=== PATIENT | female | born 1980 | race Caucasian/White ===

== ENCOUNTER 2016-12-18 10:23 | Emergency (ER) | payer OTHER ==
[2016-12-18 10:42] VITALS: BMI 28.3
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
[2016-12-18 11:06] LABS: MCH 31.6 pg (25.7-33.7); MCHC 33.1 g/dl (32.0-36.0); MEAN CELL VOLUME 95.3 fl (80-96); MEAN PLT VOLUME 8.8 fl (7.5-11.1); PLATELET COUNT 236 K/MM3 (134-434); WHITE BLOOD COUNT 5.6 K/mm3 (4.0-10.0)
[2016-12-18 11:23] LABS: ALBUMIN 3.7 g/dl (3.4-5.0); ALK PHOS 68 U/L (45-117); ANION GAP 7 (8-16); BILIRUBIN,TOTAL 0.8 mg/dL (0.2-1.0); CALCIUM 9.7 mg/dL (8.5-10.1); CO2 25 mmol/L (21-32); CREATININE 0.7 mg/dL (0.55-1.02); GLUCOSE,RANDOM 94 mg/dL (74-106); SGOT/AST 55 U/L (15-37); SGPT/ALT 50 U/L (12-78); TOT PROT 7.3 g/dl (6.4-8.2)
[2016-12-18 12:19] LABS: HIV 1 & 2 AB NEGATIVE; HIV 1 AGp24 NEGATIVE
[2016-12-18 12:25] LABS: PLATELET ESTIMATE ADEQUATE (NORMAL); REACTIVE LYMPHOCYTES 1 % (0-80); TOTAL CELLS COUNTED 100
--- NOTE | 2016-12-18 12:50 | PDOC ---
Attending Attestation - Resident Resident Name: Brigette Torres - ED Attending Attestation I have performed the following: I have examined & evaluated the patient, The case was reviewed & discussed with the resident, I agree w/resident's findings & plan, Exceptions are as noted - HPI HPI: 12/18/16 12:42 36yo F hx untreated HCV, HTN, PSA (cocaine, marijuana) p/w chronic back pain for which she sees Dr. Garvey and also requesting detox. Last heroine + cocaine use 2 days ago. Has been buying percocet from the street. Reports nausea and 1 episode NBNB emesis and chills. Pt feels like she is withdrawing. On review of I -stop, pt also has filled prescriptions for xanax. Denies fevers, headache, abd pain, SOB, CP, LE edema, dysuria, rashes. Does not believe she is . - Physicial Exam PE: 12/18/16 12:50 GENERAL: Awake, alert, and fully oriented, in no acute distress HEAD: No signs of trauma EYES: PERRLA, EOMI, sclera anicteric, conjunctiva clear ENT: Auricles normal inspection, hearing grossly normal, nares patent, oropharynx clear without exudates. Moist mucosa NECK: Normal ROM, supple, no lymphadenopathy, JVD, or masses LUNGS: Breath sounds equal, clear to auscultation bilaterally. No wheezes, and no crackles HEART: Regular rate and rhythm, normal S1 and S2, no murmurs, rubs or gallops ABDOMEN: mild diffuse discomfort to deep palpation, when distracted, no ttp. On serial exam 10 mins later, soft, non distended, no ttp, no rebound or guarding. EXTREMITIES: Normal range of motion, no edema. No clubbing or cyanosis. No cords, erythema, or tenderness NEUROLOGICAL: Normal speech, cranial nerves intact, negative pronator drift, 5/ 5 strength in all 4 extremities, normal sensation to light touch in all 4 extremities, normal cerebellar exam, normal gait, normal reflexes and tone SKIN: Warm, Dry, normal turgor, no rashes or lesions noted. - Medical Decision Making 12/18/16 12:52 36-year-old female with a history of polysubstance abuse and chronic back pain presents requesting detox. [facility] has been called and has accepted patient. Pt currently with some sxs of withdrawal but no other acute medical issues to address. Exam unremarkable. Vitals wnl. -basic labs -Utox -UPT -transfer to [facility]
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
[2016-12-18 13:22] LABS: URINE MARIJUANA THC POSITIVE ng/ml (CUTOFF=50)
[2016-12-18 14:03] VITALS: BP 120/77; PULSE 88; TEMP 98.6
== END 2016-12-18 14:00 | disposition home or self-care (01) ==
LOC: JER 10:23
DX: F11.20 Opioid dependence, uncomplicated (principal); F41.0 Panic disorder [episodic paroxysmal anxiety]; F12.10 Cannabis abuse, uncomplicated; B18.2 Chronic viral hepatitis C; I10 Essential (primary) hypertension; J45.909 Unspecified asthma, uncomplicated; F17.210 Nicotine dependence, cigarettes, uncomplicated
CPT/HCPCS: 36415; 80053; 80307; 84703; 85025; 87389; 99284-25

== ENCOUNTER 2017-01-13 15:25 | Inpatient (IN) | payer OTHER ==
[2017-01-13 19:00] VITALS: BMI 28.3
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
[2017-01-13] MEDS ORDERED: ACETAMINOPHEN 325 MG TABLET (FP) PO PRN (20:47)
[2017-01-13] MEDS ORDERED: NICOTINE POLACRILEX 2 MG GUM BC PRN (20:47)
[2017-01-13] MEDS ORDERED: MAG HYDROX/AL HYDROX/SIMETH 30 ML UNIT-DOSE CUP PO PRN (20:47)
[2017-01-13] MEDS ORDERED: MAGNESIUM HYDROX 2400MG/30ML ORAL SUSPENSION 30 ML CUP PO PRN (20:47)
[2017-01-13] MEDS ORDERED: MAGNESIUM CITRATE 300 ML BOTTLE PO PRN (20:47)
[2017-01-13] MEDS ORDERED: LOPERAMIDE HCL 2 MG CAPSULE PO PRN (20:47)
[2017-01-13] MEDS ORDERED: METHADONE HCL 10 MG TABLET (FOR DETOX USE ONLY) PO ONE ×3 (20:47→23:45)
[2017-01-13] MEDS ORDERED: guaiFENesin/D-METHORPHAN HB 10 ML UNIT-DOSE CUPS PO PRN (20:47)
[2017-01-13] MEDS ORDERED: hydrOXYzine PAMOATE 50 MG CAPSULE (FP) PO PRN (20:47)
[2017-01-13] MEDS ORDERED: MENTHOL/PHENOL 1 EACH UD MM PRN (20:47)
[2017-01-13] MEDS ORDERED: P-EPHED 60MG/TRIPROLIDI 2.5MG TABLET PO PRN (20:47)
[2017-01-13] MEDS ORDERED: IBUPROFEN 400 MG TABLET (FP) PO PRN (20:47)
[2017-01-13] MEDS ORDERED: ALBUTEROL SO4 18 GM HFA INHALER IH PRN (20:50)
[2017-01-13] MEDS ORDERED: cloNIDine HCL 0.1 MG TABLET PO ONE ×2 (21:03→23:45)
[2017-01-13 23:06] LABS: URINE APPEARANCE CLOUDY; URINE BLOOD NEGATIVE (NEGATIVE); URINE COLOR AMBER; URINE GLUCOSE (UA) NEGATIVE (NEGATIVE); URINE KETONE TRACE (NEGATIVE); URINE NITRITE NEGATIVE (NEGATIVE)
[2017-01-13 23:09] LABS: URINE PROTEIN 1+ (NEGATIVE)
[2017-01-13 23:11] LABS: URINE HYALINE CAST 2 /lpf; URINE MUCUS MANY; URINE RBC 1 /hpf (0-3); URINE WBC 8 /hpf (3-5)
[2017-01-13] MEDS: THIAMINE HCL 100 MG TABLET (FP) PO SCH (23:52)
[2017-01-13] MEDS: diazePAM 5 MG TABLET PO PRN (23:54)
[2017-01-14 09:26] LABS: URINE LEUK ESTERASE Negative (NEGATIVE)
[2017-01-14] MEDS ORDERED: METHADONE HCL 10 MG TABLET (FOR DETOX USE ONLY) PO ONE ×2 (10:00→11:15)
[2017-01-14] MEDS ORDERED: DOXYCYCLINE HYCLATE 100 MG CAPSULE PO SCH (10:00)
[2017-01-14 10:17] LABS: MCH 31.4 pg (25.7-33.7); MCHC 32.8 g/dl (32.0-36.0); MEAN CELL VOLUME 95.7 fl (80-96); MEAN PLT VOLUME 9.6 fl (7.5-11.1); PLATELET COUNT 184 K/MM3 (134-434); RDW 12.9 % (11.6-15.6); WHITE BLOOD COUNT 7.8 K/mm3 (4.0-10.0)
[2017-01-14 10:28] LABS: ANION GAP 6 (8-16); CO2 29 mmol/L (21-32); GLUCOSE,RANDOM 90 mg/dL (74-106)
[2017-01-14 10:33] LABS: ALK PHOS 72 U/L (45-117); BILIRUBIN,TOTAL 0.3 mg/dL (0.2-1.0); CREATININE 0.6 mg/dL (0.55-1.02); SGOT/AST 201 U/L (15-37); SGPT/ALT 190 U/L (12-78); TOT PROT 6.1 g/dl (6.4-8.2)
[2017-01-14] MEDS: PRENATAL VITAMINS W/ FOLIC ACID TABLET (FP) PO SCH (10:44)
[2017-01-14] MEDS: NICOTINE 14 MG/24 HOURS TOPICAL PATCH TD SCH (10:45)
[2017-01-14] MEDS: SERTRALINE HCL 50 MG TABLET (FP) PO SCH (10:46)
--- NOTE | 2017-01-14 10:53 | CONSULT ---
[facility] Psychiatric Consult - Data Date of interview: 01/14/17 Admission source: [facility] Identifying data: This is 36 years old female with history of PTSD, anxiety and depression, withy no history of psychiatric hospita;izations, intoxicatewd with Heroin, Cocaine Nicotine, history of Alcohol abuse as well Substance Abuse History: - Smoking Cessation. Smoking history: Current every day smoker. Have you smoked in the past 12 months: Yes. Aproximately how many cigarettes per day: 10. Cigars Per Day: 0. Hx Chewing Tobacco Use: No. Initiated information on smoking cessation: Yes. 'Breaking Loose' booklet given : 01/13/17. - Substance & Tx. History. Hx Alcohol Use: No. Hx Substance Use: Yes. Substance Use Type: Cocaine, Heroin. Hx Substance Use Treatment: Yes ( DETOX: 2014; REHAB: 2015). - Substances Abused. Heroin. Route: Injection. Frequency: Daily. Amount used: 4-5 BAGS. Age of first use: 34. Date of Last Use: 01/13/17. Cocaine. Route: Injection. Frequency: Daily. Amount used: $20-40. Age of first use: 17. Date of Last Use: 01/13/17 Medical History: Ceelulitis history, HepC+, Seizure history Psychiatric History: P[atient reports history of PTSD, Anxiety and Depression. Patient reports taking prior to admission: Zoloft 100mg poqd Physical/Sexual Abuse/Trauma History: Denies, unclear Additional Comment: Zoloft 100mg poqd Mental Status Exam - Mental Status Exam Alert and Oriented to: Person Cognitive Function: Fair Patient Appearance: Unkempt Mood: Sad Affect: Flat Patient Behavior: Cooperative Speech Pattern: Delayed Voice Loudness: Normal Thought Process: Goal Oriented Thought Disorder: Being Controlled Hallucinations: Denies Suicidal Ideation: Denies Homicidal Ideation: Denies Insight/Judgement: Fair Sleep: Difficulty falling asleep Appetite: Weight loss Muscle strength/Tone: Mild Hypertonicity Gait/Station: Shuffling Additional Comments: Zoloft 100mg poqd Psychiatric Findings - Problem List ([place] 1, 2,3) (1) Cellulitis of antecubital fossa Current Visit: Yes Status: Acute (2) Nicotine dependence Current Visit: Yes Status: Chronic Qualifiers: Nicotine product type: cigarettes Substance use status: uncomplicated Qualified Code(s): F17.210 - Nicotine dependence, cigarettes, uncomplicated; F17.210 - Nicotine dependence, cigarettes, uncomplicated (3) Opioid dependence with withdrawal Current Visit: Yes Status: Chronic (4) Elevated liver enzymes Current Visit: No Status: Acute (5) Methadone dependence Current Visit: No Status: Acute (6) Alcohol dependence Current Visit: No Status: Chronic Qualifiers: Substance use status: uncomplicated Qualified Code(s): F10.20 - Alcohol dependence, uncomplicated; F10.20 - Alcohol dependence, uncomplicated; F10.20 - Alcohol dependence, uncomplicated (7) Anxiety and depression Current Visit: No Status: Chronic (8) PTSD (post-traumatic stress disorder) Current Visit: No Status: Chronic (9) Drug-induced mood disorder Current Visit: Yes Status: Acute - Initial Treatment Plan Initial Treatment Plan: Zoloft 100mg poqd
--- NOTE | 2017-01-14 10:57 | PN ---
BHS COWS - Scale Resting Pulse: 0= [place] 80 or Below Sweatin= Chills/Flushing Restless Observation: 3= Extraneous Movement Pupil Size: 1= Pupils >than Normal Bone or Joint Aches: 2= Severe Diffuse Aches Runny Nose/ Eye Tearin= Runny Nose/Eyes GI Upset > 30mins: 3= Vomiting/Diarrhea Tremor Observation of Outstretched Hands: 2= Slight Tremor Visible Yawning Observation: 1= 1-2x During Session Anxiety or Irritability: 2=Irritable/Anxious Goose Flesh Skin: 0=Smooth Skin COWS Score: 17 BHS Progress Note (SOAP) Subjective: alert,irritable,anxious,interrupted sleep,pain in the body and back Objective: 01/14/17 11:00 Vital Signs Temperature 98.1 F 01/14/17 06:23 Pulse Rate 62 01/14/17 06:23 Respiratory Rate 18 01/14/17 06:23 Blood Pressure 94/50 01/14/17 06:23 O2 Sat by Pulse Oximetry (%) ekg nsr,normal ecg Laboratory Last Values WBC 7.8 K/mm3 (4.0-10.0) D 01/14/17 07:00 RBC 3.70 M/mm3 (3.60-5.2) 01/14/17 07:00 Hgb 11.6 GM/dL (10.7-15.3) 01/14/17 07:00 Hct 35.4 % (32.4-45.2) 01/14/17 07:00 MCV 95.7 fl (80-96) 01/14/17 07:00 MCH 31.4 pg (25.7-33.7) 01/14/17 07:00 MCHC 32.8 g/dl (32.0-36.0) 01/14/17 07:00 RDW 12.9 % (11.6-15.6) 01/14/17 07:00 Plt Count 184 K/MM3 (134-434) D 01/14/17 07:00 MPV 9.6 fl (7.5-11.1) 01/14/17 07:00 Urine Color Yesenia 01/13/17 22:00 Urine Appearance Cloudy 01/13/17 22:00 Urine pH 5.0 (5.0-8.0) 01/13/17 22:00 Ur Specific [place] >= 1.030 (1.005-1.025) H 01/13/17 22:00 Urine Protein 1+ (NEGATIVE) H 01/13/17 22:00 Urine Glucose (UA) Negative (NEGATIVE) 01/13/17 22:00 Urine Ketones Trace (NEGATIVE) H 01/13/17 22:00 Urine Blood Negative (NEGATIVE) 01/13/17 22:00 Urine Nitrite Negative (NEGATIVE) 01/13/17 22:00 Urine Bilirubin 2.0 (NEGATIVE) 01/13/17 22:00 Urine Urobilinogen 2.0 mg/dL (0.2-1.0) H 01/13/17 22:00 Ur Leukocyte Esterase Negative (NEGATIVE) 01/13/17 22:00 Urine RBC 1 /hpf (0-3) 01/13/17 22:00 Urine WBC 8 /hpf (3-5) 01/13/17 22:00 Ur Epithelial Cells Moderate /hpf (FEW) 01/13/17 22:00 Hyaline Casts 2 /lpf 01/13/17 22:00 Urine Mucus Many 01/13/17 22:00 RPR Titer Nonreactive (NONREACTIVE) 01/14/17 07:00 01/14/17 11:01 labs pending Assessment: 01/14/17 11:01 withdrawal symptom Plan: continue detox
--- NOTE | 2017-01-14 11:58 | EKG ---
Test Reason : Blood Pressure : / mmHG Vent. Rate : 070 BPM Atrial Rate : 070 BPM P-R Int : 160 ms QRS Dur : 096 ms QT Int : 392 ms P-R-T Axes : 065 081 069 degrees QTc Int : 423 ms NORMAL SINUS RHYTHM NORMAL ECG WHEN COMPARED WITH ECG OF 14-APR-2010 01:14, NONSPECIFIC T WAVE ABNORMALITY NO LONGER EVIDENT IN INFERIOR LEADS NONSPECIFIC T WAVE ABNORMALITY NO LONGER EVIDENT IN LATERAL LEADS Confirmed by MIHIR LAZO, BINDU ([id number]) on 01/14/2017 11:57:49 AM Referred By: Confirmed By:BINDU ASH MD
[2017-01-14] MEDS: DOXYCYCLINE HYCLATE 100 MG TABLET PO SCH (17:21)
[2017-01-14] MEDS: diazePAM 5 MG TABLET PO PRN (22:11)
[2017-01-14] MEDS: THIAMINE HCL 100 MG TABLET (FP) PO SCH (22:12)
--- NOTE | 2017-01-15 09:36 | PN ---
BHS COWS - Scale Resting Pulse: 0= [place] 80 or Below Sweatin= Chills/Flushing Restless Observation: 3= Extraneous Movement Pupil Size: 1= Pupils >than Normal Bone or Joint Aches: 2= Severe Diffuse Aches Runny Nose/ Eye Tearin= Nasal Congestion GI Upset > 30mins: 2= Nausea/Diarrhea Tremor Observation of Outstretched Hands: 2= Slight Tremor Visible Yawning Observation: 1= 1-2x During Session Anxiety or Irritability: 2=Irritable/Anxious Goose Flesh Skin: 0=Smooth Skin COWS Score: 15 BHS Progress Note (SOAP) Subjective: alert,irritable,anxious,interrupted sleep,pain in the body and back Objective: 01/15/17 09:33 Vital Signs Temperature 98.4 F 01/15/17 06:28 Pulse Rate 52 L 01/15/17 06:28 Respiratory Rate 16 01/15/17 06:28 Blood Pressure 115/69 01/15/17 06:28 O2 Sat by Pulse Oximetry (%) Laboratory Last Values WBC 7.8 K/mm3 (4.0-10.0) D 01/14/17 07:00 RBC 3.70 M/mm3 (3.60-5.2) 01/14/17 07:00 Hgb 11.6 GM/dL (10.7-15.3) 01/14/17 07:00 Hct 35.4 % (32.4-45.2) 01/14/17 07:00 MCV 95.7 fl (80-96) 01/14/17 07:00 MCH 31.4 pg (25.7-33.7) 01/14/17 07:00 MCHC 32.8 g/dl (32.0-36.0) 01/14/17 07:00 RDW 12.9 % (11.6-15.6) 01/14/17 07:00 Plt Count 184 K/MM3 (134-434) D 01/14/17 07:00 MPV 9.6 fl (7.5-11.1) 01/14/17 07:00 Sodium 140 mmol/L (136-145) 01/14/17 07:00 Potassium 3.3 mmol/L (3.5-5.1) L 01/14/17 07:00 Chloride 105 mmol/L (98-107) 01/14/17 07:00 Carbon Dioxide 29 mmol/L (21-32) 01/14/17 07:00 Anion Gap 6 (8-16) L 01/14/17 07:00 BUN 7 mg/dL (7-18) 01/14/17 07:00 Creatinine 0.6 mg/dL (0.55-1.02) 01/14/17 07:00 Creat Clearance w eGFR > 60 (>60) 01/14/17 07:00 Random Glucose 90 mg/dL (74-106) 01/14/17 07:00 Calcium 8.0 mg/dL (8.5-10.1) L 01/14/17 07:00 Total Bilirubin 0.3 mg/dL (0.2-1.0) D 01/14/17 07:00 AST 201 U/L (15-37) H D 01/14/17 07:00 ALT 190 U/L (12-78) H D 01/14/17 07:00 Alkaline Phosphatase 72 U/L (45-117) 01/14/17 07:00 Total Protein 6.1 g/dl (6.4-8.2) L 01/14/17 07:00 Albumin 3.0 g/dl (3.4-5.0) L 01/14/17 07:00 Urine Color [place]enia 01/13/17 22:00 Urine Appearance Cloudy 01/13/17 22:00 Urine pH 5.0 (5.0-8.0) 01/13/17 22:00 Ur Specific [place] >= 1.030 (1.005-1.025) H 01/13/17 22:00 Urine Protein 1+ (NEGATIVE) H 01/13/17 22:00 Urine Glucose (UA) Negative (NEGATIVE) 01/13/17 22:00 Urine Ketones Trace (NEGATIVE) H 01/13/17 22:00 Urine Blood Negative (NEGATIVE) 01/13/17 22:00 Urine Nitrite Negative (NEGATIVE) 01/13/17 22:00 Urine Bilirubin 2.0 (NEGATIVE) 01/13/17 22:00 Urine Urobilinogen 2.0 mg/dL (0.2-1.0) H 01/13/17 22:00 Ur Leukocyte Esterase Negative (NEGATIVE) 01/13/17 22:00 Urine RBC 1 /hpf (0-3) 01/13/17 22:00 Urine WBC 8 /hpf (3-5) 01/13/17 22:00 Ur Epithelial Cells Moderate /hpf (FEW) 01/13/17 22:00 Hyaline Casts 2 /lpf 01/13/17 22:00 Urine Mucus Many 01/13/17 22:00 RPR Titer Nonreactive (NONREACTIVE) 01/14/17 07:00 Assessment: 01/15/17 09:34 withdrawal symptom Plan: continue detox,d/c tylenol due to alt,ast elevation,repeat alt,ast,inr in am
[2017-01-15] MEDS ORDERED: METHADONE HCL 5 MG TABLET (FOR DETOX USE ONLY) PO ONE (10:00)
--- NOTE | 2017-01-15 10:03 | PN ---
BHS Progress Note Note: is 3.3 ,hypo\kalemia,k dur 20 meq po daily,repeat k in am
[2017-01-15] MEDS: SERTRALINE HCL 50 MG TABLET (FP) PO SCH (10:26)
[2017-01-15] MEDS: DOXYCYCLINE HYCLATE 100 MG TABLET PO SCH ×2 (10:26→17:30)
[2017-01-15] MEDS: PRENATAL VITAMINS W/ FOLIC ACID TABLET (FP) PO SCH (10:27)
[2017-01-15] MEDS: NICOTINE 14 MG/24 HOURS TOPICAL PATCH TD SCH (10:27)
[2017-01-15] MEDS: POTASSIUM CHLORIDE TABS 20 MEQ TABLET.ER (FP) PO SCH (10:29)
[2017-01-15] MEDS: diazePAM 5 MG TABLET PO PRN (22:06)
[2017-01-15] MEDS: THIAMINE HCL 100 MG TABLET (FP) PO SCH (22:06)
--- NOTE | 2017-01-16 09:26 | PN ---
BHS COWS - Scale Resting Pulse: 0= [place] 80 or Below Sweatin= Chills/Flushing Restless Observation: 3= Extraneous Movement Pupil Size: 1= Pupils >than Normal Bone or Joint Aches: 2= Severe Diffuse Aches Runny Nose/ Eye Tearin= Runny Nose/Eyes GI Upset > 30mins: 2= Nausea/Diarrhea Tremor Observation of Outstretched Hands: 2= Slight Tremor Visible Yawning Observation: 1= 1-2x During Session Anxiety or Irritability: 2=Irritable/Anxious Goose Flesh Skin: 0=Smooth Skin COWS Score: 16 BHS Progress Note (SOAP) Subjective: alert,irritable,anxious,interrupted sleep,tremor,pain in the body and back Objective: 01/16/17 09:25 Vital Signs Temperature 97.1 F L 01/16/17 06:28 Pulse Rate 55 L 01/16/17 06:28 Respiratory Rate 16 01/16/17 06:28 Blood Pressure 124/78 01/16/17 06:28 O2 Sat by Pulse Oximetry (%) repeat ast,alt,inr pending Assessment: 01/16/17 09:25 withdrawal symptom Plan: continue detox
[2017-01-16] MEDS ORDERED: METHADONE HCL 5 MG TABLET (FOR DETOX USE ONLY) PO ONE (10:00)
[2017-01-16] MEDS: DOXYCYCLINE HYCLATE 100 MG TABLET PO SCH ×2 (10:19→17:14)
[2017-01-16] MEDS: SERTRALINE HCL 50 MG TABLET (FP) PO SCH (10:19)
[2017-01-16] MEDS: POTASSIUM CHLORIDE TABS 20 MEQ TABLET.ER (FP) PO SCH (10:19)
[2017-01-16] MEDS: PRENATAL VITAMINS W/ FOLIC ACID TABLET (FP) PO SCH (10:19)
[2017-01-16] MEDS: NICOTINE 14 MG/24 HOURS TOPICAL PATCH TD SCH (10:20)
[2017-01-16 10:24] LABS: INR 1.02 (0.82-1.09); PROTHROMBIN TIME (PATIENT) 11.5 SEC (9.98-11.88)
[2017-01-16] MEDS: THIAMINE HCL 100 MG TABLET (FP) PO SCH (22:18)
[2017-01-16] MEDS: diphenhydrAMINE HCL 50 MG CAPSULE PO PRN (22:18)
[2017-01-17] MEDS ORDERED: METHADONE HCL 10 MG TABLET (FOR DETOX USE ONLY) PO ONE (10:00)
[2017-01-17] MEDS: DOXYCYCLINE HYCLATE 100 MG TABLET PO SCH ×2 (10:40→17:21)
[2017-01-17] MEDS: SERTRALINE HCL 50 MG TABLET (FP) PO SCH (10:40)
[2017-01-17] MEDS: POTASSIUM CHLORIDE TABS 20 MEQ TABLET.ER (FP) PO SCH (10:40)
[2017-01-17] MEDS: PRENATAL VITAMINS W/ FOLIC ACID TABLET (FP) PO SCH (10:42)
[2017-01-17] MEDS: NICOTINE 14 MG/24 HOURS TOPICAL PATCH TD SCH (10:42)
--- NOTE | 2017-01-17 11:38 | PN ---
BHS Progress Note (SOAP) Subjective: poor sleep, anxious, shaky Objective: 01/17/17 11:37 Laboratory Tests 01/13/17 01/14/17 01/14/17 22:00 07:00 07:00 WBC 7.8 D RBC 3.70 Hgb 11.6 Hct 35.4 MCV 95.7 MCH 31.4 MCHC 32.8 RDW 12.9 Plt Count 184 D MPV 9.6 PT with INR INR Sodium 140 Potassium 3.3 L Chloride 105 Carbon Dioxide 29 Anion Gap 6 L BUN 7 Creatinine 0.6 Creat Clearance w eGFR > 60 Random Glucose 90 Calcium 8.0 L Total Bilirubin 0.3 D AST 201 H D ALT 190 H D Alkaline Phosphatase 72 Total Protein 6.1 L Albumin 3.0 L Urine Color Yesenia Urine Appearance Cloudy Urine pH 5.0 Ur Specific [place] >= 1.030 H Urine Protein 1+ H Urine Glucose (UA) Negative Urine Ketones Trace H Urine Blood Negative Urine Nitrite Negative Urine Bilirubin 2.0 Urine Urobilinogen 2.0 H Ur Leukocyte Esterase Negative Urine RBC 1 Urine WBC 8 Ur Epithelial Cells Moderate Hyaline Casts 2 Urine Mucus Many RPR Titer 01/14/17 01/16/17 01/16/17 07:00 07:00 07:00 WBC RBC Hgb Hct MCV MCH MCHC RDW Plt Count MPV PT with INR 11.50 INR 1.02 Sodium Potassium 4.6 D Chloride Carbon Dioxide Anion Gap BUN Creatinine Creat Clearance w eGFR Random Glucose Calcium Total Bilirubin AST 223 H ALT 225 H Alkaline Phosphatase Total Protein Albumin Urine Color Urine Appearance Urine pH Ur Specific [place] Urine Protein Urine Glucose (UA) Urine Ketones Urine Blood Urine Nitrite Urine Bilirubin Urine Urobilinogen Ur Leukocyte Esterase Urine RBC Urine WBC Ur Epithelial Cells Hyaline Casts Urine Mucus RPR Titer Nonreactive Vital Signs - 24 hr 01/16/17 01/16/17 01/16/17 14:05 18:05 23:46 Temperature 98.1 F 98.1 F 98.2 F Pulse Rate 52 L 52 L 55 L Respiratory 18 18 18 Rate Blood Pressure 118/68 106/65 120/64 01/17/17 01/17/17 01/17/17 00:30 03:30 06:30 Temperature 97.3 F L Pulse Rate 50 L Respiratory 18 17 16 Rate Blood Pressure 119/69 01/17/17 11:05 Temperature 97.5 F L Pulse Rate 54 L Respiratory 18 Rate Blood Pressure 107/89 Assessment: 01/17/17 11:37 opiate dep transaminitis Plan: cont protocol discussed need for fu due to increased lft's with known hcv
[2017-01-17] MEDS: THIAMINE HCL 100 MG TABLET (FP) PO SCH (22:22)
[2017-01-17] MEDS: diphenhydrAMINE HCL 50 MG CAPSULE PO PRN (22:22)
[2017-01-18] MEDS ORDERED: METHADONE HCL 5 MG TABLET (FOR DETOX USE ONLY) PO ONE (06:00)
[2017-01-18 06:47] VITALS: TEMP 98.2
[2017-01-18 07:25] VITALS: BP 80/60; PULSE 53
--- NOTE | 2017-01-18 09:13 | DS ---
[facility] Detox Discharge Summary Admission Date: 01/13/17 Discharge Date: 01/18/17 - History Present History: Opioid Dependence Pertinent Past History: Asthma Hep C - Physical Exam Results Vital Signs: Vital Signs Temperature 98.2 F 01/18/17 06:00 Pulse Rate 53 L 01/18/17 07:23 Respiratory Rate 16 01/18/17 07:23 Blood Pressure 80/60 01/18/17 07:23 O2 Sat by Pulse Oximetry (%) Pertinent Admission Physical Exam Findings: Withdrawal sx Laboratory Tests 01/13/17 01/14/17 01/14/17 22:00 07:00 07:00 WBC 7.8 D RBC 3.70 Hgb 11.6 Hct 35.4 MCV 95.7 MCH 31.4 MCHC 32.8 RDW 12.9 Plt Count 184 D MPV 9.6 PT with INR INR Sodium 140 Potassium 3.3 L Chloride 105 Carbon Dioxide 29 Anion Gap 6 L BUN 7 Creatinine 0.6 Creat Clearance w eGFR > 60 Random Glucose 90 Calcium 8.0 L Total Bilirubin 0.3 D AST 201 H D ALT 190 H D Alkaline Phosphatase 72 Total Protein 6.1 L Albumin 3.0 L Urine Color [place] Urine Appearance Cloudy Urine pH 5.0 Ur Specific [place] >= 1.030 H Urine Protein 1+ H Urine Glucose (UA) Negative Urine Ketones Trace H Urine Blood Negative Urine Nitrite Negative Urine Bilirubin 2.0 Urine Urobilinogen 2.0 H Ur Leukocyte Esterase Negative Urine RBC 1 Urine WBC 8 Ur Epithelial Cells Moderate Hyaline Casts 2 Urine Mucus Many RPR Titer 01/14/17 01/16/17 01/16/17 07:00 07:00 07:00 WBC RBC Hgb Hct MCV MCH MCHC RDW Plt Count MPV PT with INR 11.50 INR 1.02 Sodium Potassium 4.6 D Chloride Carbon Dioxide Anion Gap BUN Creatinine Creat Clearance w eGFR Random Glucose Calcium Total Bilirubin AST 223 H ALT 225 H Alkaline Phosphatase Total Protein Albumin Urine Color Urine Appearance Urine pH Ur Specific [place] Urine Protein Urine Glucose (UA) Urine Ketones Urine Blood Urine Nitrite Urine Bilirubin Urine Urobilinogen Ur Leukocyte Esterase Urine RBC Urine WBC Ur Epithelial Cells Hyaline Casts Urine Mucus RPR Titer Nonreactive labs noted - Treatment Hospital Course: Detox Protocol Followed, Detoxed Safely, Responded well, Discharged Condition Good, Rehab Referral Accepted Patient has Accepted a Rehab Referral to: IOP - Medication Discharge Medications: Ambulatory Orders Oxycodone HCl/Acetaminophen [Percocet 10-325 mg Tablet] 1 each PO Q6H 12/18/16 Sertraline HCl [Zoloft -] 100 mg PO DAILY #30 tablet 01/14/17 - Diagnosis (1) Asthma Current Visit: Yes Status: Chronic Qualifiers: Asthma severity: mild intermittent Asthma complication type: with status asthmaticus Qualified Code(s): J45.22 - Mild intermittent asthma with status asthmaticus; J45.22 - Mild intermittent asthma with status asthmaticus; J45.22 - Mild intermittent asthma with status asthmaticus (2) Hepatitis C Current Visit: Yes Status: Chronic Qualifiers: Viral hepatitis chronicity: carrier (3) Nicotine dependence Current Visit: Yes Status: Chronic Qualifiers: Nicotine product type: cigarettes Substance use status: uncomplicated Qualified Code(s): F17.210 - Nicotine dependence, cigarettes, uncomplicated; F17.210 - Nicotine dependence, cigarettes, uncomplicated (4) Opioid dependence with withdrawal Current Visit: Yes Status: Chronic (5) PTSD (post-traumatic stress disorder) Current Visit: Yes Status: Chronic (6) Cellulitis of antecubital fossa Current Visit: Yes Status: Acute (7) Drug-induced mood disorder Current Visit: Yes Status: Acute - AMA Did Patient Leave Against Medical Advice: No
== END 2017-01-18 09:25 | disposition home or self-care (01) | DRG 773 ==
LOC: YASAS 15:25 → Y6N 21:13
PROVIDERS: ADMIT Internal Medicine; ATTEND Internal Medicine
PROC: HZ2ZZZZ Detoxification Services for Substance Abuse Treatment (ICD-10-PCS; principal; 2017-01-13)
DX: F11.23 Opioid dependence with withdrawal (principal); F14.20 Cocaine dependence, uncomplicated; F17.210 Nicotine dependence, cigarettes, uncomplicated; F19.24 Other psychoactive substance dependence with psychoactive substance-induced mood disorder; F43.10 Post-traumatic stress disorder, unspecified; F41.8 Other specified anxiety disorders; J45.22 Mild intermittent asthma with status asthmaticus; E87.6 Hypokalemia; B18.2 Chronic viral hepatitis C; L03.119 Cellulitis of unspecified part of limb; R74.0 Nonspecific elevation of levels of transaminase and lactic acid dehydrogenase [LDH]; R74.8 Abnormal levels of other serum enzymes; G40.909 Epilepsy, unspecified, not intractable, without status epilepticus; Z88.2 Allergy status to sulfonamides
CPT/HCPCS: 36415; 80053; 81003; 81015; 84132; 84450; 84460; 85027; 85610; 86593; 93005; 93010

== ENCOUNTER 2017-01-22 11:51 | Emergency (ER) | payer OTHER ==
[2017-01-22 12:03] VITALS: BP 126/80; PULSE 72; TEMP 98.2; BMI 28.3
== END 2017-01-22 13:29 | disposition left against medical advice (07) ==
LOC: JERFT 11:51
DX: Z53.21 Procedure and treatment not carried out due to patient leaving prior to being seen by health care provider (principal)
CPT/HCPCS: 99281-25

== ENCOUNTER 2017-07-10 09:49 | Inpatient (IN) | payer OTHER ==
[2017-07-10 15:52] VITALS: BMI 26.4
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
[2017-07-10] MEDS ORDERED: ACETAMINOPHEN 325 MG TABLET (FP) PO PRN (16:48)
[2017-07-10] MEDS ORDERED: MENTHOL/PHENOL 1 EACH UD MM PRN (16:48)
[2017-07-10] MEDS ORDERED: NICOTINE POLACRILEX 2 MG GUM BC PRN (16:48)
[2017-07-10] MEDS ORDERED: IBUPROFEN 400 MG TABLET (FP) PO PRN (16:48)
[2017-07-10] MEDS ORDERED: P-EPHED 60MG/TRIPROLIDI 2.5MG TABLET PO PRN (16:48)
[2017-07-10] MEDS ORDERED: MAGNESIUM CITRATE 300 ML BOTTLE PO PRN (16:48)
[2017-07-10] MEDS ORDERED: MAG HYDROX/AL HYDROX/SIMETH 30 ML UNIT-DOSE CUP PO PRN (16:48)
[2017-07-10] MEDS ORDERED: hydrOXYzine PAMOATE 50 MG CAPSULE (FP) PO PRN (16:48)
[2017-07-10] MEDS ORDERED: LOPERAMIDE HCL 2 MG CAPSULE PO PRN (16:48)
[2017-07-10] MEDS ORDERED: guaiFENesin/D-METHORPHAN HB 10 ML UNIT-DOSE CUPS PO PRN (16:48)
[2017-07-10] MEDS ORDERED: MAGNESIUM HYDROX 2400MG/30ML ORAL SUSPENSION 30 ML CUP PO PRN (16:48)
[2017-07-10] MEDS ORDERED: ALBUTEROL SO4 18 GM HFA INHALER IH PRN (17:18)
[2017-07-10] MEDS ORDERED: CEPHALEXIN MONOHYDRATE 500 MG CAPSULE (UD) PO SCH (18:00)
[2017-07-10] MEDS ORDERED: METHADONE HCL 10 MG TABLET (FOR DETOX USE ONLY) PO ONE ×2 (18:00→23:00)
[2017-07-10] MEDS: diazePAM 5 MG TABLET PO PRN (20:01)
[2017-07-10 21:06] LABS: URINE APPEARANCE SL CLOUDY; URINE COLOR AMBER
[2017-07-10 21:07] LABS: URINE BILIRUBIN NEGATIVE (<2.0 mg/dL); URINE GLUCOSE (UA) NEGATIVE (NEGATIVE); URINE KETONE TRACE (NEGATIVE)
[2017-07-10 21:08] LABS: URINE BLOOD NEGATIVE (NEGATIVE); URINE LEUK ESTERASE TRACE (NEGATIVE); URINE NITRITE NEGATIVE (NEGATIVE); URINE PROTEIN 2+ (NEGATIVE)
[2017-07-10 21:09] LABS: EPI CELLS RARE /HPF (FEW); URINE MUCUS MANY
[2017-07-10 21:10] LABS: CALCIUM OXALATE CRYSTALS RARE /hpf (NONE SEEN)
[2017-07-10] MEDS ORDERED: MELATONIN 5 MG TABLETS PO PRN (22:00)
[2017-07-10] MEDS: THIAMINE HCL 100 MG TABLET (FP) PO SCH (22:34)
[2017-07-10] MEDS: CEPHALEXIN MONOHYDRATE 250 MG CAPSULE (FP) PO SCH (23:05)
[2017-07-11] MEDS: CEPHALEXIN MONOHYDRATE 250 MG CAPSULE (FP) PO SCH ×3 (06:33→18:05)
[2017-07-11] MEDS ORDERED: METHADONE HCL 10 MG TABLET (FOR DETOX USE ONLY) PO ONE (10:00)
[2017-07-11] MEDS: NICOTINE 14 MG/24 HOURS TOPICAL PATCH TD SCH (10:10)
[2017-07-11] MEDS: PRENATAL VITAMINS W/ FOLIC ACID TABLET (FP) PO SCH (10:10)
[2017-07-11] MEDS: diazePAM 5 MG TABLET PO PRN ×3 (10:12→22:23)
[2017-07-11 10:41] LABS: CALCIUM 8.9 mg/dL (8.5-10.1); CHLORIDE 104 mmol/L (98-107); POTASSIUM 4.2 mmol/L (3.5-5.1); SODIUM 139 mmol/L (136-145)
[2017-07-11 10:44] LABS: HEMATOCRIT 38.6 % (32.4-45.2); MCH 31.9 pg (25.7-33.7); MCHC 33.8 g/dl (32.0-36.0); MEAN CELL VOLUME 94.5 fl (80-96); MEAN PLT VOLUME 8.8 fl (7.5-11.1); PLATELET COUNT 215 K/MM3 (134-434); RBC 4.09 M/mm3 (3.60-5.2); RDW 13.5 % (11.6-15.6); WHITE BLOOD COUNT 8.5 K/mm3 (4.0-10.0)
[2017-07-11 10:47] LABS: ALBUMIN 3.3 g/dl (3.4-5.0); ALK PHOS 64 U/L (45-117); ANION GAP 5 (8-16); BILIRUBIN,TOTAL 0.5 mg/dL (0.2-1.0); BLOOD UREA NITROGEN 8 mg/dL (7-18); CO2 30 mmol/L (21-32); CREATININE 0.8 mg/dL (0.55-1.02); GLUCOSE,RANDOM 84 mg/dL (74-106); SGOT/AST 31 U/L (15-37); SGPT/ALT 36 U/L (12-78); TOT PROT 6.9 g/dl (6.4-8.2)
--- NOTE | 2017-07-11 12:41 | CONSULT ---
[facility] Psychiatric Consult - Data Date of interview: 07/11/17 Admission source: [facility] Identifying data: Pt. is a 37 year old single female, mother of four, unemployed, and currently living with partner. This is one of multiple admissions. Pt. admitted to detox for cocaine, cannabis, and opiate dependence. Substance Abuse History: Following information confirmed with Ms. Johnson: Smoking Cessation. Smoking history: Current every day smoker. Have you smoked in the past 12 months: Yes. Aproximately how many cigarettes per day: 3. Cigars Per Day: 0. Hx Chewing Tobacco Use: No. Initiated information on smoking cessation: Yes. 'Breaking Loose' booklet given: 07/10/17. - Substance & Tx. History. Hx Alcohol Use: No. Hx Substance Use: Yes. - Substances Abused. Marijuana/Hashish. Route: Smoking. Frequency: 1-3 times last 30 days. Cocaine. Route: Smoking. Frequency: 1-2 times per week. Date of Last Use: 07/08/17. Heroin. Route: Injection. Frequency: Daily. Date of Last Use: 07/10/17. PCP. Route: Smoking. Frequency: 1-3 times last 30 days. Date of Last Use: 07/07/17 Medical History: Anemia, Asthma, seizures (TBI in 2015), Hep C Psychiatric History: Pt. reports one psychiatric hospitalizations at [facility] seven years ago. Outpatient care is provided at the [facility]. Pt reports a diagnosis of depression and Bipolar disorder. Pt. is prescribed Zoloft 150mg + Xanax 1mg TID. Pt. denies h/o suicide attempt. Pt. currently denies suicidal and homicidal ideation. Physical/Sexual Abuse/Trauma History: Denies. Mental Status Exam - Mental Status Exam Alert and Oriented to: Time, Place, Person Cognitive Function: Good Patient Appearance: Well Groomed Mood: Hopeful Affect: Appropriate, Mood Congruent Patient Behavior: Appropriate, Cooperative Speech Pattern: Clear, Appropriate Voice Loudness: Normal Thought Process: Goal Oriented Thought Disorder: Not Present Hallucinations: Denies Suicidal Ideation: Denies Homicidal Ideation: Denies Insight/Judgement: Poor Sleep: Poorly Appetite: Fair Muscle strength/Tone: Normal Gait/Station: Normal Psychiatric Findings - Problem List ([place] 1, 2,3) (1) Insomnia Current Visit: Yes Status: Acute (2) Opioid dependence with withdrawal Current Visit: Yes Status: Acute (3) MDD (major depressive disorder) Current Visit: Yes Status: Chronic Comment: Self reports. Accepting Zoloft medication. (4) Drug-induced mood disorder Current Visit: Yes Status: Suspected - Initial Treatment Plan Initial Treatment Plan: Psychoeducation provided. Detoxification provided. Zoloft 100mg PO daily + Ambien 10mg qhs ordered. Benefits and side effects discussed. Pt made aware of the risk of parasomnia. Verbal consent given. Will continue to monitor.
--- NOTE | 2017-07-11 16:02 | PN ---
BHS COWS - Scale Resting Pulse: 1= [place] 81-100 Sweatin= Chills/Flushing Restless Observation: 3= Extraneous Movement Pupil Size: 1= Pupils >than Normal Bone or Joint Aches: 2= Severe Diffuse Aches Runny Nose/ Eye Tearin= Runny Nose/Eyes GI Upset > 30mins: 3= Vomiting/Diarrhea Tremor Observation of Outstretched Hands: 2= Slight Tremor Visible Yawning Observation: 1= 1-2x During Session Anxiety or Irritability: 2=Irritable/Anxious Goose Flesh Skin: 0=Smooth Skin COWS Score: 18 BHS Progress Note (SOAP) Subjective: ALERT,IRRITABLE,ANXIOUS,,INTERRUPTED SLEEP,TREMOR,[place] IN THE BODY AND BACK Objective: 07/11/17 16:00 Vital Signs Temperature 100.2 F H 07/11/17 11:36 Pulse Rate 88 07/11/17 11:36 Respiratory Rate 18 07/11/17 11:36 Blood Pressure 117/81 07/11/17 11:36 O2 Sat by Pulse Oximetry (%) EKG NSR NORMAL ECG Laboratory Last Values WBC 8.5 K/mm3 (4.0-10.0) 07/11/17 07:50 RBC 4.09 M/mm3 (3.60-5.2) 07/11/17 07:50 Hgb 13.0 GM/dL (10.7-15.3) D 07/11/17 07:50 Hct 38.6 % (32.4-45.2) 07/11/17 07:50 MCV 94.5 fl (80-96) 07/11/17 07:50 MCH 31.9 pg (25.7-33.7) 07/11/17 07:50 MCHC 33.8 g/dl (32.0-36.0) 07/11/17 07:50 RDW 13.5 % (11.6-15.6) 07/11/17 07:50 Plt Count 215 K/MM3 (134-434) 07/11/17 07:50 MPV 8.8 fl (7.5-11.1) 07/11/17 07:50 Sodium 139 mmol/L (136-145) 07/11/17 07:50 Potassium 4.2 mmol/L (3.5-5.1) 07/11/17 07:50 Chloride 104 mmol/L (98-107) 07/11/17 07:50 Carbon Dioxide 30 mmol/L (21-32) 07/11/17 07:50 Anion Gap 5 (8-16) L 07/11/17 07:50 BUN 8 mg/dL (7-18) 07/11/17 07:50 Creatinine 0.8 mg/dL (0.55-1.02) 07/11/17 07:50 Creat Clearance w eGFR > 60 (>60) 07/11/17 07:50 Random Glucose 84 mg/dL (74-106) 07/11/17 07:50 Calcium 8.9 mg/dL (8.5-10.1) 07/11/17 07:50 Total Bilirubin 0.5 mg/dL (0.2-1.0) D 07/11/17 07:50 AST 31 U/L (15-37) 07/11/17 07:50 ALT 36 U/L (12-78) 07/11/17 07:50 Alkaline Phosphatase 64 U/L (45-117) 07/11/17 07:50 Total Protein 6.9 g/dl (6.4-8.2) 07/11/17 07:50 Albumin 3.3 g/dl (3.4-5.0) L 07/11/17 07:50 Urine Color [place] 07/10/17 18:40 Urine Appearance Sl cloudy 07/10/17 18:40 Urine pH 5.0 (5.0-8.0) 07/10/17 18:40 Ur Specific [place] 1.031 (1.001-1.035) 07/10/17 18:40 Urine Protein 2+ (NEGATIVE) H 07/10/17 18:40 Urine Glucose (UA) Negative (NEGATIVE) 07/10/17 18:40 Urine Ketones Trace (NEGATIVE) H 07/10/17 18:40 Urine Blood Negative (NEGATIVE) 07/10/17 18:40 Urine Nitrite Negative (NEGATIVE) 07/10/17 18:40 Urine Bilirubin Negative (<2.0 mg/dL) 07/10/17 18:40 Urine Urobilinogen 2.0 mg/dL (0.2-1.0) H 07/10/17 18:40 Ur Leukocyte Esterase Trace (NEGATIVE) 07/10/17 18:40 Urine WBC (Auto) 11 /hpf (3-5) 07/10/17 18:40 Urine RBC (Auto) 1 /hpf (0-3) 07/10/17 18:40 Ur Epithelial Cells Rare /HPF (FEW) 07/10/17 18:40 Calcium Oxalate Crystal Rare /hpf (NONE SEEN) 07/10/17 18:40 Urine Mucus Many 07/10/17 18:40 RPR Titer Nonreactive (NONREACTIVE) 07/11/17 07:50 Assessment: 07/11/17 16:02 WITHDRAWAL SYMPTOM Plan: CONTINUE DETOX
[2017-07-11] MEDS: ZOLPIDEM TARTRATE 10 MG TABLET (PARK CARE ONLY) PO PRN (22:23)
[2017-07-11] MEDS: THIAMINE HCL 100 MG TABLET (FP) PO SCH (22:23)
[2017-07-12] MEDS: CEPHALEXIN MONOHYDRATE 250 MG CAPSULE (FP) PO SCH ×4 (06:58→18:01)
[2017-07-12] MEDS ORDERED: METHADONE HCL 5 MG TABLET (FOR DETOX USE ONLY) PO ONE (10:00)
[2017-07-12] MEDS: diazePAM 5 MG TABLET PO PRN ×3 (10:06→19:52)
[2017-07-12] MEDS: PRENATAL VITAMINS W/ FOLIC ACID TABLET (FP) PO SCH (10:06)
[2017-07-12] MEDS: SERTRALINE HCL 50 MG TABLET (FP) PO SCH (10:06)
[2017-07-12] MEDS: NICOTINE 14 MG/24 HOURS TOPICAL PATCH TD SCH (10:09)
--- NOTE | 2017-07-12 13:00 | PN ---
[facility] COWS - Scale Resting Pulse: 0= [place] 80 or Below Sweatin= Chills/Flushing Restless Observation: 1= Difficult to Sit Still Pupil Size: 2= Moderately Dilated Bone or Joint Aches: 2= Severe Diffuse Aches Runny Nose/ Eye Tearin= Runny Nose/Eyes GI Upset > 30mins: 2= Nausea/Diarrhea Tremor Observation of Outstretched Hands: 2= Slight Tremor Visible Yawning Observation: 2= >3x During Session Anxiety or Irritability: 2=Irritable/Anxious Goose Flesh Skin: 0=Smooth Skin COWS Score: 16 BHS Progress Note (SOAP) Subjective: joint ache muscle pain sweat tremor restlessness irritable trouble sleep at night Objective: 07/12/17 13:01 Vital Signs Temperature 97.9 F 07/12/17 12:14 Pulse Rate 62 07/12/17 12:14 Respiratory Rate 20 07/12/17 12:14 Blood Pressure 122/78 07/12/17 12:14 O2 Sat by Pulse Oximetry (%) Laboratory Last Values WBC 8.5 K/mm3 (4.0-10.0) 07/11/17 07:50 RBC 4.09 M/mm3 (3.60-5.2) 07/11/17 07:50 Hgb 13.0 GM/dL (10.7-15.3) D 07/11/17 07:50 Hct 38.6 % (32.4-45.2) 07/11/17 07:50 MCV 94.5 fl (80-96) 07/11/17 07:50 MCH 31.9 pg (25.7-33.7) 07/11/17 07:50 MCHC 33.8 g/dl (32.0-36.0) 07/11/17 07:50 RDW 13.5 % (11.6-15.6) 07/11/17 07:50 Plt Count 215 K/MM3 (134-434) 07/11/17 07:50 MPV 8.8 fl (7.5-11.1) 07/11/17 07:50 Sodium 139 mmol/L (136-145) 07/11/17 07:50 Potassium 4.2 mmol/L (3.5-5.1) 07/11/17 07:50 Chloride 104 mmol/L (98-107) 07/11/17 07:50 Carbon Dioxide 30 mmol/L (21-32) 07/11/17 07:50 Anion Gap 5 (8-16) L 07/11/17 07:50 BUN 8 mg/dL (7-18) 07/11/17 07:50 Creatinine 0.8 mg/dL (0.55-1.02) 07/11/17 07:50 Creat Clearance w eGFR > 60 (>60) 07/11/17 07:50 Random Glucose 84 mg/dL (74-106) 07/11/17 07:50 Calcium 8.9 mg/dL (8.5-10.1) 07/11/17 07:50 Total Bilirubin 0.5 mg/dL (0.2-1.0) D 07/11/17 07:50 AST 31 U/L (15-37) 07/11/17 07:50 ALT 36 U/L (12-78) 07/11/17 07:50 Alkaline Phosphatase 64 U/L (45-117) 07/11/17 07:50 Total Protein 6.9 g/dl (6.4-8.2) 07/11/17 07:50 Albumin 3.3 g/dl (3.4-5.0) L 07/11/17 07:50 Urine Color Yesenia 07/10/17 18:40 Urine Appearance Sl cloudy 07/10/17 18:40 Urine pH 5.0 (5.0-8.0) 07/10/17 18:40 Ur Specific [place] 1.031 (1.001-1.035) 07/10/17 18:40 Urine Protein 2+ (NEGATIVE) H 07/10/17 18:40 Urine Glucose (UA) Negative (NEGATIVE) 07/10/17 18:40 Urine Ketones Trace (NEGATIVE) H 07/10/17 18:40 Urine Blood Negative (NEGATIVE) 07/10/17 18:40 Urine Nitrite Negative (NEGATIVE) 07/10/17 18:40 Urine Bilirubin Negative (<2.0 mg/dL) 07/10/17 18:40 Urine Urobilinogen 2.0 mg/dL (0.2-1.0) H 07/10/17 18:40 Ur Leukocyte Esterase Trace (NEGATIVE) 07/10/17 18:40 Urine WBC (Auto) 11 /hpf (3-5) 07/10/17 18:40 Urine RBC (Auto) 1 /hpf (0-3) 07/10/17 18:40 Ur Epithelial Cells Rare /HPF (FEW) 07/10/17 18:40 Calcium Oxalate Crystal Rare /hpf (NONE SEEN) 07/10/17 18:40 Urine Mucus Many 07/10/17 18:40 RPR Titer Nonreactive (NONREACTIVE) 07/11/17 07:50 labnoted 07/12/17 13:02 increase oral fluid Assessment: 07/12/17 13:02 withdrawal sx Plan: continue detox
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
[2017-07-12] MEDS: THIAMINE HCL 100 MG TABLET (FP) PO SCH (22:29)
[2017-07-12] MEDS: ZOLPIDEM TARTRATE 10 MG TABLET (PARK CARE ONLY) PO PRN (22:29)
[2017-07-13] MEDS: CEPHALEXIN MONOHYDRATE 250 MG CAPSULE (FP) PO SCH ×3 (00:28→12:49)
[2017-07-13] MEDS: diazePAM 5 MG TABLET PO PRN ×2 (05:30→10:30)
[2017-07-13] MEDS ORDERED: METHADONE HCL 5 MG TABLET (FOR DETOX USE ONLY) PO ONE (10:00)
[2017-07-13 10:22] VITALS: TEMP 97.9
[2017-07-13] MEDS: PRENATAL VITAMINS W/ FOLIC ACID TABLET (FP) PO SCH (10:29)
[2017-07-13] MEDS: SERTRALINE HCL 50 MG TABLET (FP) PO SCH (10:29)
[2017-07-13] MEDS: NICOTINE 14 MG/24 HOURS TOPICAL PATCH TD SCH (10:30)
--- NOTE | 2017-07-13 12:43 | EKG ---
Test Reason : Blood Pressure : / mmHG Vent. Rate : 062 BPM Atrial Rate : 062 BPM P-R Int : 156 ms QRS Dur : 096 ms QT Int : 422 ms P-R-T Axes : 056 078 065 degrees QTc Int : 428 ms NORMAL SINUS RHYTHM NORMAL ECG WHEN COMPARED WITH ECG OF 13-JAN-2017 22:46, NO SIGNIFICANT CHANGE WAS FOUND Confirmed by KWESI SIMPSON MD ([id number]) on 07/13/2017 12:42:58 PM Referred By: Confirmed By:KWESI SIMPSON MD
--- NOTE | 2017-07-13 13:07 | PN ---
BHS Progress Note (SOAP) Subjective: diarrhea sweats shakes Objective: 07/13/17 A & O x 3 Vital Signs Temperature 97.9 F 07/13/17 10:21 Pulse Rate 65 07/13/17 10:21 Respiratory Rate 16 07/13/17 10:21 Blood Pressure 98/60 07/13/17 10:21 O2 Sat by Pulse Oximetry (%) Assessment: 07/13/17 13:05 withdrawal sx Plan: continue detox
[2017-07-13 14:32] VITALS: BP 109/63; PULSE 61
--- NOTE | 2017-07-13 15:55 | DS ---
[facility] Detox Discharge Summary Admission Date: 07/10/17 Discharge Date: 07/13/17 - History Additional Comments: Pt insisted on leaving because her was leaving from from another floor. Pt was insisted and did not want for provider evaluation. Per Nursing staff, pt was "jumping through the door" and would not stay, unable to evaluate pt prior to leaving. Pt was A & O x 3 earlier, was in no distress. Prescription keflex sent to pt's pharmacy for pt's completion, spoke with Pharmacist Juan C at the [facility] pharmacy who verbalized receipt of prescription. Pertinent Past History: Hep C Cellulitis of R arm Seizure - Physical Exam Results Vital Signs: Vital Signs Temperature 97.9 F 07/13/17 14:31 Pulse Rate 61 07/13/17 14:31 Respiratory Rate 16 07/13/17 14:31 Blood Pressure 109/63 07/13/17 14:31 O2 Sat by Pulse Oximetry (%) - Medication Discharge Medications: Ambulatory Orders Sertraline HCl [Zoloft -] 100 mg PO DAILY #30 tablet 01/14/17 Cephalexin Monohydrate [Keflex -] 250 mg PO Q6HPO 7 Days #30 capsule 07/13/17 - Diagnosis (1) Opioid dependence with withdrawal Current Visit: Yes Status: Acute (2) Cellulitis of arm, right Current Visit: Yes Status: Acute (3) Insomnia Current Visit: Yes Status: Acute (4) Anxiety and depression Current Visit: Yes Status: Chronic (5) Hepatitis C Current Visit: Yes Status: Chronic Qualifiers: Viral hepatitis chronicity: unspecified (6) MDD (major depressive disorder) Current Visit: Yes Status: Chronic (7) Nicotine dependence Current Visit: Yes Status: Chronic Qualifiers: Nicotine product type: cigarettes Substance use status: unspecified nicotine-induced disorder Qualified Code(s): F17.219 - Nicotine dependence, cigarettes, with unspecified nicotine-induced disorders (8) Seizure Current Visit: Yes Status: Chronic (9) Drug-induced mood disorder Current Visit: Yes Status: Suspected - AMA Did Patient Leave Against Medical Advice: Yes
[2017-07-14] MEDS ORDERED: METHADONE HCL 10 MG TABLET (FOR DETOX USE ONLY) PO ONE (10:00)
[2017-07-15] MEDS ORDERED: METHADONE HCL 5 MG TABLET (FOR DETOX USE ONLY) PO ONE (06:00)
== END 2017-07-13 15:24 | disposition left against medical advice (07) | DRG 770 ==
LOC: YASAS 09:49 → Y6N 17:28
PROVIDERS: ADMIT Internal Medicine; ATTEND Internal Medicine
PROC: HZ2ZZZZ Detoxification Services for Substance Abuse Treatment (ICD-10-PCS; principal; 2017-07-10)
DX: F11.23 Opioid dependence with withdrawal (principal); F17.210 Nicotine dependence, cigarettes, uncomplicated; F33.9 Major depressive disorder, recurrent, unspecified; F41.8 Other specified anxiety disorders; F19.24 Other psychoactive substance dependence with psychoactive substance-induced mood disorder; G47.00 Insomnia, unspecified; B18.2 Chronic viral hepatitis C; L03.113 Cellulitis of right upper limb; J45.909 Unspecified asthma, uncomplicated; G40.909 Epilepsy, unspecified, not intractable, without status epilepticus; Z87.820 Personal history of traumatic brain injury
CPT/HCPCS: 36415; 80053; 81003; 81015; 85027; 86593; 93005; 93010

== ENCOUNTER 2018-03-13 12:23 | Inpatient (IN) | payer OTHER ==
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
--- NOTE | 2018-03-13 13:09 | PDOC ---
Attending Attestation - HPI HPI: 03/13/18 14:18 The patient is a 20 weeks 37 year old female , with a significant PMH of polysubstance abuse (cocaine and marijuana), hepatitis C, hypertension, bipolar disorder, who presents to the emergency department with several days of withdrawal symptom. The patient states secondary to electing to keep her she decided to discontinue her medications including Xanax, Seroquel and Oxycodone. The patient endorses difficulty sleeping, anxiety and nausea without vomiting since stopping her medications. The patient denies chest pain, shortness of breath, headache and dizziness. Denies fever, chills, vomit, diarrhea and constipation. Denies dysuria, frequency, urgency and hematuria. Allergies: sulfa (sulfonamide antibiotics) Documentation prepared by Lewis Haque, acting as medical affairs manager for Nuris Stark MD. <Lewis Haque - Last Filed: 03/13/18 14:18> - Resident Resident Name: Tomas Hankins - ED Attending Attestation I have performed the following: I have examined & evaluated the patient, The case was reviewed & discussed with the resident, I agree w/resident's findings & plan, Exceptions are as noted - Physicial Exam PE: GENERAL: Awake, alert, and fully oriented, in no acute distress HEAD: No signs of trauma EYES: PERRLA, EOMI, sclera anicteric, conjunctiva clear ENT: Auricles normal inspection, hearing grossly normal, nares patent, oropharynx clear without exudates. Moist mucosa NECK: Normal ROM, supple, no lymphadenopathy, JVD, or masses LUNGS: Breath sounds equal, clear to auscultation bilaterally. No wheezes, and no crackles HEART: Tachycardic, normal S1 and S2, no murmurs, rubs or gallops ABDOMEN: Soft, nontender, normoactive bowel sounds. No guarding, no rebound. No masses EXTREMITIES: Normal range of motion, no edema. No clubbing or cyanosis. No cords, erythema, or tenderness NEUROLOGICAL: Cranial nerves II through XII grossly intact. Normal speech, normal gait SKIN: Warm, Dry, normal turgor, no rashes or lesions noted. - Medical Decision Making Pt with withdrawal symptoms since stopping her xanax. She states she had a witnessed seizure at home a few days ago. She is currently about 20 weeks and states she has just decided to keep the . D/w psychiatry and worksite wellness practitioner, will admit to medicine to taper her to avoid any further risk to herself and the fetus. <Nuris Stark - Last Filed: 03/13/18 16:27>
[2018-03-13] MEDS ORDERED: ONDANSETRON 4 MG/2 ML VIAL IVPUSH ONE (13:11)
[2018-03-13] MEDS ORDERED: SODIUM CHLORIDE 1,000 ML IV STA (13:12)
[2018-03-13] MEDS ORDERED: ONDANSETRON 4 MG/2 ML VIAL ONE (13:14)
[2018-03-13] MEDS ORDERED: LORazepam 2 MG/ML SDV VIAL ONE (13:53)
[2018-03-13 14:16] LABS: BASO % 0.3 % (0-2.0); EOS % 0.2 % (0-4.5); HEMATOCRIT 32.5 % (32.4-45.2); HEMOGLOBIN 10.6 GM/dL (10.7-15.3); LYMPH % 26.9 % (8-40); MCH 30.6 pg (25.7-33.7); MCHC 32.4 g/dl (32.0-36.0); MEAN CELL VOLUME 94.4 fl (80-96); MEAN PLT VOLUME 8.3 fl (7.5-11.1); MONO % 3.4 % (3.8-10.2); NEUT % 69.2 % (42.8-82.8); PLATELET COUNT 204 K/MM3 (134-434); RBC 3.45 M/mm3 (3.60-5.2); RDW 13.4 % (11.6-15.6); WHITE BLOOD COUNT 7.9 K/mm3 (4.0-10.0)
[2018-03-13 14:40] LABS: ALBUMIN 2.6 g/dl (3.4-5.0); ALK PHOS 61 U/L (45-117); ANION GAP 8 MMOL/L (8-16); BILIRUBIN,TOTAL 0.3 mg/dL (0.2-1); BLOOD UREA NITROGEN 5 mg/dL (7-18); CALCIUM 8.1 mg/dL (8.5-10.1); CHLORIDE 108 mmol/L (98-107); CO2 22 mmol/L (21-32); CREATININE 0.4 mg/dL (0.55-1.3); GLUCOSE,RANDOM 79 mg/dL (74-106); POTASSIUM 3.7 mmol/L (3.5-5.1); SGOT/AST 20 U/L (15-37); SGPT/ALT 24 U/L (13-61); SODIUM 139 mmol/L (136-145); TOT PROT 6.1 g/dl (6.4-8.2)
[2018-03-13] MEDS: DEXTROSE 5%-NORMAL SALINE 1,000 ML IV SCH (14:41)
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
[2018-03-13] MEDS ORDERED: ACETAMINOPHEN 1000 MG/100 ML VIAL (NON FORMULARY) IVPB ONE (17:29)
[2018-03-13] MEDS: QUEtiapine FUMARATE 25 MG TABLET (FP) PO SCH ×2 (20:39→23:20)
[2018-03-13 21:01] VITALS: BMI 31.6
[2018-03-14] MEDS ORDERED: QUEtiapine FUMARATE 25 MG TABLET (FP) PO ONE (00:42)
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
[2018-03-14] MEDS ORDERED: ONDANSETRON 4 MG/2 ML VIAL IVPB PRN (09:56)
[2018-03-14 10:00] LABS: BASO % 0.2 % (0-2.0); EOS % 0.6 % (0-4.5); HEMATOCRIT 31.3 % (32.4-45.2); HEMOGLOBIN 10.9 GM/dL (10.7-15.3); LYMPH % 33.9 % (8-40); MCH 32.8 pg (25.7-33.7); MCHC 34.7 g/dl (32.0-36.0); MEAN CELL VOLUME 94.5 fl (80-96); MONO % 3.4 % (3.8-10.2); NEUT % 61.9 % (42.8-82.8); PLATELET COUNT 200 K/MM3 (134-434); RBC 3.32 M/mm3 (3.60-5.2); RDW 13.8 % (11.6-15.6); WHITE BLOOD COUNT 6.3 K/mm3 (4.0-10.0)
[2018-03-14] MEDS ORDERED: QUEtiapine FUMARATE 25 MG TABLET (FP) PO SCH (10:00)
[2018-03-14] MEDS: ACETAMINOPHEN 325 MG TABLET (FP) PO PRN ×2 (10:12→16:51)
[2018-03-14] MEDS: QUEtiapine FUMARATE 25 MG TABLET (FP) PO SCH (10:14)
[2018-03-14 11:18] LABS: ALBUMIN 2.6 g/dl (3.4-5.0); ALK PHOS 59 U/L (45-117); ANION GAP 9 MMOL/L (8-16); BILIRUBIN,TOTAL 0.4 mg/dL (0.2-1); BLOOD UREA NITROGEN 3 mg/dL (7-18); CALCIUM 7.7 mg/dL (8.5-10.1); CHLORIDE 110 mmol/L (98-107); CO2 21 mmol/L (21-32); CREATININE 0.5 mg/dL (0.55-1.3); GLUCOSE,RANDOM 120 mg/dL (74-106); SGOT/AST 22 U/L (15-37); SGPT/ALT 20 U/L (13-61); SODIUM 140 mmol/L (136-145)
--- NOTE | 2018-03-14 12:14 | EKG ---
Test Reason : Blood Pressure : / mmHG Vent. Rate : 059 BPM Atrial Rate : 059 BPM P-R Int : 156 ms QRS Dur : 084 ms QT Int : 430 ms P-R-T Axes : 032 066 057 degrees QTc Int : 425 ms SINUS BRADYCARDIA OTHERWISE NORMAL ECG WHEN COMPARED WITH ECG OF 10-JUL-2017 20:10, NO SIGNIFICANT CHANGE WAS FOUND Confirmed by KWESI SIMPSON MD ([id number]) on 03/14/2018 12:14:10 PM Referred By: Confirmed By:KWESI SIMPSON MD
[2018-03-14] MEDS: PRENATAL VITAMINS W/ FOLIC ACID TABLET (FP) PO SCH (12:25)
[2018-03-14] MEDS ORDERED: oxyCODONE HCL 5 MG TABLET PO ONE (14:09)
[2018-03-14] MEDS: METOCLOPRAMIDE HCL INJECTION 10 MG/2 ML VIAL IVPUSH PRN (14:21)
[2018-03-14] MEDS: DEXTROSE 5%-NORMAL SALINE 1,000 ML IV SCH (15:14)
[2018-03-14 16:02] LABS: METHADONE, UR NEGATIVE ng/ml (CUTOFF=300); OPIATES, URI NEGATIVE ng/ml (CUTOFF=300); PHENCYCLIDINE,URINE NEGATIVE ng/ml (CUTOFF=25); URINE AMPHETAMINES NEGATIVE ng/ml (CUTOFF=500); URINE BARBITURATES NEGATIVE ng/ml (CUTOFF=200); URINE BENZODIAZEPINES NEGATIVE ng/ml (CUTOFF=200)
[2018-03-14 16:18] LABS: COCAINE, UR POSITIVE ng/ml (CUTOFF=300)
--- NOTE | 2018-03-14 21:15 | PN ---
Mental Health Exam - Mental Status Exam Alert and Oriented to: Time, Place, Person Cognitive Function: Grossly Intact Patient Appearance: Well Groomed Mood: Apprehensive Affect: Mood Congruent Patient Behavior: Restless, Talkative, Cooperative Speech Pattern: Clear Voice Loudness: Normal Thought Process: Intact Thought Disorder: Not Present Hallucinations: None Suicidal Ideation: None, Denies Homicidal Ideation: None, Denies Insight/Judgement: Fair Sleep: Poorly, Difficulty falling asleep (STATED SHE SLEPT FROM 3 AM LAST NIGHT. ) Appetite: Poor (NO APPETITE. ) Muscle strength/Tone: Normal Gait/Station: Deferred
[2018-03-14] MEDS: QUEtiapine FUMARATE 50 MG TABLET PO SCH (21:24)
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
[2018-03-15] MEDS: QUEtiapine FUMARATE 25 MG TABLET (FP) PO SCH (06:19)
--- NOTE | 2018-03-15 09:04 | PN ---
Progress Note, Physician - Current Medication List Current Medications: Active Medications Acetaminophen (Tylenol -) 650 mg PO Q6H PRN PRN Reason: PAIN OR FEVER Last Admin: 03/14/18 16:51 Dose: 650 mg Dextrose/Sodium Chloride (D5-Ns -) 1,000 mls @ 75 mls/hr IV ASDIR JOSE ENRIQUE Last Admin: 03/14/18 15:14 Dose: 75 mls/hr Metoclopramide HCl (Reglan Injection -) 10 mg IVPUSH Q6H PRN PRN Reason: NAUSEA AND/OR VOMITING Last Admin: 03/14/18 14:21 Dose: 10 mg Multivit/Folic Acid/Iron ( Vitamins (Sjr) -) 1 tab PO DAILY REPLACED BY [facility] Last Admin: 03/14/18 12:25 Dose: 1 tab Quetiapine Fumarate (Seroquel -) 50 mg PO HS REPLACED BY [facility] Last Admin: 03/14/18 21:24 Dose: 50 mg Quetiapine Fumarate (Seroquel -) 25 mg PO AM REPLACED BY [facility] Last Admin: 03/15/18 06:19 Dose: 25 mg - Objective Vital Signs: Vital Signs Temperature 98.3 F 03/15/18 02:00 Pulse Rate 58 L 03/15/18 02:00 Respiratory Rate 20 03/15/18 02:00 Blood Pressure 110/58 L 03/15/18 02:00 O2 Sat by Pulse Oximetry (%) 98 03/14/18 21:00 Cardiovascular: Yes: Regular Rate and Rhythm Respiratory: Yes: Regular, CTA Bilaterally Gastrointestinal: Yes: Normal Bowel Sounds, Soft Labs: CBC, BMP 03/14/18 09:40 03/14/18 09:40 Assessment/Plan (1) Withdrawal symptoms, drug or narcotic Assessment/Plan: -At home, pt is on Quetiapine 50 mg TID+ oxycodone/acetaminophen 5/325mg po q4h prn+ Alprazolam 2 MG BID: Patient Name: Gamal Johnson Date: 1980 Address: [address] [place] [address] Sex: Female Rx Written Rx Dispensed Drug Quantity Days Supply Prescriber Name 03/01/2018 03/08/2018 oxycodone-acetaminophen 5-325 mg tablet 21 7 Justyn Diez M 03/02/2018 03/02/2018 alprazolam 2 mg tablet 60 30 Richie Aly MD 02/03/2018 02/04/2018 oxycodone-acetaminophen 5-325 mg tablet 90 30 Justyn Diez M 02/02/2018 02/02/2018 alprazolam 2 mg tablet 30 15 Richie Aly MD 01/19/2018 01/19/2018 alprazolam 2 mg tablet 30 15 Richie Aly MD 01/06/2018 01/06/2018 oxycodone-acetaminophen 5-325 mg tablet 90 30 Justyn Diez M 12/22/2017 12/22/2017 alprazolam 2 mg tablet 60 30 Richie Aly MD 12/09/2017 12/09/2017 oxycodone-acetaminophen 5-325 mg tablet 90 [address] Stroe, Angela (Detox)- pt to be tapered off quetiapine slowly. She will evaluate the patient and see if patient is a candidate for methadone. Avoid benzodiazepines Code(s): F19.939 - OTHER PSYCHOACTIVE SUBSTANCE USE, UNSP WITH WITHDRAWAL, UNSP Qualifiers: Substance type: sedative, hypnotic or anxiolytic Qualified Code(s): F13.239 - Sedative, hypnotic or anxiolytic dependence with withdrawal, unspecified (2) Assessment/Plan: -OB consult -Seen by Dr Osorio -Transvaginal U/S confirms 21 weeks and 2 days with FHR of 148 -baseline labs reviewed -Continue care as recommended by BAND SAWYER Code(s): Z34.90 - ENCNTR FOR SUPRVSN OF NORMAL , UNSP, UNSP TRIMESTER Qualifiers: Weeks of gestation: 21 weeks Qualified Code(s): Z3A.21 - 21 weeks gestation of (3) Anxiety disorder Assessment/Plan: -taper Seroquel 25 mg po AM and 50 mg po HS -Psych consult Code(s): F41.9 - ANXIETY DISORDER, UNSPECIFIED (4) Anemia Assessment/Plan: -check iron, B12 and thyroid levels -Last TSH showed mild hyperthyroid state, would repeat -monitor trend -no over bleeding Code(s): D64.9 - ANEMIA, UNSPECIFIED Qualifiers: Anemia type: iron deficiency Iron deficiency anemia type: other iron deficiency Qualified Code(s): D50.8 - Other iron deficiency anemias
[2018-03-15] MEDS: METOCLOPRAMIDE HCL INJECTION 10 MG/2 ML VIAL IVPUSH PRN (10:03)
[2018-03-15] MEDS ORDERED: PT OWN MED DRAWER 7, Y5N ONE ×2 (11:17→16:05)
[2018-03-15] MEDS: ACETAMINOPHEN 325 MG TABLET (FP) PO PRN ×2 (11:18→20:41)
[2018-03-15] MEDS: DEXTROSE 5%-NORMAL SALINE 1,000 ML IV SCH (13:17)
[2018-03-15] MEDS: PRENATAL VITAMINS W/ FOLIC ACID TABLET (FP) PO SCH (16:37)
[2018-03-15] MEDS: QUEtiapine FUMARATE 50 MG TABLET PO SCH (22:02)
[2018-03-16] MEDS ORDERED: MELATONIN 5 MG TABLETS PO ONE (01:33)
[2018-03-16] MEDS: DEXTROSE 5%-NORMAL SALINE 1,000 ML IV SCH ×3 (01:37→16:20)
[2018-03-16 04:15] LABS: SERUM IRON SATURATION 34 % (15-55); TOTAL IRON BINDING CAPACITY 283 ug/dL (250-450); UIBC 186 ug/dL (131-425)
[2018-03-16] MEDS: QUEtiapine FUMARATE 25 MG TABLET (FP) PO SCH (06:15)
[2018-03-16] MEDS ORDERED: PT OWN MED DRAWER 7, Y5N ONE (09:44)
[2018-03-16] MEDS: ACETAMINOPHEN 325 MG TABLET (FP) PO PRN ×2 (10:23→15:48)
[2018-03-16] MEDS: PRENATAL VITAMINS W/ FOLIC ACID TABLET (FP) PO SCH (10:25)
[2018-03-16] MEDS: METOCLOPRAMIDE HCL INJECTION 10 MG/2 ML VIAL IVPUSH PRN (10:50)
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
[2018-03-16] MEDS ORDERED: QUEtiapine FUMARATE 25 MG TABLET (FP) PO ONE (16:15)
[2018-03-16] MEDS ORDERED: METHADONE HCL 10 MG TABLET PO ONE (20:10)
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
[2018-03-16] MEDS: QUEtiapine FUMARATE 50 MG TABLET PO SCH (22:15)
[2018-03-17] MEDS: METOCLOPRAMIDE HCL INJECTION 10 MG/2 ML VIAL IVPUSH PRN ×3 (02:56→16:48)
[2018-03-17] MEDS: ACETAMINOPHEN 325 MG TABLET (FP) PO PRN (02:56)
[2018-03-17] MEDS ORDERED: METHADONE HCL 10 MG TABLET PO ONE (06:00)
[2018-03-17] MEDS: QUEtiapine FUMARATE 25 MG TABLET (FP) PO SCH ×2 (07:22→15:00)
[2018-03-17] MEDS: PRENATAL VITAMINS W/ FOLIC ACID TABLET (FP) PO SCH (10:50)
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
[2018-03-17] MEDS: DEXTROSE 5%-NORMAL SALINE 1,000 ML IV SCH (15:06)
[2018-03-17 20:14] VITALS: BP 123/62; PULSE 56; TEMP 98.2
[2018-03-18] MEDS ORDERED: METHADONE HCL 10 MG TABLET PO SCH (06:00)
== END 2018-03-17 21:07 | disposition home or self-care (01) | DRG 566 ==
LOC: JER 12:23 → JERBED 14:16 → OBSVTOIN 14:16 → J5S 17:09
PROVIDERS: ADMIT Family Medicine; ATTEND Family Medicine
DX: O99.322 Drug use complicating pregnancy, second trimester (principal); F31.9 Bipolar disorder, unspecified; Z86.19 Personal history of other infectious and parasitic diseases; F11.23 Opioid dependence with withdrawal; F14.20 Cocaine dependence, uncomplicated; F12.20 Cannabis dependence, uncomplicated; F17.210 Nicotine dependence, cigarettes, uncomplicated; I10 Essential (primary) hypertension; F19.939 Other psychoactive substance use, unspecified with withdrawal, unspecified; O99.012 Anemia complicating pregnancy, second trimester; Z3A.21 21 weeks gestation of pregnancy; D50.9 Iron deficiency anemia, unspecified; F41.9 Anxiety disorder, unspecified
CPT/HCPCS: 36415; 80053; 80307; 82607; 82728; 83540; 83550; 84439; 84443; 85025; 93005; 93010; 99284-25; J0131; J7030

== ENCOUNTER → 2018-11-26 | Outpatient (CLI) | payer OTHER | LOC: YHH 15:25 ==

== ENCOUNTER 2018-11-30 10:22 | Inpatient (IN) | payer OTHER ==
[2018-11-30 14:35] VITALS: BMI 30.9
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
[2018-11-30] MEDS ORDERED: P-EPHED 60MG/TRIPROLIDI 2.5MG TABLET PO PRN (16:33)
[2018-11-30] MEDS ORDERED: MENTHOL/PHENOL 1 EACH UD MM PRN (16:33)
[2018-11-30] MEDS ORDERED: MAG HYDROX/AL HYDROX/SIMETH 30 ML UNIT-DOSE CUP PO PRN (16:33)
[2018-11-30] MEDS ORDERED: MAGNESIUM CITRATE 300 ML BOTTLE PO PRN (16:33)
[2018-11-30] MEDS ORDERED: guaiFENesin 200 MG/10 ML 10 ML UNIT-DOSE CUPS PO PRN (16:33)
[2018-11-30] MEDS ORDERED: ALBUTEROL SO4 0.083% IH SOL 2.5 MG/3 ML VIAL.NEB. NEB PRN (16:33)
[2018-11-30] MEDS: THIAMINE HCL 100 MG TABLET (FP) PO SCH (21:39)
[2018-12-01] MEDS ORDERED: METHADONE HCL 10 MG TABLET PO SCH (07:15)
[2018-12-01] MEDS ORDERED: METHADONE HCL 5 MG TABLET ONE (08:23)
[2018-12-01] MEDS ORDERED: METHADONE HCL 10 MG TABLET ONE (08:23)
[2018-12-01] MEDS ORDERED: METHADONE HCL 40 MG DISPERSABLE TABLET ONE (08:24)
[2018-12-01] MEDS: METHADONE 40 MG, METHADONE 30 MG, METHADONE 5 MG PO SCH (08:32)
[2018-12-01] MEDS: PRENATAL VITAMINS W/ FOLIC ACID TABLET (FP) PO SCH (10:09)
[2018-12-01 14:58] LABS: HEMATOCRIT 33.4 % (32.4-45.2); HEMOGLOBIN 11.1 GM/dL (10.7-15.3); MCH 34.8 pg (25.7-33.7); MCHC 33.3 g/dl (32.0-36.0); MEAN CELL VOLUME 104.4 fl (80-96); MEAN PLT VOLUME 8.8 fl (7.5-11.1); PLATELET COUNT 244 K/MM3 (134-434); RDW 13.2 % (11.6-15.6); WHITE BLOOD COUNT 6.5 K/mm3 (4.0-10.0)
[2018-12-01 15:20] LABS: ALBUMIN 3.3 g/dl (3.4-5.0); BILIRUBIN,TOTAL 0.4 mg/dL (0.2-1); BLOOD UREA NITROGEN 8.9 mg/dL (7-18); CREATININE 0.7 mg/dL (0.55-1.3); POTASSIUM 3.6 mmol/L (3.5-5.1); TOT PROT 6.3 g/dl (6.4-8.2)
[2018-12-01] MEDS: MELATONIN 5 MG TABLETS PO PRN (21:35)
[2018-12-01] MEDS: THIAMINE HCL 100 MG TABLET (FP) PO SCH (21:35)
[2018-12-01] MEDS ORDERED: QUEtiapine FUMARATE 50 MG TABLET PO ONE (21:57)
[2018-12-02] MEDS ORDERED: METHADONE HCL 5 MG TABLET ONE (05:34)
[2018-12-02] MEDS ORDERED: METHADONE HCL 40 MG DISPERSABLE TABLET ONE (05:35)
[2018-12-02] MEDS ORDERED: METHADONE HCL 10 MG TABLET ONE (05:35)
[2018-12-02] MEDS: METHADONE 40 MG, METHADONE 30 MG, METHADONE 5 MG PO SCH (06:28)
[2018-12-02] MEDS: NICOTINE POLACRILEX 2 MG GUM BC PRN (07:10)
[2018-12-02] MEDS: MAGNESIUM HYDROX 2400MG/30ML ORAL SUSPENSION 30 ML CUP PO PRN (08:23)
[2018-12-02] MEDS: PRENATAL VITAMINS W/ FOLIC ACID TABLET (FP) PO SCH (09:40)
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
[2018-12-02] MEDS: hydrOXYzine PAMOATE 50 MG CAPSULE (FP) PO PRN (21:23)
[2018-12-02] MEDS: THIAMINE HCL 100 MG TABLET (FP) PO SCH (21:23)
[2018-12-02] MEDS: QUEtiapine FUMARATE 100 MG TABLET (FP) PO SCH (21:24)
[2018-12-03] MEDS ORDERED: METHADONE HCL 10 MG TABLET ONE (06:37)
[2018-12-03] MEDS ORDERED: METHADONE HCL 40 MG DISPERSABLE TABLET ONE (06:37)
[2018-12-03] MEDS ORDERED: METHADONE HCL 5 MG TABLET ONE (06:37)
[2018-12-03] MEDS: METHADONE 40 MG, METHADONE 30 MG, METHADONE 5 MG PO SCH (06:38)
[2018-12-03] MEDS: hydrOXYzine PAMOATE 50 MG CAPSULE (FP) PO PRN ×2 (08:01→19:39)
[2018-12-03] MEDS: PRENATAL VITAMINS W/ FOLIC ACID TABLET (FP) PO SCH (10:13)
[2018-12-03] MEDS: MAGNESIUM HYDROX 2400MG/30ML ORAL SUSPENSION 30 ML CUP PO PRN (10:14)
[2018-12-03] MEDS: NICOTINE POLACRILEX 2 MG GUM BC PRN (12:58)
[2018-12-03] MEDS: QUEtiapine FUMARATE 100 MG TABLET (FP) PO SCH (21:38)
[2018-12-03] MEDS: THIAMINE HCL 100 MG TABLET (FP) PO SCH (21:38)
[2018-12-03] MEDS: MELATONIN 5 MG TABLETS PO PRN (21:39)
[2018-12-04] MEDS ORDERED: METHADONE HCL 5 MG TABLET ONE (06:05)
[2018-12-04] MEDS ORDERED: METHADONE HCL 10 MG TABLET ONE (06:05)
[2018-12-04] MEDS ORDERED: METHADONE HCL 40 MG DISPERSABLE TABLET ONE (06:06)
[2018-12-04] MEDS: METHADONE 40 MG, METHADONE 30 MG, METHADONE 5 MG PO SCH (06:32)
[2018-12-04] MEDS: NICOTINE POLACRILEX 2 MG GUM BC PRN ×2 (06:33→11:10)
[2018-12-04] MEDS: PRENATAL VITAMINS W/ FOLIC ACID TABLET (FP) PO SCH (10:55)
[2018-12-04] MEDS: IBUPROFEN 400 MG TABLET (FP) PO PRN (13:10)
[2018-12-04] MEDS: MAGNESIUM HYDROX 2400MG/30ML ORAL SUSPENSION 30 ML CUP PO PRN (21:23)
[2018-12-04] MEDS: MELATONIN 5 MG TABLETS PO PRN (21:23)
[2018-12-04] MEDS: THIAMINE HCL 100 MG TABLET (FP) PO SCH (21:23)
[2018-12-04] MEDS: QUEtiapine FUMARATE 100 MG TABLET (FP) PO SCH (21:23)
[2018-12-04] MEDS: hydrOXYzine PAMOATE 50 MG CAPSULE (FP) PO PRN (21:24)
[2018-12-05] MEDS ORDERED: METHADONE HCL 5 MG TABLET ONE (05:51)
[2018-12-05] MEDS ORDERED: METHADONE HCL 10 MG TABLET ONE (05:51)
[2018-12-05] MEDS ORDERED: METHADONE HCL 40 MG DISPERSABLE TABLET ONE (05:52)
[2018-12-05] MEDS: METHADONE 40 MG, METHADONE 30 MG, METHADONE 5 MG PO SCH (06:20)
[2018-12-05] MEDS: PRENATAL VITAMINS W/ FOLIC ACID TABLET (FP) PO SCH (10:19)
[2018-12-05] MEDS: hydrOXYzine PAMOATE 50 MG CAPSULE (FP) PO PRN ×2 (10:19→21:13)
[2018-12-05] MEDS: THIAMINE HCL 100 MG TABLET (FP) PO SCH (21:13)
[2018-12-05] MEDS: MELATONIN 5 MG TABLETS PO PRN (21:13)
[2018-12-05] MEDS: QUEtiapine FUMARATE 100 MG TABLET (FP) PO SCH (21:13)
[2018-12-05] MEDS: IBUPROFEN 400 MG TABLET (FP) PO PRN (22:24)
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
--- NOTE | 2018-12-06 01:13 | PN ---
[facility] Progress Note Note: States fell in shower yesterday(12/04). States pain has been increasing. LBP sharp "10. FROM. No lesions, erythema (L) elbow sharp/throbbing "10" From Increased erythema, swelling Punched wall on 12/03 and now c/o (R) hand swelling - from fingers. Abler to make a fist. Vital Signs - 24 hr 12/05/18 12/05/18 12/05/18 03:30 07:11 23:41 Temperature 97.6 F 97.6 F Pulse Rate 58 L 73 Respiratory 18 18 18 Rate Blood Pressure 136/81 106/71 Fall Protocol # 1 Patient to ED via ambulance. Report to Dr. Bassett @ [facility].
[2018-12-06 01:49] LABS: PH,URINE 7.5 (5.0-8.0); URINE APPEARANCE CLEAR; URINE BILIRUBIN NEGATIVE (NEGATIVE); URINE COLOR YELLOW; URINE GLUCOSE (UA) NEGATIVE (NEGATIVE); URINE KETONE NEGATIVE (NEGATIVE); URINE LEUK ESTERASE NEGATIVE (NEGATIVE); URINE NITRITE NEGATIVE (NEGATIVE); URINE PROTEIN NEGATIVE (NEGATIVE); URINE UROBILINOGEN 0.2 mg/dL (0.2-1.0)
[2018-12-06] MEDS ORDERED: METHADONE HCL 10 MG TABLET ONE (08:44)
[2018-12-06] MEDS ORDERED: METHADONE HCL 5 MG TABLET ONE (08:44)
[2018-12-06] MEDS ORDERED: METHADONE HCL 40 MG DISPERSABLE TABLET ONE (08:45)
[2018-12-06] MEDS: METHADONE 40 MG, METHADONE 30 MG, METHADONE 5 MG PO SCH (08:49)
[2018-12-06] MEDS: PRENATAL VITAMINS W/ FOLIC ACID TABLET (FP) PO SCH (10:05)
[2018-12-06] MEDS: hydrOXYzine PAMOATE 50 MG CAPSULE (FP) PO PRN ×2 (10:06→21:29)
--- NOTE | 2018-12-06 11:45 | PN ---
[facility] Progress Note Note: Patient s/p fall while in bathroom. Patient sent to [facility] ER and had CT of head and left shoulder completed. Patient d/c back to [facility] this morning and now c/o right hand pain with swelling. Vital Signs Temperature 97.7 F 12/06/18 09:00 Pulse Rate 80 12/06/18 09:00 Respiratory Rate 18 12/06/18 09:00 Blood Pressure 123/74 12/06/18 09:00 O2 Sat by Pulse Oximetry (%) Laboratory Tests 12/01/18 12/01/18 12/01/18 09:30 09:30 09:30 WBC 6.5 RBC 3.20 L Hgb 11.1 Hct 33.4 MCV 104.4 H MCH 34.8 H MCHC 33.3 RDW 13.2 Plt Count 244 D MPV 8.8 Sodium 143 Potassium 3.6 Chloride 109 H Carbon Dioxide 28 Anion Gap 6 L BUN 8.9 Creatinine 0.7 Est GFR (CKD-EPI)AfAm 127.39 Est GFR (CKD-EPI)NonAf 109.91 Random Glucose 116 H Calcium 9.0 Total Bilirubin 0.4 AST 27 ALT 31 Alkaline Phosphatase 65 Total Protein 6.3 L Albumin 3.3 L Urine Color Urine Appearance Urine pH Ur Specific [place] Urine Protein Urine Glucose (UA) Urine Ketones Urine Blood Urine Nitrite Urine Bilirubin Urine Urobilinogen Ur Leukocyte Esterase RPR Titer Nonreactive TB (QFT) Incubation TB Test (QFT) Nil TB Test (QFT) Mitogen TB Test (QFT) Antigen TB Test (QFT) TB Positive Criteria 12/01/18 12/06/18 09:30 00:05 WBC RBC Hgb Hct MCV MCH MCHC RDW Plt Count MPV Sodium Potassium Chloride Carbon Dioxide Anion Gap BUN Creatinine Est GFR (CKD-EPI)AfAm Est GFR (CKD-EPI)NonAf Random Glucose Calcium Total Bilirubin AST ALT Alkaline Phosphatase Total Protein Albumin Urine Color Yellow Urine Appearance Clear Urine pH 7.5 Ur Specific [place] 1.022 Urine Protein Negative Urine Glucose (UA) Negative Urine Ketones Negative Urine Blood Negative Urine Nitrite Negative Urine Bilirubin Negative Urine Urobilinogen 0.2 Ur Leukocyte Esterase Negative RPR Titer TB (QFT) Incubation TB Test (QFT) Nil 0.05 TB Test (QFT) Mitogen >10.00 TB Test (QFT) Antigen 0.04 TB Test (QFT) Negative TB Positive Criteria PE: alert and oriented x 3 skin warm and dry +perrla, eoms intact bl neck supple, no jvd ext right hand and wrist with mild redness and +1 swelling +radial pulse, fingers mobile, + tender to touch A/P: right hand/wrist pain will order XRAY of right hand/wrist continue APAP/IBU prn monitor clinically
[2018-12-06] MEDS: METHOCARBAMOL 500 MG TABLET PO SCH ×2 (17:56→21:29)
[2018-12-06] MEDS: THIAMINE HCL 100 MG TABLET (FP) PO SCH (21:28)
[2018-12-06] MEDS: QUEtiapine FUMARATE 100 MG TABLET (FP) PO SCH (21:29)
[2018-12-06] MEDS: MELATONIN 5 MG TABLETS PO PRN (21:29)
[2018-12-07] MEDS ORDERED: METHADONE HCL 5 MG TABLET ONE (06:38)
[2018-12-07] MEDS ORDERED: METHADONE HCL 40 MG DISPERSABLE TABLET ONE (06:39)
[2018-12-07] MEDS ORDERED: METHADONE HCL 10 MG TABLET ONE (06:39)
[2018-12-07] MEDS: METHADONE 40 MG, METHADONE 30 MG, METHADONE 5 MG PO SCH (06:40)
[2018-12-07] MEDS: METHOCARBAMOL 500 MG TABLET PO SCH ×4 (09:39→21:16)
[2018-12-07] MEDS: PRENATAL VITAMINS W/ FOLIC ACID TABLET (FP) PO SCH (09:39)
--- NOTE | 2018-12-07 10:53 | PN ---
S Progress Note (SOAP) Subjective: Patient had a fall on 12/04; reported fall on 12/06 and c/o increasing pain in right hand. Patient was sent to the ER for x-rays. Assessment: Fall 12/07/18 10:54 Plan: X-ray of right hand and wrist indicates no injury, fracture, subluxation, or swellling.
[2018-12-07] MEDS ORDERED: GABAPENTIN 300 MG CAPSULE (FP) PO PRN (12:08)
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
[2018-12-07] MEDS: GABAPENTIN 300 MG CAPSULE (FP) PO PRN (14:30)
[2018-12-07] MEDS: hydrOXYzine PAMOATE 50 MG CAPSULE (FP) PO PRN (17:10)
[2018-12-07] MEDS: QUEtiapine FUMARATE 100 MG TABLET (FP) PO SCH (21:16)
[2018-12-07] MEDS: THIAMINE HCL 100 MG TABLET (FP) PO SCH (21:17)
[2018-12-07] MEDS: MELATONIN 5 MG TABLETS PO PRN (21:17)
[2018-12-07] MEDS: ACETAMINOPHEN 325 MG TABLET (FP) PO PRN (22:19)
[2018-12-08] MEDS: MAGNESIUM HYDROX 2400MG/30ML ORAL SUSPENSION 30 ML CUP PO PRN (02:10)
[2018-12-08] MEDS: hydrOXYzine PAMOATE 50 MG CAPSULE (FP) PO PRN ×3 (02:12→21:16)
[2018-12-08] MEDS ORDERED: METHADONE HCL 5 MG TABLET ONE (03:17)
[2018-12-08] MEDS ORDERED: METHADONE HCL 10 MG TABLET ONE (03:17)
[2018-12-08] MEDS ORDERED: METHADONE HCL 40 MG DISPERSABLE TABLET ONE (03:17)
[2018-12-08] MEDS: METHADONE 40 MG, METHADONE 30 MG, METHADONE 5 MG PO SCH (06:30)
[2018-12-08] MEDS: GABAPENTIN 300 MG CAPSULE (FP) PO PRN (06:31)
[2018-12-08] MEDS: METHOCARBAMOL 500 MG TABLET PO SCH ×4 (10:08→21:16)
[2018-12-08] MEDS: PRENATAL VITAMINS W/ FOLIC ACID TABLET (FP) PO SCH (10:08)
--- NOTE | 2018-12-08 10:38 | DS ---
[facility] Rehab Discharge Summary - [facility] Rehab Discharge Summary Admission Date: 11/30/18 Discharge Date: 12/09/18 - History Present History: Cocaine dependence Pertinent Past History: Rehab for cocaine use , reports 4 bags x 2 x/week , in [facility] since Mar 2018 , current daily dose 80 mg tobacco : 1 ppd heroin : IVDU " wherever I can , whenever I get it " , denies sharing needles , + abscess in the past , latest heroin use unable to determine due to pt intoxication / drowsiness , reports " I used some Klonopin and baby powder J & J " . LMP " yesterday , maybe " upt neg . PMHX : denies , per MR : " asthma, Hep C, Seizure disorder , Anxiety/ Depression" - Discharge Physical Exam Vital Signs: Vital Signs Temperature 97.9 F 12/08/18 07:12 Pulse Rate 77 12/08/18 07:12 Respiratory Rate 18 12/08/18 07:12 Blood Pressure 131/84 12/08/18 07:12 O2 Sat by Pulse Oximetry (%) Patient had a temperature of 102 last night. At that time, she refused tylenol or fluids. a urine culture was ordered by the covering medical provider during the night. This AM her temperature was 98.7. This provider spoke to her about staying for 24 hours to be monitored. The patient refused. Consequences of leaving without adequate monitoring were explained. Patient understood, but said she felt better and was leaving. The counselor also spoke to the patient about staying to be monitored and she refused. It should be noted that her temperature this AM was 98.7 and she was asymptomatic without any other complaints. Pertinent Admission Physical Exam Findings: - Physical General Appearance: No apparent distress HEENTM: Normocephalic, PERRLA Respiratory: ungs Clear, Normal Breath Sounds, No Accessory Muscle Use Neck: Supple Cardiology: S1, S2 Abdominal: +BS, Non Tender, Soft Musculoskeletal: Gait Steady, Full, Range of Motion, full weight bearing Neurological: Motor Strength 5/5, CN 2-12 intact Integumentary: Color consistent throughout trunk and extremities, Track Valera - Treatment Discharge Condition: Outpatient referral accepted (Patient will go to [facility] at the [facility] in [place], [place]) Hospital Course: patient was adherent to treatment plan and medication regimen; she met with the psychiatric provider. Patient had one fall during her stay here and had CT scan of the head and back, and x-ray of the hand, all negative for sequelae. She is medically stable for discharge. - Medication Discharge Medications: Ambulatory Orders Quetiapine Fumarate [Seroquel -] 25 mg PO 0600,1400 #60 tablet 03/17/18 Methocarbamol [Robaxin -] 500 mg PO TID 7 Days #21 tablet 12/06/18 Acetaminophen [Tylenol .Regular Strength -] 650 mg PO Q6H PRN #240 tablet Albuterol Sulfate Inhaler - [Ventolin HFA Inhaler -] 2 inh PO Q6H #1 inh Ferrous Sulfate [Feosol] 325 mg PO DAILY #30 tablet 12/08/18 Gabapentin [Neurontin -] 300 mg PO Q8H PRN #90 capsule 12/08/18 Metoclopramide HCl [Reglan -] 10 mg PO BID PRN #60 tablet 12/08/18 Quetiapine Fumarate [Seroquel] 100 mg PO HS #30 tablet 12/08/18 - Discharge Instructions Diet, activity, other medical instructions: Diet: as tolerated Activity: as tolerated Other medical instructions: Please follow up with aftercare referral and make an appointment with PCP within 2 weeks of discharge. - Diagnosis (1) Cocaine use disorder Current Visit: Yes Status: Chronic (2) Alcohol dependence Current Visit: No Status: Chronic Qualifiers: Substance use status: uncomplicated Qualified Code(s): F10.20 - Alcohol dependence, uncomplicated - Follow-up Referral Minutes to complete discharge: 20 - AMA Did Patient Leave Against Medical Advice: No
[2018-12-08] MEDS: METHYL SALICYLATE/MENTHOL OINT 30 GM TUBE TP SCH ×2 (11:23→21:17)
--- NOTE | 2018-12-08 12:13 | PN ---
[facility] Progress Note Note: Patient is scheduled for discharge tomorrow. Scripts for 30 days supply of medications(Gabapentin 300 mg/q8hr, Seroquel 100 mg/hs) will be electronically transmitted to [facility] Pharm[facility] at [address] [place] [address]
[2018-12-08] MEDS ORDERED: PT OWN MED DRAWER 7, Y5N ONE (15:14)
[2018-12-08] MEDS: THIAMINE HCL 100 MG TABLET (FP) PO SCH (21:15)
[2018-12-08] MEDS: QUEtiapine FUMARATE 100 MG TABLET (FP) PO SCH (21:16)
[2018-12-08] MEDS: ACETAMINOPHEN 325 MG TABLET (FP) PO PRN (22:15)
--- NOTE | 2018-12-08 23:00 | PN ---
S Progress Note Note: eliezel co mild dysuria, fever and generaloized aches Vital Signs - 24 hr 12/08/18 12/08/18 12/08/18 00:30 02:07 03:30 Temperature 98.2 F Pulse Rate Respiratory 16 16 Rate Blood Pressure 12/08/18 07:12 Temperature 97.9 F Pulse Rate 77 Respiratory 18 Rate Blood Pressure 131/84 note t 101.8 p110 bp 118/74 lungs clear no cva tenderness conversational and non toxic ap febrile illness non focal exam encouraged hydration tylenol ucx collected anticipated dc in am
[2018-12-09] MEDS ORDERED: METHADONE HCL 5 MG TABLET ONE (03:08)
[2018-12-09] MEDS ORDERED: METHADONE HCL 40 MG DISPERSABLE TABLET ONE (03:08)
[2018-12-09] MEDS ORDERED: METHADONE HCL 10 MG TABLET ONE (03:08)
[2018-12-09] MEDS: METHADONE 40 MG, METHADONE 30 MG, METHADONE 5 MG PO SCH (06:25)
[2018-12-09 07:00] VITALS: BP 133/92; PULSE 72
[2018-12-09 08:57] VITALS: TEMP 98.5
[2018-12-09] MEDS ORDERED: PT OWN MED DRAWER 7, Y5N ONE (09:17)
[2018-12-09] MEDS: METHOCARBAMOL 500 MG TABLET PO SCH (09:41)
[2018-12-09] MEDS: PRENATAL VITAMINS W/ FOLIC ACID TABLET (FP) PO SCH (09:41)
[2018-12-09] MEDS: METHYL SALICYLATE/MENTHOL OINT 30 GM TUBE TP SCH (09:41)
[2018-12-09] MEDS: hydrOXYzine PAMOATE 50 MG CAPSULE (FP) PO PRN (09:42)
[2018-12-09] MEDS: GABAPENTIN 300 MG CAPSULE (FP) PO PRN (09:43)
[2018-12-09 15:42] LABS: EPI CELLS 5.2 /HPF (0-5/HPF); HYALINE CASTS 1 /lpf (0-8); PH,URINE 5.5 (5.0-8.0); URINE APPEARANCE CLOUDY; URINE BACTERIA 20.1 /hpf (NEGATIVE); URINE BILIRUBIN 1+ (NEGATIVE); URINE COLOR DK YELLOW; URINE GLUCOSE (UA) NEGATIVE (NEGATIVE); URINE KETONE TRACE (NEGATIVE); URINE LEUK ESTERASE 1+ (NEGATIVE); URINE NITRITE NEGATIVE (NEGATIVE); URINE PROTEIN 1+ (NEGATIVE); URINE RBC 827 /hpf (0-4); URINE WBC 6 /hpf (0-5)
== END 2018-12-09 09:48 | disposition home or self-care (01) | DRG 772 ==
LOC: YASAS 10:22 → Y3W 17:43 → Y3E 17:49
PROVIDERS: ADMIT Neuromusculoskeletal Medicine & OMM; ATTEND Neuromusculoskeletal Medicine & OMM
PROC: HZ42ZZZ Group Counseling for Substance Abuse Treatment, Cognitive-Behavioral (ICD-10-PCS; principal; 2018-11-30)
DX: F10.20 Alcohol dependence, uncomplicated (principal); F11.20 Opioid dependence, uncomplicated; F14.20 Cocaine dependence, uncomplicated; F17.210 Nicotine dependence, cigarettes, uncomplicated; F19.24 Other psychoactive substance dependence with psychoactive substance-induced mood disorder; F19.282 Other psychoactive substance dependence with psychoactive substance-induced sleep disorder; F19.280 Other psychoactive substance dependence with psychoactive substance-induced anxiety disorder; F43.10 Post-traumatic stress disorder, unspecified; G40.909 Epilepsy, unspecified, not intractable, without status epilepticus; M79.641 Pain in right hand; J45.909 Unspecified asthma, uncomplicated; Z88.2 Allergy status to sulfonamides; W18.30XA Fall on same level, unspecified, initial encounter; Y93.9 Activity, unspecified; Y92.239 Unspecified place in hospital as the place of occurrence of the external cause
CPT/HCPCS: 36415; 73110-TC-RT-FY; 73130-TC-RT-FY; 80053; 81003; 85027; 86480; 86593

== ENCOUNTER 2018-12-06 00:40 | Emergency (ER) | payer OTHER ==
[2018-12-06 00:47] VITALS: TEMP 98; BMI 24.5
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
[2018-12-06] MEDS ORDERED: KETOROLAC TROMETHAMINE 15 MG/ML VIAL IM ONE (02:13)
[2018-12-06] MEDS ORDERED: KETOROLAC TROMETHAMINE 30 MG/1 ML VIAL ONE (02:39)
--- NOTE | 2018-12-06 04:47 | PDOC ---
Attending Attestation - Resident Resident Name: Bakari Blanchard - ED Attending Attestation I have performed the following: I have examined & evaluated the patient, The case was reviewed & discussed with the resident, I agree w/resident's findings & plan - HPI HPI: 12/06/18 04:44 Pt comes after fall at [facility] bathroom. She has head injury and shoulder/ arm injury. She is getting treatment at [facility], and she denies substance abuse. No other complaints. 12/06/18 04:58 [facility] at [facility] accepts patient back - Physicial Exam PE: 12/06/18 04:46 Agree with resident exam - Medical Decision Making 12/06/18 04:44 Patient Name: SHELLIE MARIN THIS IS A PRELIMINARY REPORT FROM [facility] DATE OF SERVICE: 2018-12-06 03:50:46 IMAGES: 69 EXAM: CT HEAD WITHOUT CONTRAST No acute brain parenchymal abnormality. No hemorrhage, mass or acute territorial infarct. No skull fracture. Clear visualized paranasal sinuses. Visualized mastoid air cells clear. One or more of the following dose reduction techniques were used: autom 12/06/18 04:46 shoulder XR normal; CT head normal. Pt will go with closed head trauma precautions. Robaxin to go home with . OTC analgesics as needed. 12/06/18 05:46 Pt awaiting transport to go back to [facility].
[2018-12-06 04:51] VITALS: BP 99/46; PULSE 63
== END 2018-12-06 07:58 | disposition home or self-care (01) ==
LOC: JER 00:40
PROC: 3E0233Z Introduction of Anti-inflammatory into Muscle, Percutaneous Approach (ICD-10-PCS; principal; 2018-12-06)
DX: S09.8XXA Other specified injuries of head, initial encounter (principal); M25.512 Pain in left shoulder; M54.9 Dorsalgia, unspecified; W18.2XXA Fall in (into) shower or empty bathtub, initial encounter; Y93.E1 Activity, personal bathing and showering; Y92.231 Patient bathroom in hospital as the place of occurrence of the external cause; Y99.8 Other external cause status; I10 Essential (primary) hypertension; D64.9 Anemia, unspecified; J45.909 Unspecified asthma, uncomplicated; F31.9 Bipolar disorder, unspecified; R56.1 Post traumatic seizures; Z87.820 Personal history of traumatic brain injury; F11.10 Opioid abuse, uncomplicated
CPT/HCPCS: 70450-TC; 73030-TC-LT-FY; 84703; 96372; 99282-25

== ENCOUNTER 2019-04-24 10:16 | Inpatient (IN) | payer OTHER ==
[2019-04-24 10:55] VITALS: BMI 28.3
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
[2019-04-24] MEDS ORDERED: hydrOXYzine PAMOATE 25 MG CAPSULE (FP) PO PRN (12:30)
[2019-04-24] MEDS ORDERED: MAGNESIUM CITRATE 300 ML BOTTLE PO PRN (12:30)
[2019-04-24] MEDS ORDERED: MAG HYDROX/AL HYDROX/SIMETH 30 ML UNIT-DOSE CUP PO PRN (12:30)
[2019-04-24] MEDS ORDERED: MENTHOL/PHENOL 1 EACH UD MM PRN (12:30)
[2019-04-24] MEDS ORDERED: BISMUTH SUBSALICYLATE 524 MG/30 ML UD PO PRN (12:30)
[2019-04-24] MEDS ORDERED: ACETAMINOPHEN 325 MG TABLET (FP) PO PRN ×2 (12:30)
[2019-04-24] MEDS ORDERED: MELATONIN 5 MG TABLETS PO PRN (12:30)
[2019-04-24] MEDS ORDERED: IBUPROFEN 400 MG TABLET (FP) PO PRN (12:30)
[2019-04-24] MEDS ORDERED: GABAPENTIN 300 MG CAPSULE PO PRN (12:36)
[2019-04-24] MEDS: chlordiazePOXIDE HCL 25 MG CAPSULE PO SCH ×2 (13:30→22:15)
[2019-04-24] MEDS: ALBUTEROL SO4 HFA INHALER IH SCH ×2 (13:35→20:30)
[2019-04-24] MEDS: METHOCARBAMOL 500 MG TABLET PO PRN (22:15)
[2019-04-24] MEDS: THIAMINE HCL 100 MG TABLET (FP) PO SCH (22:15)
[2019-04-25] MEDS: chlordiazePOXIDE HCL 25 MG CAPSULE PO SCH ×3 (05:36→22:12)
[2019-04-25] MEDS: ALBUTEROL SO4 HFA INHALER IH SCH ×4 (05:37→18:01)
[2019-04-25] MEDS: NICOTINE POLACRILEX 2 MG GUM BUC PRN ×2 (05:39→17:44)
[2019-04-25] MEDS ORDERED: METHADONE HCL 10 MG TABLET PO ONE (09:27)
[2019-04-25 09:39] LABS: HEMATOCRIT 35.8 % (32.4-45.2); MCH 32.7 pg (25.7-33.7); MCHC 33.6 g/dl (32.0-36.0); MEAN CELL VOLUME 97.1 fl (80-96); MEAN PLT VOLUME 10.2 fl (7.5-11.1); PLATELET COUNT 206 K/MM3 (134-434); RBC 3.69 M/mm3 (3.60-5.2); RDW 12.8 % (11.6-15.6)
[2019-04-25] MEDS ORDERED: METHADONE 40 MG, METHADONE 20 MG, METHADONE 5 MG PO ONE (09:45)
[2019-04-25 10:02] LABS: ALBUMIN 3.3 g/dl (3.4-5.0); BILIRUBIN,TOTAL 0.2 mg/dL (0.2-1); BLOOD UREA NITROGEN 8.3 mg/dL (7-18); CALCIUM 9.1 mg/dL (8.5-10.1); CREATININE 0.8 mg/dL (0.55-1.3); POTASSIUM 3.9 mmol/L (3.5-5.1); TOT PROT 6.4 g/dl (6.4-8.2)
[2019-04-25] MEDS ORDERED: METHADONE HCL 10 MG TABLET ONE (10:07)
[2019-04-25] MEDS ORDERED: METHADONE HCL 5 MG TABLET ONE (10:08)
[2019-04-25] MEDS ORDERED: METHADONE HCL 40 MG DISPERSABLE TABLET ONE (10:08)
[2019-04-25] MEDS: PRENATAL VITAMINS W/ FOLIC ACID TABLET (FP) PO SCH (10:11)
[2019-04-25] MEDS ORDERED: PNEUMOC 13-VAL CONJ-DIP CRM/PF 0.5 ML DISP.SYRIN IM ONE (12:00)
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
[2019-04-25] MEDS ORDERED: FLU VACCINE QUAD 60 MCG/0.5 ML (MDV 19-20) IM ONE (13:30)
[2019-04-25] MEDS: METHOCARBAMOL 500 MG TABLET PO PRN ×2 (13:54→22:13)
--- NOTE | 2019-04-25 14:01 | PN ---
S CIWA - CIWA Score Nausea/Vomitin-No Nausea/No Vomiting Muscle Tremors: 4-Moderate,w/Arms Extend Anxiety: 2 Agitation: 2 Paroxysmal Sweats: 2 Orientation: 0-Oriented Tacttile Disturbances: 0-None Auditory Disturbances: 0-None Visual Disturbances: 0-None Headache: 0-None Present CIWA-Ar Total Score: 10 B[facility] Progress Note (SOAP) Subjective: sweats shakes body aches interrupted sleep Objective: 04/25/19 14:01 Vital Signs Temperature 98.2 F 04/25/19 13:16 Pulse Rate 60 04/25/19 13:16 Respiratory Rate 04/25/19 13:16 Blood Pressure 128/72 04/25/19 13:16 O2 Sat by Pulse Oximetry (%) Laboratory Tests 04/25/19 04/25/19 04/25/19 08:00 08:00 08:00 WBC 6.0 RBC 3.69 Hgb 12.0 Hct 35.8 MCV 97.1 H MCH 32.7 MCHC 33.6 RDW 12.8 Plt Count 206 MPV 10.2 D Sodium 142 Potassium 3.9 Chloride 106 Carbon Dioxide 32 Anion Gap 4 L BUN 8.3 Creatinine 0.8 Est GFR (CKD-EPI)AfAm 108.39 Est GFR (CKD-EPI)NonAf 93.52 Random Glucose 82 Calcium 9.1 Total Bilirubin 0.2 AST 29 ALT 35 Alkaline Phosphatase 65 Total Protein 6.4 Albumin 3.3 L RPR Titer Nonreactive aaox3 ambulating no acute distress Assessment: 04/25/19 14:01 withdrawals Plan: continue detox increase fluids
[2019-04-25] MEDS: hydrOXYzine PAMOATE 50 MG CAPSULE (FP) PO PRN (15:53)
[2019-04-25] MEDS: chlordiazePOXIDE HCL 10 MG CAPSULE PO PRN (17:44)
[2019-04-25] MEDS: MAGNESIUM HYDROX 2400MG/30ML ORAL SUSPENSION 30 ML CUP PO PRN (18:50)
--- NOTE | 2019-04-25 20:19 | PN ---
[facility] Progress Note Note: Called patients' pharmacy ([facility]) for medication reconciliation. Pharmacy states last meds were picked up in December 2018. Gabapentin was 300 mg PO TID and Seroquel 100 mg qhs.
[2019-04-25] MEDS: THIAMINE HCL 100 MG TABLET (FP) PO SCH (22:12)
[2019-04-25] MEDS: SUVOREXANT 10 MG TABLET PO PRN (22:14)
[2019-04-26] MEDS ORDERED: METHADONE HCL 10 MG TABLET ONE ×2 (04:05→05:35)
[2019-04-26] MEDS ORDERED: METHADONE HCL 40 MG DISPERSABLE TABLET ONE ×2 (04:05→05:36)
[2019-04-26] MEDS ORDERED: METHADONE HCL 5 MG TABLET ONE (05:35)
[2019-04-26] MEDS ORDERED: METHADONE 40 MG, METHADONE 20 MG, METHADONE 5 MG PO SCH (06:00)
[2019-04-26] MEDS ORDERED: METHADONE HCL 40 MG DISPERSABLE TABLET PO SCH ×2 (06:00)
[2019-04-26] MEDS: METHADONE 40 MG, METHADONE 30 MG, METHADONE 5 MG PO SCH (06:01)
[2019-04-26] MEDS: chlordiazePOXIDE 5 MG CAPSULE PO SCH ×3 (06:01→22:07)
[2019-04-26] MEDS: ALBUTEROL SO4 HFA INHALER IH SCH ×4 (06:04→18:00)
[2019-04-26] MEDS: METHOCARBAMOL 500 MG TABLET PO PRN ×3 (10:33→22:07)
[2019-04-26] MEDS: PRENATAL VITAMINS W/ FOLIC ACID TABLET (FP) PO SCH (10:33)
[2019-04-26] MEDS: hydrOXYzine PAMOATE 50 MG CAPSULE (FP) PO PRN ×2 (10:35→16:55)
--- NOTE | 2019-04-26 12:24 | PN ---
S CIWA - CIWA Score Nausea/Vomitin-No Nausea/No Vomiting Muscle Tremors: 3 Anxiety: 2 Agitation: 2 Paroxysmal Sweats: 2 Orientation: 0-Oriented Tacttile Disturbances: 0-None Auditory Disturbances: 0-None Visual Disturbances: 0-None Headache: 0-None Present CIWA-Ar Total Score: 9 BHS Progress Note (SOAP) Subjective: agitation sweats restless eczema/psoriasis on my leg i need psych for sleeping aide Objective: 04/26/19 12:23 Vital Signs Temperature 98.4 F 04/26/19 09:25 Pulse Rate 54 L 04/26/19 09:25 Respiratory Rate 19 04/26/19 09:25 Blood Pressure 134/75 04/26/19 09:25 O2 Sat by Pulse Oximetry (%) Laboratory Tests 04/25/19 04/25/19 04/25/19 08:00 08:00 08:00 WBC 6.0 RBC 3.69 Hgb 12.0 Hct 35.8 MCV 97.1 H MCH 32.7 MCHC 33.6 RDW 12.8 Plt Count 206 MPV 10.2 D Sodium 142 Potassium 3.9 Chloride 106 Carbon Dioxide 32 Anion Gap 4 L BUN 8.3 Creatinine 0.8 Est GFR (CKD-EPI)AfAm 108.39 Est GFR (CKD-EPI)NonAf 93.52 Random Glucose 82 Calcium 9.1 Total Bilirubin 0.2 AST 29 ALT 35 Alkaline Phosphatase 65 Total Protein 6.4 Albumin 3.3 L RPR Titer Nonreactive aaox3 ambulating no acute distress Assessment: 04/26/19 12:24 withdrawals plaque psoriasis noted on lower leg Plan: continue detox increase fluids psych ordered for consultation lidex ordered
[2019-04-26] MEDS: FLUOCINONIDE 0.05% CREAM (15 GM TUBE) TP SCH ×3 (15:18→22:10)
[2019-04-26] MEDS: chlordiazePOXIDE HCL 10 MG CAPSULE PO PRN (18:56)
[2019-04-26] MEDS: THIAMINE HCL 100 MG TABLET (FP) PO SCH (22:07)
[2019-04-26] MEDS: SUVOREXANT 10 MG TABLET PO PRN (22:07)
[2019-04-27] MEDS ORDERED: chlordiazePOXIDE HCL 10 MG CAPSULE PO PRN
[2019-04-27] MEDS: ALBUTEROL SO4 HFA INHALER IH SCH ×4 (00:17→18:33)
[2019-04-27] MEDS ORDERED: METHADONE HCL 10 MG TABLET ONE (05:14)
[2019-04-27] MEDS ORDERED: METHADONE HCL 40 MG DISPERSABLE TABLET ONE (05:15)
[2019-04-27] MEDS ORDERED: METHADONE HCL 5 MG TABLET ONE (05:15)
[2019-04-27] MEDS: METHADONE 40 MG, METHADONE 30 MG, METHADONE 5 MG PO SCH (06:00)
[2019-04-27] MEDS: chlordiazePOXIDE HCL 10 MG CAPSULE PO SCH ×3 (06:01→20:36)
[2019-04-27] MEDS: MAGNESIUM HYDROX 2400MG/30ML ORAL SUSPENSION 30 ML CUP PO PRN (06:19)
[2019-04-27] MEDS: METHOCARBAMOL 500 MG TABLET PO PRN ×2 (06:19→17:08)
[2019-04-27] MEDS ORDERED: IBUPROFEN 600 MG TABLET (FP) PO PRN (09:48)
[2019-04-27] MEDS: FLUOCINONIDE 0.05% CREAM (15 GM TUBE) TP SCH ×4 (10:02→21:12)
[2019-04-27] MEDS: LIDOCAINE 5% TOPICAL PATCH TP SCH (10:02)
[2019-04-27] MEDS: PRENATAL VITAMINS W/ FOLIC ACID TABLET (FP) PO SCH (10:03)
[2019-04-27] MEDS: hydrOXYzine PAMOATE 50 MG CAPSULE (FP) PO PRN ×2 (11:26→19:36)
--- NOTE | 2019-04-27 12:23 | PN ---
S CIWA - CIWA Score Nausea/Vomitin-No Nausea/No Vomiting Muscle Tremors: 2 Anxiety: 1-Mildly Anxious Agitation: 1-Slight > Activity Paroxysmal Sweats: No Perspiration Orientation: 0-Oriented Tacttile Disturbances: 0-None Auditory Disturbances: 0-None Visual Disturbances: 0-None Headache: 0-None Present CIWA-Ar Total Score: 4 BHS Progress Note (SOAP) Subjective: low back pain left elbow pain (old injury) Objective: 04/27/19 12:26 Vital Signs Temperature 97.1 F L 04/27/19 09:29 Pulse Rate 61 04/27/19 09:29 Respiratory Rate 18 04/27/19 09:29 Blood Pressure 135/77 04/27/19 09:29 O2 Sat by Pulse Oximetry (%) aaox3 ambulating no acute distress Assessment: 04/27/19 12:26 mild withdrawals Plan: lidocaine patch motrin 600mg prn ava bandage for elbow prn
[2019-04-27] MEDS: SUVOREXANT 10 MG TABLET PO PRN (20:36)
[2019-04-27] MEDS: THIAMINE HCL 100 MG TABLET (FP) PO SCH (21:12)
[2019-04-27] MEDS ORDERED: LIDOCAINE PATCH REMOVAL MC SCH (22:00)
[2019-04-28] MEDS: METHOCARBAMOL 500 MG TABLET PO PRN ×2 (03:21→09:29)
[2019-04-28] MEDS: ALBUTEROL SO4 HFA INHALER IH SCH ×2 (04:11→06:32)
[2019-04-28] MEDS ORDERED: METHADONE HCL 10 MG TABLET ONE (04:59)
[2019-04-28] MEDS ORDERED: METHADONE HCL 5 MG TABLET ONE (04:59)
[2019-04-28] MEDS ORDERED: METHADONE HCL 40 MG DISPERSABLE TABLET ONE (04:59)
[2019-04-28] MEDS ORDERED: chlordiazePOXIDE HCL 10 MG CAPSULE PO ONE (05:00)
[2019-04-28] MEDS: METHADONE 40 MG, METHADONE 30 MG, METHADONE 5 MG PO SCH (05:29)
[2019-04-28] MEDS: FLUOCINONIDE 0.05% CREAM (15 GM TUBE) TP SCH (09:28)
[2019-04-28] MEDS: PRENATAL VITAMINS W/ FOLIC ACID TABLET (FP) PO SCH (09:28)
[2019-04-28] MEDS: LIDOCAINE 5% TOPICAL PATCH TP SCH (09:28)
--- NOTE | 2019-04-28 09:30 | DS ---
[facility] Detox Discharge Summary Admission Date: 04/24/19 Discharge Date: 04/28/19 - History Present History: Alcohol Dependence, Cocaine Dependence, MMTP - Physical Exam Results Vital Signs: Vital Signs Temperature 98.2 F 04/28/19 08:48 Pulse Rate 86 04/28/19 08:48 Respiratory Rate 18 04/28/19 08:48 Blood Pressure 149/79 04/28/19 08:48 O2 Sat by Pulse Oximetry (%) Pertinent Admission Physical Exam Findings: Vital Signs Temperature 98.2 F 04/28/19 08:48 Pulse Rate 86 04/28/19 08:48 Respiratory Rate 18 04/28/19 08:48 Blood Pressure 149/79 04/28/19 08:48 O2 Sat by Pulse Oximetry (%) Laboratory Tests 04/25/19 04/25/19 04/25/19 08:00 08:00 08:00 WBC 6.0 RBC 3.69 Hgb 12.0 Hct 35.8 MCV 97.1 H MCH 32.7 MCHC 33.6 RDW 12.8 Plt Count 206 MPV 10.2 D Sodium 142 Potassium 3.9 Chloride 106 Carbon Dioxide 32 Anion Gap 4 L BUN 8.3 Creatinine 0.8 Est GFR (CKD-EPI)AfAm 108.39 Est GFR (CKD-EPI)NonAf 93.52 Random Glucose 82 Calcium 9.1 Total Bilirubin 0.2 AST 29 ALT 35 Alkaline Phosphatase 65 Total Protein 6.4 Albumin 3.3 L RPR Titer Nonreactive aaox3 ambulating no acute distress - Treatment Hospital Course: Detox Protocol Followed, Detoxed Safely, Responded well, Discharged Condition Good, Rehab Referral Accepted - Medication Discharge Medications: Ambulatory Orders Quetiapine Fumarate [Seroquel -] 25 mg PO 0600,1400 #60 tablet 03/17/18 Methocarbamol [Robaxin -] 500 mg PO TID 7 Days #21 tablet 12/06/18 Albuterol Sulfate Inhaler - [Ventolin HFA Inhaler -] 2 inh PO Q6H #1 inh Gabapentin [Neurontin -] 300 mg PO Q8H PRN #90 capsule 12/08/18 Quetiapine Fumarate [Seroquel] 100 mg PO HS #30 tablet 12/08/18 - Diagnosis (1) Cocaine dependence Current Visit: Yes Status: Chronic Qualifiers: Substance use status: uncomplicated Qualified Code(s): F14.20 - Cocaine dependence, uncomplicated (2) Sedative, hypnotic or anxiolytic dependence with withdrawal, uncomplicated Current Visit: Yes Status: Chronic (3) Seizure disorder Current Visit: Yes Status: Suspected (4) Uncomplicated alcohol dependence Current Visit: Yes Status: Chronic (5) ADHD (attention deficit hyperactivity disorder) Current Visit: Yes Status: Chronic (6) Drug-induced mood disorder Current Visit: Yes Status: Chronic (7) Methadone maintenance therapy patient Current Visit: Yes Status: Chronic (8) Mood disorder Current Visit: Yes Status: Chronic (9) PTSD (post-traumatic stress disorder) Current Visit: Yes Status: Chronic (10) Closed TBI (traumatic brain injury) Current Visit: Yes Status: Resolved Qualifiers: Encounter type: sequela Loss of consciousness presence/duration: without LOC Qualified Code(s): S06.9X0S - Unspecified intracranial injury without loss of consciousness, sequela (11) Bipolar disorder Current Visit: Yes Status: Ruled-out (12) Anxiety disorder Current Visit: No Status: Acute (13) Cellulitis of arm, right Current Visit: No Status: Acute (14) Opioid dependence with withdrawal Current Visit: Yes Status: Chronic (15) PTSD (post-traumatic stress disorder) Current Visit: No Status: Acute (16) Substance induced mood disorder Current Visit: No Status: Acute (17) Substance-induced anxiety disorder Current Visit: No Status: Acute (18) Substance-induced sleep disorder Current Visit: No Status: Acute (19) Alcohol dependence Current Visit: Yes Status: Chronic Qualifiers: Substance use status: uncomplicated Qualified Code(s): F10.20 - Alcohol dependence, uncomplicated (20) Anxiety and depression Current Visit: No Status: Chronic (21) Anxiety and depression Current Visit: No Status: Chronic (22) Asthma Current Visit: No Status: Chronic Qualifiers: Asthma severity: unspecified severity Asthma complication type: unspecified (23) Cocaine use disorder Current Visit: No Status: Chronic (24) Hepatitis C Current Visit: Yes Status: Chronic Qualifiers: Viral hepatitis chronicity: chronic Hepatic coma status: without hepatic coma Qualified Code(s): B18.2 - Chronic viral hepatitis C (25) MDD (major depressive disorder) Current Visit: No Status: Chronic (26) Nicotine dependence Current Visit: No Status: Chronic Qualifiers: Nicotine product type: cigarettes Substance use status: uncomplicated Qualified Code(s): F17.210 - Nicotine dependence, cigarettes, uncomplicated (27) Opioid dependence on agonist therapy Current Visit: No Status: Chronic (28) PTSD (post-traumatic stress disorder) Current Visit: No Status: Chronic (29) Seizure Current Visit: No Status: Chronic (30) Anemia Current Visit: No Status: Resolved Qualifiers: Anemia type: iron deficiency Iron deficiency anemia type: other iron deficiency Qualified Code(s): D50.8 - Other iron deficiency anemias - AMA Did Patient Leave Against Medical Advice: No
[2019-04-28 09:41] VITALS: BP 135/78; PULSE 61; TEMP 98.5
== END 2019-04-28 10:15 | disposition home or self-care (01) | DRG 773 ==
LOC: YASAS 10:16 → Y6N 12:49
PROVIDERS: ADMIT Allergy & Immunology; ATTEND Allergy & Immunology
PROC: HZ2ZZZZ Detoxification Services for Substance Abuse Treatment (ICD-10-PCS; principal; 2019-04-24)
DX: F10.230 Alcohol dependence with withdrawal, uncomplicated (principal); F11.20 Opioid dependence, uncomplicated; F13.230 Sedative, hypnotic or anxiolytic dependence with withdrawal, uncomplicated; F14.20 Cocaine dependence, uncomplicated; F17.210 Nicotine dependence, cigarettes, uncomplicated; F90.9 Attention-deficit hyperactivity disorder, unspecified type; F19.24 Other psychoactive substance dependence with psychoactive substance-induced mood disorder; F19.280 Other psychoactive substance dependence with psychoactive substance-induced anxiety disorder; F19.282 Other psychoactive substance dependence with psychoactive substance-induced sleep disorder; F39 Unspecified mood [affective] disorder; F43.10 Post-traumatic stress disorder, unspecified; F31.9 Bipolar disorder, unspecified; F41.9 Anxiety disorder, unspecified; I10 Essential (primary) hypertension; G40.89 Other seizures; L03.113 Cellulitis of right upper limb; J45.909 Unspecified asthma, uncomplicated; L40.0 Psoriasis vulgaris; R52 Pain, unspecified; Z87.820 Personal history of traumatic brain injury; Z88.2 Allergy status to sulfonamides
CPT/HCPCS: 36415; 80053; 81025; 85027; 86593; G0008; Q2036

== ENCOUNTER 2019-12-04 13:41 | Inpatient (IN) | payer OTHER ==
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
[2019-12-04] MEDS ORDERED: MAGNESIUM CITRATE 300 ML BOTTLE PO PRN (16:22)
[2019-12-04] MEDS ORDERED: BISMUTH SUBSALICYLATE 524 MG/30 ML UD PO PRN (16:22)
[2019-12-04] MEDS ORDERED: ONDANSETRON *ODT* 4 MG TABLET SL ONE (16:22)
[2019-12-04] MEDS ORDERED: METHOCARBAMOL 500 MG TABLET PO PRN (16:22)
[2019-12-04] MEDS ORDERED: diazePAM 5 MG TABLET PO ONE (16:22)
[2019-12-04] MEDS ORDERED: MAGNESIUM HYDROX 2400MG/30ML ORAL SUSPENSION 30 ML CUP PO PRN (16:22)
[2019-12-04] MEDS ORDERED: ACETAMINOPHEN 325 MG TABLET (FP) PO PRN ×2 (16:22)
[2019-12-04] MEDS ORDERED: hydrOXYzine PAMOATE 25 MG CAPSULE (FP) PO PRN (16:22)
[2019-12-04] MEDS ORDERED: IBUPROFEN 400 MG TABLET (FP) PO PRN (16:22)
[2019-12-04] MEDS ORDERED: MAG HYDROX/AL HYDROX/SIMETH 30 ML UNIT-DOSE CUP PO PRN (16:22)
[2019-12-04] MEDS ORDERED: MENTHOL/PHENOL 1 EACH UD MM PRN (16:22)
[2019-12-04] MEDS ORDERED: NICOTINE POLACRILEX 2 MG GUM BUC PRN (16:22)
[2019-12-04] MEDS ORDERED: ALBUTEROL SO4 HFA INHALER IH PRN (16:27)
[2019-12-04 16:51] VITALS: BMI 25.7
[2019-12-04] MEDS ORDERED: traZODone HCL 100 MG TABLET (FP) PO ONE (22:00)
[2019-12-04] MEDS: THIAMINE HCL 100 MG TABLET (FP) PO SCH (22:25)
[2019-12-04] MEDS: DIVALPROEX SODIUM 250 MG TABLET E.C. PO SCH (22:25)
[2019-12-04] MEDS: GABAPENTIN 300 MG CAPSULE PO SCH (22:25)
[2019-12-04] MEDS: MELATONIN 5 MG TABLETS PO SCH (22:25)
[2019-12-04] MEDS: diazePAM 5 MG TABLET PO SCH (22:25)
[2019-12-05] MEDS: diazePAM 5 MG TABLET PO SCH ×3 (06:12→22:33)
[2019-12-05] MEDS: GABAPENTIN 300 MG CAPSULE PO SCH ×3 (06:13→22:33)
[2019-12-05] MEDS ORDERED: METHADONE HCL 40 MG DISPERSABLE TABLET PO ONE (10:00)
[2019-12-05 10:03] LABS: HEMATOCRIT 34.9 % (32.4-45.2); HEMOGLOBIN 11.2 GM/dL (10.7-15.3); MCH 31.2 pg (25.7-33.7); MEAN CELL VOLUME 97.5 fl (80-96); MEAN PLT VOLUME 9.3 fl (7.5-11.1); PLATELET COUNT 233 K/MM3 (134-434); RBC 3.58 M/mm3 (3.60-5.2); RDW 14.5 % (11.6-15.6)
--- NOTE | 2019-12-05 10:13 | PN ---
S CIWA - CIWA Score Nausea/Vomitin-No Nausea/No Vomiting Muscle Tremors: 3 Anxiety: 3 Agitation: 1-Slight > Activity Paroxysmal Sweats: 1-Minimal Palms Moist Orientation: 0-Oriented Tacttile Disturbances: 0-None Auditory Disturbances: 0-None Visual Disturbances: 2-Mild Sensitivity Headache: 3-Moderate CIWA-Ar Total Score: 13 S Progress Note (SOAP) Subjective: 39 years old female was admitted in 12/04/19 for alcohol and benzo withdrawal sx management treating with valium detox regiment received methadone 80mg today sitting on the bed eating breakfast no trouble chewing no trouble swallowing tolerated food well Objective: 12/05/19 10:17 Vital Signs - 24 hr 12/04/19 12/04/19 12/04/19 16:55 17:36 20:45 Temperature 97.4 F L 97.3 F L 97.1 F L Pulse Rate 55 L 52 L 53 L Respiratory 18 18 18 Rate Blood Pressure 104/64 116/70 95/59 L O2 Sat by Pulse 100 98 Oximetry (%) 12/05/19 12/05/19 06:58 08:59 Temperature 97.2 F L 98.6 F Pulse Rate 51 L 61 Respiratory 18 16 Rate Blood Pressure 110/67 100/62 O2 Sat by Pulse 97 Oximetry (%) Laboratory Tests 12/05/19 07:40 WBC 7.0 RBC 3.58 L Hgb 11.2 Hct 34.9 MCV 97.5 H MCH 31.2 MCHC 32.0 RDW 14.5 D Plt Count 233 MPV 9.3 12/05/19 10:17 lab noted Assessment: 12/05/19 10:17 alcohol and benzo withdrawal Plan: valium regiment
[2019-12-05 10:20] LABS: BILIRUBIN,TOTAL 0.6 mg/dL (0.2-1); BLOOD UREA NITROGEN 9.2 mg/dL (7-18); CALCIUM 8.3 mg/dL (8.5-10.1); CREATININE 0.9 mg/dL (0.55-1.3); POTASSIUM 3.4 mmol/L (3.5-5.1)
[2019-12-05] MEDS: DIVALPROEX SODIUM 250 MG TABLET E.C. PO SCH ×2 (10:21→22:33)
[2019-12-05] MEDS: PRENATAL VITAMINS W/ FOLIC ACID TABLET (FP) PO SCH (10:21)
[2019-12-05] MEDS: NICOTINE 7 MG/24 HOURS TOPICAL PATCH TD SCH (10:22)
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
[2019-12-05] MEDS: diazePAM 5 MG TABLET PO PRN (17:33)
[2019-12-05 21:07] LABS: EPI CELLS 25 /uL (0-25.1); HYALINE CASTS 3 /uL (0-3.1); PH,URINE 6.5 (5.0-8.0); URINE APPEARANCE CLOUDY; URINE BACTERIA 171 /uL (0-1359); URINE BILIRUBIN NEGATIVE (NEGATIVE); URINE COLOR YELLOW; URINE GLUCOSE (UA) NEGATIVE (NEGATIVE); URINE KETONE NEGATIVE (NEGATIVE); URINE LEUK ESTERASE 3+ (NEGATIVE); URINE NITRITE NEGATIVE (NEGATIVE); URINE PROTEIN NEGATIVE (NEGATIVE); URINE RBC 5 /uL (0-23.9); URINE UROBILINOGEN 0.2 mg/dL (0.2-1.0); URINE WBC 288 /uL (0-25.8)
[2019-12-05] MEDS: THIAMINE HCL 100 MG TABLET (FP) PO SCH (22:33)
[2019-12-05] MEDS: traZODone HCL 50 MG TABLET (FP) PO SCH (22:33)
[2019-12-05] MEDS: MELATONIN 5 MG TABLETS PO SCH (22:33)
[2019-12-06] MEDS: GABAPENTIN 300 MG CAPSULE PO SCH ×3 (05:53→22:21)
[2019-12-06] MEDS: diazePAM 5 MG TABLET PO SCH ×2 (05:53→17:31)
[2019-12-06] MEDS: METHADONE HCL 40 MG DISPERSABLE TABLET PO SCH (05:53)
--- NOTE | 2019-12-06 10:14 | PN ---
[facility] CIWA - CIWA Score Nausea/Vomitin-Mild Nausea/No Vomiting Muscle Tremors: 1-None Visible, but [place] Anxiety: 2 Agitation: 0-Normal Activity Paroxysmal Sweats: 1-Minimal Palms Moist Orientation: 0-Oriented Tacttile Disturbances: 1-Very Mild Itch/Numbness Auditory Disturbances: 0-None Visual Disturbances: 1-Very Mild Sensitivity Headache: 1-Very Mild CIWA-Ar Total Score: 8 S Progress Note (SOAP) Subjective: 39 years old female was admitted on 12/04/19 for alcohol and benzo withdrawal sx management treating with valium detox regiment reports vaginal discharge white thick clumpy discharge noted with odor clotrimazole vg hs x 7 days Objective: 12/06/19 10:19 Vital Signs - 24 hr 12/05/19 12/05/19 12/05/19 12:56 16:38 21:06 Temperature 97.1 F L 97.3 F L 97.3 F L Pulse Rate 55 L 52 L 74 Respiratory 16 16 16 Rate Blood Pressure 118/64 98/53 L 110/74 O2 Sat by Pulse 100 95 Oximetry (%) 12/06/19 12/06/19 05:49 08:54 Temperature 97.3 F L 97.3 F L Pulse Rate 56 L 65 Respiratory 16 16 Rate Blood Pressure 105/58 L 102/66 O2 Sat by Pulse 96 Oximetry (%) Laboratory Tests 12/05/19 12/05/19 12/05/19 07:40 07:40 07:40 WBC 7.0 RBC 3.58 L Hgb 11.2 Hct 34.9 MCV 97.5 H MCH 31.2 MCHC 32.0 RDW 14.5 D Plt Count 233 MPV 9.3 Sodium 140 Potassium 3.4 L Chloride 105 Carbon Dioxide 27 Anion Gap 8 BUN 9.2 Creatinine 0.9 Est GFR (CKD-EPI)AfAm 93.35 Est GFR (CKD-EPI)NonAf 80.54 Random Glucose 115 H Calcium 8.3 L Total Bilirubin 0.6 AST 20 ALT 25 Alkaline Phosphatase 56 Total Protein 6.0 L Albumin 3.0 L Urine Color Urine Appearance Urine pH Ur Specific [place] Urine Protein Urine Glucose (UA) Urine Ketones Urine Blood Urine Nitrite Urine Bilirubin Urine Urobilinogen Ur Leukocyte Esterase Urine WBC (Auto) Urine RBC (Auto) Urine Casts (Auto) U Epithel Cells (Auto) Urine Bacteria (Auto) Syphilis Serology Non-reactive 12/05/19 18:04 WBC RBC Hgb Hct MCV MCH MCHC RDW Plt Count MPV Sodium Potassium Chloride Carbon Dioxide Anion Gap BUN Creatinine Est GFR (CKD-EPI)AfAm Est GFR (CKD-EPI)NonAf Random Glucose Calcium Total Bilirubin AST ALT Alkaline Phosphatase Total Protein Albumin Urine Color Yellow Urine Appearance Cloudy Urine pH 6.5 Ur Specific [place] 1.015 Urine Protein Negative Urine Glucose (UA) Negative Urine Ketones Negative Urine Blood Negative Urine Nitrite Negative Urine Bilirubin Negative Urine Urobilinogen 0.2 Ur Leukocyte Esterase 3+ H Urine WBC (Auto) 288 Urine RBC (Auto) 5 Urine Casts (Auto) 3 U Epithel Cells (Auto) 25 Urine Bacteria (Auto) 171 Syphilis Serology uti nitrofurantoin 50mg po q6h x 7 days Assessment: 12/06/19 10:21 alcohol and benzo withdrawal 12/06/19 10:22 vaginal candidate 12/06/19 10:22 uti uncomplicated Plan: valium regiment clotrimazole vg cream nitrofuratoin 100mg po bid
[2019-12-06] MEDS: FLUoxetine HCL 20 MG CAPSULE PO SCH (10:30)
[2019-12-06] MEDS: DIVALPROEX SODIUM 250 MG TABLET E.C. PO SCH ×2 (10:30→22:21)
[2019-12-06] MEDS: PRENATAL VITAMINS W/ FOLIC ACID TABLET (FP) PO SCH (10:30)
[2019-12-06] MEDS: NICOTINE 7 MG/24 HOURS TOPICAL PATCH TD SCH (10:30)
[2019-12-06] MEDS: diazePAM 5 MG TABLET PO PRN ×2 (10:34→22:20)
[2019-12-06] MEDS: ARIPiprazole 10 MG TABLET PO SCH (11:52)
[2019-12-06] MEDS: NITROFURANTOIN MACROCRYSTAL 50 MG CAPSULE (FP) PO SCH ×3 (13:05→23:11)
[2019-12-06] MEDS: THIAMINE HCL 100 MG TABLET (FP) PO SCH (22:21)
[2019-12-06] MEDS: traZODone HCL 50 MG TABLET (FP) PO SCH (22:21)
[2019-12-06] MEDS: MELATONIN 5 MG TABLETS PO SCH (22:21)
[2019-12-06] MEDS: CLOTRIMAZOLE 1% VAGINAL CREAM WITH APPLICATOR 45 GM TUBE VG SCH (23:07)
[2019-12-07] MEDS: METHADONE HCL 40 MG DISPERSABLE TABLET PO SCH (05:49)
[2019-12-07] MEDS: NITROFURANTOIN MACROCRYSTAL 50 MG CAPSULE (FP) PO SCH ×4 (05:50→23:08)
[2019-12-07] MEDS: GABAPENTIN 300 MG CAPSULE PO SCH ×3 (05:50→22:16)
[2019-12-07] MEDS ORDERED: diazePAM 5 MG TABLET PO ONE (06:00)
[2019-12-07] MEDS: DIVALPROEX SODIUM 250 MG TABLET E.C. PO SCH ×2 (09:25→22:16)
[2019-12-07] MEDS: PRENATAL VITAMINS W/ FOLIC ACID TABLET (FP) PO SCH (09:25)
[2019-12-07] MEDS: ARIPiprazole 10 MG TABLET PO SCH (09:25)
[2019-12-07] MEDS: NICOTINE 7 MG/24 HOURS TOPICAL PATCH TD SCH (09:26)
[2019-12-07] MEDS: FLUoxetine HCL 20 MG CAPSULE PO SCH (09:26)
[2019-12-07] MEDS ORDERED: LOPERAMIDE HCL 2 MG CAPSULE PO ONE (10:00)
--- NOTE | 2019-12-07 10:10 | PN ---
S CIWA - CIWA Score Nausea/Vomitin-Mild Nausea/No Vomiting Muscle Tremors: 2 Anxiety: 3 Agitation: 0-Normal Activity Paroxysmal Sweats: 1-Minimal Palms Moist Orientation: 0-Oriented Tacttile Disturbances: 0-None Auditory Disturbances: 0-None Visual Disturbances: 0-None Headache: 0-None Present CIWA-Ar Total Score: 7 S Progress Note (SOAP) Subjective: 39 years old female was admitted on 12/04/19 for alcohol and benzo withdrawal sx management treating with valium detox regiment diarrhea x 2 after breakfast Vital Signs - 24 hr 12/06/19 12/06/19 12/06/19 12:46 16:43 20:49 Temperature 97.3 F L 98.1 F 98.2 F Pulse Rate 54 L 65 62 Respiratory 16 17 18 Rate Blood Pressure 111/68 96/56 L 124/76 O2 Sat by Pulse 99 98 Oximetry (%) 12/07/19 12/07/19 06:37 08:51 Temperature 97.7 F 97.3 F L Pulse Rate 76 60 Respiratory 18 18 Rate Blood Pressure 99/67 96/61 O2 Sat by Pulse 97 Oximetry (%) low bp low pulse lomotil x 1 po encourage oral fluid Objective: 12/07/19 10:09 Vital Signs - 24 hr 12/06/19 12/06/19 12/06/19 12:46 16:43 20:49 Temperature 97.3 F L 98.1 F 98.2 F Pulse Rate 54 L 65 62 Respiratory 16 17 18 Rate Blood Pressure 111/68 96/56 L 124/76 O2 Sat by Pulse 99 98 Oximetry (%) 12/07/19 12/07/19 06:37 08:51 Temperature 97.7 F 97.3 F L Pulse Rate 76 60 Respiratory 18 18 Rate Blood Pressure 99/67 96/61 O2 Sat by Pulse 97 Oximetry (%) Laboratory Tests 12/04/19 12/05/19 12/05/19 17:31 07:40 07:40 WBC 7.0 RBC 3.58 L Hgb 11.2 Hct 34.9 MCV 97.5 H MCH 31.2 MCHC 32.0 RDW 14.5 D Plt Count 233 MPV 9.3 Sodium Potassium Chloride Carbon Dioxide Anion Gap BUN Creatinine Est GFR (CKD-EPI)AfAm Est GFR (CKD-EPI)NonAf Random Glucose Calcium Total Bilirubin AST ALT Alkaline Phosphatase Total Protein Albumin Urine Color Urine Appearance Urine pH Ur Specific [place] Urine Protein Urine Glucose (UA) Urine Ketones Urine Blood Urine Nitrite Urine Bilirubin Urine Urobilinogen Ur Leukocyte Esterase Urine WBC (Auto) Urine RBC (Auto) Urine Casts (Auto) U Epithel Cells (Auto) Urine Bacteria (Auto) Syphilis Serology Non-reactive COVID-19 ([facility]) Not detected HIV Ag/Ab Combo Qual 12/05/19 12/05/19 12/06/19 07:40 18:04 07:45 WBC RBC Hgb Hct MCV MCH MCHC RDW Plt Count MPV Sodium 140 Potassium 3.4 L Chloride 105 Carbon Dioxide 27 Anion Gap 8 BUN 9.2 Creatinine 0.9 Est GFR (CKD-EPI)AfAm 93.35 Est GFR (CKD-EPI)NonAf 80.54 Random Glucose 115 H Calcium 8.3 L Total Bilirubin 0.6 AST 20 ALT 25 Alkaline Phosphatase 56 Total Protein 6.0 L Albumin 3.0 L Urine Color Yellow Urine Appearance Cloudy Urine pH 6.5 Ur Specific [place] 1.015 Urine Protein Negative Urine Glucose (UA) Negative Urine Ketones Negative Urine Blood Negative Urine Nitrite Negative Urine Bilirubin Negative Urine Urobilinogen 0.2 Ur Leukocyte Esterase 3+ H Urine WBC (Auto) 288 Urine RBC (Auto) 5 Urine Casts (Auto) 3 U Epithel Cells (Auto) 25 Urine Bacteria (Auto) 171 Syphilis Serology COVID-19 ([facility]) HIV Ag/Ab Combo Qual Negative 12/07/19 10:18 low K+ K+ supplement 20 meq po x 3 glucose elevation uti continue nitrofurantoin 12/07/19 10:19 Assessment: 12/07/19 10:19 alcohol and benzo withdrawal Plan: valium regiment one additional dose of valium for tomorrow
[2019-12-07] MEDS ORDERED: POTASSIUM CHLORIDE ORAL LIQUID 20 MEQ/15 ML PO SCH (10:15)
[2019-12-07] MEDS ORDERED: DIPHENOXYLATE 2.5/ATROPINE.025 1 COMBO TABLET PO ONE (10:30)
[2019-12-07] MEDS: POTASSIUM CHLORIDE ORAL LIQUID 20 MEQ/15 ML PO SCH ×2 (11:58→14:07)
[2019-12-07] MEDS: CLOTRIMAZOLE 1% VAGINAL CREAM WITH APPLICATOR 45 GM TUBE VG SCH (22:15)
[2019-12-07] MEDS: MELATONIN 5 MG TABLETS PO SCH (22:16)
[2019-12-07] MEDS: THIAMINE HCL 100 MG TABLET (FP) PO SCH (22:16)
[2019-12-07] MEDS: traZODone HCL 50 MG TABLET (FP) PO SCH (22:16)
[2019-12-08] MEDS ORDERED: diazePAM 5 MG TABLET PO ONE (05:00)
[2019-12-08] MEDS: METHADONE HCL 40 MG DISPERSABLE TABLET PO SCH (05:49)
[2019-12-08] MEDS: NITROFURANTOIN MACROCRYSTAL 50 MG CAPSULE (FP) PO SCH (05:50)
[2019-12-08] MEDS: GABAPENTIN 300 MG CAPSULE PO SCH (05:50)
[2019-12-08] MEDS ORDERED: MASKS NR ONE (08:47)
[2019-12-08] MEDS: FLUoxetine HCL 20 MG CAPSULE PO SCH (09:11)
[2019-12-08] MEDS: NICOTINE 7 MG/24 HOURS TOPICAL PATCH TD SCH (09:11)
[2019-12-08] MEDS: ARIPiprazole 10 MG TABLET PO SCH (09:11)
[2019-12-08] MEDS: DIVALPROEX SODIUM 250 MG TABLET E.C. PO SCH (09:11)
[2019-12-08] MEDS: PRENATAL VITAMINS W/ FOLIC ACID TABLET (FP) PO SCH (09:12)
[2019-12-08 09:23] VITALS: BP 101/67; PULSE 67; TEMP 97.1
--- NOTE | 2019-12-08 09:53 | PN ---
[facility] CIWA - CIWA Score Nausea/Vomitin-No Nausea/No Vomiting Muscle Tremors: None Anxiety: 1-Mildly Anxious Agitation: 0-Normal Activity Paroxysmal Sweats: No Perspiration Orientation: 0-Oriented Tacttile Disturbances: 0-None Auditory Disturbances: 0-None Visual Disturbances: 0-None Headache: 0-None Present CIWA-Ar Total Score: 1 S Progress Note (SOAP) Subjective: alert,no complaint Objective: 12/08/19 16:31 Vital Signs Temperature 97.1 F L 12/08/19 08:57 Pulse Rate 67 12/08/19 08:57 Respiratory Rate 16 12/08/19 08:57 Blood Pressure 101/67 12/08/19 08:57 O2 Sat by Pulse Oximetry (%) 97 12/08/19 06:31 Assessment: 12/08/19 16:31 detox completed no withdrawal symptom Plan: stable for discharge today,follow up with after care program as arrangement,declined rehab
--- NOTE | 2019-12-08 09:53 | DS ---
[facility] Detox Discharge Summary Admission Date: 12/04/19 Discharge Date: 12/08/19 - History Present History: Alcohol Dependence, Cannabis Dependence, Sedative Dependence, MMTP Additional Comments: alert,oriented x 3 ambulation on the unit lung clear on auscultation bilaterally abdomen soft,no pain no swelling of the legs detox completed,no withdrawal symptom stable for discharge declined rehab follow up with out patient program methadone clinic left the unit in stable condition total time spending on discharge 35 minutes Pertinent Past History: ivdu traumatic brain injury adhd ptsd - Physical Exam Results Vital Signs: Vital Signs Temperature 97.1 F L 12/08/19 08:57 Pulse Rate 67 12/08/19 08:57 Respiratory Rate 16 12/08/19 08:57 Blood Pressure 101/67 12/08/19 08:57 O2 Sat by Pulse Oximetry (%) 97 12/08/19 06:31 Pertinent Admission Physical Exam Findings: withdrawal signs and symptom Laboratory Last Values WBC 7.0 K/mm3 (4.0-10.0) 12/05/19 07:40 RBC 3.58 M/mm3 (3.60-5.2) L 12/05/19 07:40 Hgb 11.2 GM/dL (10.7-15.3) 12/05/19 07:40 Hct 34.9 % (32.4-45.2) 12/05/19 07:40 MCV 97.5 fl (80-96) H 12/05/19 07:40 MCH 31.2 pg (25.7-33.7) 12/05/19 07:40 MCHC 32.0 g/dl (32.0-36.0) 12/05/19 07:40 RDW 14.5 % (11.6-15.6) D 12/05/19 07:40 Plt Count 233 K/MM3 (134-434) 12/05/19 07:40 MPV 9.3 fl (7.5-11.1) 12/05/19 07:40 Sodium 140 mmol/L (136-145) 12/05/19 07:40 Potassium 3.4 mmol/L (3.5-5.1) L 12/05/19 07:40 Chloride 105 mmol/L (98-107) 12/05/19 07:40 Carbon Dioxide 27 mmol/L (21-32) 12/05/19 07:40 Anion Gap 8 MMOL/L (8-16) 12/05/19 07:40 BUN 9.2 mg/dL (7-18) 12/05/19 07:40 Creatinine 0.9 mg/dL (0.55-1.3) 12/05/19 07:40 Est GFR (CKD-EPI)AfAm 93.35 12/05/19 07:40 Est GFR (CKD-EPI)NonAf 80.54 12/05/19 07:40 Random Glucose 115 mg/dL (74-106) H 12/05/19 07:40 Calcium 8.3 mg/dL (8.5-10.1) L 12/05/19 07:40 Total Bilirubin 0.6 mg/dL (0.2-1) 12/05/19 07:40 AST 20 U/L (15-37) 12/05/19 07:40 ALT 25 U/L (13-61) 12/05/19 07:40 Alkaline Phosphatase 56 U/L (45-117) 12/05/19 07:40 Total Protein 6.0 g/dl (6.4-8.2) L 12/05/19 07:40 Albumin 3.0 g/dl (3.4-5.0) L 12/05/19 07:40 Urine Color Yellow 12/05/19 18:04 Urine Appearance Cloudy 12/05/19 18:04 Urine pH 6.5 (5.0-8.0) 12/05/19 18:04 Ur Specific [place] 1.015 (1.010-1.035) 12/05/19 18:04 Urine Protein Negative (NEGATIVE) 12/05/19 18:04 Urine Glucose (UA) Negative (NEGATIVE) 12/05/19 18:04 Urine Ketones Negative (NEGATIVE) 12/05/19 18:04 Urine Blood Negative (NEGATIVE) 12/05/19 18:04 Urine Nitrite Negative (NEGATIVE) 12/05/19 18:04 Urine Bilirubin Negative (NEGATIVE) 12/05/19 18:04 Urine Urobilinogen 0.2 mg/dL (0.2-1.0) 12/05/19 18:04 Ur Leukocyte Esterase 3+ (NEGATIVE) H 12/05/19 18:04 Urine WBC (Auto) 288 /uL (0-25.8) 12/05/19 18:04 Urine RBC (Auto) 5 /uL (0-23.9) 12/05/19 18:04 Urine Casts (Auto) 3 /uL (0-3.1) 12/05/19 18:04 U Epithel Cells (Auto) 25 /uL (0-25.1) 12/05/19 18:04 Urine Bacteria (Auto) 171 /uL (0-1359) 12/05/19 18:04 Syphilis Serology Non-reactive (NONREACTIVE) 12/05/19 07:40 COVID-19 ([facility]EN[facility]) Not detected (Not Detected) 12/04/19 17:31 HIV Ag/Ab Combo Qual Negative (NEGATIVE) 12/06/19 07:45 Vital Signs Temperature 97.1 F L 12/08/19 08:57 Pulse Rate 67 12/08/19 08:57 Respiratory Rate 16 12/08/19 08:57 Blood Pressure 101/67 12/08/19 08:57 O2 Sat by Pulse Oximetry (%) 97 12/08/19 06:31 - Treatment Hospital Course: Detox Protocol Followed, Detoxed Safely, Responded well, Discharged Condition Good Patient has Accepted a Rehab Referral to: declined - Medication Discharge Medications: Ambulatory Orders Aripiprazole [Abilify] 30 mg PO DAILY 12/04/19 Fluoxetine HCl [Prozac] 50 mg PO DAILY 12/04/19 traZODone HCL [Trazodone HCl] 100 mg PO DAILY 12/04/19 Nitrofurantoin Macrocrystal [Macrodantin -] 50 mg PO Q6HPO 5 Days #20 capsule 12/08/19 - Diagnosis (1) Alcohol dependence with withdrawal, uncomplicated Status: Acute (2) Cannabis abuse Status: Acute (3) Sedative, hypnotic or anxiolytic dependence with withdrawal, uncomplicated Status: Acute (4) ADHD (attention deficit hyperactivity disorder) Status: Chronic (5) Asthma Status: Chronic Qualifiers: Asthma severity: mild Asthma persistence: persistent Asthma complication type: uncomplicated Qualified Code(s): J45.30 - Mild persistent asthma, uncomplicated (6) PTSD (post-traumatic stress disorder) Status: Acute (7) IVDU (intravenous drug user) Status: Acute (8) History of traumatic brain injury Status: Acute (9) Methadone maintenance therapy patient Status: Acute (10) UTI (urinary tract infection) Status: Acute - AMA Did Patient Leave Against Medical Advice: No
== END 2019-12-08 09:46 | disposition home or self-care (01) | DRG 773 ==
LOC: YASAS 13:41 → Y3N 16:45
PROVIDERS: ADMIT Allergy & Immunology; ATTEND Allergy & Immunology
PROC: HZ2ZZZZ Detoxification Services for Substance Abuse Treatment (ICD-10-PCS; principal; 2019-12-04)
DX: F10.230 Alcohol dependence with withdrawal, uncomplicated (principal); F13.230 Sedative, hypnotic or anxiolytic dependence with withdrawal, uncomplicated; F11.20 Opioid dependence, uncomplicated; F14.20 Cocaine dependence, uncomplicated; F12.20 Cannabis dependence, uncomplicated; F17.210 Nicotine dependence, cigarettes, uncomplicated; F31.9 Bipolar disorder, unspecified; F19.24 Other psychoactive substance dependence with psychoactive substance-induced mood disorder; F90.9 Attention-deficit hyperactivity disorder, unspecified type; F43.10 Post-traumatic stress disorder, unspecified; D50.8 Other iron deficiency anemias; N39.0 Urinary tract infection, site not specified; B37.3 Candidiasis of vulva and vagina; R56.1 Post traumatic seizures; B18.2 Chronic viral hepatitis C; Z62.810 Personal history of physical and sexual abuse in childhood; Z91.410 Personal history of adult physical and sexual abuse; Z88.2 Allergy status to sulfonamides
CPT/HCPCS: 36415; 80053; 81003; 85027; 86780; 87389; Q0162; U0003

== ENCOUNTER 2020-02-06 12:18 | Inpatient (IN) | payer OTHER ==
[2020-02-06 13:08] VITALS: BMI 25.3
[2020-02-06] MEDS ORDERED: BISMUTH SUBSALICYLATE 262 MG/15 ML BTL PO PRN (13:39)
[2020-02-06] MEDS ORDERED: ONDANSETRON *ODT* 4 MG TABLET SL PRN (13:39)
[2020-02-06] MEDS ORDERED: MENTHOL/PHENOL 1 EACH UD MM PRN (13:39)
[2020-02-06] MEDS ORDERED: MAGNESIUM HYDROX 2400MG/30ML ORAL SUSPENSION 30 ML CUP PO PRN (13:39)
[2020-02-06] MEDS ORDERED: IBUPROFEN 400 MG TABLET (FP) PO PRN (13:39)
[2020-02-06] MEDS ORDERED: MAG HYDROX/AL HYDROX/SIMETH 30 ML UNIT-DOSE CUP PO PRN (13:39)
[2020-02-06] MEDS ORDERED: ACETAMINOPHEN 325 MG TABLET (FP) PO PRN ×2 (13:39)
[2020-02-06] MEDS ORDERED: MAGNESIUM CITRATE 300 ML BOTTLE PO PRN (13:39)
[2020-02-06] MEDS ORDERED: METHADONE HCL 10 MG TABLET (FOR DETOX USE ONLY) PO ONE (14:08)
[2020-02-06] MEDS ORDERED: METHADONE HCL 10 MG TABLET PO ONE (14:28)
[2020-02-06] MEDS ORDERED: ALBUTEROL SO4 HFA INHALER IH PRN (15:05)
[2020-02-06] MEDS ORDERED: METHADONE 30 MG, METHADONE 5 MG PO ONE (15:15)
[2020-02-06] MEDS ORDERED: METHADONE HCL 10 MG TABLET ONE (15:18)
[2020-02-06] MEDS ORDERED: METHADONE HCL 5 MG TABLET ONE (15:18)
[2020-02-06] MEDS: hydrOXYzine PAMOATE 25 MG CAPSULE (FP) PO SCH ×3 (15:20→22:16)
[2020-02-06] MEDS: diazePAM 5 MG TABLET PO PRN (15:55)
[2020-02-06] MEDS: METHOCARBAMOL 500 MG TABLET PO PRN (15:55)
[2020-02-06 17:27] LABS: POTASSIUM 3.9 mmol/L (3.5-5.1)
[2020-02-06 17:31] LABS: ALBUMIN 3.9 g/dl (3.4-5.0); BLOOD UREA NITROGEN 8.4 mg/dL (7-18); CALCIUM 9.1 mg/dL (8.5-10.1)
[2020-02-06 17:32] LABS: HEMATOCRIT 36.6 % (32.4-45.2); MCHC 32.9 g/dl (32.0-36.0); MEAN CELL VOLUME 97.3 fl (80-96); MEAN PLT VOLUME 8.9 fl (7.5-11.1); PLATELET COUNT 275 K/MM3 (134-434); RBC 3.76 M/mm3 (3.60-5.2); RDW 14.5 % (11.6-15.6); WHITE BLOOD COUNT 5.4 K/mm3 (4.0-10.0)
[2020-02-06 17:35] LABS: CREATININE 0.9 mg/dL (0.55-1.3)
[2020-02-06 17:36] LABS: BILIRUBIN,TOTAL 0.6 mg/dL (0.2-1); TOT PROT 7.6 g/dl (6.4-8.2)
[2020-02-06] MEDS: NITROFURANTOIN MACROCRYSTAL 50 MG CAPSULE (FP) PO SCH ×2 (17:39→23:33)
[2020-02-06] MEDS: diazePAM 5 MG TABLET PO SCH ×2 (17:39→22:16)
[2020-02-06] MEDS ORDERED: NITROFURANTOIN MACROCRYSTAL 50 MG CAPSULE (FP) PO SCH (22:00)
[2020-02-06] MEDS ORDERED: MELATONIN 5 MG TABLETS PO SCH (22:00)
[2020-02-06] MEDS: DIVALPROEX SODIUM 500 MG TABLET E.C. PO SCH (22:16)
[2020-02-06] MEDS: THIAMINE HCL 100 MG TABLET (FP) PO SCH (22:17)
[2020-02-07] MEDS: hydrOXYzine PAMOATE 25 MG CAPSULE (FP) PO SCH ×3 (05:59→14:15)
[2020-02-07] MEDS: diazePAM 5 MG TABLET PO SCH ×4 (05:59→22:28)
[2020-02-07] MEDS: NITROFURANTOIN MACROCRYSTAL 50 MG CAPSULE (FP) PO SCH ×4 (06:01→23:24)
[2020-02-07] MEDS ORDERED: METHADONE 40 MG, METHADONE 5 MG PO ONE (09:57)
[2020-02-07] MEDS ORDERED: METHADONE HCL 10 MG TABLET PO ONE (09:57)
[2020-02-07] MEDS ORDERED: METHADONE HCL 5 MG TABLET ONE (10:28)
[2020-02-07] MEDS ORDERED: METHADONE HCL 40 MG DISPERSABLE TABLET ONE (10:28)
[2020-02-07] MEDS: PRENATAL VITAMINS W/ FOLIC ACID TABLET (FP) PO SCH (10:30)
[2020-02-07] MEDS: DIVALPROEX SODIUM 500 MG TABLET E.C. PO SCH ×2 (10:31→22:28)
[2020-02-07] MEDS: TRIAMCINOLONE ACET 0.1% OINT 15 GM TUBE TP SCH (10:34)
[2020-02-07] MEDS: NICOTINE 14 MG/24 HOURS TOPICAL PATCH TD SCH (10:34)
[2020-02-07 13:30] LABS: HIV INTERPRETATION NEGATIVE (NEGATIVE)
[2020-02-07] MEDS: diazePAM 5 MG TABLET PO PRN ×2 (14:12→18:48)
[2020-02-07] MEDS: METHOCARBAMOL 500 MG TABLET PO PRN (14:12)
[2020-02-07 15:27] LABS: EPI CELLS >36 /uL (0-25.1); HYALINE CASTS 38 /uL (0-3.1); PH,URINE 6.5 (5.0-8.0); URINE APPEARANCE CLOUDY; URINE BILIRUBIN 1+ (NEGATIVE); URINE COLOR DK YELLOW; URINE GLUCOSE (UA) NEGATIVE (NEGATIVE); URINE KETONE TRACE (NEGATIVE); URINE LEUK ESTERASE 2+ (NEGATIVE); URINE NITRITE POSITIVE (NEGATIVE); URINE PROTEIN 1+ (NEGATIVE); URINE WBC 762 /uL (0-25.8)
[2020-02-07 15:46] LABS: URINE BACTERIA 554.4 /uL (0-1359); URINE RBC 18.8 /uL (0-23.9)
[2020-02-07] MEDS: hydrOXYzine PAMOATE 50 MG CAPSULE (FP) PO PRN (17:28)
[2020-02-07] MEDS: SUVOREXANT 10 MG TABLET PO PRN (22:27)
[2020-02-07] MEDS: THIAMINE HCL 100 MG TABLET (FP) PO SCH (22:28)
[2020-02-07] MEDS: traZODone HCL 50 MG TABLET (FP) PO SCH (22:28)
[2020-02-08] MEDS ORDERED: METHADONE HCL 10 MG TABLET ONE (04:50)
[2020-02-08] MEDS ORDERED: METHADONE HCL 5 MG TABLET ONE (04:50)
[2020-02-08] MEDS ORDERED: METHADONE HCL 40 MG DISPERSABLE TABLET ONE (04:50)
[2020-02-08] MEDS ORDERED: METHADONE 40 MG, METHADONE 10 MG, METHADONE 5 MG PO ONE (06:00)
[2020-02-08] MEDS ORDERED: METHADONE HCL 40 MG DISPERSABLE TABLET PO ONE (06:00)
[2020-02-08] MEDS: diazePAM 5 MG TABLET PO SCH ×3 (06:40→22:22)
[2020-02-08] MEDS: NITROFURANTOIN MACROCRYSTAL 50 MG CAPSULE (FP) PO SCH ×2 (06:40→14:39)
[2020-02-08] MEDS: METHOCARBAMOL 500 MG TABLET PO PRN (08:55)
[2020-02-08] MEDS: PRENATAL VITAMINS W/ FOLIC ACID TABLET (FP) PO SCH (10:32)
[2020-02-08] MEDS: ARIPiprazole 10 MG TABLET PO SCH (10:32)
[2020-02-08] MEDS: FLUoxetine HCL 20 MG CAPSULE PO SCH (10:32)
[2020-02-08] MEDS: DIVALPROEX SODIUM 500 MG TABLET E.C. PO SCH ×2 (10:32→22:23)
[2020-02-08] MEDS: TRIAMCINOLONE ACET 0.1% OINT 15 GM TUBE TP SCH (10:33)
[2020-02-08] MEDS: NICOTINE 14 MG/24 HOURS TOPICAL PATCH TD SCH (10:33)
[2020-02-08] MEDS: NICOTINE POLACRILEX 2 MG GUM BUC PRN (10:34)
[2020-02-08] MEDS ORDERED: NITROFURANTOIN MACROCRYSTAL 50 MG CAPSULE (FP) PO SCH (14:30)
[2020-02-08] MEDS: diazePAM 5 MG TABLET PO PRN (18:55)
[2020-02-08 21:09] LABS: EPI CELLS >36 /uL (0-25.1); HYALINE CASTS 27 /uL (0-3.1); URINE APPEARANCE CLEAR; URINE BACTERIA 61 /uL (0-1359); URINE BILIRUBIN 1+ (NEGATIVE); URINE COLOR DK YELLOW; URINE GLUCOSE (UA) NEGATIVE (NEGATIVE); URINE KETONE TRACE (NEGATIVE); URINE LEUK ESTERASE 2+ (NEGATIVE); URINE NITRITE NEGATIVE (NEGATIVE); URINE PROTEIN TRACE (NEGATIVE); URINE RBC 15 /uL (0-23.9); URINE WBC 355 /uL (0-25.8)
[2020-02-08] MEDS: traZODone HCL 50 MG TABLET (FP) PO SCH (22:22)
[2020-02-08] MEDS: SUVOREXANT 10 MG TABLET PO PRN (22:22)
[2020-02-08] MEDS: THIAMINE HCL 100 MG TABLET (FP) PO SCH (22:23)
[2020-02-09 00:19] LABS: URINE CRYSTALS FEW /hpf
[2020-02-09] MEDS ORDERED: METHADONE HCL 5 MG TABLET ONE (04:46)
[2020-02-09] MEDS ORDERED: METHADONE HCL 40 MG DISPERSABLE TABLET ONE (04:46)
[2020-02-09] MEDS ORDERED: METHADONE HCL 10 MG TABLET ONE (04:46)
[2020-02-09] MEDS ORDERED: METHADONE HCL 10 MG TABLET PO ONE (06:00)
[2020-02-09] MEDS ORDERED: METHADONE 40 MG, METHADONE 20 MG, METHADONE 5 MG PO ONE (06:00)
[2020-02-09] MEDS: diazePAM 5 MG TABLET PO SCH ×2 (06:54→17:24)
[2020-02-09] MEDS: FLUoxetine HCL 20 MG CAPSULE PO SCH (10:55)
[2020-02-09] MEDS: DIVALPROEX SODIUM 500 MG TABLET E.C. PO SCH ×2 (10:55→22:29)
[2020-02-09] MEDS: PRENATAL VITAMINS W/ FOLIC ACID TABLET (FP) PO SCH (10:55)
[2020-02-09] MEDS: NICOTINE 14 MG/24 HOURS TOPICAL PATCH TD SCH (10:55)
[2020-02-09] MEDS: ARIPiprazole 10 MG TABLET PO SCH (10:56)
[2020-02-09] MEDS: TRIAMCINOLONE ACET 0.1% OINT 15 GM TUBE TP SCH (10:56)
[2020-02-09] MEDS: diazePAM 5 MG TABLET PO PRN (10:56)
[2020-02-09] MEDS: NICOTINE POLACRILEX 2 MG GUM BUC PRN (10:57)
[2020-02-09] MEDS: THIAMINE HCL 100 MG TABLET (FP) PO SCH (22:29)
[2020-02-09] MEDS: traZODone HCL 50 MG TABLET (FP) PO SCH (22:29)
[2020-02-09] MEDS: SUVOREXANT 10 MG TABLET PO PRN (22:31)
[2020-02-10] MEDS: hydrOXYzine PAMOATE 50 MG CAPSULE (FP) PO PRN (00:54)
[2020-02-10] MEDS ORDERED: METHADONE HCL 10 MG TABLET ONE (04:03)
[2020-02-10] MEDS ORDERED: METHADONE HCL 5 MG TABLET ONE (04:04)
[2020-02-10] MEDS ORDERED: METHADONE HCL 40 MG DISPERSABLE TABLET ONE (04:04)
[2020-02-10] MEDS ORDERED: METHADONE 40 MG, METHADONE 30 MG, METHADONE 5 MG PO ONE (06:00)
[2020-02-10] MEDS ORDERED: diazePAM 5 MG TABLET PO ONE (06:00)
[2020-02-10] MEDS ORDERED: METHADONE HCL 10 MG TABLET PO ONE (06:00)
[2020-02-10 07:39] VITALS: BP 103/65; PULSE 74; TEMP 97.8
[2020-02-11] MEDS ORDERED: METHADONE HCL 10 MG TABLET PO SCH (06:00)
[2020-02-11] MEDS ORDERED: METHADONE 80 MG, METHADONE 5 MG PO SCH (06:00)
== END 2020-02-10 09:24 | disposition home or self-care (01) | DRG 773 ==
LOC: YASAS 12:18 → Y6N 14:02
PROVIDERS: ADMIT Allergy & Immunology; ATTEND Allergy & Immunology
PROC: HZ2ZZZZ Detoxification Services for Substance Abuse Treatment (ICD-10-PCS; principal; 2020-02-06)
DX: F10.230 Alcohol dependence with withdrawal, uncomplicated (principal); F13.230 Sedative, hypnotic or anxiolytic dependence with withdrawal, uncomplicated; F11.20 Opioid dependence, uncomplicated; F14.20 Cocaine dependence, uncomplicated; F12.20 Cannabis dependence, uncomplicated; F17.210 Nicotine dependence, cigarettes, uncomplicated; F19.280 Other psychoactive substance dependence with psychoactive substance-induced anxiety disorder; F19.282 Other psychoactive substance dependence with psychoactive substance-induced sleep disorder; F19.24 Other psychoactive substance dependence with psychoactive substance-induced mood disorder; F39 Unspecified mood [affective] disorder; F90.9 Attention-deficit hyperactivity disorder, unspecified type; F43.10 Post-traumatic stress disorder, unspecified; F41.9 Anxiety disorder, unspecified; F32.9 Major depressive disorder, single episode, unspecified; D50.8 Other iron deficiency anemias; N39.0 Urinary tract infection, site not specified; J45.30 Mild persistent asthma, uncomplicated; L30.9 Dermatitis, unspecified; B18.2 Chronic viral hepatitis C; M54.5 Low back pain; G89.29 Other chronic pain; R56.1 Post traumatic seizures; Z62.810 Personal history of physical and sexual abuse in childhood; Z87.820 Personal history of traumatic brain injury; Z88.2 Allergy status to sulfonamides
CPT/HCPCS: 36415; 80053; 81003; 81025; 85027; 86780; 87086; 87389; 93005; 93010; C9803; U0003

== ENCOUNTER 2020-03-31 15:29 | Inpatient (IN) | payer OTHER ==
[2020-03-31] MEDS ORDERED: NICOTINE POLACRILEX 2 MG GUM BUC PRN (18:23)
[2020-03-31] MEDS ORDERED: METHOCARBAMOL 500 MG TABLET PO PRN (18:23)
[2020-03-31] MEDS ORDERED: MENTHOL/PHENOL 1 EACH UD MM PRN (18:23)
[2020-03-31] MEDS ORDERED: IBUPROFEN 400 MG TABLET (FP) PO PRN (18:23)
[2020-03-31] MEDS ORDERED: ACETAMINOPHEN 325 MG TABLET (FP) PO PRN ×2 (18:23)
[2020-03-31] MEDS ORDERED: MAG HYDROX/AL HYDROX/SIMETH 30 ML UNIT-DOSE CUP PO PRN (18:23)
[2020-03-31] MEDS ORDERED: MAGNESIUM HYDROX 2400MG/30ML ORAL SUSPENSION 30 ML CUP PO PRN (18:23)
[2020-03-31] MEDS ORDERED: ONDANSETRON *ODT* 4 MG TABLET SL PRN (18:23)
[2020-03-31] MEDS ORDERED: chlordiazePOXIDE HCL 25 MG CAPSULE PO PRN (18:23)
[2020-03-31] MEDS ORDERED: MAGNESIUM CITRATE 300 ML BOTTLE PO PRN (18:23)
[2020-03-31] MEDS ORDERED: BISMUTH SUBSALICYLATE 524 MG/30 ML UD PO PRN (18:23)
[2020-03-31] MEDS ORDERED: ALBUTEROL SO4 HFA INHALER IH PRN (18:26)
[2020-03-31 18:49] VITALS: BMI 23.6
[2020-03-31] MEDS: chlordiazePOXIDE HCL 25 MG CAPSULE PO SCH (22:17)
[2020-03-31] MEDS: THIAMINE HCL 100 MG TABLET (FP) PO SCH (22:17)
[2020-03-31] MEDS: MELATONIN 5 MG TABLETS PO SCH (22:17)
[2020-04-01] MEDS: chlordiazePOXIDE HCL 25 MG CAPSULE PO SCH ×4 (05:45→22:06)
[2020-04-01] MEDS ORDERED: METHADONE HCL 10 MG TABLET PO ONE (10:00)
[2020-04-01] MEDS: PRENATAL VITAMINS W/ FOLIC ACID TABLET (FP) PO SCH (10:12)
[2020-04-01] MEDS: NICOTINE 14 MG/24 HOURS TOPICAL PATCH TD SCH (10:12)
[2020-04-01 11:13] LABS: POTASSIUM 4.3 mmol/L (3.5-5.1)
[2020-04-01 11:18] LABS: ALBUMIN 2.9 g/dl (3.4-5.0)
[2020-04-01 11:19] LABS: HEMATOCRIT 33.4 % (32.4-45.2); MCH 31.8 pg (25.7-33.7); MEAN CELL VOLUME 96.4 fl (80-96); MEAN PLT VOLUME 9.9 fl (7.5-11.1); PLATELET COUNT 228 K/MM3 (134-434); RBC 3.47 M/mm3 (3.60-5.2); RDW 14.6 % (11.6-15.6); WHITE BLOOD COUNT 8.9 K/mm3 (4.0-10.0)
[2020-04-01 11:21] LABS: BLOOD UREA NITROGEN 14.3 mg/dL (7-18)
[2020-04-01 11:23] LABS: TOT PROT 6.4 g/dl (6.4-8.2)
[2020-04-01 11:25] LABS: CREATININE 0.7 mg/dL (0.55-1.3)
[2020-04-01 11:29] LABS: BILIRUBIN,TOTAL 0.6 mg/dL (0.2-1)
[2020-04-01] MEDS ORDERED: hydrOXYzine PAMOATE 50 MG CAPSULE (FP) PO PRN (13:00)
[2020-04-01] MEDS: levETIRAcetam 500 MG TABLET (FP) PO SCH ×2 (13:06→22:06)
[2020-04-01] MEDS ORDERED: MASKS NR ONE (17:17)
[2020-04-01] MEDS: THIAMINE HCL 100 MG TABLET (FP) PO SCH (22:06)
[2020-04-01] MEDS: traZODone HCL 50 MG TABLET (FP) PO SCH (22:06)
[2020-04-01] MEDS: MELATONIN 5 MG TABLETS PO SCH (22:07)
[2020-04-02] MEDS: chlordiazePOXIDE HCL 25 MG CAPSULE PO SCH ×4 (05:27→22:21)
[2020-04-02] MEDS: METHADONE HCL 10 MG TABLET PO SCH (05:27)
[2020-04-02] MEDS: levETIRAcetam 500 MG TABLET (FP) PO SCH ×2 (10:37→22:21)
[2020-04-02] MEDS: ARIPiprazole 10 MG TABLET PO SCH (10:37)
[2020-04-02] MEDS: FLUoxetine HCL 20 MG CAPSULE PO SCH (10:37)
[2020-04-02] MEDS: NICOTINE 14 MG/24 HOURS TOPICAL PATCH TD SCH (10:40)
[2020-04-02] MEDS: PRENATAL VITAMINS W/ FOLIC ACID TABLET (FP) PO SCH (10:47)
[2020-04-02] MEDS ORDERED: METHOCARBAMOL 750 MG TAB PO ONE (11:15)
[2020-04-02] MEDS ORDERED: LOPERAMIDE HCL 2 MG CAPSULE PO ONE (11:30)
[2020-04-02] MEDS: MELATONIN 5 MG TABLETS PO SCH (22:21)
[2020-04-02] MEDS: traZODone HCL 50 MG TABLET (FP) PO SCH (22:21)
[2020-04-02] MEDS: THIAMINE HCL 100 MG TABLET (FP) PO SCH (22:21)
[2020-04-03] MEDS ORDERED: chlordiazePOXIDE HCL 10 MG CAPSULE PO PRN
[2020-04-03] MEDS: METHADONE HCL 10 MG TABLET PO SCH (05:45)
[2020-04-03] MEDS: chlordiazePOXIDE HCL 10 MG CAPSULE PO SCH ×4 (05:46→22:04)
[2020-04-03] MEDS: ARIPiprazole 10 MG TABLET PO SCH (10:20)
[2020-04-03] MEDS: PRENATAL VITAMINS W/ FOLIC ACID TABLET (FP) PO SCH (10:20)
[2020-04-03] MEDS: levETIRAcetam 500 MG TABLET (FP) PO SCH ×2 (10:20→22:04)
[2020-04-03] MEDS: NICOTINE 14 MG/24 HOURS TOPICAL PATCH TD SCH (10:20)
[2020-04-03] MEDS: FLUoxetine HCL 20 MG CAPSULE PO SCH (10:20)
[2020-04-03] MEDS ORDERED: LOPERAMIDE HCL 2 MG CAPSULE PO ONE (10:31)
[2020-04-03] MEDS: MELATONIN 5 MG TABLETS PO SCH (22:03)
[2020-04-03] MEDS: traZODone HCL 50 MG TABLET (FP) PO SCH (22:03)
[2020-04-03] MEDS: THIAMINE HCL 100 MG TABLET (FP) PO SCH (22:04)
[2020-04-04] MEDS: chlordiazePOXIDE HCL 10 MG CAPSULE PO SCH ×2 (05:37→17:26)
[2020-04-04] MEDS: METHADONE HCL 10 MG TABLET PO SCH (05:38)
[2020-04-04] MEDS: ARIPiprazole 10 MG TABLET PO SCH (10:04)
[2020-04-04] MEDS: FLUoxetine HCL 20 MG CAPSULE PO SCH (10:04)
[2020-04-04] MEDS: levETIRAcetam 500 MG TABLET (FP) PO SCH ×2 (10:04→21:59)
[2020-04-04] MEDS: NICOTINE 14 MG/24 HOURS TOPICAL PATCH TD SCH (10:04)
[2020-04-04] MEDS: PRENATAL VITAMINS W/ FOLIC ACID TABLET (FP) PO SCH (10:04)
[2020-04-04] MEDS: THIAMINE HCL 100 MG TABLET (FP) PO SCH (21:59)
[2020-04-04] MEDS: MELATONIN 5 MG TABLETS PO SCH (21:59)
[2020-04-04] MEDS: traZODone HCL 50 MG TABLET (FP) PO SCH (21:59)
[2020-04-05] MEDS: METHADONE HCL 10 MG TABLET PO SCH (04:59)
[2020-04-05] MEDS ORDERED: chlordiazePOXIDE HCL 10 MG CAPSULE PO ONE (05:00)
[2020-04-05] MEDS ORDERED: MASKS NR ONE (10:20)
[2020-04-05] MEDS: ARIPiprazole 10 MG TABLET PO SCH (10:21)
[2020-04-05] MEDS: levETIRAcetam 500 MG TABLET (FP) PO SCH (10:21)
[2020-04-05] MEDS: PRENATAL VITAMINS W/ FOLIC ACID TABLET (FP) PO SCH (10:21)
[2020-04-05] MEDS: FLUoxetine HCL 20 MG CAPSULE PO SCH (10:21)
[2020-04-05] MEDS: NICOTINE 14 MG/24 HOURS TOPICAL PATCH TD SCH (10:36)
[2020-04-05 13:09] VITALS: BP 93/48; PULSE 54; TEMP 97.8
== END 2020-04-05 13:57 | disposition other institution (70) | DRG 773 ==
LOC: YASAS 15:29 → Y6N 18:40
PROVIDERS: ADMIT Allergy & Immunology; ATTEND Allergy & Immunology
PROC: HZ2ZZZZ Detoxification Services for Substance Abuse Treatment (ICD-10-PCS; principal; 2020-03-31)
DX: F10.230 Alcohol dependence with withdrawal, uncomplicated (principal); F14.20 Cocaine dependence, uncomplicated; F11.20 Opioid dependence, uncomplicated; F17.213 Nicotine dependence, cigarettes, with withdrawal; F19.24 Other psychoactive substance dependence with psychoactive substance-induced mood disorder; F39 Unspecified mood [affective] disorder; F31.9 Bipolar disorder, unspecified; F41.9 Anxiety disorder, unspecified; F43.10 Post-traumatic stress disorder, unspecified; F90.9 Attention-deficit hyperactivity disorder, unspecified type; R56.1 Post traumatic seizures; D50.9 Iron deficiency anemia, unspecified; J45.20 Mild intermittent asthma, uncomplicated; B18.2 Chronic viral hepatitis C; M54.5 Low back pain; G89.29 Other chronic pain; L30.9 Dermatitis, unspecified; R00.1 Bradycardia, unspecified; R19.5 Other fecal abnormalities; Z62.810 Personal history of physical and sexual abuse in childhood; Z87.820 Personal history of traumatic brain injury; Z91.410 Personal history of adult physical and sexual abuse; Z86.69 Personal history of other diseases of the nervous system and sense organs; Z87.440 Personal history of urinary (tract) infections; Z91.5 Personal history of self-harm; Z88.2 Allergy status to sulfonamides; Z56.0 Unemployment, unspecified; Z59.0 Homelessness
CPT/HCPCS: 36415; 80053; 80177; 81025; 85027; 86780; 93005; 93010; C9803; U0003

== ENCOUNTER 2020-04-05 14:54 | Inpatient (IN) | payer OTHER ==
[2020-04-05] MEDS ORDERED: MAG HYDROX/AL HYDROX/SIMETH 30 ML UNIT-DOSE CUP PO PRN (15:41)
[2020-04-05] MEDS ORDERED: P-EPHED 60MG/TRIPROLIDI 2.5MG TABLET PO PRN (15:41)
[2020-04-05] MEDS ORDERED: LOPERAMIDE HCL 2 MG CAPSULE PO PRN (15:41)
[2020-04-05] MEDS ORDERED: MENTHOL/PHENOL 1 EACH UD MM PRN (15:41)
[2020-04-05] MEDS ORDERED: IBUPROFEN 400 MG TABLET (FP) PO PRN (15:41)
[2020-04-05] MEDS ORDERED: guaiFENesin 200 MG/10 ML 10 ML UNIT-DOSE CUPS PO PRN (15:41)
[2020-04-05] MEDS ORDERED: MAGNESIUM CITRATE 300 ML BOTTLE PO PRN (15:41)
[2020-04-05] MEDS ORDERED: ACETAMINOPHEN 325 MG TABLET (FP) PO PRN (15:41)
[2020-04-05] MEDS ORDERED: ALBUTEROL SO4 HFA INHALER IH PRN (15:45)
[2020-04-05] MEDS ORDERED: MASKS NR ONE (18:35)
[2020-04-05] MEDS: THIAMINE HCL 100 MG TABLET (FP) PO SCH (21:12)
[2020-04-05] MEDS: MELATONIN 5 MG TABLETS PO SCH (21:12)
[2020-04-05] MEDS: traZODone HCL 50 MG TABLET (FP) PO SCH (21:13)
[2020-04-05] MEDS: levETIRAcetam 500 MG TABLET (FP) PO SCH (21:13)
[2020-04-06] MEDS: hydrOXYzine PAMOATE 25 MG CAPSULE (FP) PO PRN ×2 (03:32→10:19)
[2020-04-06] MEDS: METHADONE HCL 10 MG TABLET PO SCH (06:26)
[2020-04-06] MEDS ORDERED: MASKS NR ONE ×2 (09:13→21:25)
[2020-04-06] MEDS: PRENATAL VITAMINS W/ FOLIC ACID TABLET (FP) PO SCH (10:19)
[2020-04-06] MEDS: levETIRAcetam 500 MG TABLET (FP) PO SCH ×2 (10:19→21:24)
[2020-04-06] MEDS: FLUoxetine HCL 20 MG CAPSULE PO SCH (10:19)
[2020-04-06] MEDS: ARIPiprazole 10 MG TABLET PO SCH (10:19)
[2020-04-06] MEDS: NICOTINE 14 MG/24 HOURS TOPICAL PATCH TD SCH (10:20)
[2020-04-06] MEDS: NICOTINE POLACRILEX 2 MG GUM BUC PRN (10:20)
[2020-04-06] MEDS: traZODone HCL 50 MG TABLET (FP) PO SCH (21:24)
[2020-04-06] MEDS: MELATONIN 5 MG TABLETS PO SCH (21:24)
[2020-04-06] MEDS: THIAMINE HCL 100 MG TABLET (FP) PO SCH (21:24)
[2020-04-07] MEDS: METHADONE HCL 10 MG TABLET PO SCH (06:22)
[2020-04-07] MEDS: FLUoxetine HCL 20 MG CAPSULE PO SCH (10:37)
[2020-04-07] MEDS: ARIPiprazole 10 MG TABLET PO SCH (10:37)
[2020-04-07] MEDS: levETIRAcetam 500 MG TABLET (FP) PO SCH ×2 (10:37→21:19)
[2020-04-07] MEDS: NICOTINE 14 MG/24 HOURS TOPICAL PATCH TD SCH (10:38)
[2020-04-07] MEDS: PRENATAL VITAMINS W/ FOLIC ACID TABLET (FP) PO SCH (10:38)
[2020-04-07] MEDS: NICOTINE POLACRILEX 2 MG GUM BUC PRN (10:38)
[2020-04-07 12:29] LABS: HIV INTERPRETATION NEGATIVE (NEGATIVE)
[2020-04-07] MEDS: hydrOXYzine PAMOATE 25 MG CAPSULE (FP) PO PRN (17:18)
[2020-04-07] MEDS: traZODone HCL 50 MG TABLET (FP) PO SCH (21:19)
[2020-04-07] MEDS: MELATONIN 5 MG TABLETS PO SCH (21:19)
[2020-04-07] MEDS: THIAMINE HCL 100 MG TABLET (FP) PO SCH (21:19)
[2020-04-08] MEDS: METHADONE HCL 10 MG TABLET PO SCH (06:40)
[2020-04-08] MEDS: PRENATAL VITAMINS W/ FOLIC ACID TABLET (FP) PO SCH (09:53)
[2020-04-08] MEDS: levETIRAcetam 500 MG TABLET (FP) PO SCH ×2 (09:53→21:20)
[2020-04-08] MEDS: ARIPiprazole 10 MG TABLET PO SCH (09:53)
[2020-04-08] MEDS: hydrOXYzine PAMOATE 25 MG CAPSULE (FP) PO PRN (09:53)
[2020-04-08] MEDS: NICOTINE 14 MG/24 HOURS TOPICAL PATCH TD SCH (09:53)
[2020-04-08] MEDS: FLUoxetine HCL 20 MG CAPSULE PO SCH (09:53)
[2020-04-08] MEDS: traZODone HCL 50 MG TABLET (FP) PO SCH (21:20)
[2020-04-08] MEDS: MELATONIN 5 MG TABLETS PO SCH (21:20)
[2020-04-08] MEDS: THIAMINE HCL 100 MG TABLET (FP) PO SCH (21:20)
[2020-04-09] MEDS: METHADONE HCL 10 MG TABLET PO SCH (07:03)
[2020-04-09] MEDS: PRENATAL VITAMINS W/ FOLIC ACID TABLET (FP) PO SCH (10:20)
[2020-04-09] MEDS: levETIRAcetam 500 MG TABLET (FP) PO SCH ×2 (10:20→21:18)
[2020-04-09] MEDS: FLUoxetine HCL 20 MG CAPSULE PO SCH (10:20)
[2020-04-09] MEDS: ARIPiprazole 10 MG TABLET PO SCH (10:20)
[2020-04-09] MEDS: NICOTINE 14 MG/24 HOURS TOPICAL PATCH TD SCH (10:21)
[2020-04-09] MEDS: NICOTINE POLACRILEX 2 MG GUM BUC PRN ×2 (10:21→21:19)
[2020-04-09] MEDS: hydrOXYzine PAMOATE 50 MG CAPSULE (FP) PO PRN (19:41)
[2020-04-09] MEDS: traZODone HCL 100 MG TABLET (FP) PO SCH (21:19)
[2020-04-09] MEDS: THIAMINE HCL 100 MG TABLET (FP) PO SCH (21:19)
[2020-04-09] MEDS: MELATONIN 5 MG TABLETS PO SCH (21:19)
[2020-04-10] MEDS: METHADONE HCL 10 MG TABLET PO SCH (06:17)
[2020-04-10] MEDS: NICOTINE POLACRILEX 2 MG GUM BUC PRN ×3 (07:07→21:26)
[2020-04-10] MEDS: NICOTINE 14 MG/24 HOURS TOPICAL PATCH TD SCH (10:00)
[2020-04-10] MEDS: levETIRAcetam 500 MG TABLET (FP) PO SCH ×2 (10:00→21:26)
[2020-04-10] MEDS: ARIPiprazole 10 MG TABLET PO SCH (10:00)
[2020-04-10] MEDS: PRENATAL VITAMINS W/ FOLIC ACID TABLET (FP) PO SCH (10:00)
[2020-04-10] MEDS: FLUoxetine HCL 20 MG CAPSULE PO SCH (10:00)
[2020-04-10] MEDS: hydrOXYzine PAMOATE 50 MG CAPSULE (FP) PO PRN (10:00)
[2020-04-10] MEDS: THIAMINE HCL 100 MG TABLET (FP) PO SCH (21:26)
[2020-04-10] MEDS: traZODone HCL 100 MG TABLET (FP) PO SCH (21:26)
[2020-04-10] MEDS: MELATONIN 5 MG TABLETS PO SCH (21:26)
[2020-04-11] MEDS: METHADONE HCL 10 MG TABLET PO SCH (06:11)
[2020-04-11] MEDS: NICOTINE POLACRILEX 2 MG GUM BUC PRN ×2 (06:11→10:02)
[2020-04-11] MEDS: NICOTINE 14 MG/24 HOURS TOPICAL PATCH TD SCH (10:00)
[2020-04-11] MEDS: hydrOXYzine PAMOATE 50 MG CAPSULE (FP) PO PRN ×2 (10:01→19:01)
[2020-04-11] MEDS: FLUoxetine HCL 20 MG CAPSULE PO SCH (10:01)
[2020-04-11] MEDS: PRENATAL VITAMINS W/ FOLIC ACID TABLET (FP) PO SCH (10:01)
[2020-04-11] MEDS: ARIPiprazole 10 MG TABLET PO SCH (10:01)
[2020-04-11] MEDS: levETIRAcetam 500 MG TABLET (FP) PO SCH ×2 (10:01→21:17)
[2020-04-11] MEDS: traZODone HCL 100 MG TABLET (FP) PO SCH (21:17)
[2020-04-11] MEDS: MELATONIN 5 MG TABLETS PO SCH (21:17)
[2020-04-11] MEDS: THIAMINE HCL 100 MG TABLET (FP) PO SCH (21:17)
[2020-04-12] MEDS: METHADONE HCL 10 MG TABLET PO SCH (06:06)
[2020-04-12] MEDS: NICOTINE POLACRILEX 2 MG GUM BUC PRN ×3 (06:12→13:43)
[2020-04-12] MEDS: FLUoxetine HCL 20 MG CAPSULE PO SCH (10:06)
[2020-04-12] MEDS: ARIPiprazole 10 MG TABLET PO SCH (10:06)
[2020-04-12] MEDS: levETIRAcetam 500 MG TABLET (FP) PO SCH ×2 (10:07→21:13)
[2020-04-12] MEDS: NICOTINE 14 MG/24 HOURS TOPICAL PATCH TD SCH (10:07)
[2020-04-12] MEDS: PRENATAL VITAMINS W/ FOLIC ACID TABLET (FP) PO SCH (10:07)
[2020-04-12] MEDS: MAGNESIUM HYDROX 2400MG/30ML ORAL SUSPENSION 30 ML CUP PO PRN (10:08)
[2020-04-12] MEDS: hydrOXYzine PAMOATE 50 MG CAPSULE (FP) PO PRN ×2 (11:54→21:16)
[2020-04-12 17:12] LABS: EPI CELLS 4 /uL (0-25.1); HYALINE CASTS 1 /uL (0-3.1); PH,URINE 7.5 (5.0-8.0); URINE APPEARANCE CLEAR; URINE BACTERIA >9,000 /uL (0-1359); URINE BILIRUBIN NEGATIVE (NEGATIVE); URINE COLOR YELLOW; URINE GLUCOSE (UA) NEGATIVE (NEGATIVE); URINE KETONE NEGATIVE (NEGATIVE); URINE LEUK ESTERASE 2+ (NEGATIVE); URINE NITRITE NEGATIVE (NEGATIVE); URINE PROTEIN NEGATIVE (NEGATIVE); URINE RBC 4 /uL (0-23.9); URINE WBC 165 /uL (0-25.8)
[2020-04-12] MEDS: traZODone HCL 100 MG TABLET (FP) PO SCH (21:13)
[2020-04-12] MEDS: MELATONIN 5 MG TABLETS PO SCH (21:14)
[2020-04-12] MEDS: THIAMINE HCL 100 MG TABLET (FP) PO SCH (21:14)
[2020-04-13] MEDS: METHADONE HCL 10 MG TABLET PO SCH (05:59)
[2020-04-13] MEDS: PRENATAL VITAMINS W/ FOLIC ACID TABLET (FP) PO SCH (10:15)
[2020-04-13] MEDS: hydrOXYzine PAMOATE 50 MG CAPSULE (FP) PO PRN ×2 (10:15→21:27)
[2020-04-13] MEDS: ARIPiprazole 10 MG TABLET PO SCH (10:15)
[2020-04-13] MEDS: FLUoxetine HCL 20 MG CAPSULE PO SCH (10:15)
[2020-04-13] MEDS: levETIRAcetam 500 MG TABLET (FP) PO SCH ×2 (10:15→21:27)
[2020-04-13] MEDS: NICOTINE 14 MG/24 HOURS TOPICAL PATCH TD SCH (10:15)
[2020-04-13] MEDS: NICOTINE POLACRILEX 2 MG GUM BUC PRN (10:15)
[2020-04-13] MEDS: AMOX TR/POT CLAV 500MG/125MG TABLETS (FP) PO SCH (16:49)
[2020-04-13] MEDS: THIAMINE HCL 100 MG TABLET (FP) PO SCH (21:27)
[2020-04-13] MEDS: MELATONIN 5 MG TABLETS PO SCH (21:27)
[2020-04-13] MEDS: traZODone HCL 100 MG TABLET (FP) PO SCH (21:27)
[2020-04-14] MEDS: hydrOXYzine PAMOATE 50 MG CAPSULE (FP) PO PRN ×2 (02:50→21:33)
[2020-04-14] MEDS: METHADONE HCL 10 MG TABLET PO SCH (06:27)
[2020-04-14] MEDS: AMOX TR/POT CLAV 500MG/125MG TABLETS (FP) PO SCH ×2 (07:03→18:13)
[2020-04-14] MEDS: FLUoxetine HCL 20 MG CAPSULE PO SCH (10:55)
[2020-04-14] MEDS: levETIRAcetam 500 MG TABLET (FP) PO SCH ×2 (10:55→21:32)
[2020-04-14] MEDS: ARIPiprazole 10 MG TABLET PO SCH (10:55)
[2020-04-14] MEDS: NICOTINE 14 MG/24 HOURS TOPICAL PATCH TD SCH (10:55)
[2020-04-14] MEDS: PRENATAL VITAMINS W/ FOLIC ACID TABLET (FP) PO SCH (10:56)
[2020-04-14] MEDS: NICOTINE POLACRILEX 2 MG GUM BUC PRN (10:57)
[2020-04-14] MEDS: THIAMINE HCL 100 MG TABLET (FP) PO SCH (21:32)
[2020-04-14] MEDS: traZODone HCL 100 MG TABLET (FP) PO SCH (21:32)
[2020-04-14] MEDS: MELATONIN 5 MG TABLETS PO SCH (21:32)
[2020-04-15] MEDS: METHADONE HCL 10 MG TABLET PO SCH (06:30)
[2020-04-15] MEDS: AMOX TR/POT CLAV 500MG/125MG TABLETS (FP) PO SCH ×2 (07:17→17:07)
[2020-04-15] MEDS: MAGNESIUM HYDROX 2400MG/30ML ORAL SUSPENSION 30 ML CUP PO PRN (08:31)
[2020-04-15] MEDS: FLUoxetine HCL 20 MG CAPSULE PO SCH (09:49)
[2020-04-15] MEDS: ARIPiprazole 10 MG TABLET PO SCH (09:50)
[2020-04-15] MEDS: PRENATAL VITAMINS W/ FOLIC ACID TABLET (FP) PO SCH (09:50)
[2020-04-15] MEDS: levETIRAcetam 500 MG TABLET (FP) PO SCH ×2 (09:50→21:48)
[2020-04-15] MEDS: hydrOXYzine PAMOATE 50 MG CAPSULE (FP) PO PRN ×2 (09:51→16:02)
[2020-04-15] MEDS: NICOTINE POLACRILEX 2 MG GUM BUC PRN ×2 (09:51→21:49)
[2020-04-15] MEDS: NICOTINE 14 MG/24 HOURS TOPICAL PATCH TD SCH (10:44)
[2020-04-15] MEDS: traZODone HCL 100 MG TABLET (FP) PO SCH (21:47)
[2020-04-15] MEDS: MELATONIN 5 MG TABLETS PO SCH (21:48)
[2020-04-15] MEDS: THIAMINE HCL 100 MG TABLET (FP) PO SCH (21:48)
[2020-04-16] MEDS: METHADONE HCL 10 MG TABLET PO SCH (06:09)
[2020-04-16] MEDS: AMOX TR/POT CLAV 500MG/125MG TABLETS (FP) PO SCH ×2 (07:20→16:48)
[2020-04-16] MEDS: PRENATAL VITAMINS W/ FOLIC ACID TABLET (FP) PO SCH (10:01)
[2020-04-16] MEDS: levETIRAcetam 500 MG TABLET (FP) PO SCH ×2 (10:01→21:05)
[2020-04-16] MEDS: NICOTINE 14 MG/24 HOURS TOPICAL PATCH TD SCH (10:01)
[2020-04-16] MEDS: ARIPiprazole 10 MG TABLET PO SCH (10:01)
[2020-04-16] MEDS: hydrOXYzine PAMOATE 50 MG CAPSULE (FP) PO PRN ×3 (10:01→21:06)
[2020-04-16] MEDS: NICOTINE POLACRILEX 2 MG GUM BUC PRN ×2 (10:01→14:30)
[2020-04-16] MEDS: FLUoxetine HCL 20 MG CAPSULE PO SCH (10:01)
[2020-04-16] MEDS: MAGNESIUM HYDROX 2400MG/30ML ORAL SUSPENSION 30 ML CUP PO PRN (10:02)
[2020-04-16] MEDS ORDERED: metroNIDAZOLE 250 MG TABLET PO ONE (14:40)
[2020-04-16] MEDS: traZODone HCL 100 MG TABLET (FP) PO SCH (21:05)
[2020-04-16] MEDS: MELATONIN 5 MG TABLETS PO SCH (21:06)
[2020-04-16] MEDS: THIAMINE HCL 100 MG TABLET (FP) PO SCH (21:06)
[2020-04-17] MEDS: METHADONE HCL 10 MG TABLET PO SCH (06:30)
[2020-04-17 07:10] VITALS: BP 122/65; PULSE 67; TEMP 98.1
[2020-04-17] MEDS: AMOX TR/POT CLAV 500MG/125MG TABLETS (FP) PO SCH (07:11)
[2020-04-17] MEDS: ARIPiprazole 10 MG TABLET PO SCH (09:20)
[2020-04-17] MEDS: levETIRAcetam 500 MG TABLET (FP) PO SCH (09:20)
[2020-04-17] MEDS: PRENATAL VITAMINS W/ FOLIC ACID TABLET (FP) PO SCH (09:21)
[2020-04-17] MEDS: FLUoxetine HCL 20 MG CAPSULE PO SCH (09:21)
[2020-04-17] MEDS: NICOTINE 14 MG/24 HOURS TOPICAL PATCH TD SCH (09:21)
[2020-04-17] MEDS: NICOTINE POLACRILEX 2 MG GUM BUC PRN (09:22)
== END 2020-04-17 09:44 | disposition home or self-care (01) | DRG 772 ==
LOC: YASAS 14:54 → Y3W 14:56
PROVIDERS: ADMIT Allergy & Immunology; ATTEND Allergy & Immunology
PROC: HZ42ZZZ Group Counseling for Substance Abuse Treatment, Cognitive-Behavioral (ICD-10-PCS; principal; 2020-04-05)
DX: F10.20 Alcohol dependence, uncomplicated (principal); F11.20 Opioid dependence, uncomplicated; F14.20 Cocaine dependence, uncomplicated; F17.210 Nicotine dependence, cigarettes, uncomplicated; F39 Unspecified mood [affective] disorder; F41.9 Anxiety disorder, unspecified; F32.9 Major depressive disorder, single episode, unspecified; F43.10 Post-traumatic stress disorder, unspecified; F90.9 Attention-deficit hyperactivity disorder, unspecified type; J45.909 Unspecified asthma, uncomplicated; N39.0 Urinary tract infection, site not specified; B96.29 Other Escherichia coli [E. coli] as the cause of diseases classified elsewhere; A59.01 Trichomonal vulvovaginitis; D50.8 Other iron deficiency anemias; B18.2 Chronic viral hepatitis C; R56.1 Post traumatic seizures; M54.5 Low back pain; G89.29 Other chronic pain; L30.9 Dermatitis, unspecified; Z62.810 Personal history of physical and sexual abuse in childhood; Z87.820 Personal history of traumatic brain injury; Z91.5 Personal history of self-harm; Z91.410 Personal history of adult physical and sexual abuse; Z88.2 Allergy status to sulfonamides; Z56.0 Unemployment, unspecified; Z59.0 Homelessness
CPT/HCPCS: 36415; 81003; 87086; 87186; 87389; 87491; 87591; 87661

== ENCOUNTER 2020-05-27 16:52 | Inpatient (IN) | payer OTHER ==
[2020-05-27 19:03] VITALS: BMI 22.6
[2020-05-27] MEDS ORDERED: MAGNESIUM CITRATE 300 ML BOTTLE PO PRN (19:05)
[2020-05-27] MEDS ORDERED: MENTHOL/PHENOL 1 EACH UD MM PRN (19:05)
[2020-05-27] MEDS ORDERED: chlordiazePOXIDE HCL 25 MG CAPSULE PO PRN (19:05)
[2020-05-27] MEDS ORDERED: MAGNESIUM HYDROX 2400MG/30ML ORAL SUSPENSION 30 ML CUP PO PRN (19:05)
[2020-05-27] MEDS ORDERED: IBUPROFEN 400 MG TABLET (FP) PO PRN (19:05)
[2020-05-27] MEDS ORDERED: BISMUTH SUBSALICYLATE 524 MG/30 ML UD PO PRN (19:05)
[2020-05-27] MEDS ORDERED: ACETAMINOPHEN 325 MG TABLET (FP) PO PRN ×2 (19:05)
[2020-05-27] MEDS ORDERED: MAG HYDROX/AL HYDROX/SIMETH 30 ML UNIT-DOSE CUP PO PRN (19:05)
[2020-05-27] MEDS ORDERED: cloNIDine HCL 0.1 MG TABLET PO PRN (19:05)
[2020-05-27] MEDS ORDERED: NICOTINE POLACRILEX 2 MG GUM BUC PRN (19:05)
[2020-05-27] MEDS ORDERED: ONDANSETRON *ODT* 4 MG TABLET SL PRN (19:05)
[2020-05-27] MEDS ORDERED: chlordiazePOXIDE HCL 25 MG CAPSULE PO ONE (20:00)
[2020-05-27] MEDS ORDERED: METHADONE HCL 10 MG TABLET (FOR DETOX USE ONLY) PO ONE (20:00)
[2020-05-27] MEDS ORDERED: METHADONE HCL 40 MG DISPERSABLE TABLET PO ONE (20:24)
[2020-05-27] MEDS: BACITRACIN 0.9 GM PACKET TP SCH (22:18)
[2020-05-27] MEDS: THIAMINE HCL 100 MG TABLET (FP) PO SCH (22:18)
[2020-05-27] MEDS: chlordiazePOXIDE HCL 25 MG CAPSULE PO SCH (22:19)
[2020-05-27] MEDS: MELATONIN 5 MG TABLETS PO SCH (22:19)
[2020-05-28] MEDS: chlordiazePOXIDE HCL 25 MG CAPSULE PO SCH ×4 (06:38→22:16)
[2020-05-28] MEDS ORDERED: METHADONE HCL 10 MG TABLET PO ONE (08:48)
[2020-05-28] MEDS ORDERED: METHADONE 80 MG, METHADONE 5 MG PO ONE (09:00)
[2020-05-28] MEDS ORDERED: METHADONE HCL 5 MG TABLET ONE (09:02)
[2020-05-28] MEDS ORDERED: METHADONE HCL 40 MG DISPERSABLE TABLET ONE (09:02)
[2020-05-28] MEDS ORDERED: METHADONE (DETOX) 20 MG, METHADONE (DETOX) 5 MG PO ONE (10:00)
[2020-05-28] MEDS: BACITRACIN 0.9 GM PACKET TP SCH ×2 (10:18→22:14)
[2020-05-28] MEDS: PRENATAL VITAMINS W/ FOLIC ACID TABLET (FP) PO SCH (10:18)
[2020-05-28] MEDS: NICOTINE 7 MG/24 HOURS TOPICAL PATCH TD SCH (10:23)
[2020-05-28] MEDS ORDERED: levETIRAcetam 500 MG TABLET (FP) PO ONE (10:30)
[2020-05-28] MEDS ORDERED: ALBUTEROL SO4 HFA INHALER IH PRN (10:41)
[2020-05-28 12:04] LABS: HEMATOCRIT 36.5 % (32.4-45.2); HEMOGLOBIN 12.3 GM/dL (10.7-15.3); MCH 31.8 pg (25.7-33.7); MCHC 33.6 g/dl (32.0-36.0); MEAN CELL VOLUME 94.6 fl (80-96); MEAN PLT VOLUME 8.8 fl (7.5-11.1); PLATELET COUNT 236 K/MM3 (134-434); RBC 3.86 M/mm3 (3.60-5.2); WHITE BLOOD COUNT 6.8 K/mm3 (4.0-10.0)
[2020-05-28 12:14] LABS: POTASSIUM 3.7 mmol/L (3.5-5.1)
[2020-05-28] MEDS: ARIPiprazole 10 MG TABLET PO SCH (12:17)
[2020-05-28] MEDS: FLUoxetine HCL 20 MG CAPSULE PO SCH (12:17)
[2020-05-28 12:29] LABS: ALBUMIN 3.6 g/dl (3.4-5.0); BLOOD UREA NITROGEN 9.5 mg/dL (7-18); CALCIUM 9.4 mg/dL (8.5-10.1)
[2020-05-28 12:32] LABS: CREATININE 0.7 mg/dL (0.55-1.3)
[2020-05-28 12:33] LABS: BILIRUBIN,TOTAL 0.8 mg/dL (0.2-1); TOT PROT 7.2 g/dl (6.4-8.2)
[2020-05-28] MEDS: THIAMINE HCL 100 MG TABLET (FP) PO SCH (22:15)
[2020-05-28] MEDS: traZODone HCL 100 MG TABLET (FP) PO SCH (22:15)
[2020-05-28] MEDS: MELATONIN 5 MG TABLETS PO SCH (22:15)
[2020-05-28] MEDS: levETIRAcetam 500 MG TABLET (FP) PO SCH (22:15)
[2020-05-29] MEDS ORDERED: METHADONE HCL 5 MG TABLET ONE (04:11)
[2020-05-29] MEDS ORDERED: METHADONE HCL 40 MG DISPERSABLE TABLET ONE (04:11)
[2020-05-29] MEDS ORDERED: METHADONE HCL 40 MG DISPERSABLE TABLET PO SCH (06:00)
[2020-05-29] MEDS: METHADONE 80 MG, METHADONE 5 MG PO SCH (06:10)
[2020-05-29] MEDS: chlordiazePOXIDE HCL 25 MG CAPSULE PO SCH ×4 (06:11→22:22)
[2020-05-29] MEDS ORDERED: METHADONE HCL 10 MG TABLET (FOR DETOX USE ONLY) PO ONE (10:00)
[2020-05-29] MEDS: ARIPiprazole 10 MG TABLET PO SCH (10:27)
[2020-05-29] MEDS: METHOCARBAMOL 500 MG TABLET PO PRN ×2 (10:27→22:22)
[2020-05-29] MEDS: levETIRAcetam 500 MG TABLET (FP) PO SCH ×2 (10:27→22:22)
[2020-05-29] MEDS: FLUoxetine HCL 20 MG CAPSULE PO SCH (10:27)
[2020-05-29] MEDS: PRENATAL VITAMINS W/ FOLIC ACID TABLET (FP) PO SCH (10:28)
[2020-05-29] MEDS: NICOTINE 7 MG/24 HOURS TOPICAL PATCH TD SCH (10:29)
[2020-05-29] MEDS: BACITRACIN 0.9 GM PACKET TP SCH ×2 (10:30→22:20)
[2020-05-29] MEDS: traZODone HCL 100 MG TABLET (FP) PO SCH (22:21)
[2020-05-29] MEDS: MELATONIN 5 MG TABLETS PO SCH (22:23)
[2020-05-29] MEDS: THIAMINE HCL 100 MG TABLET (FP) PO SCH (22:23)
[2020-05-30] MEDS ORDERED: chlordiazePOXIDE HCL 10 MG CAPSULE PO PRN
[2020-05-30] MEDS ORDERED: METHADONE HCL 5 MG TABLET ONE (04:58)
[2020-05-30] MEDS ORDERED: METHADONE HCL 40 MG DISPERSABLE TABLET ONE (04:58)
[2020-05-30] MEDS: METHADONE 80 MG, METHADONE 5 MG PO SCH (06:25)
[2020-05-30] MEDS: chlordiazePOXIDE HCL 10 MG CAPSULE PO SCH ×2 (06:26→10:38)
[2020-05-30 09:07] VITALS: TEMP 98.1
[2020-05-30] MEDS ORDERED: METHADONE (DETOX) 10 MG, METHADONE (DETOX) 5 MG PO ONE (10:00)
[2020-05-30] MEDS: PRENATAL VITAMINS W/ FOLIC ACID TABLET (FP) PO SCH (10:38)
[2020-05-30] MEDS: BACITRACIN 0.9 GM PACKET TP SCH (10:38)
[2020-05-30] MEDS: FLUoxetine HCL 20 MG CAPSULE PO SCH (10:38)
[2020-05-30] MEDS: levETIRAcetam 500 MG TABLET (FP) PO SCH (10:38)
[2020-05-30] MEDS: ARIPiprazole 10 MG TABLET PO SCH (10:38)
[2020-05-30] MEDS: NICOTINE 7 MG/24 HOURS TOPICAL PATCH TD SCH (10:39)
[2020-05-30] MEDS: METHOCARBAMOL 500 MG TABLET PO PRN (10:41)
[2020-05-30 13:32] VITALS: BP 100/60; PULSE 62
[2020-05-31] MEDS ORDERED: chlordiazePOXIDE HCL 10 MG CAPSULE PO SCH (05:00)
[2020-05-31] MEDS ORDERED: METHADONE HCL 10 MG TABLET (FOR DETOX USE ONLY) PO ONE (10:00)
[2020-06-01] MEDS ORDERED: chlordiazePOXIDE HCL 10 MG CAPSULE PO ONE (05:00)
[2020-06-01] MEDS ORDERED: METHADONE HCL 5 MG TABLET (FOR DETOX USE ONLY) PO ONE (06:00)
== END 2020-05-30 03:40 | disposition home or self-care (01) | DRG 773 ==
LOC: YASAS 16:52 → Y3N 19:33
PROVIDERS: ADMIT Allergy & Immunology; ATTEND Allergy & Immunology
PROC: HZ2ZZZZ Detoxification Services for Substance Abuse Treatment (ICD-10-PCS; principal; 2020-05-27)
DX: F10.230 Alcohol dependence with withdrawal, uncomplicated (principal); F11.20 Opioid dependence, uncomplicated; F14.20 Cocaine dependence, uncomplicated; F12.20 Cannabis dependence, uncomplicated; F17.210 Nicotine dependence, cigarettes, uncomplicated; F43.10 Post-traumatic stress disorder, unspecified; F90.9 Attention-deficit hyperactivity disorder, unspecified type; F19.282 Other psychoactive substance dependence with psychoactive substance-induced sleep disorder; F19.280 Other psychoactive substance dependence with psychoactive substance-induced anxiety disorder; F19.24 Other psychoactive substance dependence with psychoactive substance-induced mood disorder; J45.909 Unspecified asthma, uncomplicated; L30.9 Dermatitis, unspecified; M54.5 Low back pain; G89.29 Other chronic pain; Z62.810 Personal history of physical and sexual abuse in childhood; R56.1 Post traumatic seizures; Z87.820 Personal history of traumatic brain injury; Z86.2 Personal history of diseases of the blood and blood-forming organs and certain disorders involving the immune mechanism; Z91.410 Personal history of adult physical and sexual abuse; Z91.5 Personal history of self-harm; Z88.2 Allergy status to sulfonamides; Z56.0 Unemployment, unspecified; Z59.0 Homelessness
CPT/HCPCS: 36415; 80053; 81025; 85027; 86780; C9803; U0003

== ENCOUNTER 2020-07-10 11:31 | Inpatient (IN) | payer OTHER ==
[2020-07-10 12:10] VITALS: BMI 25.1
[2020-07-10] MEDS ORDERED: MAG HYDROX/AL HYDROX/SIMETH 30 ML UNIT-DOSE CUP PO PRN (17:00)
[2020-07-10] MEDS ORDERED: guaiFENesin 200 MG/10 ML 10 ML UNIT-DOSE CUPS PO PRN (17:00)
[2020-07-10] MEDS ORDERED: P-EPHED 60MG/TRIPROLIDI 2.5MG TABLET PO PRN (17:00)
[2020-07-10] MEDS ORDERED: ACETAMINOPHEN 325 MG TABLET (FP) PO PRN (17:00)
[2020-07-10] MEDS ORDERED: IBUPROFEN 400 MG TABLET (FP) PO PRN (17:00)
[2020-07-10] MEDS ORDERED: hydrOXYzine PAMOATE 25 MG CAPSULE (FP) PO PRN (17:00)
[2020-07-10] MEDS ORDERED: LOPERAMIDE HCL 2 MG CAPSULE PO PRN (17:00)
[2020-07-10] MEDS ORDERED: MAGNESIUM CITRATE 300 ML BOTTLE PO PRN (17:00)
[2020-07-10] MEDS ORDERED: ALBUTEROL SO4 HFA INHALER IH PRN (17:03)
[2020-07-10] MEDS: hydrOXYzine PAMOATE 25 MG CAPSULE (FP) PO PRN (19:00)
[2020-07-10] MEDS: levETIRAcetam 500 MG TABLET (FP) PO SCH (21:42)
[2020-07-10] MEDS: THIAMINE HCL 100 MG TABLET (FP) PO SCH (21:42)
[2020-07-10] MEDS ORDERED: MELATONIN 5 MG TABLETS PO SCH (22:00)
[2020-07-11] MEDS ORDERED: METHADONE HCL 10 MG TABLET PO SCH (06:00)
[2020-07-11] MEDS: levETIRAcetam 500 MG TABLET (FP) PO SCH ×2 (09:48→21:05)
[2020-07-11] MEDS: PRENATAL VITAMINS W/ FOLIC ACID TABLET (FP) PO SCH (09:48)
[2020-07-11] MEDS: hydrOXYzine PAMOATE 25 MG CAPSULE (FP) PO PRN ×2 (09:49→17:35)
[2020-07-11] MEDS: ARIPiprazole 10 MG TABLET PO SCH (10:45)
[2020-07-11] MEDS: FLUoxetine HCL 20 MG CAPSULE PO SCH (10:45)
[2020-07-11 11:02] LABS: CALCIUM 8.6 mg/dL (8.5-10.1)
[2020-07-11 11:03] LABS: ALBUMIN 3.6 g/dl (3.4-5.0)
[2020-07-11 11:04] LABS: HEMATOCRIT 34.1 % (32.4-45.2); HEMOGLOBIN 11.4 GM/dL (10.7-15.3); MCHC 33.5 g/dl (32.0-36.0); MEAN CELL VOLUME 95.4 fl (80-96); MEAN PLT VOLUME 8.9 fl (7.5-11.1); PLATELET COUNT 231 K/MM3 (134-434); RBC 3.58 M/mm3 (3.60-5.2); RDW 14.8 % (11.6-15.6); WHITE BLOOD COUNT 6.2 K/mm3 (4.0-10.0)
[2020-07-11 11:06] LABS: CREATININE 0.8 mg/dL (0.55-1.3)
[2020-07-11 11:07] LABS: BILIRUBIN,TOTAL 0.3 mg/dL (0.2-1); TOT PROT 6.6 g/dl (6.4-8.2)
[2020-07-11] MEDS ORDERED: FLU VACCINE (FLULAVAL) PF 60 MCG/0.5 ML SYRINGE 2020-2021 IM ONE (12:00)
[2020-07-11] MEDS ORDERED: PT OWN MED DRAWER 7, Y5N ONE (14:50)
[2020-07-11 19:34] LABS: PH,URINE 7.5 (5.0-8.0); URINE APPEARANCE CLEAR; URINE BILIRUBIN NEGATIVE (NEGATIVE); URINE COLOR YELLOW; URINE GLUCOSE (UA) NEGATIVE (NEGATIVE); URINE KETONE NEGATIVE (NEGATIVE); URINE LEUK ESTERASE NEGATIVE (NEGATIVE); URINE NITRITE NEGATIVE (NEGATIVE); URINE PROTEIN NEGATIVE (NEGATIVE)
[2020-07-11] MEDS: QUEtiapine FUMARATE 100 MG TABLET (FP) PO SCH (21:05)
[2020-07-11] MEDS: THIAMINE HCL 100 MG TABLET (FP) PO SCH (21:05)
[2020-07-12] MEDS ORDERED: METHADONE HCL 40 MG DISPERSABLE TABLET PO ONE (06:00)
[2020-07-12] MEDS: ARIPiprazole 10 MG TABLET PO SCH (09:28)
[2020-07-12] MEDS: levETIRAcetam 500 MG TABLET (FP) PO SCH ×2 (09:29→21:06)
[2020-07-12] MEDS: FLUoxetine HCL 20 MG CAPSULE PO SCH (09:29)
[2020-07-12] MEDS: PRENATAL VITAMINS W/ FOLIC ACID TABLET (FP) PO SCH (09:29)
[2020-07-12] MEDS: hydrOXYzine PAMOATE 25 MG CAPSULE (FP) PO PRN ×2 (17:19→21:06)
[2020-07-12] MEDS: METHOCARBAMOL 500 MG TABLET PO PRN (18:04)
[2020-07-12] MEDS: THIAMINE HCL 100 MG TABLET (FP) PO SCH (21:06)
[2020-07-12] MEDS: MELATONIN 5 MG TABLETS PO PRN (21:06)
[2020-07-12] MEDS: QUEtiapine FUMARATE 100 MG TABLET (FP) PO SCH (21:06)
[2020-07-13] MEDS ORDERED: METHADONE HCL 10 MG TABLET PO ONE (06:00)
[2020-07-13] MEDS ORDERED: METHADONE 40 MG, METHADONE 10 MG PO ONE (06:00)
[2020-07-13] MEDS ORDERED: METHADONE HCL 40 MG DISPERSABLE TABLET ONE (06:10)
[2020-07-13] MEDS ORDERED: METHADONE HCL 10 MG TABLET ONE (06:10)
[2020-07-13] MEDS: hydrOXYzine PAMOATE 25 MG CAPSULE (FP) PO PRN ×2 (06:11→12:26)
[2020-07-13] MEDS: METHOCARBAMOL 500 MG TABLET PO PRN ×2 (06:12→12:26)
[2020-07-13] MEDS: PRENATAL VITAMINS W/ FOLIC ACID TABLET (FP) PO SCH (09:26)
[2020-07-13] MEDS: levETIRAcetam 500 MG TABLET (FP) PO SCH ×2 (09:26→21:36)
[2020-07-13] MEDS: FLUoxetine HCL 20 MG CAPSULE PO SCH (09:26)
[2020-07-13] MEDS: ARIPiprazole 10 MG TABLET PO SCH (09:26)
[2020-07-13] MEDS: GABAPENTIN 100 MG CAPSULE PO PRN (17:57)
[2020-07-13] MEDS: MELATONIN 5 MG TABLETS PO PRN (21:36)
[2020-07-13] MEDS: QUEtiapine FUMARATE 100 MG TABLET (FP) PO SCH (21:36)
[2020-07-13] MEDS: THIAMINE HCL 100 MG TABLET (FP) PO SCH (21:36)
[2020-07-14] MEDS ORDERED: METHADONE HCL 10 MG TABLET ONE (04:02)
[2020-07-14] MEDS ORDERED: METHADONE HCL 40 MG DISPERSABLE TABLET ONE (04:02)
[2020-07-14] MEDS ORDERED: METHADONE 40 MG, METHADONE 20 MG PO ONE (06:00)
[2020-07-14] MEDS ORDERED: METHADONE HCL 10 MG TABLET PO ONE (06:00)
[2020-07-14] MEDS: METHOCARBAMOL 500 MG TABLET PO PRN ×2 (08:57→21:18)
[2020-07-14] MEDS: hydrOXYzine PAMOATE 25 MG CAPSULE (FP) PO PRN ×2 (08:57→17:46)
[2020-07-14] MEDS: ARIPiprazole 10 MG TABLET PO SCH (09:17)
[2020-07-14] MEDS: PRENATAL VITAMINS W/ FOLIC ACID TABLET (FP) PO SCH (09:17)
[2020-07-14] MEDS: levETIRAcetam 500 MG TABLET (FP) PO SCH ×2 (09:17→21:18)
[2020-07-14] MEDS: FLUoxetine HCL 20 MG CAPSULE PO SCH (09:17)
[2020-07-14 14:07] LABS: SARS-CoV-2 NAA Not Detected (Not Detected)
[2020-07-14] MEDS: GABAPENTIN 100 MG CAPSULE PO PRN (15:35)
[2020-07-14] MEDS ORDERED: MASKS NR ONE (17:35)
[2020-07-14] MEDS: THIAMINE HCL 100 MG TABLET (FP) PO SCH (21:18)
[2020-07-14] MEDS: QUEtiapine FUMARATE 100 MG TABLET (FP) PO SCH (21:18)
[2020-07-15] MEDS ORDERED: METHADONE HCL 10 MG TABLET PO ONE (06:00)
[2020-07-15] MEDS ORDERED: METHADONE 40 MG, METHADONE 30 MG PO ONE (06:00)
[2020-07-15] MEDS ORDERED: METHADONE HCL 10 MG TABLET ONE (06:24)
[2020-07-15] MEDS ORDERED: METHADONE HCL 40 MG DISPERSABLE TABLET ONE (06:24)
[2020-07-15] MEDS: GABAPENTIN 100 MG CAPSULE PO PRN ×2 (06:25→14:23)
[2020-07-15] MEDS: ARIPiprazole 10 MG TABLET PO SCH (09:34)
[2020-07-15] MEDS: FLUoxetine HCL 20 MG CAPSULE PO SCH (09:34)
[2020-07-15] MEDS: levETIRAcetam 500 MG TABLET (FP) PO SCH ×2 (09:34→21:05)
[2020-07-15] MEDS: PRENATAL VITAMINS W/ FOLIC ACID TABLET (FP) PO SCH (09:34)
[2020-07-15] MEDS: MAGNESIUM HYDROX 2400MG/30ML ORAL SUSPENSION 30 ML CUP PO PRN (14:37)
[2020-07-15] MEDS: METHOCARBAMOL 500 MG TABLET PO PRN (18:37)
[2020-07-15] MEDS: hydrOXYzine PAMOATE 25 MG CAPSULE (FP) PO PRN (18:38)
[2020-07-15] MEDS: QUEtiapine FUMARATE 100 MG TABLET (FP) PO SCH (21:05)
[2020-07-15] MEDS: THIAMINE HCL 100 MG TABLET (FP) PO SCH (21:06)
[2020-07-15] MEDS: MELATONIN 5 MG TABLETS PO PRN (21:06)
[2020-07-16] MEDS ORDERED: METHADONE HCL 40 MG DISPERSABLE TABLET PO ONE (06:00)
[2020-07-16] MEDS: PRENATAL VITAMINS W/ FOLIC ACID TABLET (FP) PO SCH (09:26)
[2020-07-16] MEDS: levETIRAcetam 500 MG TABLET (FP) PO SCH ×2 (09:27→21:42)
[2020-07-16] MEDS: ARIPiprazole 10 MG TABLET PO SCH (09:27)
[2020-07-16] MEDS: FLUoxetine HCL 20 MG CAPSULE PO SCH (09:27)
[2020-07-16] MEDS: METHOCARBAMOL 500 MG TABLET PO PRN ×2 (09:28→21:42)
[2020-07-16] MEDS: GABAPENTIN 100 MG CAPSULE PO PRN ×2 (12:22→21:42)
[2020-07-16] MEDS: hydrOXYzine PAMOATE 25 MG CAPSULE (FP) PO PRN ×2 (17:03→21:43)
[2020-07-16] MEDS: THIAMINE HCL 100 MG TABLET (FP) PO SCH (21:42)
[2020-07-16] MEDS: QUEtiapine FUMARATE 100 MG TABLET (FP) PO SCH (21:42)
[2020-07-16] MEDS: MELATONIN 5 MG TABLETS PO PRN (21:43)
[2020-07-17] MEDS ORDERED: METHADONE 80 MG, METHADONE 5 MG PO SCH (06:00)
[2020-07-17] MEDS ORDERED: METHADONE HCL 10 MG TABLET PO SCH (06:00)
[2020-07-17] MEDS ORDERED: METHADONE HCL 5 MG TABLET ONE (06:07)
[2020-07-17] MEDS ORDERED: METHADONE HCL 40 MG DISPERSABLE TABLET ONE (06:07)
[2020-07-17] MEDS: METHOCARBAMOL 500 MG TABLET PO PRN ×3 (06:08→17:37)
[2020-07-17] MEDS: FLUoxetine HCL 20 MG CAPSULE PO SCH (09:41)
[2020-07-17] MEDS: levETIRAcetam 500 MG TABLET (FP) PO SCH ×2 (09:41→21:07)
[2020-07-17] MEDS: PRENATAL VITAMINS W/ FOLIC ACID TABLET (FP) PO SCH (09:41)
[2020-07-17] MEDS: GABAPENTIN 100 MG CAPSULE PO PRN (09:41)
[2020-07-17] MEDS: MAGNESIUM HYDROX 2400MG/30ML ORAL SUSPENSION 30 ML CUP PO PRN (09:43)
[2020-07-17] MEDS: NICOTINE POLACRILEX 2 MG GUM BC PRN ×2 (09:44→21:09)
[2020-07-17] MEDS: ARIPiprazole 10 MG TABLET PO SCH (10:15)
[2020-07-17] MEDS ORDERED: PT OWN MED DRAWER 7, Y5N ONE (11:33)
[2020-07-17] MEDS: GABAPENTIN 300 MG CAPSULE PO PRN ×2 (14:01→23:50)
[2020-07-17] MEDS: hydrOXYzine PAMOATE 25 MG CAPSULE (FP) PO PRN (17:37)
[2020-07-17] MEDS ORDERED: MASKS NR ONE (19:50)
[2020-07-17] MEDS: MELATONIN 5 MG TABLETS PO PRN (21:08)
[2020-07-17] MEDS: THIAMINE HCL 100 MG TABLET (FP) PO SCH (21:08)
[2020-07-17] MEDS: QUEtiapine FUMARATE 100 MG TABLET (FP) PO SCH (21:08)
[2020-07-18] MEDS: METHOCARBAMOL 500 MG TABLET PO PRN ×3 (02:43→14:40)
[2020-07-18] MEDS ORDERED: METHADONE HCL 5 MG TABLET ONE (04:14)
[2020-07-18] MEDS ORDERED: METHADONE HCL 40 MG DISPERSABLE TABLET ONE (04:15)
[2020-07-18] MEDS: hydrOXYzine PAMOATE 25 MG CAPSULE (FP) PO PRN ×3 (06:16→19:13)
[2020-07-18] MEDS ORDERED: METHADONE HCL 10 MG TABLET PO ONE (07:37)
[2020-07-18] MEDS ORDERED: METHADONE 80 MG, METHADONE 5 MG PO ONE (08:00)
[2020-07-18] MEDS: ARIPiprazole 10 MG TABLET PO SCH (09:41)
[2020-07-18] MEDS: PRENATAL VITAMINS W/ FOLIC ACID TABLET (FP) PO SCH (09:41)
[2020-07-18] MEDS: levETIRAcetam 500 MG TABLET (FP) PO SCH ×2 (09:42→21:03)
[2020-07-18] MEDS: FLUoxetine HCL 20 MG CAPSULE PO SCH (09:42)
[2020-07-18] MEDS: GABAPENTIN 300 MG CAPSULE PO PRN ×2 (12:40→21:02)
[2020-07-18] MEDS: THIAMINE HCL 100 MG TABLET (FP) PO SCH (21:02)
[2020-07-18] MEDS: MELATONIN 5 MG TABLETS PO PRN (21:03)
[2020-07-18] MEDS: QUEtiapine FUMARATE 100 MG TABLET (FP) PO SCH (21:03)
[2020-07-19] MEDS: hydrOXYzine PAMOATE 25 MG CAPSULE (FP) PO PRN ×3 (04:36→18:40)
[2020-07-19] MEDS: METHOCARBAMOL 500 MG TABLET PO PRN ×3 (04:36→21:13)
[2020-07-19] MEDS ORDERED: METHADONE HCL 5 MG TABLET ONE (04:41)
[2020-07-19] MEDS ORDERED: METHADONE HCL 40 MG DISPERSABLE TABLET ONE (04:42)
[2020-07-19] MEDS ORDERED: METHADONE HCL 40 MG DISPERSABLE TABLET PO SCH (06:00)
[2020-07-19] MEDS ORDERED: METHADONE 80 MG, METHADONE 5 MG PO SCH (06:00)
[2020-07-19] MEDS: PRENATAL VITAMINS W/ FOLIC ACID TABLET (FP) PO SCH (09:50)
[2020-07-19] MEDS: levETIRAcetam 500 MG TABLET (FP) PO SCH ×2 (09:51→21:11)
[2020-07-19] MEDS: FLUoxetine HCL 20 MG CAPSULE PO SCH (09:51)
[2020-07-19] MEDS: ARIPiprazole 10 MG TABLET PO SCH (09:51)
[2020-07-19] MEDS: GABAPENTIN 300 MG CAPSULE PO PRN ×2 (09:52→18:40)
[2020-07-19] MEDS: MAGNESIUM HYDROX 2400MG/30ML ORAL SUSPENSION 30 ML CUP PO PRN (18:40)
[2020-07-19] MEDS: THIAMINE HCL 100 MG TABLET (FP) PO SCH (21:11)
[2020-07-19] MEDS: QUEtiapine FUMARATE 100 MG TABLET (FP) PO SCH (21:11)
[2020-07-19] MEDS: MELATONIN 5 MG TABLETS PO PRN (21:11)
[2020-07-20] MEDS: hydrOXYzine PAMOATE 25 MG CAPSULE (FP) PO PRN ×2 (04:22→21:06)
[2020-07-20] MEDS: METHOCARBAMOL 500 MG TABLET PO PRN ×2 (04:22→17:06)
[2020-07-20] MEDS ORDERED: PT OWN MED DRAWER 7, Y5N ONE ×2 (05:14→10:00)
[2020-07-20] MEDS ORDERED: METHADONE HCL 5 MG TABLET ONE (05:15)
[2020-07-20] MEDS ORDERED: METHADONE HCL 40 MG DISPERSABLE TABLET ONE (05:16)
[2020-07-20] MEDS: METHADONE 80 MG, METHADONE 5 MG PO SCH (06:03)
[2020-07-20] MEDS: PRENATAL VITAMINS W/ FOLIC ACID TABLET (FP) PO SCH (09:35)
[2020-07-20] MEDS: ARIPiprazole 10 MG TABLET PO SCH (09:35)
[2020-07-20] MEDS: GABAPENTIN 300 MG CAPSULE PO PRN ×2 (09:36→21:03)
[2020-07-20] MEDS: FLUoxetine HCL 20 MG CAPSULE PO SCH (09:36)
[2020-07-20] MEDS: levETIRAcetam 500 MG TABLET (FP) PO SCH ×2 (09:36→21:03)
[2020-07-20] MEDS: THIAMINE HCL 100 MG TABLET (FP) PO SCH (21:04)
[2020-07-20] MEDS: MELATONIN 5 MG TABLETS PO PRN (21:04)
[2020-07-20] MEDS: QUEtiapine FUMARATE 100 MG TABLET (FP) PO SCH (21:04)
[2020-07-20] MEDS ORDERED: GABAPENTIN 100 MG CAPSULE PO PRN (23:59)
[2020-07-21] MEDS: METHOCARBAMOL 500 MG TABLET PO PRN ×3 (03:15→21:01)
[2020-07-21] MEDS ORDERED: METHADONE HCL 5 MG TABLET ONE (03:24)
[2020-07-21] MEDS ORDERED: METHADONE HCL 40 MG DISPERSABLE TABLET ONE (03:24)
[2020-07-21] MEDS: GABAPENTIN 100 MG CAPSULE PO PRN ×2 (06:07→21:01)
[2020-07-21] MEDS: METHADONE 80 MG, METHADONE 5 MG PO SCH (06:07)
[2020-07-21] MEDS ORDERED: PT OWN MED DRAWER 7, Y5N ONE (08:29)
[2020-07-21] MEDS: levETIRAcetam 500 MG TABLET (FP) PO SCH ×2 (09:26→21:01)
[2020-07-21] MEDS: FLUoxetine HCL 20 MG CAPSULE PO SCH (09:26)
[2020-07-21] MEDS: PRENATAL VITAMINS W/ FOLIC ACID TABLET (FP) PO SCH (09:26)
[2020-07-21] MEDS: ARIPiprazole 10 MG TABLET PO SCH (09:27)
[2020-07-21] MEDS: hydrOXYzine PAMOATE 25 MG CAPSULE (FP) PO PRN (14:23)
[2020-07-21] MEDS: QUEtiapine FUMARATE 100 MG TABLET (FP) PO SCH (21:01)
[2020-07-21] MEDS: MELATONIN 5 MG TABLETS PO PRN (21:01)
[2020-07-21] MEDS: THIAMINE HCL 100 MG TABLET (FP) PO SCH (21:01)
[2020-07-21] MEDS ORDERED: GABAPENTIN 100 MG CAPSULE PO PRN (23:59)
[2020-07-22] MEDS ORDERED: METHADONE HCL 5 MG TABLET ONE (03:51)
[2020-07-22] MEDS ORDERED: METHADONE HCL 40 MG DISPERSABLE TABLET ONE (03:52)
[2020-07-22] MEDS: METHADONE 80 MG, METHADONE 5 MG PO SCH (06:16)
[2020-07-22] MEDS: GABAPENTIN 100 MG CAPSULE PO PRN (06:16)
[2020-07-22] MEDS: PRENATAL VITAMINS W/ FOLIC ACID TABLET (FP) PO SCH (09:34)
[2020-07-22] MEDS: levETIRAcetam 500 MG TABLET (FP) PO SCH ×2 (09:34→21:03)
[2020-07-22] MEDS: FLUoxetine HCL 20 MG CAPSULE PO SCH (09:34)
[2020-07-22] MEDS: ARIPiprazole 10 MG TABLET PO SCH (09:35)
[2020-07-22] MEDS: MELATONIN 5 MG TABLETS PO PRN (21:03)
[2020-07-22] MEDS: METHOCARBAMOL 500 MG TABLET PO PRN (21:03)
[2020-07-22] MEDS: THIAMINE HCL 100 MG TABLET (FP) PO SCH (21:03)
[2020-07-22] MEDS: QUEtiapine FUMARATE 100 MG TABLET (FP) PO SCH (21:03)
[2020-07-22] MEDS: hydrOXYzine PAMOATE 25 MG CAPSULE (FP) PO PRN (21:04)
[2020-07-23] MEDS ORDERED: GABAPENTIN 100 MG CAPSULE PO PRN (00:01)
[2020-07-23] MEDS: METHOCARBAMOL 500 MG TABLET PO PRN ×2 (03:11→21:04)
[2020-07-23] MEDS: hydrOXYzine PAMOATE 25 MG CAPSULE (FP) PO PRN ×3 (03:24→17:43)
[2020-07-23] MEDS ORDERED: METHADONE HCL 40 MG DISPERSABLE TABLET ONE (05:57)
[2020-07-23] MEDS ORDERED: METHADONE HCL 5 MG TABLET ONE (05:57)
[2020-07-23] MEDS: METHADONE 80 MG, METHADONE 5 MG PO SCH (06:07)
[2020-07-23] MEDS: PRENATAL VITAMINS W/ FOLIC ACID TABLET (FP) PO SCH (09:37)
[2020-07-23] MEDS: FLUoxetine HCL 20 MG CAPSULE PO SCH (09:37)
[2020-07-23] MEDS: levETIRAcetam 500 MG TABLET (FP) PO SCH ×2 (09:38→21:04)
[2020-07-23] MEDS: ARIPiprazole 10 MG TABLET PO SCH (09:38)
[2020-07-23] MEDS: NICOTINE POLACRILEX 2 MG GUM BC PRN (10:21)
[2020-07-23] MEDS: THIAMINE HCL 100 MG TABLET (FP) PO SCH (21:04)
[2020-07-23] MEDS: MELATONIN 5 MG TABLETS PO PRN (21:04)
[2020-07-23] MEDS: QUEtiapine FUMARATE 100 MG TABLET (FP) PO SCH (21:04)
[2020-07-24] MEDS: hydrOXYzine PAMOATE 25 MG CAPSULE (FP) PO PRN (03:05)
[2020-07-24] MEDS: METHOCARBAMOL 500 MG TABLET PO PRN (03:05)
[2020-07-24] MEDS ORDERED: METHADONE HCL 5 MG TABLET ONE (03:31)
[2020-07-24] MEDS ORDERED: METHADONE HCL 40 MG DISPERSABLE TABLET ONE (03:31)
[2020-07-24] MEDS: METHADONE 80 MG, METHADONE 5 MG PO SCH (06:05)
[2020-07-24 06:54] VITALS: BP 126/74; PULSE 63; TEMP 97.8
[2020-07-24] MEDS: PRENATAL VITAMINS W/ FOLIC ACID TABLET (FP) PO SCH (09:01)
[2020-07-24] MEDS: FLUoxetine HCL 20 MG CAPSULE PO SCH (09:01)
[2020-07-24] MEDS: levETIRAcetam 500 MG TABLET (FP) PO SCH (09:01)
[2020-07-24] MEDS: ARIPiprazole 10 MG TABLET PO SCH (09:02)
== END 2020-07-24 09:10 | disposition home or self-care (01) | DRG 772 ==
LOC: YASAS 11:31 → Y5N 17:53 → UNDOADMIN 17:53 → Y5N 18:25
PROVIDERS: ADMIT Allergy & Immunology; ATTEND Allergy & Immunology
PROC: HZ42ZZZ Group Counseling for Substance Abuse Treatment, Cognitive-Behavioral (ICD-10-PCS; principal; 2020-07-10)
DX: F10.20 Alcohol dependence, uncomplicated (principal); F11.20 Opioid dependence, uncomplicated; F14.20 Cocaine dependence, uncomplicated; F13.20 Sedative, hypnotic or anxiolytic dependence, uncomplicated; F12.20 Cannabis dependence, uncomplicated; F17.210 Nicotine dependence, cigarettes, uncomplicated; F19.282 Other psychoactive substance dependence with psychoactive substance-induced sleep disorder; F19.280 Other psychoactive substance dependence with psychoactive substance-induced anxiety disorder; F19.24 Other psychoactive substance dependence with psychoactive substance-induced mood disorder; F31.9 Bipolar disorder, unspecified; F41.9 Anxiety disorder, unspecified; F43.10 Post-traumatic stress disorder, unspecified; F90.9 Attention-deficit hyperactivity disorder, unspecified type; D64.9 Anemia, unspecified; G40.909 Epilepsy, unspecified, not intractable, without status epilepticus; J45.909 Unspecified asthma, uncomplicated; B19.20 Unspecified viral hepatitis C without hepatic coma; M54.5 Low back pain; G89.29 Other chronic pain; Z62.810 Personal history of physical and sexual abuse in childhood; Z91.410 Personal history of adult physical and sexual abuse; Z87.820 Personal history of traumatic brain injury
CPT/HCPCS: 36415; 80053; 81003; 85027; 86780; C9803; U0003; U0005

== ENCOUNTER 2020-10-02 08:39 | Emergency (ER) | payer OTHER ==
[2020-10-02 08:44] VITALS: BP 121/66; PULSE 69; TEMP 98; BMI 24.5
[2020-10-02] MEDS ORDERED: KETOROLAC TROMETHAMINE 30 MG/1 ML VIAL IM ONE (09:26)
[2020-10-02] MEDS ORDERED: RABIES VACCINE (PCEC)/PF 2.5 UNIT/VIAL IM ONE ×2 (09:26→09:52)
[2020-10-02] MEDS ORDERED: DIPHTH,PERTUSS(ACELL),TET 0.5 ML DISP.SYRIN IM ONE ×2 (09:26→09:44)
[2020-10-02] MEDS ORDERED: RABIES IMMUNE GLOBULIN 300 UNITS/1 ML VIAL IM ONE (09:26)
[2020-10-02] MEDS ORDERED: KETOROLAC TROMETHAMINE 30 MG/1 ML VIAL ONE (09:44)
[2020-10-02] MEDS ORDERED: RABIES IMMUNE GLOBULIN 300 UNITS/1 ML VIAL ONE (09:53)
== END 2020-10-02 10:53 | disposition home or self-care (01) ==
LOC: JER 08:39
PROC: 3E0234Z Introduction of Serum, Toxoid and Vaccine into Muscle, Percutaneous Approach (ICD-10-PCS; principal; 2020-10-02)
PROC: 3E023GC Introduction of Other Therapeutic Substance into Muscle, Percutaneous Approach (ICD-10-PCS; principal; 2020-10-02)
DX: S61.451A Open bite of right hand, initial encounter (principal); S61.452A Open bite of left hand, initial encounter; W54.0XXA Bitten by dog, initial encounter
CPT/HCPCS: 90375; 90471; 90675; 90715; 96372; 99284-25

== ENCOUNTER 2020-10-24 11:05 | Inpatient (IN) | payer OTHER ==
[2020-10-24] MEDS ORDERED: MENTHOL/PHENOL 1 EACH UD MM PRN (12:20)
[2020-10-24] MEDS ORDERED: ONDANSETRON *ODT* 4 MG TABLET SL PRN (12:20)
[2020-10-24] MEDS ORDERED: BISMUTH SUBSALICYLATE 524 MG/30 ML PO PRN (12:20)
[2020-10-24] MEDS ORDERED: NICOTINE 10 MG CARTRIDGE (INHALER) IH PRN (12:20)
[2020-10-24] MEDS ORDERED: ACETAMINOPHEN 325 MG TABLET (FP) PO PRN ×2 (12:20)
[2020-10-24] MEDS ORDERED: MAGNESIUM CITRATE 300 ML BOTTLE PO PRN (12:20)
[2020-10-24] MEDS ORDERED: IBUPROFEN 400 MG TABLET (FP) PO PRN (12:20)
[2020-10-24] MEDS ORDERED: NICOTINE POLACRILEX 2 MG GUM BUC PRN (12:20)
[2020-10-24] MEDS ORDERED: MAG HYDROX/AL HYDROX/SIMETH 30 ML UNIT-DOSE CUP PO PRN (12:20)
[2020-10-24] MEDS ORDERED: MAGNESIUM HYDROX 2400MG/30ML ORAL SUSPENSION 30 ML CUP PO PRN (12:20)
[2020-10-24 12:21] VITALS: BMI 22.6
[2020-10-24] MEDS ORDERED: ALBUTEROL SO4 HFA INHALER IH PRN (12:24)
[2020-10-24] MEDS: METHOCARBAMOL 500 MG TABLET PO PRN (14:09)
[2020-10-24] MEDS: hydrOXYzine PAMOATE 25 MG CAPSULE (FP) PO SCH ×3 (14:09→22:19)
[2020-10-24] MEDS: diazePAM 5 MG TABLET PO SCH ×3 (14:10→22:19)
[2020-10-24] MEDS: PRENATAL VITAMINS W/ FOLIC ACID TABLET (FP) PO SCH (14:11)
[2020-10-24 15:46] LABS: HEMATOCRIT 35.3 % (32.4-45.2); HEMOGLOBIN 11.5 GM/dL (10.7-15.3); MCH 31.4 pg (25.7-33.7); MCHC 32.6 g/dl (32.0-36.0); MEAN CELL VOLUME 96.2 fl (80-96); MEAN PLT VOLUME 9.5 fl (7.5-11.1); PLATELET COUNT 235 10^3/uL (134-434); RBC 3.67 M/mm3 (3.60-5.2); RDW 13.9 % (11.6-15.6); WHITE BLOOD COUNT 4.8 K/mm3 (4.0-10.0)
[2020-10-24 15:51] LABS: ALBUMIN 3.8 g/dl (3.4-5.0); CALCIUM 9.1 mg/dL (8.5-10.1)
[2020-10-24 15:55] LABS: CREATININE 0.9 mg/dL (0.55-1.3)
[2020-10-24 15:56] LABS: BILIRUBIN,TOTAL 0.4 mg/dL (0.2-1); TOT PROT 7.5 g/dl (6.4-8.2)
[2020-10-24] MEDS: DIVALPROEX SODIUM 500 MG TABLET E.C. PO SCH (22:19)
[2020-10-24] MEDS: MELATONIN 5 MG TABLETS PO SCH (22:19)
[2020-10-24] MEDS: THIAMINE HCL 100 MG TABLET (FP) PO SCH (22:19)
[2020-10-25] MEDS ORDERED: methaDONE HCL 40 MG DISPERSABLE TABLET ONE (05:05)
[2020-10-25] MEDS: hydrOXYzine PAMOATE 25 MG CAPSULE (FP) PO SCH ×5 (06:16→22:26)
[2020-10-25] MEDS: diazePAM 5 MG TABLET PO SCH ×4 (06:16→22:24)
[2020-10-25] MEDS ORDERED: methaDONE HCL 40 MG DISPERSABLE TABLET PO SCH (10:00)
[2020-10-25] MEDS: PRENATAL VITAMINS W/ FOLIC ACID TABLET (FP) PO SCH (10:19)
[2020-10-25] MEDS: METHOCARBAMOL 500 MG TABLET PO PRN (10:19)
[2020-10-25] MEDS: DIVALPROEX SODIUM 500 MG TABLET E.C. PO SCH ×2 (10:19→22:24)
[2020-10-25] MEDS: ARIPiprazole 10 MG TABLET PO SCH (14:51)
[2020-10-25] MEDS: FLUoxetine HCL 20 MG CAPSULE PO SCH (14:51)
[2020-10-25] MEDS: THIAMINE HCL 100 MG TABLET (FP) PO SCH (22:24)
[2020-10-25] MEDS: QUEtiapine FUMARATE 100 MG TABLET (FP) PO SCH (22:24)
[2020-10-25] MEDS: MELATONIN 5 MG TABLETS PO SCH (22:26)
[2020-10-26] MEDS ORDERED: methaDONE HCL 40 MG DISPERSABLE TABLET ONE (04:17)
[2020-10-26] MEDS: hydrOXYzine PAMOATE 25 MG CAPSULE (FP) PO SCH ×5 (05:59→22:03)
[2020-10-26] MEDS: diazePAM 5 MG TABLET PO SCH ×3 (05:59→22:03)
[2020-10-26] MEDS: FLUoxetine HCL 20 MG CAPSULE PO SCH (10:27)
[2020-10-26] MEDS: DIVALPROEX SODIUM 500 MG TABLET E.C. PO SCH ×2 (10:27→22:02)
[2020-10-26] MEDS: ARIPiprazole 10 MG TABLET PO SCH (10:27)
[2020-10-26] MEDS: PRENATAL VITAMINS W/ FOLIC ACID TABLET (FP) PO SCH (10:27)
[2020-10-26] MEDS: diazePAM 5 MG TABLET PO PRN (10:28)
[2020-10-26] MEDS: THIAMINE HCL 100 MG TABLET (FP) PO SCH (22:02)
[2020-10-26] MEDS: QUEtiapine FUMARATE 100 MG TABLET (FP) PO SCH (22:03)
[2020-10-26] MEDS: MELATONIN 5 MG TABLETS PO SCH (22:03)
[2020-10-27] MEDS: diazePAM 5 MG TABLET PO PRN (02:50)
[2020-10-27] MEDS ORDERED: methaDONE HCL 40 MG DISPERSABLE TABLET ONE (04:20)
[2020-10-27] MEDS: diazePAM 5 MG TABLET PO SCH ×2 (06:23→18:40)
[2020-10-27] MEDS: hydrOXYzine PAMOATE 25 MG CAPSULE (FP) PO SCH ×5 (06:23→22:18)
[2020-10-27] MEDS: DIVALPROEX SODIUM 500 MG TABLET E.C. PO SCH ×2 (10:09→22:18)
[2020-10-27] MEDS: PRENATAL VITAMINS W/ FOLIC ACID TABLET (FP) PO SCH (10:09)
[2020-10-27] MEDS: ARIPiprazole 10 MG TABLET PO SCH (10:09)
[2020-10-27] MEDS: FLUoxetine HCL 20 MG CAPSULE PO SCH (10:09)
[2020-10-27] MEDS ORDERED: MASKS NR ONE (19:21)
[2020-10-27] MEDS: MELATONIN 5 MG TABLETS PO SCH (22:18)
[2020-10-27] MEDS: QUEtiapine FUMARATE 100 MG TABLET (FP) PO SCH (22:18)
[2020-10-27] MEDS: THIAMINE HCL 100 MG TABLET (FP) PO SCH (22:18)
[2020-10-28] MEDS ORDERED: methaDONE HCL 40 MG DISPERSABLE TABLET ONE (04:46)
[2020-10-28] MEDS: hydrOXYzine PAMOATE 25 MG CAPSULE (FP) PO SCH ×3 (05:41→13:13)
[2020-10-28] MEDS ORDERED: diazePAM 5 MG TABLET PO ONE (06:00)
[2020-10-28] MEDS: ARIPiprazole 10 MG TABLET PO SCH (09:29)
[2020-10-28] MEDS: FLUoxetine HCL 20 MG CAPSULE PO SCH (09:29)
[2020-10-28] MEDS: PRENATAL VITAMINS W/ FOLIC ACID TABLET (FP) PO SCH (09:29)
[2020-10-28] MEDS: DIVALPROEX SODIUM 500 MG TABLET E.C. PO SCH (09:29)
[2020-10-28 15:44] VITALS: BP 115/52; PULSE 53; TEMP 97.8
== END 2020-10-28 16:14 | disposition other institution (70) | DRG 773 ==
LOC: YASAS 11:05 → Y6N 12:25
PROVIDERS: ADMIT Allergy & Immunology; ATTEND Allergy & Immunology
PROC: HZ2ZZZZ Detoxification Services for Substance Abuse Treatment (ICD-10-PCS; principal; 2020-10-24)
DX: F10.230 Alcohol dependence with withdrawal, uncomplicated (principal); F11.20 Opioid dependence, uncomplicated; F13.230 Sedative, hypnotic or anxiolytic dependence with withdrawal, uncomplicated; F14.20 Cocaine dependence, uncomplicated; F12.10 Cannabis abuse, uncomplicated; F17.210 Nicotine dependence, cigarettes, uncomplicated; F41.9 Anxiety disorder, unspecified; F25.0 Schizoaffective disorder, bipolar type; F31.9 Bipolar disorder, unspecified; F43.10 Post-traumatic stress disorder, unspecified; F19.24 Other psychoactive substance dependence with psychoactive substance-induced mood disorder; F19.282 Other psychoactive substance dependence with psychoactive substance-induced sleep disorder; F19.280 Other psychoactive substance dependence with psychoactive substance-induced anxiety disorder; J45.20 Mild intermittent asthma, uncomplicated; B19.20 Unspecified viral hepatitis C without hepatic coma; M54.5 Low back pain; G89.29 Other chronic pain; R56.1 Post traumatic seizures; L30.9 Dermatitis, unspecified; G47.00 Insomnia, unspecified; Z86.19 Personal history of other infectious and parasitic diseases; Z88.2 Allergy status to sulfonamides; Z62.810 Personal history of physical and sexual abuse in childhood; Z91.5 Personal history of self-harm; Z56.0 Unemployment, unspecified
CPT/HCPCS: 36415; 80053; 82947; 85027; 86780; C9803; U0003; U0005

== ENCOUNTER 2020-10-28 16:22 | Inpatient (IN) | payer OTHER ==
[~2020-10-28 16:22] MED LIST: ALBUTEROL SO4 HFA INHALER IH PRN; LOPERAMIDE HCL 2 MG CAPSULE PO PRN; MAG HYDROX/AL HYDROX/SIMETH 30 ML UNIT-DOSE CUP PO PRN; MAGNESIUM CITRATE 300 ML BOTTLE PO PRN; P-EPHED 60MG/TRIPROLIDI 2.5MG TABLET PO PRN; guaiFENesin 200 MG/10 ML 10 ML UNIT-DOSE CUPS PO PRN
[2020-10-28] MEDS: hydrOXYzine PAMOATE 25 MG CAPSULE (FP) PO SCH ×2 (18:49→21:47)
[2020-10-28] MEDS: THIAMINE HCL 100 MG TABLET (FP) PO SCH (21:47)
[2020-10-28] MEDS: DIVALPROEX SODIUM 500 MG TABLET E.C. PO SCH (21:47)
[2020-10-28] MEDS: MELATONIN 5 MG TABLETS PO SCH (21:47)
[2020-10-28] MEDS: QUEtiapine FUMARATE 100 MG TABLET (FP) PO SCH (21:47)
[2020-10-29] MEDS ORDERED: methaDONE HCL 40 MG DISPERSABLE TABLET PO SCH (05:00)
[2020-10-29] MEDS: hydrOXYzine PAMOATE 25 MG CAPSULE (FP) PO SCH ×6 (06:32→22:18)
[2020-10-29] MEDS ORDERED: methaDONE HCL 40 MG DISPERSABLE TABLET ONE (07:13)
[2020-10-29] MEDS ORDERED: ARIPiprazole 5 MG TABLET ONE (09:18)
[2020-10-29] MEDS: PRENATAL VITAMINS W/ FOLIC ACID TABLET (FP) PO SCH (10:51)
[2020-10-29] MEDS: DIVALPROEX SODIUM 500 MG TABLET E.C. PO SCH ×2 (10:52→21:26)
[2020-10-29] MEDS: ARIPiprazole 10 MG TABLET PO SCH (10:52)
[2020-10-29] MEDS: FLUoxetine HCL 20 MG CAPSULE PO SCH (10:52)
[2020-10-29] MEDS: ACETAMINOPHEN 325 MG TABLET (FP) PO PRN (10:53)
[2020-10-29] MEDS: NICOTINE POLACRILEX 2 MG GUM BC PRN (10:55)
[2020-10-29] MEDS: LIDOCAINE 5% TOPICAL PATCH TP SCH (11:46)
[2020-10-29 12:04] LABS: HIV INTERPRETATION NEGATIVE (NEGATIVE)
[2020-10-29] MEDS: QUEtiapine FUMARATE 100 MG TABLET (FP) PO SCH (21:24)
[2020-10-29] MEDS: MELATONIN 5 MG TABLETS PO SCH (21:25)
[2020-10-29] MEDS: THIAMINE HCL 100 MG TABLET (FP) PO SCH (21:25)
[2020-10-29] MEDS: LIDOCAINE PATCH REMOVAL MC SCH (21:26)
[2020-10-30] MEDS ORDERED: methaDONE HCL 40 MG DISPERSABLE TABLET ONE (05:09)
[2020-10-30] MEDS: hydrOXYzine PAMOATE 25 MG CAPSULE (FP) PO SCH ×5 (06:18→21:01)
[2020-10-30] MEDS ORDERED: ARIPiprazole 5 MG TABLET ONE (08:24)
[2020-10-30] MEDS: DIVALPROEX SODIUM 500 MG TABLET E.C. PO SCH ×2 (10:13→21:01)
[2020-10-30] MEDS: ARIPiprazole 10 MG TABLET PO SCH (10:13)
[2020-10-30] MEDS: PRENATAL VITAMINS W/ FOLIC ACID TABLET (FP) PO SCH (10:14)
[2020-10-30] MEDS: FLUoxetine HCL 20 MG CAPSULE PO SCH (10:14)
[2020-10-30] MEDS: IBUPROFEN 400 MG TABLET (FP) PO PRN (10:15)
[2020-10-30] MEDS: LIDOCAINE 5% TOPICAL PATCH TP SCH (10:17)
[2020-10-30] MEDS: MAGNESIUM HYDROX 2400MG/30ML ORAL SUSPENSION 30 ML CUP PO PRN (14:31)
[2020-10-30] MEDS: QUEtiapine FUMARATE 100 MG TABLET (FP) PO SCH (21:01)
[2020-10-30] MEDS: MELATONIN 5 MG TABLETS PO SCH (21:01)
[2020-10-30] MEDS: THIAMINE HCL 100 MG TABLET (FP) PO SCH (21:01)
[2020-10-30] MEDS: LIDOCAINE PATCH REMOVAL MC SCH (21:02)
[2020-10-31] MEDS ORDERED: methaDONE HCL 40 MG DISPERSABLE TABLET ONE (03:12)
[2020-10-31] MEDS: hydrOXYzine PAMOATE 25 MG CAPSULE (FP) PO SCH ×5 (06:04→21:09)
[2020-10-31] MEDS ORDERED: ARIPiprazole 5 MG TABLET ONE (09:37)
[2020-10-31] MEDS: LIDOCAINE 5% TOPICAL PATCH TP SCH (10:15)
[2020-10-31] MEDS: FLUoxetine HCL 20 MG CAPSULE PO SCH (10:15)
[2020-10-31] MEDS: ARIPiprazole 10 MG TABLET PO SCH (10:15)
[2020-10-31] MEDS: PRENATAL VITAMINS W/ FOLIC ACID TABLET (FP) PO SCH (10:15)
[2020-10-31] MEDS: DIVALPROEX SODIUM 500 MG TABLET E.C. PO SCH ×2 (10:15→21:09)
[2020-10-31] MEDS: IBUPROFEN 400 MG TABLET (FP) PO PRN (10:16)
[2020-10-31 15:42] LABS: EPI CELLS 34 /uL (0-25.1); HYALINE CASTS 1 /uL (0-3.1); URINE APPEARANCE CLEAR; URINE BACTERIA 839 /uL (0-1359); URINE BILIRUBIN NEGATIVE (NEGATIVE); URINE COLOR YELLOW; URINE GLUCOSE (UA) NEGATIVE (NEGATIVE); URINE KETONE TRACE (NEGATIVE); URINE LEUK ESTERASE 1+ (NEGATIVE); URINE NITRITE NEGATIVE (NEGATIVE); URINE PROTEIN NEGATIVE (NEGATIVE); URINE RBC 5 /uL (0-23.9); URINE WBC 49 /uL (0-25.8)
[2020-10-31] MEDS: THIAMINE HCL 100 MG TABLET (FP) PO SCH (21:09)
[2020-10-31] MEDS: QUEtiapine FUMARATE 100 MG TABLET (FP) PO SCH (21:09)
[2020-10-31] MEDS: MELATONIN 5 MG TABLETS PO SCH (21:09)
[2020-10-31] MEDS: LIDOCAINE PATCH REMOVAL MC SCH (21:11)
[2020-11-01] MEDS ORDERED: hydrOXYzine PAMOATE 25 MG CAPSULE (FP) PO ONE (01:49)
[2020-11-01] MEDS ORDERED: methaDONE HCL 40 MG DISPERSABLE TABLET ONE (02:28)
[2020-11-01] MEDS: hydrOXYzine PAMOATE 25 MG CAPSULE (FP) PO SCH ×5 (06:18→22:00)
[2020-11-01] MEDS ORDERED: ARIPiprazole 5 MG TABLET ONE (09:21)
[2020-11-01] MEDS: LIDOCAINE 5% TOPICAL PATCH TP SCH (10:42)
[2020-11-01] MEDS: DIVALPROEX SODIUM 500 MG TABLET E.C. PO SCH ×2 (10:43→21:59)
[2020-11-01] MEDS: FLUoxetine HCL 20 MG CAPSULE PO SCH (10:43)
[2020-11-01] MEDS: PRENATAL VITAMINS W/ FOLIC ACID TABLET (FP) PO SCH (10:44)
[2020-11-01] MEDS: ARIPiprazole 10 MG TABLET PO SCH (10:44)
[2020-11-01] MEDS: THIAMINE HCL 100 MG TABLET (FP) PO SCH (22:00)
[2020-11-01] MEDS: MELATONIN 5 MG TABLETS PO SCH (22:00)
[2020-11-01] MEDS: QUEtiapine FUMARATE 100 MG TABLET (FP) PO SCH (22:00)
[2020-11-01] MEDS: LIDOCAINE PATCH REMOVAL MC SCH (22:09)
[2020-11-02] MEDS: hydrOXYzine PAMOATE 25 MG CAPSULE (FP) PO SCH ×5 (02:06→21:05)
[2020-11-02] MEDS ORDERED: methaDONE HCL 40 MG DISPERSABLE TABLET ONE (03:48)
[2020-11-02] MEDS ORDERED: ARIPiprazole 5 MG TABLET ONE (09:44)
[2020-11-02] MEDS: ARIPiprazole 10 MG TABLET PO SCH (10:51)
[2020-11-02] MEDS: DIVALPROEX SODIUM 500 MG TABLET E.C. PO SCH ×2 (10:51→21:06)
[2020-11-02] MEDS: FLUoxetine HCL 20 MG CAPSULE PO SCH (10:52)
[2020-11-02] MEDS: PRENATAL VITAMINS W/ FOLIC ACID TABLET (FP) PO SCH (10:52)
[2020-11-02] MEDS: LIDOCAINE 5% TOPICAL PATCH TP SCH (10:52)
[2020-11-02] MEDS: metroNIDAZOLE 250 MG TABLET PO SCH ×2 (16:06→21:05)
[2020-11-02] MEDS: IBUPROFEN 400 MG TABLET (FP) PO PRN (18:03)
[2020-11-02] MEDS: THIAMINE HCL 100 MG TABLET (FP) PO SCH (21:05)
[2020-11-02] MEDS: QUEtiapine FUMARATE 100 MG TABLET (FP) PO SCH (21:05)
[2020-11-02] MEDS: LIDOCAINE PATCH REMOVAL MC SCH (21:06)
[2020-11-02] MEDS: MELATONIN 5 MG TABLETS PO SCH (21:07)
[2020-11-03] MEDS: IBUPROFEN 400 MG TABLET (FP) PO PRN ×2 (00:41→10:42)
[2020-11-03] MEDS ORDERED: methaDONE HCL 40 MG DISPERSABLE TABLET ONE (03:32)
[2020-11-03] MEDS: metroNIDAZOLE 250 MG TABLET PO SCH ×2 (06:14→15:03)
[2020-11-03] MEDS: hydrOXYzine PAMOATE 25 MG CAPSULE (FP) PO SCH ×4 (06:15→17:22)
[2020-11-03] MEDS ORDERED: ARIPiprazole 5 MG TABLET ONE (09:27)
[2020-11-03] MEDS: PRENATAL VITAMINS W/ FOLIC ACID TABLET (FP) PO SCH (10:40)
[2020-11-03] MEDS: ARIPiprazole 10 MG TABLET PO SCH (10:41)
[2020-11-03] MEDS: LIDOCAINE 5% TOPICAL PATCH TP SCH (10:41)
[2020-11-03] MEDS: FLUoxetine HCL 20 MG CAPSULE PO SCH (10:41)
[2020-11-03] MEDS: DIVALPROEX SODIUM 500 MG TABLET E.C. PO SCH (10:41)
[2020-11-03] MEDS: NICOTINE POLACRILEX 2 MG GUM BC PRN (10:44)
[2020-11-03] MEDS: ACETAMINOPHEN 325 MG TABLET (FP) PO PRN (15:04)
[2020-11-04] MEDS: metroNIDAZOLE 250 MG TABLET PO SCH ×4 (00:02→22:13)
[2020-11-04] MEDS: DIVALPROEX SODIUM 500 MG TABLET E.C. PO SCH ×3 (00:02→22:11)
[2020-11-04] MEDS: hydrOXYzine PAMOATE 25 MG CAPSULE (FP) PO SCH (00:03)
[2020-11-04] MEDS: LIDOCAINE PATCH REMOVAL MC SCH ×2 (00:03→22:12)
[2020-11-04] MEDS: MELATONIN 5 MG TABLETS PO SCH ×2 (00:03→22:12)
[2020-11-04] MEDS: QUEtiapine FUMARATE 100 MG TABLET (FP) PO SCH ×2 (00:03→22:12)
[2020-11-04] MEDS: THIAMINE HCL 100 MG TABLET (FP) PO SCH ×2 (00:04→22:13)
[2020-11-04] MEDS ORDERED: QUEtiapine FUMARATE 100 MG TABLET (FP) PO ONE (00:48)
[2020-11-04] MEDS: hydrOXYzine PAMOATE 25 MG CAPSULE (FP) PO PRN ×2 (01:15→19:53)
[2020-11-04] MEDS ORDERED: methaDONE HCL 40 MG DISPERSABLE TABLET ONE (03:25)
[2020-11-04] MEDS ORDERED: PT OWN MED DRAWER 7, Y5N ONE (06:13)
[2020-11-04] MEDS ORDERED: ARIPiprazole 5 MG TABLET ONE (09:18)
[2020-11-04] MEDS: FLUoxetine HCL 20 MG CAPSULE PO SCH (10:20)
[2020-11-04] MEDS: PRENATAL VITAMINS W/ FOLIC ACID TABLET (FP) PO SCH (10:20)
[2020-11-04] MEDS: LIDOCAINE 5% TOPICAL PATCH TP SCH (10:21)
[2020-11-04] MEDS: ARIPiprazole 10 MG TABLET PO SCH (10:21)
[2020-11-04] MEDS: NICOTINE POLACRILEX 2 MG GUM BC PRN (14:07)
[2020-11-05] MEDS ORDERED: methaDONE HCL 40 MG DISPERSABLE TABLET ONE (03:18)
[2020-11-05] MEDS: hydrOXYzine PAMOATE 25 MG CAPSULE (FP) PO PRN ×2 (03:49→17:23)
[2020-11-05] MEDS: metroNIDAZOLE 250 MG TABLET PO SCH ×3 (06:11→22:33)
[2020-11-05] MEDS ORDERED: ARIPiprazole 5 MG TABLET ONE (08:55)
[2020-11-05] MEDS: FLUoxetine HCL 20 MG CAPSULE PO SCH (11:02)
[2020-11-05] MEDS: DIVALPROEX SODIUM 500 MG TABLET E.C. PO SCH ×2 (11:02→22:33)
[2020-11-05] MEDS: ARIPiprazole 10 MG TABLET PO SCH (11:02)
[2020-11-05] MEDS: LIDOCAINE 5% TOPICAL PATCH TP SCH (11:03)
[2020-11-05] MEDS: PRENATAL VITAMINS W/ FOLIC ACID TABLET (FP) PO SCH (11:03)
[2020-11-05] MEDS ORDERED: NICOTINE 10 MG CARTRIDGE (INHALER) IH PRN (11:09)
[2020-11-05] MEDS ORDERED: PT OWN MED DRAWER 7, Y5N ONE ×2 (14:17→21:07)
[2020-11-05] MEDS: THIAMINE HCL 100 MG TABLET (FP) PO SCH (22:33)
[2020-11-05] MEDS: LIDOCAINE PATCH REMOVAL MC SCH (22:33)
[2020-11-05] MEDS: MELATONIN 5 MG TABLETS PO SCH (22:33)
[2020-11-05] MEDS: QUEtiapine FUMARATE 100 MG TABLET (FP) PO SCH (22:33)
[2020-11-05] MEDS: IBUPROFEN 400 MG TABLET (FP) PO PRN (22:34)
[2020-11-06] MEDS ORDERED: methaDONE HCL 40 MG DISPERSABLE TABLET ONE (03:29)
[2020-11-06] MEDS: hydrOXYzine PAMOATE 25 MG CAPSULE (FP) PO PRN ×3 (06:07→17:33)
[2020-11-06] MEDS: metroNIDAZOLE 250 MG TABLET PO SCH ×3 (06:08→21:11)
[2020-11-06] MEDS: IBUPROFEN 400 MG TABLET (FP) PO PRN (06:11)
[2020-11-06] MEDS ORDERED: ARIPiprazole 5 MG TABLET ONE (09:09)
[2020-11-06] MEDS: PRENATAL VITAMINS W/ FOLIC ACID TABLET (FP) PO SCH (10:45)
[2020-11-06] MEDS: DIVALPROEX SODIUM 500 MG TABLET E.C. PO SCH ×2 (10:45→21:12)
[2020-11-06] MEDS: LIDOCAINE 5% TOPICAL PATCH TP SCH (10:45)
[2020-11-06] MEDS: FLUoxetine HCL 20 MG CAPSULE PO SCH (10:45)
[2020-11-06] MEDS: ARIPiprazole 10 MG TABLET PO SCH (10:45)
[2020-11-06] MEDS ORDERED: PT OWN MED DRAWER 7, Y5N ONE ×3 (13:17→21:11)
[2020-11-06] MEDS: MAGNESIUM HYDROX 2400MG/30ML ORAL SUSPENSION 30 ML CUP PO PRN (14:57)
[2020-11-06] MEDS: QUEtiapine FUMARATE 100 MG TABLET (FP) PO SCH (21:12)
[2020-11-06] MEDS: LIDOCAINE PATCH REMOVAL MC SCH (21:12)
[2020-11-06] MEDS: THIAMINE HCL 100 MG TABLET (FP) PO SCH (21:12)
[2020-11-06] MEDS: MELATONIN 5 MG TABLETS PO SCH (21:13)
[2020-11-07] MEDS: hydrOXYzine PAMOATE 25 MG CAPSULE (FP) PO PRN ×3 (01:57→17:47)
[2020-11-07] MEDS ORDERED: methaDONE HCL 40 MG DISPERSABLE TABLET ONE (03:14)
[2020-11-07] MEDS: metroNIDAZOLE 250 MG TABLET PO SCH ×2 (06:15→15:06)
[2020-11-07] MEDS: LIDOCAINE 5% TOPICAL PATCH TP SCH (11:17)
[2020-11-07] MEDS: ARIPiprazole 10 MG TABLET PO SCH (11:18)
[2020-11-07] MEDS: PRENATAL VITAMINS W/ FOLIC ACID TABLET (FP) PO SCH (11:18)
[2020-11-07] MEDS: FLUoxetine HCL 20 MG CAPSULE PO SCH (11:19)
[2020-11-07] MEDS: DIVALPROEX SODIUM 500 MG TABLET E.C. PO SCH ×2 (11:19→21:00)
[2020-11-07] MEDS ORDERED: PT OWN MED DRAWER 7, Y5N ONE (15:07)
[2020-11-07] MEDS: THIAMINE HCL 100 MG TABLET (FP) PO SCH (21:00)
[2020-11-07] MEDS: QUEtiapine FUMARATE 100 MG TABLET (FP) PO SCH (21:00)
[2020-11-07] MEDS: MELATONIN 5 MG TABLETS PO SCH (21:01)
[2020-11-07] MEDS: LIDOCAINE PATCH REMOVAL MC SCH (21:01)
[2020-11-08] MEDS: hydrOXYzine PAMOATE 25 MG CAPSULE (FP) PO PRN ×2 (02:35→17:37)
[2020-11-08] MEDS ORDERED: methaDONE HCL 40 MG DISPERSABLE TABLET ONE (03:38)
[2020-11-08] MEDS ORDERED: ARIPiprazole 5 MG TABLET ONE (08:51)
[2020-11-08] MEDS: PRENATAL VITAMINS W/ FOLIC ACID TABLET (FP) PO SCH (10:44)
[2020-11-08] MEDS: FLUoxetine HCL 20 MG CAPSULE PO SCH (10:45)
[2020-11-08] MEDS: ARIPiprazole 10 MG TABLET PO SCH (10:45)
[2020-11-08] MEDS: LIDOCAINE 5% TOPICAL PATCH TP SCH (10:45)
[2020-11-08] MEDS: DIVALPROEX SODIUM 500 MG TABLET E.C. PO SCH ×2 (10:45→21:11)
[2020-11-08] MEDS: NICOTINE POLACRILEX 2 MG GUM BC PRN (10:46)
[2020-11-08] MEDS ORDERED: HYDROCORTISONE 1% TOPICAL CREAM 30 GM TUBE TP PRN (15:28)
[2020-11-08] MEDS: MELATONIN 5 MG TABLETS PO SCH (21:11)
[2020-11-08] MEDS: THIAMINE HCL 100 MG TABLET (FP) PO SCH (21:11)
[2020-11-08] MEDS: LIDOCAINE PATCH REMOVAL MC SCH (21:11)
[2020-11-08] MEDS: QUEtiapine FUMARATE 100 MG TABLET (FP) PO SCH (21:11)
[2020-11-09] MEDS: hydrOXYzine PAMOATE 25 MG CAPSULE (FP) PO PRN ×3 (05:12→22:13)
[2020-11-09] MEDS ORDERED: methaDONE HCL 40 MG DISPERSABLE TABLET ONE (06:00)
[2020-11-09] MEDS: IBUPROFEN 400 MG TABLET (FP) PO PRN (06:01)
[2020-11-09] MEDS: ARIPiprazole 10 MG TABLET PO SCH (10:47)
[2020-11-09] MEDS: LIDOCAINE 5% TOPICAL PATCH TP SCH (10:47)
[2020-11-09] MEDS: FLUoxetine HCL 20 MG CAPSULE PO SCH (10:47)
[2020-11-09] MEDS: PRENATAL VITAMINS W/ FOLIC ACID TABLET (FP) PO SCH (10:47)
[2020-11-09] MEDS ORDERED: PT OWN MED DRAWER 7, Y5N ONE (10:47)
[2020-11-09] MEDS: DIVALPROEX SODIUM 500 MG TABLET E.C. PO SCH ×2 (10:47→22:12)
[2020-11-09] MEDS: MELATONIN 5 MG TABLETS PO SCH (22:12)
[2020-11-09] MEDS: QUEtiapine FUMARATE 100 MG TABLET (FP) PO SCH (22:12)
[2020-11-09] MEDS: THIAMINE HCL 100 MG TABLET (FP) PO SCH (22:12)
[2020-11-09] MEDS: LIDOCAINE PATCH REMOVAL MC SCH (22:12)
[2020-11-10] MEDS ORDERED: methaDONE HCL 40 MG DISPERSABLE TABLET ONE (03:39)
[2020-11-10] MEDS ORDERED: ARIPiprazole 5 MG TABLET ONE (09:00)
[2020-11-10] MEDS: DIVALPROEX SODIUM 500 MG TABLET E.C. PO SCH ×2 (09:42→21:01)
[2020-11-10] MEDS: ARIPiprazole 10 MG TABLET PO SCH (09:42)
[2020-11-10] MEDS: FLUoxetine HCL 20 MG CAPSULE PO SCH (09:42)
[2020-11-10] MEDS: PRENATAL VITAMINS W/ FOLIC ACID TABLET (FP) PO SCH (09:42)
[2020-11-10] MEDS: LIDOCAINE 5% TOPICAL PATCH TP SCH (09:43)
[2020-11-10] MEDS: hydrOXYzine PAMOATE 25 MG CAPSULE (FP) PO PRN (17:19)
[2020-11-10] MEDS: THIAMINE HCL 100 MG TABLET (FP) PO SCH (21:01)
[2020-11-10] MEDS: MELATONIN 5 MG TABLETS PO SCH (21:01)
[2020-11-10] MEDS: LIDOCAINE PATCH REMOVAL MC SCH (21:01)
[2020-11-10] MEDS: QUEtiapine FUMARATE 100 MG TABLET (FP) PO SCH (21:01)
[2020-11-11] MEDS ORDERED: methaDONE HCL 40 MG DISPERSABLE TABLET ONE (03:18)
[2020-11-11] MEDS: hydrOXYzine PAMOATE 25 MG CAPSULE (FP) PO PRN ×2 (06:38→15:30)
[2020-11-11] MEDS: PRENATAL VITAMINS W/ FOLIC ACID TABLET (FP) PO SCH (09:28)
[2020-11-11] MEDS: DIVALPROEX SODIUM 500 MG TABLET E.C. PO SCH ×2 (09:28→21:02)
[2020-11-11] MEDS: ARIPiprazole 10 MG TABLET PO SCH (09:28)
[2020-11-11] MEDS: FLUoxetine HCL 20 MG CAPSULE PO SCH (09:28)
[2020-11-11] MEDS: LIDOCAINE 5% TOPICAL PATCH TP SCH (09:29)
[2020-11-11] MEDS ORDERED: PT OWN MED DRAWER 7, Y5N ONE (10:36)
[2020-11-11] MEDS: QUEtiapine FUMARATE 100 MG TABLET (FP) PO SCH (21:02)
[2020-11-11] MEDS: THIAMINE HCL 100 MG TABLET (FP) PO SCH (21:03)
[2020-11-11] MEDS: MELATONIN 5 MG TABLETS PO SCH (21:04)
[2020-11-11] MEDS: LIDOCAINE PATCH REMOVAL MC SCH (21:04)
[2020-11-12] MEDS: hydrOXYzine PAMOATE 25 MG CAPSULE (FP) PO PRN (02:47)
[2020-11-12 06:53] VITALS: BP 120/71; PULSE 57; TEMP 97.2
[2020-11-12] MEDS ORDERED: methaDONE HCL 10 MG TABLET PO SCH (07:30)
[2020-11-12] MEDS ORDERED: methaDONE HCL 40 MG DISPERSABLE TABLET ONE (07:52)
[2020-11-12] MEDS: PRENATAL VITAMINS W/ FOLIC ACID TABLET (FP) PO SCH ×2 (08:43→09:15)
[2020-11-12] MEDS: ARIPiprazole 10 MG TABLET PO SCH ×2 (08:44→09:14)
[2020-11-12] MEDS: DIVALPROEX SODIUM 500 MG TABLET E.C. PO SCH ×2 (08:44→09:14)
[2020-11-12] MEDS: FLUoxetine HCL 20 MG CAPSULE PO SCH ×2 (08:44→09:15)
[2020-11-12] MEDS: LIDOCAINE 5% TOPICAL PATCH TP SCH (09:14)
== END 2020-11-12 09:00 | disposition home or self-care (01) | DRG 772 ==
LOC: YASAS 16:22 → Y5N 17:03
PROVIDERS: ADMIT Allergy & Immunology; ATTEND Allergy & Immunology
PROC: HZ42ZZZ Group Counseling for Substance Abuse Treatment, Cognitive-Behavioral (ICD-10-PCS; principal; 2020-10-28)
DX: F10.20 Alcohol dependence, uncomplicated (principal); F11.20 Opioid dependence, uncomplicated; F13.20 Sedative, hypnotic or anxiolytic dependence, uncomplicated; F14.20 Cocaine dependence, uncomplicated; F17.210 Nicotine dependence, cigarettes, uncomplicated; J45.20 Mild intermittent asthma, uncomplicated; B19.20 Unspecified viral hepatitis C without hepatic coma; N63.12 Unspecified lump in the right breast, upper inner quadrant; N89.8 Other specified noninflammatory disorders of vagina; R22.2 Localized swelling, mass and lump, trunk; L98.8 Other specified disorders of the skin and subcutaneous tissue; Z88.2 Allergy status to sulfonamides
CPT/HCPCS: 36415; 81003; 87086; 87389; 87491; 87591; 87661

== ENCOUNTER 2020-11-03 16:40 | Emergency (ER) | payer OTHER ==
[2020-11-03 16:50] VITALS: TEMP 98; BMI 24.5
[2020-11-03] MEDS ORDERED: ACETAMINOPHEN 325 MG TABLET (FP) PO ONE (18:08)
[2020-11-03] MEDS ORDERED: ACETAMINOPHEN 325 MG TABLET (FP) ONE ×2 (18:26→18:27)
[2020-11-04 00:04] VITALS: BP 113/70; PULSE 65
== END 2020-11-04 00:04 | disposition short-term general hospital (02) ==
LOC: JER 16:40
DX: R22.2 Localized swelling, mass and lump, trunk (principal)
CPT/HCPCS: 71046-TC-FY; 84703; 99285-25

== ENCOUNTER 2021-03-12 15:33 | Inpatient (IN) | payer OTHER ==
[2021-03-12] MEDS ORDERED: methaDONE HCL 10 MG TABLET (FOR DETOX USE ONLY) PO ONE (15:48)
[2021-03-12] MEDS ORDERED: IBUPROFEN 400 MG TABLET (FP) PO PRN (15:48)
[2021-03-12] MEDS ORDERED: MAGNESIUM CITRATE 300 ML BOTTLE PO PRN (15:48)
[2021-03-12] MEDS ORDERED: ONDANSETRON *ODT* 4 MG TABLET SL PRN (15:48)
[2021-03-12] MEDS ORDERED: BISMUTH SUBSALICYLATE 524 MG/30 ML PO PRN (15:48)
[2021-03-12] MEDS ORDERED: chlordiazePOXIDE HCL 25 MG CAPSULE PO PRN (15:48)
[2021-03-12] MEDS ORDERED: MAG HYDROX/AL HYDROX/SIMETH 30 ML UNIT-DOSE CUP PO PRN (15:48)
[2021-03-12] MEDS ORDERED: MENTHOL/PHENOL 1 EACH UD MM PRN (15:48)
[2021-03-12] MEDS ORDERED: MAGNESIUM HYDROX 2400MG/30ML ORAL SUSPENSION 30 ML CUP PO PRN (15:48)
[2021-03-12] MEDS ORDERED: NICOTINE 10 MG CARTRIDGE (INHALER) IH PRN (15:48)
[2021-03-12] MEDS ORDERED: cloNIDine HCL 0.1 MG TABLET PO PRN (15:48)
[2021-03-12] MEDS ORDERED: ACETAMINOPHEN 325 MG TABLET (FP) PO PRN ×2 (15:48)
[2021-03-12] MEDS ORDERED: ALBUTEROL SO4 HFA INHALER IH PRN (15:52)
[2021-03-12 16:14] VITALS: BMI 23.8
[2021-03-12] MEDS: chlordiazePOXIDE HCL 25 MG CAPSULE PO SCH ×2 (18:21→22:42)
[2021-03-12] MEDS: PRENATAL VITAMINS W/ FOLIC ACID TABLET (FP) PO SCH (18:24)
[2021-03-12] MEDS: hydrOXYzine PAMOATE 25 MG CAPSULE (FP) PO SCH ×2 (18:24→22:41)
[2021-03-12] MEDS: THIAMINE HCL 100 MG TABLET (FP) PO SCH (22:41)
[2021-03-12] MEDS: DIVALPROEX SODIUM 500 MG TABLET E.C. PO SCH (22:41)
[2021-03-12] MEDS: MELATONIN 5 MG TABLETS PO SCH (22:41)
[2021-03-13] MEDS: METHOCARBAMOL 500 MG TABLET PO PRN (06:18)
[2021-03-13] MEDS: chlordiazePOXIDE HCL 25 MG CAPSULE PO SCH ×4 (06:18→22:04)
[2021-03-13] MEDS: hydrOXYzine PAMOATE 25 MG CAPSULE (FP) PO SCH ×5 (06:18→23:07)
[2021-03-13] MEDS ORDERED: methaDONE HCL 10 MG TABLET (FOR DETOX USE ONLY) ONE (09:00)
[2021-03-13] MEDS: PRENATAL VITAMINS W/ FOLIC ACID TABLET (FP) PO SCH (10:32)
[2021-03-13] MEDS: DIVALPROEX SODIUM 500 MG TABLET E.C. PO SCH ×2 (10:32→22:03)
[2021-03-13 10:51] LABS: CALCIUM 8.9 mg/dL (8.5-10.1)
[2021-03-13 10:52] LABS: ALBUMIN 3.2 g/dl (3.4-5.0); BLOOD UREA NITROGEN 9.4 mg/dL (7-18)
[2021-03-13 10:55] LABS: CREATININE 0.9 mg/dL (0.55-1.3)
[2021-03-13 10:58] LABS: BILIRUBIN,TOTAL 0.5 mg/dL (0.2-1)
[2021-03-13 11:06] LABS: HEMATOCRIT 33.2 % (32.4-45.2); HEMOGLOBIN 11.2 GM/dL (10.7-15.3); MCH 31.4 pg (25.7-33.7); MCHC 33.6 g/dl (32.0-36.0); MEAN CELL VOLUME 93.5 fl (80-96); MEAN PLT VOLUME 9.3 fl (7.5-11.1); PLATELET COUNT 264 10^3/uL (134-434); RBC 3.55 M/mm3 (3.60-5.2); RDW 14.4 % (11.6-15.6); WHITE BLOOD COUNT 9.5 K/mm3 (4.0-10.0)
[2021-03-13] MEDS ORDERED: POTASSIUM CHLORIDE TABS 20 MEQ TABLET.ER (FP) PO ONE (15:35)
[2021-03-13] MEDS ORDERED: QUEtiapine FUMARATE 100 MG TABLET (FP) PO SCH (22:00)
[2021-03-13] MEDS: MELATONIN 5 MG TABLETS PO SCH (22:04)
[2021-03-13] MEDS: THIAMINE HCL 100 MG TABLET (FP) PO SCH (22:04)
[2021-03-14] MEDS: chlordiazePOXIDE HCL 25 MG CAPSULE PO SCH ×2 (06:20→10:06)
[2021-03-14] MEDS: hydrOXYzine PAMOATE 25 MG CAPSULE (FP) PO SCH ×3 (06:20→14:26)
[2021-03-14] MEDS ORDERED: FLUoxetine HCL 20 MG CAPSULE PO SCH (10:00)
[2021-03-14] MEDS ORDERED: methaDONE HCL 10 MG TABLET (FOR DETOX USE ONLY) PO ONE (10:00)
[2021-03-14] MEDS: PRENATAL VITAMINS W/ FOLIC ACID TABLET (FP) PO SCH (10:08)
[2021-03-14] MEDS: DIVALPROEX SODIUM 500 MG TABLET E.C. PO SCH (10:08)
[2021-03-14 13:23] VITALS: TEMP 97.8
[2021-03-14] MEDS: METHOCARBAMOL 500 MG TABLET PO PRN (14:25)
[2021-03-14 18:10] VITALS: BP 125/76; PULSE 79
[2021-03-15] MEDS ORDERED: chlordiazePOXIDE HCL 10 MG CAPSULE PO PRN
[2021-03-15] MEDS ORDERED: chlordiazePOXIDE HCL 10 MG CAPSULE PO SCH (05:00)
[2021-03-16] MEDS ORDERED: chlordiazePOXIDE HCL 10 MG CAPSULE PO SCH (05:00)
[2021-03-16] MEDS ORDERED: methaDONE HCL 10 MG TABLET (FOR DETOX USE ONLY) PO ONE (10:00)
[2021-03-17] MEDS ORDERED: chlordiazePOXIDE HCL 10 MG CAPSULE PO ONE (05:00)
== END 2021-03-14 17:30 | disposition left against medical advice (07) | DRG 770 ==
LOC: YASAS 15:33 → Y3N 17:05
PROVIDERS: ADMIT Allergy & Immunology; ATTEND Allergy & Immunology
PROC: HZ2ZZZZ Detoxification Services for Substance Abuse Treatment (ICD-10-PCS; principal; 2021-03-12)
DX: F10.230 Alcohol dependence with withdrawal, uncomplicated (principal); F11.10 Opioid abuse, uncomplicated; F14.90 Cocaine use, unspecified, uncomplicated; F12.10 Cannabis abuse, uncomplicated; F17.210 Nicotine dependence, cigarettes, uncomplicated; F25.0 Schizoaffective disorder, bipolar type; F19.24 Other psychoactive substance dependence with psychoactive substance-induced mood disorder; E87.6 Hypokalemia; J45.909 Unspecified asthma, uncomplicated; G40.909 Epilepsy, unspecified, not intractable, without status epilepticus; Z86.19 Personal history of other infectious and parasitic diseases; Z88.2 Allergy status to sulfonamides; Z62.810 Personal history of physical and sexual abuse in childhood; Z87.820 Personal history of traumatic brain injury; Z91.51 Personal history of suicidal behavior; Z56.0 Unemployment, unspecified
CPT/HCPCS: 36415; 80053; 80164; 81025; 84132; 85027; 86780; C9803; U0003; U0005

== ENCOUNTER 2021-06-11 14:59 | Inpatient (IN) | payer OTHER ==
[2021-06-11] MEDS ORDERED: MAGNESIUM HYDROX 2400MG/30ML ORAL SUSPENSION 30 ML CUP PO PRN (20:24)
[2021-06-11] MEDS ORDERED: ACETAMINOPHEN 325 MG TABLET (FP) PO PRN ×2 (20:24)
[2021-06-11] MEDS ORDERED: MAGNESIUM CITRATE 300 ML BOTTLE PO PRN (20:24)
[2021-06-11] MEDS ORDERED: IBUPROFEN 400 MG TABLET (FP) PO PRN (20:24)
[2021-06-11] MEDS ORDERED: LOPERAMIDE HCL 2 MG CAPSULE PO PRN (20:24)
[2021-06-11] MEDS ORDERED: ONDANSETRON *ODT* 4 MG TABLET SL PRN (20:24)
[2021-06-11] MEDS ORDERED: BISMUTH SUBSALICYLATE 524 MG/30 ML PO PRN (20:24)
[2021-06-11] MEDS ORDERED: MELATONIN 5 MG TABLETS PO PRN (20:24)
[2021-06-11] MEDS ORDERED: hydrOXYzine PAMOATE 25 MG CAPSULE (FP) PO PRN (20:24)
[2021-06-11] MEDS ORDERED: MENTHOL/PHENOL 1 EACH UD MM PRN (20:24)
[2021-06-11] MEDS ORDERED: MAG HYDROX/AL HYDROX/SIMETH 30 ML UNIT-DOSE CUP PO PRN (20:24)
[2021-06-11] MEDS ORDERED: ALBUTEROL SO4 HFA INHALER IH PRN (20:26)
[2021-06-11] MEDS ORDERED: QUEtiapine FUMARATE 100 MG TABLET (FP) PO ONE (20:27)
[2021-06-11] MEDS ORDERED: methaDONE HCL 10 MG TABLET (FOR DETOX USE ONLY) PO ONE (20:27)
[2021-06-11] MEDS ORDERED: chlordiazePOXIDE HCL 25 MG CAPSULE PO PRN (20:28)
[2021-06-11 21:58] VITALS: BMI 29.0
[2021-06-11] MEDS: chlordiazePOXIDE HCL 25 MG CAPSULE PO SCH (22:42)
[2021-06-11] MEDS: levETIRAcetam 500 MG TABLET (FP) PO SCH (22:42)
[2021-06-11] MEDS: THIAMINE HCL 100 MG TABLET (FP) PO SCH (22:42)
[2021-06-12] MEDS: cloNIDine HCL 0.1 MG TABLET PO PRN ×3 (00:56→18:45)
[2021-06-12] MEDS: chlordiazePOXIDE HCL 25 MG CAPSULE PO SCH ×4 (05:44→22:14)
[2021-06-12] MEDS ORDERED: methaDONE HCL 10 MG TABLET (FOR DETOX USE ONLY) ONE (09:51)
[2021-06-12] MEDS: PRENATAL VITAMINS W/ FOLIC ACID TABLET (FP) PO SCH (10:50)
[2021-06-12] MEDS: METHOCARBAMOL 500 MG TABLET PO PRN (10:50)
[2021-06-12] MEDS: levETIRAcetam 500 MG TABLET (FP) PO SCH ×2 (10:50→22:13)
[2021-06-12 11:47] LABS: HEMATOCRIT 32.9 % (32.4-45.2); HEMOGLOBIN 10.9 GM/dL (10.7-15.3); MCH 31.2 pg (25.7-33.7); MCHC 33.2 g/dl (32.0-36.0); MEAN CELL VOLUME 93.9 fl (80-96); MEAN PLT VOLUME 8.7 fl (7.5-11.1); PLATELET COUNT 176 10^3/uL (134-434); RBC 3.51 M/mm3 (3.60-5.2); RDW 15.1 % (11.6-15.6); WHITE BLOOD COUNT 5.2 K/mm3 (4.0-10.0)
[2021-06-12] MEDS ORDERED: FLU VACC QS2021-22(6MOS UP)/PF 60 MCG/0.5 ML SYRINGE IM ONE (12:00)
[2021-06-12 12:02] LABS: CALCIUM 8.9 mg/dL (8.5-10.1)
[2021-06-12 12:03] LABS: ALBUMIN 3.1 g/dl (3.4-5.0); BLOOD UREA NITROGEN 11.9 mg/dL (7-18)
[2021-06-12 12:06] LABS: CREATININE 0.8 mg/dL (0.55-1.3)
[2021-06-12 12:07] LABS: TOT PROT 6.3 g/dl (6.4-8.2)
[2021-06-12 12:47] LABS: HIV INTERPRETATION NEGATIVE (NEGATIVE)
[2021-06-12] MEDS: NICOTINE POLACRILEX 2 MG GUM BUC PRN ×2 (14:03→17:29)
[2021-06-12] MEDS: THIAMINE HCL 100 MG TABLET (FP) PO SCH (22:13)
[2021-06-12] MEDS: QUEtiapine FUMARATE 100 MG TABLET (FP) PO SCH (22:14)
[2021-06-13] MEDS: chlordiazePOXIDE HCL 25 MG CAPSULE PO SCH ×4 (05:54→22:36)
[2021-06-13] MEDS ORDERED: methaDONE HCL 10 MG TABLET (FOR DETOX USE ONLY) PO ONE (10:00)
[2021-06-13] MEDS: PRENATAL VITAMINS W/ FOLIC ACID TABLET (FP) PO SCH (10:35)
[2021-06-13] MEDS: METHOCARBAMOL 500 MG TABLET PO PRN ×2 (10:35→18:05)
[2021-06-13] MEDS: levETIRAcetam 500 MG TABLET (FP) PO SCH ×2 (10:35→22:35)
[2021-06-13] MEDS: ARIPiprazole 5 MG TABLET PO SCH (10:36)
[2021-06-13 11:10] LABS: SARS-CoV-2 NAA Not Detected (Not Detected)
[2021-06-13] MEDS: FLUoxetine HCL 10 MG CAPSULE PO SCH (13:33)
[2021-06-13] MEDS: THIAMINE HCL 100 MG TABLET (FP) PO SCH (22:35)
[2021-06-13] MEDS: QUEtiapine FUMARATE 100 MG TABLET (FP) PO SCH (22:35)
[2021-06-14] MEDS ORDERED: chlordiazePOXIDE HCL 10 MG CAPSULE PO PRN
[2021-06-14] MEDS: METHOCARBAMOL 500 MG TABLET PO PRN ×4 (04:45→23:30)
[2021-06-14] MEDS: chlordiazePOXIDE HCL 10 MG CAPSULE PO SCH ×4 (04:46→22:28)
[2021-06-14] MEDS: NICOTINE POLACRILEX 2 MG GUM BUC PRN ×2 (06:41→21:20)
[2021-06-14] MEDS ORDERED: methaDONE HCL 10 MG TABLET (FOR DETOX USE ONLY) ONE (09:42)
[2021-06-14] MEDS: PRENATAL VITAMINS W/ FOLIC ACID TABLET (FP) PO SCH (10:11)
[2021-06-14] MEDS: levETIRAcetam 500 MG TABLET (FP) PO SCH ×2 (10:11→22:26)
[2021-06-14] MEDS: ARIPiprazole 5 MG TABLET PO SCH (10:11)
[2021-06-14] MEDS: FLUoxetine HCL 10 MG CAPSULE PO SCH (10:11)
[2021-06-14 14:36] LABS: SGOT/AST 172 U/L (15-37); SGPT/ALT 160 U/L (13-61)
[2021-06-14] MEDS: QUEtiapine FUMARATE 100 MG TABLET (FP) PO SCH (22:27)
[2021-06-14] MEDS: THIAMINE HCL 100 MG TABLET (FP) PO SCH (22:27)
[2021-06-15] MEDS: chlordiazePOXIDE HCL 10 MG CAPSULE PO SCH ×2 (05:51→17:41)
[2021-06-15] MEDS: NICOTINE POLACRILEX 2 MG GUM BUC PRN ×2 (05:58→18:20)
[2021-06-15] MEDS ORDERED: hydrOXYzine PAMOATE 25 MG CAPSULE (FP) PO ONE ×2 (09:47→22:54)
[2021-06-15] MEDS ORDERED: methaDONE HCL 10 MG TABLET (FOR DETOX USE ONLY) PO ONE (10:00)
[2021-06-15] MEDS: ARIPiprazole 5 MG TABLET PO SCH (10:04)
[2021-06-15] MEDS: PRENATAL VITAMINS W/ FOLIC ACID TABLET (FP) PO SCH (10:04)
[2021-06-15] MEDS: FLUoxetine HCL 10 MG CAPSULE PO SCH (10:04)
[2021-06-15] MEDS: levETIRAcetam 500 MG TABLET (FP) PO SCH ×2 (10:04→22:15)
[2021-06-15] MEDS: METHOCARBAMOL 500 MG TABLET PO PRN ×2 (10:04→17:42)
[2021-06-15] MEDS: QUEtiapine FUMARATE 100 MG TABLET (FP) PO SCH (22:15)
[2021-06-15] MEDS: THIAMINE HCL 100 MG TABLET (FP) PO SCH (22:15)
[2021-06-16] MEDS ORDERED: chlordiazePOXIDE HCL 10 MG CAPSULE PO ONE (05:00)
[2021-06-16] MEDS: NICOTINE POLACRILEX 2 MG GUM BUC PRN (07:07)
[2021-06-16 09:55] VITALS: BP 108/87; PULSE 85; TEMP 97.7
== END 2021-06-16 09:34 | disposition home or self-care (01) | DRG 773 ==
LOC: YASAS 14:59 → Y6N 22:18
PROVIDERS: ADMIT Allergy & Immunology; ATTEND Allergy & Immunology
PROC: HZ2ZZZZ Detoxification Services for Substance Abuse Treatment (ICD-10-PCS; principal; 2021-06-11)
DX: F11.23 Opioid dependence with withdrawal (principal); F10.230 Alcohol dependence with withdrawal, uncomplicated; F13.20 Sedative, hypnotic or anxiolytic dependence, uncomplicated; F14.10 Cocaine abuse, uncomplicated; F12.10 Cannabis abuse, uncomplicated; F17.210 Nicotine dependence, cigarettes, uncomplicated; F19.24 Other psychoactive substance dependence with psychoactive substance-induced mood disorder; F31.9 Bipolar disorder, unspecified; F25.0 Schizoaffective disorder, bipolar type; F43.10 Post-traumatic stress disorder, unspecified; F90.9 Attention-deficit hyperactivity disorder, unspecified type; D64.9 Anemia, unspecified; B19.20 Unspecified viral hepatitis C without hepatic coma; M54.50 Low back pain, unspecified; G89.29 Other chronic pain; R76.11 Nonspecific reaction to tuberculin skin test without active tuberculosis; Z62.810 Personal history of physical and sexual abuse in childhood; Z88.2 Allergy status to sulfonamides
CPT/HCPCS: 36415; 80053; 84450; 84460; 85027; 86780; 87389; 87811; 90686; C9803-CS; G0008; J0735; U0003; U0005

== ENCOUNTER 2021-07-26 15:42 | Inpatient (IN) | payer OTHER ==
[2021-07-26] MEDS ORDERED: MAG HYDROX/AL HYDROX/SIMETH 30 ML UNIT-DOSE CUP PO PRN (16:53)
[2021-07-26] MEDS ORDERED: LOPERAMIDE HCL 2 MG CAPSULE PO PRN (16:53)
[2021-07-26] MEDS ORDERED: ONDANSETRON *ODT* 4 MG TABLET SL PRN (16:53)
[2021-07-26] MEDS ORDERED: MAGNESIUM HYDROX 2400MG/30ML ORAL SUSPENSION 30 ML CUP PO PRN (16:53)
[2021-07-26] MEDS ORDERED: ACETAMINOPHEN 325 MG TABLET (FP) PO PRN ×2 (16:53)
[2021-07-26] MEDS ORDERED: BENZOCAINE/MENTHOL (CHLORASEPTIC ) LOZENGE MM PRN (16:53)
[2021-07-26] MEDS ORDERED: NICOTINE 10 MG CARTRIDGE (INHALER) IH PRN (16:53)
[2021-07-26] MEDS ORDERED: DICYCLOMINE HCL 10 MG CAPSULE PO PRN (16:53)
[2021-07-26] MEDS ORDERED: BISMUTH SUBSALICYLATE 524 MG/30 ML PO PRN (16:53)
[2021-07-26] MEDS ORDERED: IBUPROFEN 400 MG TABLET (FP) PO PRN (16:53)
[2021-07-26] MEDS ORDERED: MAGNESIUM CITRATE 300 ML BOTTLE PO PRN (16:53)
[2021-07-26] MEDS ORDERED: ALBUTEROL SO4 HFA INHALER IH PRN (16:55)
[2021-07-26 17:27] VITALS: BMI 23.8
[2021-07-26] MEDS: hydrOXYzine PAMOATE 25 MG CAPSULE (FP) PO SCH ×2 (18:08→22:45)
[2021-07-26] MEDS: METHOCARBAMOL 500 MG TABLET PO PRN (18:08)
[2021-07-26] MEDS ORDERED: levETIRAcetam 250 MG TABLET PO SCH (22:00)
[2021-07-26] MEDS: levETIRAcetam 500 MG TABLET (FP) PO SCH (22:45)
[2021-07-26] MEDS: DIVALPROEX SODIUM 500 MG TABLET E.C. PO SCH (22:45)
[2021-07-26] MEDS: THIAMINE HCL 100 MG TABLET (FP) PO SCH (22:45)
[2021-07-26] MEDS: MELATONIN 5 MG TABLETS PO SCH (22:45)
[2021-07-27] MEDS: hydrOXYzine PAMOATE 25 MG CAPSULE (FP) PO SCH ×5 (07:53→22:22)
[2021-07-27] MEDS ORDERED: cloNIDine HCL 0.1 MG TABLET PO PRN (09:55)
[2021-07-27] MEDS ORDERED: methaDONE HCL 10 MG TABLET (FOR DETOX USE ONLY) PO ONE (10:00)
[2021-07-27] MEDS: PRENATAL VITAMINS W/ FOLIC ACID TABLET (FP) PO SCH (10:58)
[2021-07-27] MEDS: DIVALPROEX SODIUM 500 MG TABLET E.C. PO SCH ×2 (10:58→22:22)
[2021-07-27] MEDS: levETIRAcetam 500 MG TABLET (FP) PO SCH ×2 (10:58→22:22)
[2021-07-27] MEDS: NICOTINE 14 MG/24 HOURS TOPICAL PATCH TD SCH (11:01)
[2021-07-27 12:31] LABS: HEMATOCRIT 37.9 % (32.4-45.2); HEMOGLOBIN 12.7 GM/dL (10.7-15.3); MCH 31.2 pg (25.7-33.7); MCHC 33.6 g/dl (32.0-36.0); MEAN CELL VOLUME 92.8 fl (80-96); MEAN PLT VOLUME 9.2 fl (7.5-11.1); PLATELET COUNT 256 10^3/uL (134-434); RBC 4.08 M/mm3 (3.60-5.2); RDW 13.6 % (11.6-15.6); WHITE BLOOD COUNT 5.1 K/mm3 (4.0-10.0)
[2021-07-27 12:33] LABS: CALCIUM 8.9 mg/dL (8.5-10.1)
[2021-07-27 12:34] LABS: ALBUMIN 3.3 g/dl (3.4-5.0); BLOOD UREA NITROGEN 10.9 mg/dL (7-18)
[2021-07-27 12:37] LABS: CREATININE 0.7 mg/dL (0.55-1.3)
[2021-07-27 12:38] LABS: TOT PROT 7.2 g/dl (6.4-8.2)
[2021-07-27 12:39] LABS: BILIRUBIN,TOTAL 0.4 mg/dL (0.2-1)
[2021-07-27] MEDS: METHOCARBAMOL 500 MG TABLET PO PRN (17:49)
[2021-07-27] MEDS: ARIPiprazole 5 MG TABLET PO SCH (22:22)
[2021-07-27] MEDS: MELATONIN 5 MG TABLETS PO SCH (22:22)
[2021-07-27] MEDS: THIAMINE HCL 100 MG TABLET (FP) PO SCH (22:23)
[2021-07-28] MEDS: hydrOXYzine PAMOATE 25 MG CAPSULE (FP) PO SCH ×5 (06:46→22:49)
[2021-07-28] MEDS ORDERED: methaDONE HCL 10 MG TABLET (FOR DETOX USE ONLY) ONE (09:01)
[2021-07-28] MEDS: DIVALPROEX SODIUM 500 MG TABLET E.C. PO SCH ×2 (10:08→22:49)
[2021-07-28] MEDS: levETIRAcetam 500 MG TABLET (FP) PO SCH ×2 (10:08→22:49)
[2021-07-28] MEDS: NICOTINE 14 MG/24 HOURS TOPICAL PATCH TD SCH (10:11)
[2021-07-28] MEDS: PRENATAL VITAMINS W/ FOLIC ACID TABLET (FP) PO SCH (10:11)
[2021-07-28] MEDS: MELATONIN 5 MG TABLETS PO SCH (22:49)
[2021-07-28] MEDS: THIAMINE HCL 100 MG TABLET (FP) PO SCH (22:49)
[2021-07-28] MEDS: ARIPiprazole 5 MG TABLET PO SCH (22:49)
[2021-07-28] MEDS: METHOCARBAMOL 500 MG TABLET PO PRN (22:50)
[2021-07-29] MEDS: hydrOXYzine PAMOATE 25 MG CAPSULE (FP) PO SCH ×5 (06:09→22:04)
[2021-07-29] MEDS ORDERED: methaDONE HCL 10 MG TABLET (FOR DETOX USE ONLY) PO ONE (10:00)
[2021-07-29] MEDS: levETIRAcetam 500 MG TABLET (FP) PO SCH ×2 (10:17→22:03)
[2021-07-29] MEDS: DIVALPROEX SODIUM 500 MG TABLET E.C. PO SCH ×2 (10:17→22:03)
[2021-07-29] MEDS: PRENATAL VITAMINS W/ FOLIC ACID TABLET (FP) PO SCH (10:17)
[2021-07-29] MEDS: NICOTINE 14 MG/24 HOURS TOPICAL PATCH TD SCH (10:17)
[2021-07-29] MEDS: METHOCARBAMOL 500 MG TABLET PO PRN ×2 (10:18→22:03)
[2021-07-29] MEDS: THIAMINE HCL 100 MG TABLET (FP) PO SCH (22:03)
[2021-07-29] MEDS: MELATONIN 5 MG TABLETS PO SCH (22:03)
[2021-07-29] MEDS: ARIPiprazole 5 MG TABLET PO SCH (22:04)
[2021-07-30] MEDS: hydrOXYzine PAMOATE 25 MG CAPSULE (FP) PO SCH ×5 (07:00→21:29)
[2021-07-30] MEDS: PRENATAL VITAMINS W/ FOLIC ACID TABLET (FP) PO SCH (10:45)
[2021-07-30] MEDS: DIVALPROEX SODIUM 500 MG TABLET E.C. PO SCH ×2 (10:46→21:29)
[2021-07-30] MEDS: levETIRAcetam 500 MG TABLET (FP) PO SCH ×2 (10:46→21:29)
[2021-07-30] MEDS: NICOTINE 14 MG/24 HOURS TOPICAL PATCH TD SCH (10:47)
[2021-07-30] MEDS: MELATONIN 5 MG TABLETS PO SCH (21:29)
[2021-07-30] MEDS: THIAMINE HCL 100 MG TABLET (FP) PO SCH (21:29)
[2021-07-30] MEDS: ARIPiprazole 5 MG TABLET PO SCH (21:29)
[2021-07-30] MEDS: METHOCARBAMOL 500 MG TABLET PO PRN (21:29)
[2021-07-31 00:06] LABS: SARS-CoV-2 NAA Not Detected (Not Detected)
[2021-07-31] MEDS: hydrOXYzine PAMOATE 25 MG CAPSULE (FP) PO SCH ×2 (07:03→09:58)
[2021-07-31] MEDS: levETIRAcetam 500 MG TABLET (FP) PO SCH (09:58)
[2021-07-31] MEDS: DIVALPROEX SODIUM 500 MG TABLET E.C. PO SCH (09:58)
[2021-07-31] MEDS: PRENATAL VITAMINS W/ FOLIC ACID TABLET (FP) PO SCH (09:58)
[2021-07-31] MEDS: NICOTINE 14 MG/24 HOURS TOPICAL PATCH TD SCH (10:27)
[2021-07-31 12:46] VITALS: BP 132/79; PULSE 62; TEMP 98.3
== END 2021-07-31 13:04 | disposition other institution (70) | DRG 773 ==
LOC: YASAS 15:42 → Y3N 17:11
PROVIDERS: ADMIT Allergy & Immunology; ATTEND Allergy & Immunology
PROC: HZ2ZZZZ Detoxification Services for Substance Abuse Treatment (ICD-10-PCS; principal; 2021-07-26)
DX: F11.23 Opioid dependence with withdrawal (principal); F13.20 Sedative, hypnotic or anxiolytic dependence, uncomplicated; F14.20 Cocaine dependence, uncomplicated; F17.210 Nicotine dependence, cigarettes, uncomplicated; F25.0 Schizoaffective disorder, bipolar type; F19.24 Other psychoactive substance dependence with psychoactive substance-induced mood disorder; G47.00 Insomnia, unspecified; R56.1 Post traumatic seizures; J45.909 Unspecified asthma, uncomplicated; M19.011 Primary osteoarthritis, right shoulder; M19.012 Primary osteoarthritis, left shoulder; Z62.810 Personal history of physical and sexual abuse in childhood; Z91.410 Personal history of adult physical and sexual abuse; Z87.820 Personal history of traumatic brain injury; Z88.2 Allergy status to sulfonamides; Z91.19 Patient's noncompliance with other medical treatment and regimen
CPT/HCPCS: 36415; 80053; 80164; 80177; 85027; 86780; C9803-CS; U0003; U0005

== ENCOUNTER 2021-07-31 13:10 | Inpatient (IN) | payer OTHER ==
[2021-07-31] MEDS ORDERED: NICOTINE POLACRILEX 2 MG GUM BUC PRN (20:49)
[2021-07-31] MEDS ORDERED: MAG HYDROX/AL HYDROX/SIMETH 30 ML UNIT-DOSE CUP PO PRN (20:49)
[2021-07-31] MEDS ORDERED: LOPERAMIDE HCL 2 MG CAPSULE PO PRN (20:49)
[2021-07-31] MEDS ORDERED: ACETAMINOPHEN 325 MG TABLET (FP) PO PRN (20:49)
[2021-07-31] MEDS ORDERED: guaiFENesin 200 MG/10 ML 10 ML UNIT-DOSE CUPS PO PRN (20:49)
[2021-07-31] MEDS ORDERED: IBUPROFEN 400 MG TABLET (FP) PO PRN (20:49)
[2021-07-31] MEDS ORDERED: P-EPHED 60MG/TRIPROLIDI 2.5MG TABLET PO PRN (20:49)
[2021-07-31] MEDS ORDERED: MAGNESIUM HYDROX 2400MG/30ML ORAL SUSPENSION 30 ML CUP PO PRN (20:49)
[2021-07-31] MEDS ORDERED: MAGNESIUM CITRATE 300 ML BOTTLE PO PRN (20:49)
[2021-07-31] MEDS ORDERED: BENZOCAINE/MENTHOL (CHLORASEPTIC ) LOZENGE MM PRN (20:49)
[2021-07-31] MEDS: THIAMINE HCL 100 MG TABLET (FP) PO SCH (21:18)
[2021-07-31] MEDS: MELATONIN 5 MG TABLETS PO SCH (21:18)
[2021-07-31] MEDS: hydrOXYzine PAMOATE 25 MG CAPSULE (FP) PO PRN (21:18)
[2021-08-01] MEDS: hydrOXYzine PAMOATE 25 MG CAPSULE (FP) PO PRN (10:37)
[2021-08-01] MEDS: PRENATAL VITAMINS W/ FOLIC ACID TABLET (FP) PO SCH (10:37)
[2021-08-01] MEDS: DIVALPROEX SODIUM 500 MG TABLET E.C. PO SCH ×2 (11:01→21:25)
[2021-08-01] MEDS: levETIRAcetam 500 MG TABLET (FP) PO SCH ×2 (11:01→21:26)
[2021-08-01] MEDS ORDERED: HYDROCORTISONE 1% TOPICAL OINT 30 GM TUBE TP SCH (11:15)
[2021-08-01] MEDS: BACITRACIN 0.9 GM PACKET TP SCH ×2 (12:24→21:25)
[2021-08-01] MEDS: THIAMINE HCL 100 MG TABLET (FP) PO SCH (21:25)
[2021-08-01] MEDS: MELATONIN 5 MG TABLETS PO SCH (21:26)
[2021-08-01] MEDS: QUEtiapine FUMARATE 100 MG TABLET (FP) PO SCH (21:28)
[2021-08-01] MEDS ORDERED: ARIPiprazole 5 MG TABLET PO SCH (22:00)
[2021-08-02] MEDS: levETIRAcetam 500 MG TABLET (FP) PO SCH ×2 (10:32→21:30)
[2021-08-02] MEDS: QUEtiapine FUMARATE 50 MG TABLET PO SCH (10:32)
[2021-08-02] MEDS: DIVALPROEX SODIUM 500 MG TABLET E.C. PO SCH ×2 (10:33→21:30)
[2021-08-02] MEDS: PRENATAL VITAMINS W/ FOLIC ACID TABLET (FP) PO SCH (10:33)
[2021-08-02] MEDS: BACITRACIN 0.9 GM PACKET TP SCH ×2 (10:33→21:30)
[2021-08-02] MEDS: hydrOXYzine PAMOATE 25 MG CAPSULE (FP) PO PRN ×2 (12:41→16:45)
[2021-08-02] MEDS: NICOTINE 10 MG CARTRIDGE (INHALER) IH PRN (12:41)
[2021-08-02] MEDS: MELATONIN 5 MG TABLETS PO SCH (21:30)
[2021-08-02] MEDS: QUEtiapine FUMARATE 100 MG TABLET (FP) PO SCH (21:30)
[2021-08-02] MEDS: THIAMINE HCL 100 MG TABLET (FP) PO SCH (21:30)
[2021-08-03] MEDS: hydrOXYzine PAMOATE 25 MG CAPSULE (FP) PO PRN ×2 (06:28→22:35)
[2021-08-03] MEDS: levETIRAcetam 500 MG TABLET (FP) PO SCH ×2 (10:50→21:07)
[2021-08-03] MEDS: PRENATAL VITAMINS W/ FOLIC ACID TABLET (FP) PO SCH (10:50)
[2021-08-03] MEDS: BACITRACIN 0.9 GM PACKET TP SCH ×2 (10:50→21:06)
[2021-08-03] MEDS: DIVALPROEX SODIUM 500 MG TABLET E.C. PO SCH ×2 (10:50→21:07)
[2021-08-03] MEDS: QUEtiapine FUMARATE 50 MG TABLET PO SCH (10:50)
[2021-08-03] MEDS: THIAMINE HCL 100 MG TABLET (FP) PO SCH (21:07)
[2021-08-03] MEDS: MELATONIN 5 MG TABLETS PO SCH (21:07)
[2021-08-03] MEDS: QUEtiapine FUMARATE 100 MG TABLET (FP) PO SCH (21:07)
[2021-08-04] MEDS: levETIRAcetam 500 MG TABLET (FP) PO SCH ×2 (10:41→21:20)
[2021-08-04] MEDS: DIVALPROEX SODIUM 500 MG TABLET E.C. PO SCH ×2 (10:41→21:20)
[2021-08-04] MEDS: PRENATAL VITAMINS W/ FOLIC ACID TABLET (FP) PO SCH (10:42)
[2021-08-04] MEDS: BACITRACIN 0.9 GM PACKET TP SCH ×2 (10:42→21:20)
[2021-08-04] MEDS: QUEtiapine FUMARATE 50 MG TABLET PO SCH (10:42)
[2021-08-04] MEDS: MELATONIN 5 MG TABLETS PO SCH (21:20)
[2021-08-04] MEDS: hydrOXYzine PAMOATE 25 MG CAPSULE (FP) PO PRN (21:21)
[2021-08-04] MEDS: THIAMINE HCL 100 MG TABLET (FP) PO SCH (21:21)
[2021-08-04] MEDS: QUEtiapine FUMARATE 100 MG TABLET (FP) PO SCH (21:21)
[2021-08-05] MEDS: levETIRAcetam 500 MG TABLET (FP) PO SCH ×2 (10:45→21:40)
[2021-08-05] MEDS: PRENATAL VITAMINS W/ FOLIC ACID TABLET (FP) PO SCH (10:45)
[2021-08-05] MEDS: DIVALPROEX SODIUM 500 MG TABLET E.C. PO SCH ×2 (10:45→21:40)
[2021-08-05] MEDS: hydrOXYzine PAMOATE 25 MG CAPSULE (FP) PO PRN ×2 (10:46→21:40)
[2021-08-05] MEDS: QUEtiapine FUMARATE 50 MG TABLET PO SCH (10:46)
[2021-08-05] MEDS: BACITRACIN 0.9 GM PACKET TP SCH ×2 (10:47→21:40)
[2021-08-05] MEDS ORDERED: BUPRENORPHINE/NALOXONE 2 MG/0.5 MG FILM PACKET SL ONE (12:51)
[2021-08-05] MEDS: THIAMINE HCL 100 MG TABLET (FP) PO SCH (21:40)
[2021-08-05] MEDS: QUEtiapine FUMARATE 100 MG TABLET (FP) PO SCH (21:40)
[2021-08-05] MEDS: MELATONIN 5 MG TABLETS PO SCH (21:41)
[2021-08-06] MEDS: PRENATAL VITAMINS W/ FOLIC ACID TABLET (FP) PO SCH (10:35)
[2021-08-06] MEDS: DIVALPROEX SODIUM 500 MG TABLET E.C. PO SCH ×2 (10:35→21:35)
[2021-08-06] MEDS: levETIRAcetam 500 MG TABLET (FP) PO SCH ×2 (10:35→21:35)
[2021-08-06] MEDS: BACITRACIN 0.9 GM PACKET TP SCH ×2 (10:35→21:35)
[2021-08-06] MEDS: QUEtiapine FUMARATE 50 MG TABLET PO SCH (10:35)
[2021-08-06] MEDS: BUPRENORPHINE/NALOXONE 4 MG/1 MG FILM PACKET SL SCH (10:36)
[2021-08-06] MEDS ORDERED: ALBUTEROL SO4 HFA INHALER IH PRN (12:47)
[2021-08-06 18:07] LABS: SARS-CoV-2 NAA Not Detected (Not Detected)
[2021-08-06] MEDS: NICOTINE 10 MG CARTRIDGE (INHALER) IH PRN (19:17)
[2021-08-06] MEDS: QUEtiapine FUMARATE 100 MG TABLET (FP) PO SCH (21:35)
[2021-08-06] MEDS: THIAMINE HCL 100 MG TABLET (FP) PO SCH (21:35)
[2021-08-06] MEDS: MELATONIN 5 MG TABLETS PO SCH (21:35)
[2021-08-07 07:11] VITALS: BP 119/64; PULSE 83; TEMP 98.6
[2021-08-07] MEDS: BUPRENORPHINE/NALOXONE 4 MG/1 MG FILM PACKET SL SCH (09:04)
[2021-08-07] MEDS: DIVALPROEX SODIUM 500 MG TABLET E.C. PO SCH (09:05)
[2021-08-07] MEDS: PRENATAL VITAMINS W/ FOLIC ACID TABLET (FP) PO SCH (09:05)
[2021-08-07] MEDS: QUEtiapine FUMARATE 50 MG TABLET PO SCH (09:05)
[2021-08-07] MEDS: levETIRAcetam 500 MG TABLET (FP) PO SCH (09:05)
== END 2021-08-07 09:25 | disposition home or self-care (01) | DRG 772 ==
LOC: YASAS 13:10 → Y5N 13:11
PROVIDERS: ADMIT Allergy & Immunology; ATTEND Allergy & Immunology
PROC: HZ42ZZZ Group Counseling for Substance Abuse Treatment, Cognitive-Behavioral (ICD-10-PCS; principal; 2021-07-31)
DX: F11.20 Opioid dependence, uncomplicated (principal); F14.20 Cocaine dependence, uncomplicated; F13.20 Sedative, hypnotic or anxiolytic dependence, uncomplicated; F17.210 Nicotine dependence, cigarettes, uncomplicated; F25.0 Schizoaffective disorder, bipolar type; F32.A Depression, unspecified; F41.9 Anxiety disorder, unspecified; F43.10 Post-traumatic stress disorder, unspecified; G47.00 Insomnia, unspecified; J45.909 Unspecified asthma, uncomplicated; L30.9 Dermatitis, unspecified; M54.50 Low back pain, unspecified; G89.29 Other chronic pain; B18.2 Chronic viral hepatitis C; R56.1 Post traumatic seizures; Z62.810 Personal history of physical and sexual abuse in childhood; Z91.410 Personal history of adult physical and sexual abuse; Z86.69 Personal history of other diseases of the nervous system and sense organs; Z91.51 Personal history of suicidal behavior; Z88.2 Allergy status to sulfonamides
CPT/HCPCS: C9803-CS; U0003; U0005

== ENCOUNTER 2021-08-07 17:41 | Inpatient (IN) | payer OTHER ==
[2021-08-07 18:28] VITALS: BMI 27.0
[2021-08-07] MEDS ORDERED: guaiFENesin 200 MG/10 ML 10 ML UNIT-DOSE CUPS PO PRN (19:05)
[2021-08-07] MEDS ORDERED: MELATONIN 5 MG TABLETS PO PRN (19:05)
[2021-08-07] MEDS ORDERED: NICOTINE 10 MG CARTRIDGE (INHALER) IH PRN (19:05)
[2021-08-07] MEDS ORDERED: MAG HYDROX/AL HYDROX/SIMETH 30 ML UNIT-DOSE CUP PO PRN (19:05)
[2021-08-07] MEDS ORDERED: MAGNESIUM CITRATE 300 ML BOTTLE PO PRN (19:05)
[2021-08-07] MEDS ORDERED: P-EPHED 60MG/TRIPROLIDI 2.5MG TABLET PO PRN (19:05)
[2021-08-07] MEDS ORDERED: ACETAMINOPHEN 325 MG TABLET (FP) PO PRN (19:05)
[2021-08-07] MEDS ORDERED: BENZOCAINE/MENTHOL (CHLORASEPTIC ) LOZENGE MM PRN (19:05)
[2021-08-07] MEDS ORDERED: LOPERAMIDE HCL 2 MG CAPSULE PO PRN (19:05)
[2021-08-07] MEDS ORDERED: ALBUTEROL SO4 HFA INHALER IH PRN (19:06)
[2021-08-07] MEDS ORDERED: QUEtiapine FUMARATE 100 MG TABLET (FP) PO ONE (22:00)
[2021-08-07] MEDS: THIAMINE HCL 100 MG TABLET (FP) PO SCH (23:32)
[2021-08-07] MEDS: levETIRAcetam 500 MG TABLET (FP) PO SCH (23:32)
[2021-08-07] MEDS: DIVALPROEX SODIUM 500 MG TABLET E.C. PO SCH (23:32)
[2021-08-08] MEDS ORDERED: BUPRENORPHINE/NALOXONE 4 MG/1 MG FILM PACKET SL SCH (10:00)
[2021-08-08] MEDS: levETIRAcetam 500 MG TABLET (FP) PO SCH ×2 (10:45→21:25)
[2021-08-08] MEDS: PRENATAL VITAMINS W/ FOLIC ACID TABLET (FP) PO SCH (10:45)
[2021-08-08] MEDS: DIVALPROEX SODIUM 500 MG TABLET E.C. PO SCH ×2 (10:45→21:26)
[2021-08-08] MEDS: QUEtiapine FUMARATE 50 MG TABLET PO SCH ×2 (10:46→21:25)
[2021-08-08] MEDS: BUPRENORPHINE/NALOXONE 4 MG/1 MG FILM PACKET SL SCH (19:07)
[2021-08-08] MEDS: THIAMINE HCL 100 MG TABLET (FP) PO SCH (21:25)
[2021-08-09] MEDS: PRENATAL VITAMINS W/ FOLIC ACID TABLET (FP) PO SCH (10:25)
[2021-08-09] MEDS: QUEtiapine FUMARATE 50 MG TABLET PO SCH ×2 (10:25→21:41)
[2021-08-09] MEDS: hydrOXYzine PAMOATE 25 MG CAPSULE (FP) PO PRN (10:26)
[2021-08-09] MEDS: BUPRENORPHINE/NALOXONE 4 MG/1 MG FILM PACKET SL SCH ×2 (10:26→17:33)
[2021-08-09] MEDS: levETIRAcetam 500 MG TABLET (FP) PO SCH ×2 (10:26→21:40)
[2021-08-09] MEDS: DIVALPROEX SODIUM 500 MG TABLET E.C. PO SCH ×2 (10:26→21:41)
[2021-08-09] MEDS: MAGNESIUM HYDROX 2400MG/30ML ORAL SUSPENSION 30 ML CUP PO PRN (13:40)
[2021-08-09] MEDS: THIAMINE HCL 100 MG TABLET (FP) PO SCH (21:41)
[2021-08-10] MEDS: PRENATAL VITAMINS W/ FOLIC ACID TABLET (FP) PO SCH (10:42)
[2021-08-10] MEDS: levETIRAcetam 500 MG TABLET (FP) PO SCH ×2 (10:42→21:46)
[2021-08-10] MEDS: DIVALPROEX SODIUM 500 MG TABLET E.C. PO SCH ×2 (10:42→21:46)
[2021-08-10] MEDS: QUEtiapine FUMARATE 50 MG TABLET PO SCH ×2 (10:42→21:46)
[2021-08-10] MEDS: IBUPROFEN 400 MG TABLET (FP) PO PRN (10:43)
[2021-08-10] MEDS: BUPRENORPHINE/NALOXONE 4 MG/1 MG FILM PACKET SL SCH ×2 (10:43→17:34)
[2021-08-10] MEDS: THIAMINE HCL 100 MG TABLET (FP) PO SCH (21:46)
[2021-08-11] MEDS: DIVALPROEX SODIUM 500 MG TABLET E.C. PO SCH ×2 (10:24→21:20)
[2021-08-11] MEDS: PRENATAL VITAMINS W/ FOLIC ACID TABLET (FP) PO SCH (10:24)
[2021-08-11] MEDS: QUEtiapine FUMARATE 50 MG TABLET PO SCH ×2 (10:24→21:20)
[2021-08-11] MEDS: levETIRAcetam 500 MG TABLET (FP) PO SCH ×2 (10:25→21:20)
[2021-08-11] MEDS: IBUPROFEN 400 MG TABLET (FP) PO PRN (10:25)
[2021-08-11] MEDS: BUPRENORPHINE/NALOXONE 4 MG/1 MG FILM PACKET SL SCH ×2 (10:26→18:13)
[2021-08-11] MEDS: THIAMINE HCL 100 MG TABLET (FP) PO SCH (21:21)
[2021-08-12] MEDS: PRENATAL VITAMINS W/ FOLIC ACID TABLET (FP) PO SCH (10:58)
[2021-08-12] MEDS: DIVALPROEX SODIUM 500 MG TABLET E.C. PO SCH ×2 (11:00→21:35)
[2021-08-12] MEDS: BUPRENORPHINE/NALOXONE 4 MG/1 MG FILM PACKET SL SCH ×2 (11:01→18:00)
[2021-08-12] MEDS: QUEtiapine FUMARATE 50 MG TABLET PO SCH ×2 (11:01→21:35)
[2021-08-12] MEDS: levETIRAcetam 500 MG TABLET (FP) PO SCH ×2 (11:49→21:34)
[2021-08-12 16:08] LABS: SARS-CoV-2 NAA Not Detected (Not Detected)
[2021-08-12] MEDS ORDERED: QUEtiapine FUMARATE 25 MG TABLET ONE (20:39)
[2021-08-12] MEDS: THIAMINE HCL 100 MG TABLET (FP) PO SCH (21:35)
[2021-08-13] MEDS: PRENATAL VITAMINS W/ FOLIC ACID TABLET (FP) PO SCH (10:50)
[2021-08-13] MEDS: levETIRAcetam 500 MG TABLET (FP) PO SCH ×2 (10:51→21:46)
[2021-08-13] MEDS: DIVALPROEX SODIUM 500 MG TABLET E.C. PO SCH ×2 (10:51→21:46)
[2021-08-13] MEDS: BUPRENORPHINE/NALOXONE 4 MG/1 MG FILM PACKET SL SCH ×2 (10:51→18:08)
[2021-08-13] MEDS: QUEtiapine FUMARATE 50 MG TABLET PO SCH ×2 (11:54→21:46)
[2021-08-13] MEDS: hydrOXYzine PAMOATE 25 MG CAPSULE (FP) PO PRN (21:46)
[2021-08-13] MEDS: THIAMINE HCL 100 MG TABLET (FP) PO SCH (21:46)
[2021-08-14] MEDS: QUEtiapine FUMARATE 50 MG TABLET PO SCH ×2 (10:38→21:25)
[2021-08-14] MEDS: DIVALPROEX SODIUM 500 MG TABLET E.C. PO SCH ×2 (10:38→21:25)
[2021-08-14] MEDS: BUPRENORPHINE/NALOXONE 4 MG/1 MG FILM PACKET SL SCH ×2 (10:38→18:43)
[2021-08-14] MEDS: PRENATAL VITAMINS W/ FOLIC ACID TABLET (FP) PO SCH (10:38)
[2021-08-14] MEDS: levETIRAcetam 500 MG TABLET (FP) PO SCH ×2 (10:38→21:26)
[2021-08-14] MEDS: IBUPROFEN 400 MG TABLET (FP) PO PRN (10:39)
[2021-08-14] MEDS: MAGNESIUM HYDROX 2400MG/30ML ORAL SUSPENSION 30 ML CUP PO PRN (21:25)
[2021-08-14] MEDS: THIAMINE HCL 100 MG TABLET (FP) PO SCH (21:25)
[2021-08-15] MEDS: BUPRENORPHINE/NALOXONE 4 MG/1 MG FILM PACKET SL SCH (10:16)
[2021-08-15] MEDS: DIVALPROEX SODIUM 500 MG TABLET E.C. PO SCH ×2 (10:16→21:24)
[2021-08-15] MEDS: QUEtiapine FUMARATE 50 MG TABLET PO SCH ×2 (10:16→21:25)
[2021-08-15] MEDS: PRENATAL VITAMINS W/ FOLIC ACID TABLET (FP) PO SCH (10:16)
[2021-08-15] MEDS: levETIRAcetam 500 MG TABLET (FP) PO SCH ×2 (10:16→21:24)
[2021-08-15] MEDS ORDERED: BUPRENORPHINE/NALOXONE 4 MG/1 MG FILM PACKET SL SCH (18:00)
[2021-08-15] MEDS: THIAMINE HCL 100 MG TABLET (FP) PO SCH (21:24)
[2021-08-16 07:24] VITALS: BP 109/67; PULSE 78; TEMP 97.5
[2021-08-16] MEDS: PRENATAL VITAMINS W/ FOLIC ACID TABLET (FP) PO SCH (09:09)
[2021-08-16] MEDS: levETIRAcetam 500 MG TABLET (FP) PO SCH (09:09)
[2021-08-16] MEDS: QUEtiapine FUMARATE 50 MG TABLET PO SCH (09:09)
[2021-08-16] MEDS: DIVALPROEX SODIUM 500 MG TABLET E.C. PO SCH (09:09)
[2021-08-16] MEDS ORDERED: BUPRENORPHINE/NALOXONE 8 MG/2 MG FILM PACKET SL SCH (10:00)
== END 2021-08-16 10:15 | disposition home or self-care (01) | DRG 772 ==
LOC: YASAS 17:41 → Y5N 21:18
PROVIDERS: ADMIT Allergy & Immunology; ATTEND Psychiatry & Neurology Pain Medicine
PROC: HZ42ZZZ Group Counseling for Substance Abuse Treatment, Cognitive-Behavioral (ICD-10-PCS; principal; 2021-08-07)
DX: F14.20 Cocaine dependence, uncomplicated (principal); F11.20 Opioid dependence, uncomplicated; F13.20 Sedative, hypnotic or anxiolytic dependence, uncomplicated; F12.20 Cannabis dependence, uncomplicated; F17.210 Nicotine dependence, cigarettes, uncomplicated; F25.0 Schizoaffective disorder, bipolar type; F19.24 Other psychoactive substance dependence with psychoactive substance-induced mood disorder; F90.9 Attention-deficit hyperactivity disorder, unspecified type; G40.909 Epilepsy, unspecified, not intractable, without status epilepticus; J45.909 Unspecified asthma, uncomplicated; B18.2 Chronic viral hepatitis C; Z62.810 Personal history of physical and sexual abuse in childhood; Z91.410 Personal history of adult physical and sexual abuse; Z87.820 Personal history of traumatic brain injury; Z91.19 Patient's noncompliance with other medical treatment and regimen
CPT/HCPCS: 81025; 87811; C9803-CS; U0003; U0005

== ENCOUNTER 2021-09-03 14:41 | Emergency (ER) | payer OTHER ==
[2021-09-03 15:23] VITALS: BP 115/56; PULSE 84; TEMP 98.3; BMI 26.4
[2021-09-03] MEDS ORDERED: IBUPROFEN 600 MG TABLET (FP) PO ONE ×2 (17:00→17:22)
== END 2021-09-03 18:51 | disposition home or self-care (01) ==
LOC: JERFT 14:41
DX: S09.90XA Unspecified injury of head, initial encounter (principal); M25.512 Pain in left shoulder; W20.8XXA Other cause of strike by thrown, projected or falling object, initial encounter
CPT/HCPCS: 70450-TC; 72125-TC; 73030-TC-LT-FY; 99284-25

== ENCOUNTER 2021-10-15 10:49 | Emergency (ER) | payer OTHER ==
[2021-10-15 11:16] VITALS: BP 129/82; PULSE 90; TEMP 98; BMI 24.0
== END 2021-10-15 13:00 | disposition short-term general hospital (02) ==
LOC: JER 10:49
DX: F13.20 Sedative, hypnotic or anxiolytic dependence, uncomplicated (principal); F11.29 Opioid dependence with unspecified opioid-induced disorder; F17.209 Nicotine dependence, unspecified, with unspecified nicotine-induced disorders
CPT/HCPCS: 99281-25

== ENCOUNTER 2021-10-15 13:53 | Inpatient (IN) | payer OTHER ==
[2021-10-15 14:59] VITALS: BMI 22.6
[2021-10-15] MEDS ORDERED: ACETAMINOPHEN 325 MG TABLET (FP) PO PRN ×2 (15:56)
[2021-10-15] MEDS ORDERED: METHOCARBAMOL 500 MG TABLET PO PRN (15:56)
[2021-10-15] MEDS ORDERED: DICYCLOMINE HCL 10 MG CAPSULE PO PRN (15:56)
[2021-10-15] MEDS ORDERED: NALOXONE HCL (KLOXXADO) 8 MG SPRAY NS PRN (15:56)
[2021-10-15] MEDS ORDERED: LOPERAMIDE HCL 2 MG CAPSULE PO PRN (15:56)
[2021-10-15] MEDS ORDERED: BUPRENORPHINE HCL 150 MCG, BUPRENORPHINE HCL 75 MCG BC PRN (15:56)
[2021-10-15] MEDS ORDERED: MAG HYDROX/AL HYDROX/SIMETH 30 ML UNIT-DOSE CUP PO PRN (15:56)
[2021-10-15] MEDS ORDERED: ONDANSETRON *ODT* 4 MG TABLET SL PRN (15:56)
[2021-10-15] MEDS ORDERED: IBUPROFEN 600 MG TABLET (FP) PO PRN (15:56)
[2021-10-15] MEDS ORDERED: BUPRENORPHINE HCL 150 MCG, BUPRENORPHINE HCL 75 MCG BC ONE (15:56)
[2021-10-15] MEDS ORDERED: IBUPROFEN 400 MG TABLET (FP) PO PRN (15:56)
[2021-10-15] MEDS ORDERED: BENZOCAINE/MENTHOL (CHLORASEPTIC ) LOZENGE MM PRN (15:56)
[2021-10-15] MEDS ORDERED: cloNIDine HCL 0.1 MG TABLET PO ONE (15:56)
[2021-10-15] MEDS ORDERED: MAGNESIUM CITRATE 300 ML BOTTLE PO PRN (15:56)
[2021-10-15] MEDS ORDERED: MAGNESIUM HYDROX 2400MG/30ML ORAL SUSPENSION 30 ML CUP PO PRN (15:56)
[2021-10-15] MEDS ORDERED: NICOTINE 10 MG CARTRIDGE (INHALER) IH PRN (15:56)
[2021-10-15] MEDS ORDERED: BISMUTH SUBSALICYLATE 524 MG/30 ML PO PRN (15:56)
[2021-10-15] MEDS ORDERED: ALBUTEROL SO4 HFA INHALER IH PRN (16:00)
[2021-10-15] MEDS: PRENATAL VITAMINS W/ FOLIC ACID TABLET (FP) PO SCH (17:24)
[2021-10-15] MEDS: NICOTINE 7 MG/24 HOURS TOPICAL PATCH TD SCH (17:24)
[2021-10-15] MEDS ORDERED: BUPRENORPHINE HCL 150 MCG FILM BC ONE (17:49)
[2021-10-15] MEDS ORDERED: BUPRENORPHINE HCL 75 MCG FILM BC ONE (17:50)
[2021-10-15] MEDS: diazePAM 5 MG TABLET PO SCH ×2 (18:42→22:41)
[2021-10-15] MEDS: hydrOXYzine PAMOATE 25 MG CAPSULE (FP) PO SCH ×2 (18:42→22:40)
[2021-10-15] MEDS ORDERED: cloNIDine HCL 0.1 MG TABLET PO PRN (19:56)
[2021-10-15] MEDS: THIAMINE HCL 100 MG TABLET (FP) PO SCH (22:40)
[2021-10-15] MEDS: DIVALPROEX SODIUM 500 MG TABLET E.C. PO SCH (22:40)
[2021-10-15] MEDS: MELATONIN 5 MG TABLETS PO SCH (22:40)
[2021-10-16] MEDS ORDERED: BUPRENORPHINE HCL 150 MCG, BUPRENORPHINE HCL 75 MCG BC PRN
[2021-10-16] MEDS ORDERED: BUPRENORPHINE HCL 150 MCG FILM BC ONE ×2 (04:33→17:01)
[2021-10-16] MEDS ORDERED: BUPRENORPHINE HCL 75 MCG FILM BC ONE ×2 (04:33→17:02)
[2021-10-16] MEDS: hydrOXYzine PAMOATE 25 MG CAPSULE (FP) PO SCH ×5 (05:54→22:48)
[2021-10-16] MEDS: diazePAM 5 MG TABLET PO SCH ×4 (05:54→22:48)
[2021-10-16] MEDS: BUPRENORPHINE HCL 150 MCG, BUPRENORPHINE HCL 75 MCG BC SCH ×2 (05:55→18:16)
[2021-10-16] MEDS: PRENATAL VITAMINS W/ FOLIC ACID TABLET (FP) PO SCH (10:54)
[2021-10-16] MEDS: DIVALPROEX SODIUM 500 MG TABLET E.C. PO SCH ×2 (10:55→22:48)
[2021-10-16] MEDS: NICOTINE 7 MG/24 HOURS TOPICAL PATCH TD SCH (10:55)
[2021-10-16 11:53] LABS: HEMATOCRIT 38.4 % (32.4-45.2); HEMOGLOBIN 12.9 GM/dL (10.7-15.3); MCH 30.7 pg (25.7-33.7); MCHC 33.7 g/dl (32.0-36.0); MEAN CELL VOLUME 91.1 fl (80-96); PLATELET COUNT 253 10^3/uL (134-434); RBC 4.21 M/mm3 (3.60-5.2); RDW 13.6 % (11.6-15.6); WHITE BLOOD COUNT 7.5 K/mm3 (4.0-10.0)
[2021-10-16 12:11] LABS: ALBUMIN 3.4 g/dl (3.4-5.0); CALCIUM 9.6 mg/dL (8.5-10.1)
[2021-10-16 12:12] LABS: BLOOD UREA NITROGEN 7.8 mg/dL (7-18)
[2021-10-16 12:13] LABS: CREATININE 0.9 mg/dL (0.55-1.3)
[2021-10-16 12:14] LABS: TOT PROT 7.4 g/dl (6.4-8.2)
[2021-10-16 12:15] LABS: BILIRUBIN,TOTAL 0.6 mg/dL (0.2-1)
[2021-10-16] MEDS: diazePAM 5 MG TABLET PO PRN (14:15)
[2021-10-16] MEDS: MELATONIN 5 MG TABLETS PO SCH (22:48)
[2021-10-16] MEDS: QUEtiapine FUMARATE 100 MG TABLET (FP) PO SCH (22:48)
[2021-10-16] MEDS: THIAMINE HCL 100 MG TABLET (FP) PO SCH (22:48)
[2021-10-17] MEDS: diazePAM 5 MG TABLET PO PRN ×3 (01:54→18:29)
[2021-10-17] MEDS ORDERED: diazePAM 5 MG TABLET PO SCH (06:00)
[2021-10-17] MEDS ORDERED: BUPRENORPHINE HCL 450 MCG FILM BC SCH (06:00)
[2021-10-17] MEDS: hydrOXYzine PAMOATE 25 MG CAPSULE (FP) PO SCH ×5 (06:53→22:19)
[2021-10-17] MEDS: PRENATAL VITAMINS W/ FOLIC ACID TABLET (FP) PO SCH (09:19)
[2021-10-17] MEDS: DIVALPROEX SODIUM 500 MG TABLET E.C. PO SCH ×2 (09:20→22:19)
[2021-10-17] MEDS: NICOTINE 7 MG/24 HOURS TOPICAL PATCH TD SCH (09:22)
[2021-10-17] MEDS: levETIRAcetam 500 MG TABLET (FP) PO SCH ×2 (13:08→22:19)
[2021-10-17] MEDS: diazePAM 5 MG TABLET PO SCH ×2 (13:09→22:19)
[2021-10-17 16:29] LABS: HIV INTERPRETATION NEGATIVE (NEGATIVE)
[2021-10-17] MEDS ORDERED: BUPRENORPHINE/NALOXONE 4 MG/1 MG FILM PACKET SL ONE (18:00)
[2021-10-17] MEDS: QUEtiapine FUMARATE 100 MG TABLET (FP) PO SCH (22:19)
[2021-10-17] MEDS: MELATONIN 5 MG TABLETS PO SCH (22:19)
[2021-10-17] MEDS: THIAMINE HCL 100 MG TABLET (FP) PO SCH (22:22)
[2021-10-18] MEDS: diazePAM 5 MG TABLET PO PRN ×2 (02:03→10:09)
[2021-10-18] MEDS: hydrOXYzine PAMOATE 25 MG CAPSULE (FP) PO SCH ×3 (05:30→15:10)
[2021-10-18] MEDS: diazePAM 5 MG TABLET PO SCH ×2 (05:30→17:34)
[2021-10-18] MEDS: BUPRENORPHINE/NALOXONE 4 MG/1 MG FILM PACKET SL SCH ×2 (05:31→17:34)
[2021-10-18] MEDS: PRENATAL VITAMINS W/ FOLIC ACID TABLET (FP) PO SCH (10:10)
[2021-10-18] MEDS: levETIRAcetam 500 MG TABLET (FP) PO SCH (10:10)
[2021-10-18] MEDS: DIVALPROEX SODIUM 500 MG TABLET E.C. PO SCH (10:10)
[2021-10-18] MEDS: NICOTINE 7 MG/24 HOURS TOPICAL PATCH TD SCH (10:11)
[2021-10-18 12:53] LABS: GLUCOSE,FASTING 112 mg/dL (74-106)
[2021-10-18 12:55] LABS: SGOT/AST 55 U/L (15-37)
[2021-10-18 12:56] LABS: SGPT/ALT 72 U/L (13-61)
[2021-10-18 17:30] VITALS: BP 128/68; PULSE 65; RESP 16; TEMP 98
[2021-10-19] MEDS ORDERED: diazePAM 5 MG TABLET PO ONE (06:00)
[2021-10-19] MEDS ORDERED: BUPRENORPHINE/NALOXONE 8 MG/2 MG FILM PACKET SL ONE (06:00)
== END 2021-10-18 18:40 | disposition left against medical advice (07) | DRG 770 ==
LOC: YASAS 13:53 → Y6N 16:35
PROVIDERS: ADMIT Allergy & Immunology; ATTEND Psychiatry & Neurology Pain Medicine
PROC: HZ2ZZZZ Detoxification Services for Substance Abuse Treatment (ICD-10-PCS; principal; 2021-10-15)
DX: F11.23 Opioid dependence with withdrawal (principal); F13.230 Sedative, hypnotic or anxiolytic dependence with withdrawal, uncomplicated; F14.20 Cocaine dependence, uncomplicated; F17.210 Nicotine dependence, cigarettes, uncomplicated; F19.280 Other psychoactive substance dependence with psychoactive substance-induced anxiety disorder; F19.282 Other psychoactive substance dependence with psychoactive substance-induced sleep disorder; F43.10 Post-traumatic stress disorder, unspecified; F41.9 Anxiety disorder, unspecified; F32.A Depression, unspecified; R56.1 Post traumatic seizures; M54.50 Low back pain, unspecified; G89.29 Other chronic pain; B19.20 Unspecified viral hepatitis C without hepatic coma; Z62.810 Personal history of physical and sexual abuse in childhood; Z87.820 Personal history of traumatic brain injury; Z86.19 Personal history of other infectious and parasitic diseases; Z88.2 Allergy status to sulfonamides
CPT/HCPCS: 36415; 80053; 82947; 83036; 84450; 84460; 85027; 86780; 87389; C9803-CS; J0735; Q0162; U0003; U0005

== ENCOUNTER 2022-01-13 01:34 | Inpatient (IN) | payer OTHER ==
[2022-01-13 01:52] VITALS: BMI 28.3
[2022-01-13] MEDS ORDERED: LORazepam 2 MG/ML SDV VIAL IVPUSH ONE ×2 (03:45→06:17)
[2022-01-13 04:09] LABS: BASO % 2.3 % (0-2.0); EOS % 0.3 % (0-4.5); HEMATOCRIT 36.9 % (32.4-45.2); HEMOGLOBIN 12.2 GM/dL (10.7-15.3); LYMPH % 31.6 % (8-40); MCH 30.7 pg (25.7-33.7); MCHC 33.1 g/dl (32.0-36.0); MEAN CELL VOLUME 92.8 fl (80-96); MEAN PLT VOLUME 8.9 fl (7.5-11.1); MONO % 6.9 % (3.8-10.2); NEUT % 58.9 % (42.8-82.8); PLATELET COUNT 341 10^3/uL (134-434); RBC 3.98 M/mm3 (3.60-5.2); RDW 13.6 % (11.6-15.6)
[2022-01-13] MEDS ORDERED: VANCOMYCIN 1 GM in D5W (PRE-DOCKED) 1,000 MG/250 ML IVPB ONE (04:29)
[2022-01-13] MEDS ORDERED: PIPERACILLIN/TAZOB 3.375 GM 3.375 GM in DEXTROSE 5%-WATER - 50 ML IVPB ONE (04:29)
[2022-01-13] MEDS ORDERED: CLINDAMYCIN 600MG PREMIX IVPB 600 MG/50 ML BAG IVPB ONE ×4 (04:29→16:02)
[2022-01-13 04:30] LABS: CALCIUM 9.2 mg/dL (8.5-10.1)
[2022-01-13 04:31] LABS: ALBUMIN 4.2 g/dl (3.4-5.0); BLOOD UREA NITROGEN 12.8 mg/dL (7-18)
[2022-01-13 04:35] LABS: BILIRUBIN,TOTAL 1.1 mg/dL (0.2-1); TOT PROT 8.4 g/dl (6.4-8.2)
[2022-01-13] MEDS ORDERED: PIPERACILLIN/TAZOB 3.375 GM 3.375 GM/50 ML BAG IVPB ONE ×3 (04:45→16:02)
[2022-01-13] MEDS ORDERED: VANCOMYCIN/WATER FOR INJ (PEG) 1,000 MG/200 ML BAG IVPB ONE (04:45)
[2022-01-13] MEDS ORDERED: LIDOCAINE 1%/EPI 1:100000 (20 ML MULTI DOSE VIAL) ONE (05:19)
[2022-01-13 05:31] LABS: INR 1.21 (0.83-1.09); PROTHROMBIN TIME (PATIENT) 13.9 SEC (9.7-13.0)
[2022-01-13 05:33] LABS: ACTIVATED PTT 28.7 SECONDS (25.2-36.5)
[2022-01-13] MEDS ORDERED: ASPIRIN 81 MG CHEWABLE TABLETS PO ONE (07:00)
[2022-01-13] MEDS ORDERED: LORazepam 2 MG/ML SDV VIAL IVPUSH PRN (07:14)
[2022-01-13] MEDS ORDERED: ASPIRIN 81 MG CHEWABLE TABLETS ONE (08:17)
[2022-01-13] MEDS ORDERED: FOLIC ACID INJECTION - 1 MG, THIAMINE HCL 100 MG, MULTIVIT INJECTION ADULT 10 ML in SOD... IVPB ONE (08:30)
[2022-01-13] MEDS: SODIUM CHLORIDE 1,000 ML IV SCH (08:31)
[2022-01-13] MEDS: LORazepam 2 MG/ML SDV VIAL IVPB SCH ×4 (08:31→23:50)
[2022-01-13] MEDS: PIPERACILLIN/TAZOB 3.375 GM 3.375 GM in DEXTROSE 5%-WATER - 50 ML IVPB SCH ×3 (09:31→17:57)
[2022-01-13] MEDS ORDERED: ACETAMINOPHEN 325 MG TABLET (FP) PO PRN (09:55)
[2022-01-13] MEDS ORDERED: ALBUTEROL SO4 HFA INHALER IH PRN (10:08)
[2022-01-13] MEDS ORDERED: HEPARIN NA (PORCINE) 5,000 UNITS/ML 1ML VIAL ONE (10:46)
[2022-01-13] MEDS: HEPARIN NA (PORCINE) 5,000 UNITS/ML 1ML VIAL SQ SCH ×2 (10:55→23:39)
[2022-01-13] MEDS: CLINDAMYCIN 600MG PREMIX IVPB 600 MG/50 ML BAG IVPB SCH ×2 (11:05→16:04)
[2022-01-13] MEDS ORDERED: VANCOMYCIN 1 GM in D5W (PRE-DOCKED) 1,000 MG/250 ML IVPB SCH (17:00)
[2022-01-13] MEDS ORDERED: VANCOMYCIN 1 GM/200 ML PREMIX BAG IVPB SCH (17:00)
[2022-01-13] MEDS: VANCOMYCIN/WATER 1250 MG 1,250 MG/250 ML BAG IVPB SCH (19:33)
[2022-01-13] MEDS: levETIRAcetam 500 MG TABLET (FP) PO SCH (23:39)
[2022-01-13] MEDS: QUEtiapine FUMARATE 100 MG TABLET (FP) PO SCH (23:39)
[2022-01-13] MEDS: DIVALPROEX SODIUM 500 MG TABLET E.C. PO SCH (23:39)
[2022-01-14] MEDS: PIPERACILLIN/TAZOB 3.375 GM 3.375 GM in DEXTROSE 5%-WATER - 50 ML IVPB SCH ×3 (01:33→17:12)
[2022-01-14] MEDS: LORazepam 2 MG/ML SDV VIAL IVPUSH SCH ×3 (06:31→17:11)
[2022-01-14] MEDS: VANCOMYCIN/WATER 1250 MG 1,250 MG/250 ML BAG IVPB SCH ×2 (06:32→17:12)
[2022-01-14] MEDS ORDERED: FOLIC ACID 5 MG/1 ML SQ ONE (10:00)
[2022-01-14 10:58] LABS: HEMATOCRIT 33.5 % (32.4-45.2); HEMOGLOBIN 11.2 GM/dL (10.7-15.3); MCH 31.4 pg (25.7-33.7); MCHC 33.3 g/dl (32.0-36.0); MEAN CELL VOLUME 94.1 fl (80-96); MEAN PLT VOLUME 8.4 fl (7.5-11.1); PLATELET COUNT 232 10^3/uL (134-434); RBC 3.56 M/mm3 (3.60-5.2); RDW 13.5 % (11.6-15.6); WHITE BLOOD COUNT 6.4 K/mm3 (4.0-10.0)
[2022-01-14] MEDS: SODIUM CHLORIDE 1,000 ML IV SCH ×2 (11:17→12:25)
[2022-01-14] MEDS: FLUoxetine HCL 20 MG CAPSULE PO SCH (11:19)
[2022-01-14] MEDS: levETIRAcetam 500 MG TABLET (FP) PO SCH ×2 (11:19→21:25)
[2022-01-14] MEDS: DIVALPROEX SODIUM 500 MG TABLET E.C. PO SCH ×2 (11:19→21:24)
[2022-01-14] MEDS: THIAMINE HCL 200 MG/2 ML VIAL IVPB SCH (11:20)
[2022-01-14] MEDS: HEPARIN NA (PORCINE) 5,000 UNITS/ML 1ML VIAL SQ SCH ×2 (11:20→21:24)
[2022-01-14 11:32] LABS: CALCIUM 8.1 mg/dL (8.5-10.1)
[2022-01-14 11:33] LABS: BLOOD UREA NITROGEN 7.5 mg/dL (7-18)
[2022-01-14 11:37] LABS: BILIRUBIN,TOTAL 0.7 mg/dL (0.2-1); CREATININE 0.7 mg/dL (0.55-1.3)
[2022-01-14 11:43] LABS: ALBUMIN 2.8 g/dl (3.4-5.0); TOT PROT 6.3 g/dl (6.4-8.2)
[2022-01-14 11:56] LABS: ANISOCYTOSIS 0; HELMET CELLS 0; HOWELL-JOLLY BODIES 0; MACROCYTOSIS 0; OVALOCYTE 0; ROULEAU 0; SICKELED CELLS 0; TARGET CELLS 0; TEAR DROP CELLS 0; TOXIC GRANULATION 0
[2022-01-14] MEDS ORDERED: SODIUM CHLORIDE 1,000 ML IV SCH (18:01)
[2022-01-14 18:16] LABS: OPIATES, URI NEGATIVE (NEGATIVE); URINE AMPHETAMINES NEGATIVE (NEGATIVE); URINE BARBITURATES NEGATIVE (NEGATIVE)
[2022-01-14 18:17] LABS: METHADONE, UR NEGATIVE (NEGATIVE); PHENCYCLIDINE,URINE NEGATIVE (NEGATIVE); URINE BENZODIAZEPINES NEGATIVE (NEGATIVE)
[2022-01-14 18:18] LABS: COCAINE, UR POSITIVE (NEGATIVE)
[2022-01-14] MEDS: QUEtiapine FUMARATE 100 MG TABLET (FP) PO SCH (21:25)
[2022-01-15] MEDS ORDERED: LORazepam 0.5 MG TABLET PO PRN
[2022-01-15] MEDS ORDERED: PIPERACILLIN/TAZOBACTAM 3.375 GM VIAL IVPB ONE (01:57)
[2022-01-15] MEDS: PIPERACILLIN/TAZOB 3.375 GM 3.375 GM in DEXTROSE 5%-WATER - 50 ML IVPB SCH ×3 (02:19→17:39)
[2022-01-15] MEDS ORDERED: LORazepam 0.5 MG TABLET PO SCH (05:00)
[2022-01-15] MEDS: VANCOMYCIN/WATER 1250 MG 1,250 MG/250 ML BAG IVPB SCH (05:54)
[2022-01-15] MEDS: HEPARIN NA (PORCINE) 5,000 UNITS/ML 1ML VIAL SQ SCH ×3 (05:54→21:16)
[2022-01-15] MEDS: levETIRAcetam 500 MG TABLET (FP) PO SCH ×2 (09:50→21:16)
[2022-01-15] MEDS: THIAMINE HCL 200 MG/2 ML VIAL IVPB SCH (09:50)
[2022-01-15] MEDS: DIVALPROEX SODIUM 500 MG TABLET E.C. PO SCH ×2 (09:50→21:16)
[2022-01-15] MEDS: FLUoxetine HCL 20 MG CAPSULE PO SCH (09:50)
[2022-01-15 11:41] LABS: BASO % 0.5 % (0-2.0); EOS % 5.4 % (0-4.5); HEMATOCRIT 31.7 % (32.4-45.2); HEMOGLOBIN 10.7 GM/dL (10.7-15.3); LYMPH % 52.6 % (8-40); MCH 31.5 pg (25.7-33.7); MCHC 33.9 g/dl (32.0-36.0); MEAN CELL VOLUME 92.9 fl (80-96); MEAN PLT VOLUME 8.5 fl (7.5-11.1); MONO % 5.9 % (3.8-10.2); NEUT % 35.6 % (42.8-82.8); PLATELET COUNT 233 10^3/uL (134-434); RBC 3.41 M/mm3 (3.60-5.2); RDW 13.6 % (11.6-15.6); WHITE BLOOD COUNT 4.1 K/mm3 (4.0-10.0)
[2022-01-15 12:08] LABS: CALCIUM 7.9 mg/dL (8.5-10.1)
[2022-01-15 12:09] LABS: ALBUMIN 2.4 g/dl (3.4-5.0); BLOOD UREA NITROGEN 4.8 mg/dL (7-18); MAGNESIUM 2.2 mg/dL (1.8-2.4)
[2022-01-15 12:11] LABS: CREATININE 0.6 mg/dL (0.55-1.3)
[2022-01-15 12:12] LABS: PHOSPHOROUS 2.5 mg/dL (2.5-4.9)
[2022-01-15 12:13] LABS: BILIRUBIN,TOTAL 0.4 mg/dL (0.2-1); TOT PROT 5.7 g/dl (6.4-8.2)
[2022-01-15] MEDS ORDERED: LORazepam 2 MG/ML SDV VIAL IVPUSH ONE (18:14)
[2022-01-15] MEDS ORDERED: SODIUM CHLORIDE 0.9% 500 ML INFUS.BAG IV STA ×2 (18:30→18:45)
[2022-01-15] MEDS ORDERED: BUPRENORPHINE/NALOXONE 2 MG/0.5 MG FILM PACKET SL SCH (19:00)
[2022-01-15] MEDS: BUPRENORPHINE/NALOXONE 1 EACH, BUPRENORPHINE/NALOXONE 2 EACH SL SCH (19:58)
[2022-01-15] MEDS ORDERED: LORazepam 2 MG/ML SDV VIAL IVPUSH PRN (20:28)
[2022-01-15] MEDS: QUEtiapine FUMARATE 100 MG TABLET (FP) PO SCH (21:17)
[2022-01-16] MEDS: PIPERACILLIN/TAZOB 3.375 GM 3.375 GM in DEXTROSE 5%-WATER - 50 ML IVPB SCH ×2 (03:09→09:29)
[2022-01-16] MEDS ORDERED: LORazepam 0.5 MG TABLET PO ONE (05:00)
[2022-01-16] MEDS: HEPARIN NA (PORCINE) 5,000 UNITS/ML 1ML VIAL SQ SCH ×3 (06:42→21:56)
[2022-01-16 07:28] LABS: HEMATOCRIT 35.4 % (32.4-45.2); HEMOGLOBIN 11.9 GM/dL (10.7-15.3); MCH 31.2 pg (25.7-33.7); MCHC 33.7 g/dl (32.0-36.0); MEAN CELL VOLUME 92.8 fl (80-96); MEAN PLT VOLUME 8.2 fl (7.5-11.1); PLATELET COUNT 236 10^3/uL (134-434); RBC 3.82 M/mm3 (3.60-5.2); RDW 13.4 % (11.6-15.6)
[2022-01-16 08:07] LABS: BILIRUBIN,TOTAL 0.4 mg/dL (0.2-1); TOT PROT 6.5 g/dl (6.4-8.2)
[2022-01-16 08:08] LABS: ALBUMIN 2.7 g/dl (3.4-5.0); CALCIUM 8.8 mg/dL (8.5-10.1); CREATININE 0.6 mg/dL (0.55-1.3)
[2022-01-16] MEDS: DIVALPROEX SODIUM 500 MG TABLET E.C. PO SCH ×2 (09:28→21:55)
[2022-01-16] MEDS: levETIRAcetam 500 MG TABLET (FP) PO SCH ×2 (09:28→21:57)
[2022-01-16] MEDS: FLUoxetine HCL 20 MG CAPSULE PO SCH (09:28)
[2022-01-16] MEDS: THIAMINE HCL 200 MG/2 ML VIAL IVPB SCH (09:28)
[2022-01-16] MEDS: BUPRENORPHINE/NALOXONE 1 EACH, BUPRENORPHINE/NALOXONE 2 EACH SL SCH (12:41)
[2022-01-16 14:20] VITALS: RESP 18
[2022-01-16] MEDS ORDERED: AMOX TR/POT CLAV 875MG/125MG TABLETS (FP) PO SCH (17:30)
[2022-01-16 19:31] VITALS: TEMP 98.8
[2022-01-16 21:14] VITALS: BP 146/88; PULSE 65
[2022-01-16] MEDS: QUEtiapine FUMARATE 100 MG TABLET (FP) PO SCH (21:57)
== END 2022-01-16 23:15 | disposition left against medical advice (07) | DRG 383 ==
LOC: JER 01:34 → JERBED 04:42 → J8W 16:47 → J4W 01-15 20:19
PROVIDERS: ADMIT Internal Medicine; ATTEND Internal Medicine
PROC: 0X9F0ZZ Drainage of Left Lower Arm, Open Approach (ICD-10-PCS; principal; 2022-01-13)
DX: L03.114 Cellulitis of left upper limb (principal); L02.414 Cutaneous abscess of left upper limb; J45.909 Unspecified asthma, uncomplicated; G40.909 Epilepsy, unspecified, not intractable, without status epilepticus; D64.9 Anemia, unspecified; G47.00 Insomnia, unspecified; F43.10 Post-traumatic stress disorder, unspecified; F41.9 Anxiety disorder, unspecified; G92.8 Other toxic encephalopathy
CPT/HCPCS: 36415; 73090-TC-LT-FY; 80053; 80164; 80177; 80307; 83735; 84100; 84484; 84702; 85025; 85027; 85610; 85730; 86140; 86850; 86870; 86900; 86901; 86902; 87040; 87070; 87186; 87205; 93005; 93010; 99285-25; C9803-CS; J1644; U0003; U0005

== ENCOUNTER 2022-02-13 12:50 | Inpatient (IN) | payer OTHER ==
[2022-02-13 13:25] VITALS: BMI 25.4
[2022-02-13] MEDS ORDERED: NALOXONE HCL (KLOXXADO) 8 MG SPRAY NS PRN (13:43)
[2022-02-13] MEDS ORDERED: MAGNESIUM HYDROX 2400MG/30ML ORAL SUSPENSION 30 ML CUP PO PRN (13:43)
[2022-02-13] MEDS ORDERED: POLYETHYLENE GLYCOL (HEALTHYLAX) 3350 17 GM PACKET PO PRN (13:43)
[2022-02-13] MEDS ORDERED: ACETAMINOPHEN 325 MG TABLET (FP) PO PRN ×2 (13:43)
[2022-02-13] MEDS ORDERED: IBUPROFEN 400 MG TABLET (FP) PO PRN (13:43)
[2022-02-13] MEDS ORDERED: MAG HYDROX/AL HYDROX/SIMETH 30 ML UNIT-DOSE CUP PO PRN (13:43)
[2022-02-13] MEDS ORDERED: BENZOCAINE/MENTHOL (CHLORASEPTIC ) LOZENGE MM PRN (13:43)
[2022-02-13] MEDS ORDERED: BISMUTH SUBSALICYLATE 524 MG/30 ML PO PRN (13:43)
[2022-02-13] MEDS ORDERED: ONDANSETRON *ODT* 4 MG TABLET SL PRN (13:43)
[2022-02-13] MEDS ORDERED: DICYCLOMINE HCL 10 MG CAPSULE PO PRN (13:43)
[2022-02-13] MEDS ORDERED: LOPERAMIDE HCL 2 MG CAPSULE PO PRN (13:43)
[2022-02-13] MEDS ORDERED: IBUPROFEN 600 MG TABLET (FP) PO PRN (13:43)
[2022-02-13] MEDS ORDERED: NICOTINE 10 MG CARTRIDGE (INHALER) IH PRN (13:43)
[2022-02-13] MEDS ORDERED: BUPRENORPHINE HCL 150 MCG, BUPRENORPHINE HCL 75 MCG BC PRN (13:49)
[2022-02-13] MEDS ORDERED: BUPRENORPHINE HCL 150 MCG, BUPRENORPHINE HCL 75 MCG BC ONE (14:45)
[2022-02-13] MEDS ORDERED: cloNIDine HCL 0.1 MG TABLET PO ONE (14:45)
[2022-02-13] MEDS ORDERED: BUPRENORPHINE HCL 150 MCG FILM BC ONE (15:18)
[2022-02-13] MEDS ORDERED: BUPRENORPHINE HCL 75 MCG FILM BC ONE (15:19)
[2022-02-13 16:09] LABS: CALCIUM 8.8 mg/dL (8.5-10.1)
[2022-02-13 16:10] LABS: ALBUMIN 3.3 g/dl (3.4-5.0)
[2022-02-13 16:13] LABS: BILIRUBIN,TOTAL 0.2 mg/dL (0.2-1); CREATININE 0.8 mg/dL (0.55-1.3)
[2022-02-13 16:14] LABS: TOT PROT 6.6 g/dl (6.4-8.2)
[2022-02-13 16:17] LABS: HEMATOCRIT 36.1 % (32.4-45.2); HEMOGLOBIN 11.6 GM/dL (10.7-15.3); MCH 30.2 pg (25.7-33.7); MCHC 32.2 g/dl (32.0-36.0); MEAN CELL VOLUME 93.9 fl (80-96); MEAN PLT VOLUME 10.3 fl (7.5-11.1); PLATELET COUNT 168 10^3/uL (134-434); RBC 3.85 M/mm3 (3.60-5.2); RDW 13.8 % (11.6-15.6); WHITE BLOOD COUNT 4.9 K/mm3 (4.0-10.0)
[2022-02-13] MEDS: PRENATAL VITAMINS W/ FOLIC ACID TABLET (FP) PO SCH (17:11)
[2022-02-13] MEDS: NICOTINE 7 MG/24 HOURS TOPICAL PATCH TD SCH (17:13)
[2022-02-13] MEDS: THIAMINE HCL 100 MG TABLET (FP) PO SCH (22:27)
[2022-02-13] MEDS: MELATONIN 5 MG TABLETS PO SCH (22:27)
[2022-02-13] MEDS: METHOCARBAMOL 500 MG TABLET PO PRN (22:28)
[2022-02-13] MEDS: cloNIDine HCL 0.1 MG TABLET PO PRN (22:28)
[2022-02-14] MEDS ORDERED: BUPRENORPHINE HCL 150 MCG, BUPRENORPHINE HCL 75 MCG BC PRN
[2022-02-14] MEDS: BUPRENORPHINE HCL 150 MCG, BUPRENORPHINE HCL 75 MCG BC SCH ×2 (06:07→17:54)
[2022-02-14] MEDS: diazePAM 5 MG TABLET PO PRN (10:04)
[2022-02-14] MEDS: PRENATAL VITAMINS W/ FOLIC ACID TABLET (FP) PO SCH (10:04)
[2022-02-14] MEDS: NICOTINE 7 MG/24 HOURS TOPICAL PATCH TD SCH (10:04)
[2022-02-14] MEDS: hydrOXYzine PAMOATE 25 MG CAPSULE (FP) PO PRN (13:25)
[2022-02-14] MEDS ORDERED: ALBUTEROL SO4 HFA INHALER IH PRN (13:44)
[2022-02-14] MEDS: levETIRAcetam 500 MG TABLET (FP) PO SCH ×2 (14:25→22:10)
[2022-02-14] MEDS: THIAMINE HCL 100 MG TABLET (FP) PO SCH (22:10)
[2022-02-14] MEDS: QUEtiapine FUMARATE 100 MG TABLET (FP) PO SCH (22:10)
[2022-02-14] MEDS: MELATONIN 5 MG TABLETS PO SCH (22:10)
[2022-02-15] MEDS: BUPRENORPHINE HCL 450 MCG FILM BC SCH ×2 (05:55→17:34)
[2022-02-15] MEDS: cloNIDine HCL 0.1 MG TABLET PO PRN ×2 (09:51→22:22)
[2022-02-15] MEDS: FLUoxetine HCL 20 MG CAPSULE PO SCH (09:51)
[2022-02-15] MEDS: levETIRAcetam 500 MG TABLET (FP) PO SCH ×2 (09:51→22:20)
[2022-02-15] MEDS: diazePAM 5 MG TABLET PO PRN (09:52)
[2022-02-15] MEDS: NICOTINE 7 MG/24 HOURS TOPICAL PATCH TD SCH (09:52)
[2022-02-15] MEDS: PRENATAL VITAMINS W/ FOLIC ACID TABLET (FP) PO SCH (09:52)
[2022-02-15] MEDS ORDERED: QUEtiapine FUMARATE 50 MG TABLET PO SCH (10:00)
[2022-02-15] MEDS: hydrOXYzine PAMOATE 25 MG CAPSULE (FP) PO PRN ×2 (14:03→19:26)
[2022-02-15] MEDS: METHOCARBAMOL 500 MG TABLET PO PRN ×2 (14:03→22:19)
[2022-02-15] MEDS: MELATONIN 5 MG TABLETS PO SCH (22:19)
[2022-02-15] MEDS: QUEtiapine FUMARATE 100 MG TABLET (FP) PO SCH (22:20)
[2022-02-15] MEDS: THIAMINE HCL 100 MG TABLET (FP) PO SCH (22:20)
[2022-02-16] MEDS: BUPRENORPHINE/NALOXONE 4 MG/1 MG FILM PACKET SL SCH ×2 (06:36→17:37)
[2022-02-16] MEDS: hydrOXYzine PAMOATE 25 MG CAPSULE (FP) PO PRN (10:42)
[2022-02-16] MEDS: NICOTINE 7 MG/24 HOURS TOPICAL PATCH TD SCH (10:42)
[2022-02-16] MEDS: FLUoxetine HCL 20 MG CAPSULE PO SCH (10:42)
[2022-02-16] MEDS: levETIRAcetam 500 MG TABLET (FP) PO SCH ×2 (10:42→22:03)
[2022-02-16] MEDS: METHOCARBAMOL 500 MG TABLET PO PRN ×2 (10:42→22:04)
[2022-02-16] MEDS: PRENATAL VITAMINS W/ FOLIC ACID TABLET (FP) PO SCH (10:42)
[2022-02-16] MEDS: cloNIDine HCL 0.1 MG TABLET PO PRN (15:48)
[2022-02-16] MEDS: THIAMINE HCL 100 MG TABLET (FP) PO SCH (22:03)
[2022-02-16] MEDS: QUEtiapine FUMARATE 100 MG TABLET (FP) PO SCH (22:03)
[2022-02-16] MEDS: MELATONIN 5 MG TABLETS PO SCH (22:03)
[2022-02-17] MEDS ORDERED: BUPRENORPHINE/NALOXONE 8 MG/2 MG FILM PACKET SL ONE (06:00)
[2022-02-17 06:51] VITALS: RESP 16
[2022-02-17 09:14] VITALS: BP 143/78; PULSE 53; TEMP 98.6
[2022-02-17] MEDS: PRENATAL VITAMINS W/ FOLIC ACID TABLET (FP) PO SCH (09:35)
[2022-02-17] MEDS: FLUoxetine HCL 20 MG CAPSULE PO SCH (09:35)
[2022-02-17] MEDS: levETIRAcetam 500 MG TABLET (FP) PO SCH (09:35)
[2022-02-17] MEDS: NICOTINE 7 MG/24 HOURS TOPICAL PATCH TD SCH (09:35)
== END 2022-02-17 10:08 | disposition left against medical advice (07) | DRG 770 ==
LOC: YASAS 12:50 → Y3N 16:17
PROVIDERS: ADMIT Allergy & Immunology; ATTEND Surgery
PROC: HZ2ZZZZ Detoxification Services for Substance Abuse Treatment (ICD-10-PCS; principal; 2022-02-13)
DX: F11.23 Opioid dependence with withdrawal (principal); F10.230 Alcohol dependence with withdrawal, uncomplicated; F14.20 Cocaine dependence, uncomplicated; F12.20 Cannabis dependence, uncomplicated; F17.210 Nicotine dependence, cigarettes, uncomplicated; F25.0 Schizoaffective disorder, bipolar type; F43.10 Post-traumatic stress disorder, unspecified; F41.9 Anxiety disorder, unspecified; F32.A Depression, unspecified; D50.9 Iron deficiency anemia, unspecified; B18.2 Chronic viral hepatitis C; M54.50 Low back pain, unspecified; G89.29 Other chronic pain; R56.1 Post traumatic seizures; Z62.810 Personal history of physical and sexual abuse in childhood; Z91.410 Personal history of adult physical and sexual abuse; Z86.19 Personal history of other infectious and parasitic diseases; Z88.2 Allergy status to sulfonamides
CPT/HCPCS: 36415; 80053; 81025; 85027; 86780; 87811; C9803-CS; U0003; U0005

== ENCOUNTER 2022-03-14 03:39 | Emergency (ER) | payer OTHER ==
[2022-03-14 04:16] VITALS: RESP 18; BMI 24.0
[2022-03-14 07:36] LABS: BASO % 0.2 % (0-2.0); HEMATOCRIT 34.2 % (32.4-45.2); HEMOGLOBIN 11.4 GM/dL (10.7-15.3); MCH 30.1 pg (25.7-33.7); MCHC 33.4 g/dl (32.0-36.0); MEAN CELL VOLUME 90.2 fl (80-96); MEAN PLT VOLUME 9.1 fl (7.5-11.1); NEUT % 74.8 % (42.8-82.8); PLATELET COUNT 195 10^3/uL (134-434); RBC 3.79 M/mm3 (3.60-5.2); RDW 13.9 % (11.6-15.6); WHITE BLOOD COUNT 11.3 K/mm3 (4.0-10.0)
[2022-03-14 07:57] LABS: ALBUMIN 3.7 g/dl (3.4-5.0); CALCIUM 8.9 mg/dL (8.5-10.1)
[2022-03-14 07:58] LABS: BLOOD UREA NITROGEN 15.1 mg/dL (7-18)
[2022-03-14 08:01] LABS: CREATININE 0.9 mg/dL (0.55-1.3)
[2022-03-14 08:02] LABS: BILIRUBIN,TOTAL 0.5 mg/dL (0.2-1); TOT PROT 7.2 g/dl (6.4-8.2)
[2022-03-14 08:28] LABS: URINE AMPHETAMINES NEGATIVE (NEGATIVE)
[2022-03-14 08:29] LABS: HCG,QUALITATIVE URINE Negative; METHADONE, UR NEGATIVE (NEGATIVE); PHENCYCLIDINE,URINE NEGATIVE (NEGATIVE); URINE BARBITURATES NEGATIVE (NEGATIVE)
[2022-03-14 08:35] LABS: COCAINE, UR POSITIVE (NEGATIVE); OPIATES, URI POSITIVE (NEGATIVE); URINE BENZODIAZEPINES POSITIVE (NEGATIVE)
[2022-03-14 08:46] LABS: EPI CELLS >36 /uL (0-25.1); HYALINE CASTS 11 /uL (0-3.1); PH,URINE 5.5 (5.0-8.0); URINE APPEARANCE CLOUDY; URINE BACTERIA 21 /uL (0-1359); URINE BILIRUBIN 1+ (NEGATIVE); URINE COLOR DK YELLOW; URINE GLUCOSE (UA) NEGATIVE (NEGATIVE); URINE KETONE 1+ (NEGATIVE); URINE LEUK ESTERASE NEGATIVE (NEGATIVE); URINE NITRITE NEGATIVE (NEGATIVE); URINE PROTEIN 2+ (NEGATIVE); URINE RBC 2727 /uL (0-23.9)
[2022-03-14 09:05] LABS: URINE WBC 179 /uL (0-25.8)
[2022-03-14 11:13] VITALS: TEMP 98.1
[2022-03-14 15:13] VITALS: BP 112/72; PULSE 68
== END 2022-03-14 15:16 | disposition home or self-care (01) ==
LOC: JER 03:39
DX: F31.9 Bipolar disorder, unspecified (principal); R51.9 Headache, unspecified
CPT/HCPCS: 36415; 70450-TC; 80053; 80307; 81003; 84703; 85025; 87086; 93005; 93010; 99284-25

== ENCOUNTER 2022-04-17 09:31 | Inpatient (IN) | payer OTHER ==
[2022-04-17 10:03] VITALS: BMI 23.6
[2022-04-17] MEDS ORDERED: POLYETHYLENE GLYCOL (HEALTHYLAX) 3350 17 GM PACKET PO PRN (11:00)
[2022-04-17] MEDS ORDERED: ONDANSETRON *ODT* 4 MG TABLET SL PRN (11:00)
[2022-04-17] MEDS ORDERED: BENZOCAINE/MENTHOL (CHLORASEPTIC ) LOZENGE MM PRN (11:00)
[2022-04-17] MEDS ORDERED: LOPERAMIDE HCL 2 MG CAPSULE PO PRN (11:00)
[2022-04-17] MEDS ORDERED: NALOXONE HCL (KLOXXADO) 8 MG SPRAY NS PRN (11:00)
[2022-04-17] MEDS ORDERED: DICYCLOMINE HCL 10 MG CAPSULE PO PRN (11:00)
[2022-04-17] MEDS ORDERED: IBUPROFEN 400 MG TABLET (FP) PO PRN (11:00)
[2022-04-17] MEDS ORDERED: ACETAMINOPHEN 325 MG TABLET (FP) PO PRN ×2 (11:00)
[2022-04-17] MEDS ORDERED: BISMUTH SUBSALICYLATE 262 MG/15 ML BTL PO PRN (11:00)
[2022-04-17] MEDS ORDERED: IBUPROFEN 600 MG TABLET (FP) PO PRN (11:00)
[2022-04-17] MEDS ORDERED: MAG HYDROX/AL HYDROX/SIMETH 30 ML UNIT-DOSE CUP PO PRN (11:00)
[2022-04-17] MEDS ORDERED: MAGNESIUM HYDROX 2400MG/30ML ORAL SUSPENSION 30 ML CUP PO PRN (11:00)
[2022-04-17] MEDS: diazePAM 5 MG TABLET PO PRN ×3 (13:36→22:02)
[2022-04-17] MEDS: METHOCARBAMOL 500 MG TABLET PO PRN (13:36)
[2022-04-17] MEDS ORDERED: methaDONE HCL 10 MG TABLET (FOR DETOX USE ONLY) PO ONE (14:00)
[2022-04-17 17:28] LABS: HEMATOCRIT 37.8 % (32.4-45.2); HEMOGLOBIN 12.3 GM/dL (10.7-15.3); MCH 29.8 pg (25.7-33.7); MCHC 32.6 g/dl (32.0-36.0); MEAN CELL VOLUME 91.5 fl (80-96); MEAN PLT VOLUME 9.8 fl (7.5-11.1); PLATELET COUNT 148 10^3/uL (134-434); RBC 4.13 M/mm3 (3.60-5.2); RDW 14.8 % (11.6-15.6); WHITE BLOOD COUNT 5.2 K/mm3 (4.0-10.0)
[2022-04-17 17:35] LABS: ALBUMIN 3.4 g/dl (3.4-5.0); BLOOD UREA NITROGEN 10.3 mg/dL (7-18); CALCIUM 8.6 mg/dL (8.5-10.1)
[2022-04-17 17:38] LABS: CREATININE 0.9 mg/dL (0.55-1.3)
[2022-04-17 17:40] LABS: BILIRUBIN,TOTAL 0.7 mg/dL (0.2-1); TOT PROT 6.7 g/dl (6.4-8.2)
[2022-04-17] MEDS ORDERED: MELATONIN 5 MG TABLETS PO SCH (22:00)
[2022-04-17] MEDS: THIAMINE HCL 100 MG TABLET (FP) PO SCH (22:02)
[2022-04-18] MEDS: busPIRone HCL 10 MG TABLET (FP) PO SCH ×2 (10:24→22:08)
[2022-04-18] MEDS: PRENATAL VITAMINS W/ FOLIC ACID TABLET (FP) PO SCH (10:25)
[2022-04-18] MEDS: METHOCARBAMOL 500 MG TABLET PO PRN (10:25)
[2022-04-18] MEDS: diazePAM 5 MG TABLET PO PRN ×2 (13:40→22:10)
[2022-04-18] MEDS: QUEtiapine FUMARATE 100 MG TABLET (FP) PO SCH (22:08)
[2022-04-18] MEDS: THIAMINE HCL 100 MG TABLET (FP) PO SCH (22:08)
[2022-04-18] MEDS: cloNIDine HCL 0.1 MG TABLET PO PRN (22:08)
[2022-04-18] MEDS: NICOTINE 10 MG CARTRIDGE (INHALER) IH PRN (22:22)
[2022-04-19] MEDS: diazePAM 5 MG TABLET PO PRN ×3 (06:42→22:07)
[2022-04-19] MEDS ORDERED: methaDONE HCL 10 MG TABLET (FOR DETOX USE ONLY) PO ONE (10:00)
[2022-04-19] MEDS: busPIRone HCL 10 MG TABLET (FP) PO SCH ×2 (10:33→22:06)
[2022-04-19] MEDS: cloNIDine HCL 0.1 MG TABLET PO PRN (10:33)
[2022-04-19] MEDS: PRENATAL VITAMINS W/ FOLIC ACID TABLET (FP) PO SCH (10:33)
[2022-04-19] MEDS: METHOCARBAMOL 500 MG TABLET PO PRN (10:33)
[2022-04-19] MEDS: NICOTINE 10 MG CARTRIDGE (INHALER) IH PRN (20:36)
[2022-04-19] MEDS: THIAMINE HCL 100 MG TABLET (FP) PO SCH (22:06)
[2022-04-19] MEDS: QUEtiapine FUMARATE 100 MG TABLET (FP) PO SCH (22:06)
[2022-04-20] MEDS: diazePAM 5 MG TABLET PO PRN ×2 (05:32→10:29)
[2022-04-20] MEDS ORDERED: ALBUTEROL SO4 HFA INHALER IH PRN (09:21)
[2022-04-20] MEDS ORDERED: levETIRAcetam 500 MG TABLET (FP) PO SCH (10:00)
[2022-04-20 10:01] VITALS: RESP 17
[2022-04-20] MEDS: PRENATAL VITAMINS W/ FOLIC ACID TABLET (FP) PO SCH (10:27)
[2022-04-20] MEDS: METHOCARBAMOL 500 MG TABLET PO PRN (10:28)
[2022-04-20] MEDS: busPIRone HCL 10 MG TABLET (FP) PO SCH (10:28)
[2022-04-20 17:59] VITALS: BP 120/71; PULSE 87; TEMP 98.2
[2022-04-21] MEDS ORDERED: methaDONE HCL 10 MG TABLET (FOR DETOX USE ONLY) PO ONE (10:00)
== END 2022-04-20 17:55 | disposition left against medical advice (07) | DRG 770 ==
LOC: YASAS 09:31 → Y6N 12:12
PROVIDERS: ADMIT Allergy & Immunology; ATTEND Family Medicine
PROC: HZ2ZZZZ Detoxification Services for Substance Abuse Treatment (ICD-10-PCS; principal; 2022-04-17)
DX: F11.23 Opioid dependence with withdrawal (principal); F10.230 Alcohol dependence with withdrawal, uncomplicated; F13.20 Sedative, hypnotic or anxiolytic dependence, uncomplicated; F14.20 Cocaine dependence, uncomplicated; F12.20 Cannabis dependence, uncomplicated; F17.210 Nicotine dependence, cigarettes, uncomplicated; F31.9 Bipolar disorder, unspecified; F41.9 Anxiety disorder, unspecified; R56.1 Post traumatic seizures; D50.8 Other iron deficiency anemias; J45.909 Unspecified asthma, uncomplicated; B18.2 Chronic viral hepatitis C; M54.50 Low back pain, unspecified; Z62.810 Personal history of physical and sexual abuse in childhood; Z91.410 Personal history of adult physical and sexual abuse; Z87.820 Personal history of traumatic brain injury; Z86.19 Personal history of other infectious and parasitic diseases; Z88.2 Allergy status to sulfonamides
CPT/HCPCS: 36415; 80053; 81025; 85027; 86780; 87811; C9803-CS; U0003; U0005

== ENCOUNTER 2022-11-28 16:16 | Inpatient (IN) | payer OTHER ==
[2022-11-28 17:07] VITALS: BMI 37.2
[2022-11-28] MEDS ORDERED: DICYCLOMINE HCL 10 MG CAPSULE PO PRN (18:30)
[2022-11-28] MEDS ORDERED: NALOXONE HCL 0.4 MG/ML VIAL IM PRN (18:30)
[2022-11-28] MEDS ORDERED: IBUPROFEN 600 MG TABLET (FP) PO PRN (18:30)
[2022-11-28] MEDS ORDERED: BENZOCAINE/MENTHOL (CHLORASEPTIC ) LOZENGE MM PRN (18:30)
[2022-11-28] MEDS ORDERED: POLYETHYLENE GLYCOL (HEALTHYLAX) 3350 17 GM PACKET PO PRN (18:30)
[2022-11-28] MEDS ORDERED: ACETAMINOPHEN 325 MG TABLET (FP) PO PRN (18:30)
[2022-11-28] MEDS ORDERED: BISMUTH SUBSALICYLATE 524 MG/30 ML PO PRN (18:30)
[2022-11-28] MEDS ORDERED: LOPERAMIDE HCL 2 MG CAPSULE PO PRN (18:30)
[2022-11-28] MEDS ORDERED: MAGNESIUM HYDROX 2400MG/30ML ORAL SUSPENSION 30 ML CUP PO PRN (18:30)
[2022-11-28] MEDS ORDERED: BENZONATATE 200 MG CAPSULE PO PRN (18:30)
[2022-11-28] MEDS ORDERED: NICOTINE POLACRILEX 2 MG GUM BUC PRN (18:30)
[2022-11-28] MEDS ORDERED: guaiFENesin 600 MG TABLET.ER (FP) PO PRN (18:30)
[2022-11-28] MEDS ORDERED: MAG HYDROX/AL HYDROX/SIMETH 30 ML UNIT-DOSE CUP PO PRN (18:30)
[2022-11-28] MEDS ORDERED: ONDANSETRON *ODT* 4 MG TABLET SL PRN (18:30)
[2022-11-28] MEDS ORDERED: NALOXONE HCL (KLOXXADO) 8 MG SPRAY NS PRN (18:30)
[2022-11-28] MEDS ORDERED: IBUPROFEN 400 MG TABLET (FP) PO PRN (18:30)
[2022-11-28] MEDS: hydrOXYzine PAMOATE 25 MG CAPSULE (FP) PO PRN (21:01)
[2022-11-28] MEDS: THIAMINE HCL 100 MG TABLET (FP) PO SCH (22:16)
[2022-11-28] MEDS: MELATONIN 5 MG TABLETS PO SCH (22:16)
[2022-11-28] MEDS: METHOCARBAMOL 500 MG TABLET PO PRN (22:18)
[2022-11-29] MEDS: hydrOXYzine PAMOATE 25 MG CAPSULE (FP) PO PRN ×2 (05:39→17:19)
[2022-11-29] MEDS: METHOCARBAMOL 500 MG TABLET PO PRN ×2 (05:39→17:19)
[2022-11-29] MEDS: diazePAM 5 MG TABLET PO SCH ×3 (10:04→22:34)
[2022-11-29] MEDS: PRENATAL VITAMINS W/ FOLIC ACID TABLET (FP) PO SCH (10:04)
[2022-11-29] MEDS: NICOTINE 14 MG/24 HOURS TOPICAL PATCH TD SCH (10:06)
[2022-11-29 10:33] LABS: BLOOD UREA NITROGEN 8.3 mg/dL (7-18); CALCIUM 9.2 mg/dL (8.5-10.1)
[2022-11-29 10:36] LABS: CREATININE 0.9 mg/dL (0.55-1.3)
[2022-11-29 10:52] LABS: HEMATOCRIT 40.7 % (32.4-45.2); HEMOGLOBIN 14.2 GM/dL (10.7-15.3); MEAN CELL VOLUME 88.6 fl (80-96); MEAN PLT VOLUME 9.1 fl (7.5-11.1); PLATELET COUNT 207 10^3/uL (134-434); RBC 4.59 M/mm3 (3.60-5.2); RDW 13.5 % (11.6-15.6); WHITE BLOOD COUNT 7.7 K/mm3 (4.0-10.0)
[2022-11-29] MEDS: THIAMINE HCL 100 MG TABLET (FP) PO SCH (22:34)
[2022-11-29] MEDS: MELATONIN 5 MG TABLETS PO SCH (22:34)
[2022-11-29] MEDS: QUEtiapine FUMARATE 100 MG TABLET (FP) PO SCH (22:34)
[2022-11-30] MEDS: diazePAM 5 MG TABLET PO SCH ×3 (05:59→22:04)
[2022-11-30] MEDS: PRENATAL VITAMINS W/ FOLIC ACID TABLET (FP) PO SCH (10:14)
[2022-11-30] MEDS: QUEtiapine FUMARATE 50 MG TABLET PO SCH (10:14)
[2022-11-30] MEDS: NICOTINE 14 MG/24 HOURS TOPICAL PATCH TD SCH (10:14)
[2022-11-30] MEDS: diazePAM 5 MG TABLET PO PRN ×2 (10:14→17:28)
[2022-11-30] MEDS: METHOCARBAMOL 500 MG TABLET PO PRN (17:44)
[2022-11-30] MEDS: QUEtiapine FUMARATE 100 MG TABLET (FP) PO SCH (22:03)
[2022-11-30] MEDS: MELATONIN 5 MG TABLETS PO SCH (22:03)
[2022-11-30] MEDS: THIAMINE HCL 100 MG TABLET (FP) PO SCH (22:03)
[2022-12-01] MEDS: METHOCARBAMOL 500 MG TABLET PO PRN ×3 (00:03→18:37)
[2022-12-01] MEDS: diazePAM 5 MG TABLET PO SCH ×2 (05:26→17:16)
[2022-12-01] MEDS: NICOTINE 14 MG/24 HOURS TOPICAL PATCH TD SCH (09:45)
[2022-12-01] MEDS: QUEtiapine FUMARATE 50 MG TABLET PO SCH (09:46)
[2022-12-01] MEDS: PRENATAL VITAMINS W/ FOLIC ACID TABLET (FP) PO SCH (09:46)
[2022-12-01] MEDS: diazePAM 5 MG TABLET PO PRN ×3 (09:47→22:03)
[2022-12-01] MEDS: BUPRENORPHINE/NALOXONE 8 MG/2 MG FILM PACKET SL SCH ×2 (12:46→22:02)
[2022-12-01] MEDS: hydrOXYzine PAMOATE 25 MG CAPSULE (FP) PO PRN (19:27)
[2022-12-01] MEDS: MELATONIN 5 MG TABLETS PO SCH (22:01)
[2022-12-01] MEDS: QUEtiapine FUMARATE 100 MG TABLET (FP) PO SCH (22:01)
[2022-12-01] MEDS: THIAMINE HCL 100 MG TABLET (FP) PO SCH (22:01)
[2022-12-02] MEDS: METHOCARBAMOL 500 MG TABLET PO PRN (05:32)
[2022-12-02] MEDS ORDERED: diazePAM 5 MG TABLET PO ONE (06:00)
[2022-12-02] MEDS: NICOTINE 14 MG/24 HOURS TOPICAL PATCH TD SCH (09:25)
[2022-12-02] MEDS: QUEtiapine FUMARATE 50 MG TABLET PO SCH (09:26)
[2022-12-02] MEDS: PRENATAL VITAMINS W/ FOLIC ACID TABLET (FP) PO SCH (09:26)
[2022-12-02] MEDS: BUPRENORPHINE/NALOXONE 8 MG/2 MG FILM PACKET SL SCH (09:26)
[2022-12-02 09:49] VITALS: BP 100/62; PULSE 64; RESP 20; TEMP 98.8
== END 2022-12-02 10:00 | disposition home or self-care (01) | DRG 773 ==
LOC: YASAS 16:16 → Y3N 18:50
PROVIDERS: ADMIT Allergy & Immunology; ATTEND Allergy & Immunology
PROC: HZ2ZZZZ Detoxification Services for Substance Abuse Treatment (ICD-10-PCS; principal; 2022-11-28)
DX: F11.23 Opioid dependence with withdrawal (principal); F10.230 Alcohol dependence with withdrawal, uncomplicated; F14.20 Cocaine dependence, uncomplicated; F13.20 Sedative, hypnotic or anxiolytic dependence, uncomplicated; F12.20 Cannabis dependence, uncomplicated; F17.210 Nicotine dependence, cigarettes, uncomplicated; F19.24 Other psychoactive substance dependence with psychoactive substance-induced mood disorder; F43.10 Post-traumatic stress disorder, unspecified; R56.1 Post traumatic seizures; Z62.810 Personal history of physical and sexual abuse in childhood; Z91.410 Personal history of adult physical and sexual abuse; Z87.820 Personal history of traumatic brain injury; Z88.2 Allergy status to sulfonamides; Z91.51 Personal history of suicidal behavior
CPT/HCPCS: 36415; 80053; 81025; 85027; 86780; 87635; 87811

== ENCOUNTER 2023-10-20 09:08 | Inpatient (IN) | payer OTHER ==
[2023-10-20 09:45] VITALS: BMI 38.1
[2023-10-20] MEDS ORDERED: ACETAMINOPHEN 325 MG TABLET (FP) PO PRN (10:17)
[2023-10-20] MEDS ORDERED: IBUPROFEN 600 MG TABLET (FP) PO PRN (10:17)
[2023-10-20] MEDS ORDERED: BISMUTH SUBSALICYLATE 262 MG/15 ML BTL PO PRN (10:17)
[2023-10-20] MEDS ORDERED: DICYCLOMINE HCL 10 MG CAPSULE PO PRN (10:17)
[2023-10-20] MEDS ORDERED: ONDANSETRON *ODT* 4 MG TABLET SL PRN (10:17)
[2023-10-20] MEDS ORDERED: POLYETHYLENE GLYCOL (HEALTHYLAX) 3350 17 GM PACKET PO PRN (10:17)
[2023-10-20] MEDS ORDERED: NICOTINE POLACRILEX 2 MG GUM BUC PRN (10:17)
[2023-10-20] MEDS ORDERED: guaiFENesin 600 MG TABLET.ER (FP) PO PRN (10:17)
[2023-10-20] MEDS ORDERED: BENZOCAINE/MENTHOL (CHLORASEPTIC ) LOZENGE MM PRN (10:17)
[2023-10-20] MEDS ORDERED: NALOXONE HCL 0.4 MG/ML VIAL IM PRN (10:17)
[2023-10-20] MEDS ORDERED: LOPERAMIDE HCL 2 MG CAPSULE PO PRN (10:17)
[2023-10-20] MEDS ORDERED: MAG HYDROX/AL HYDROX/SIMETH 30 ML UNIT-DOSE CUP PO PRN (10:17)
[2023-10-20] MEDS ORDERED: NALOXONE (NARCAN) HCL 4 MG/0.1 ML SPRAY NS PRN (10:17)
[2023-10-20] MEDS ORDERED: NICOTINE POLACRILEX 2 MG LOZENGE BC PRN (10:17)
[2023-10-20] MEDS ORDERED: BENZONATATE 200 MG CAPSULE PO PRN (10:17)
[2023-10-20] MEDS ORDERED: IBUPROFEN 400 MG TABLET (FP) PO PRN (10:17)
[2023-10-20] MEDS ORDERED: ALBUTEROL SO4 HFA INHALER IH PRN (10:53)
[2023-10-20] MEDS ORDERED: diazePAM 5 MG TABLET ONE (11:16)
[2023-10-20] MEDS ORDERED: PRENATAL VITAMINS W/ FOLIC ACID TABLET (FP) PO ONE (11:16)
[2023-10-20] MEDS ORDERED: NICOTINE 7 MG/24 HOURS TOPICAL PATCH TD ONE (11:16)
[2023-10-20] MEDS: diazePAM 5 MG TABLET PO SCH (11:19)
[2023-10-20] MEDS: NICOTINE 7 MG/24 HOURS TOPICAL PATCH TD SCH (11:19)
[2023-10-20] MEDS: PRENATAL VITAMINS W/ FOLIC ACID TABLET (FP) PO SCH (11:19)
[2023-10-20 19:04] LABS: HIV INTERPRETATION NEGATIVE (NEGATIVE)
[2023-10-20] MEDS: THIAMINE 100 MG TABLET PO SCH (22:24)
[2023-10-20] MEDS: METHOCARBAMOL 500 MG TABLET PO PRN (22:24)
[2023-10-20] MEDS: MELATONIN 5 MG TABLETS PO SCH (22:24)
[2023-10-21] MEDS ORDERED: ALBUTEROL SO4 HFA INHALER IH PRN ×2 (07:59→08:33)
[2023-10-21] MEDS ORDERED: NALOXONE (NARCAN) HCL 4 MG/0.1 ML SPRAY NS PRN (07:59)
[2023-10-21] MEDS: diazePAM 5 MG TABLET PO PRN (08:38)
[2023-10-21] MEDS: hydrOXYzine PAMOATE 25 MG CAPSULE (FP) PO PRN (08:38)
[2023-10-21] MEDS: GABAPENTIN 300 MG CAPSULE PO SCH (09:45)
[2023-10-21] MEDS: propRANOLol HCL 10 MG TABLET PO SCH (09:45)
[2023-10-21] MEDS: PATIENT'S OWN MEDICATION (NON-FORMULARY) (Glecaprevir/Pibrentasvir [Mavyret 100-40 Mg Tabl PO SCH (09:46)
[2023-10-21] MEDS: BUPRENORPHINE/NALOXONE 8 MG/2 MG FILM PACKET SL SCH (09:46)
[2023-10-21] MEDS ORDERED: ATOMOXETINE HCL 40 MG CAPSULE PO SCH (10:00)
[2023-10-21 10:25] LABS: HEMATOCRIT 36.5 % (32.4-45.2); HEMOGLOBIN 12.3 GM/dL (10.7-15.3); MCHC 33.8 g/dl (32.0-36.0); MEAN CELL VOLUME 94.8 fl (80-96); MEAN PLT VOLUME 9.8 fl (7.5-11.1); PLATELET COUNT 163 10^3/uL (134-434); RBC 3.85 M/mm3 (3.60-5.2); RDW 13.8 % (11.6-15.6); WHITE BLOOD COUNT 10.1 K/mm3 (4.0-10.0)
[2023-10-21 11:38] LABS: POTASSIUM 3.9 mmol/L (3.5-5.1)
[2023-10-21 11:47] LABS: CALCIUM 8.9 mg/dL (8.5-10.1)
[2023-10-21 11:48] LABS: ALBUMIN 3.3 g/dl (3.4-5.0); BLOOD UREA NITROGEN 7.8 mg/dL (7-18)
[2023-10-21 11:50] LABS: CREATININE 0.7 mg/dL (0.55-1.3)
[2023-10-21 11:51] LABS: BILIRUBIN,TOTAL 0.6 mg/dL (0.2-1); TOT PROT 6.8 g/dl (6.4-8.2)
[2023-10-21] MEDS: ALBUTEROL SO4 0.083% IH SOL 2.5 MG/3 ML VIAL.NEB. NEB SCH (12:05)
[2023-10-21] MEDS: QUEtiapine FUMARATE 400 MG TABLET PO SCH (21:21)
[2023-10-22] MEDS: diazePAM 5 MG TABLET PO SCH (05:44)
[2023-10-23] MEDS: diazePAM 5 MG TABLET PO SCH (05:55)
[2023-10-23] MEDS ORDERED: ALBUTEROL SO4 0.083% IH SOL 2.5 MG/3 ML VIAL.NEB. NEB PRN (10:01)
[2023-10-23] MEDS: METHOCARBAMOL 500 MG TABLET PO PRN (21:08)
[2023-10-24] MEDS: diazePAM 5 MG TABLET PO ONE (05:37)
[2023-10-24] MEDS: hydrOXYzine PAMOATE 50 MG CAPSULE (FP) PO PRN (17:23)
[2023-10-25 09:23] VITALS: RESP 20
[2023-10-25] MEDS: MAGNESIUM HYDROX 2400MG/30ML ORAL SUSPENSION 30 ML CUP PO PRN (09:52)
[2023-10-25] MEDS: SENNOSIDES 8.6MG TABLET (FP) PO SCH (11:48)
[2023-10-25 13:06] VITALS: BP 120/76; PULSE 60; TEMP 97.5
[2023-10-25] MEDS ORDERED: DOCUSATE SODIUM 100 MG CAPSULE (FP) PO SCH (22:00)
== END 2023-10-25 15:47 | disposition other institution (70) | DRG 773 ==
LOC: YASAS 09:08 → Y3N 10:55
PROVIDERS: ADMIT Allergy & Immunology; ATTEND Surgery
PROC: HZ2ZZZZ Detoxification Services for Substance Abuse Treatment (ICD-10-PCS; principal; 2023-10-20)
DX: F10.230 Alcohol dependence with withdrawal, uncomplicated (principal); F11.20 Opioid dependence, uncomplicated; F13.230 Sedative, hypnotic or anxiolytic dependence with withdrawal, uncomplicated; F14.20 Cocaine dependence, uncomplicated; F12.20 Cannabis dependence, uncomplicated; F17.210 Nicotine dependence, cigarettes, uncomplicated; F31.9 Bipolar disorder, unspecified; F19.282 Other psychoactive substance dependence with psychoactive substance-induced sleep disorder; F41.9 Anxiety disorder, unspecified; Z62.810 Personal history of physical and sexual abuse in childhood; Z91.410 Personal history of adult physical and sexual abuse; Z63.8 Other specified problems related to primary support group; Z86.19 Personal history of other infectious and parasitic diseases; Z88.2 Allergy status to sulfonamides
CPT/HCPCS: 36415; 80053; 80305; 80307; 81025; 85027; 86780; 86803; 87389; 87522; 90832; 90853; 93005; 93010; 94640

== ENCOUNTER 2023-10-25 15:52 | Inpatient (IN) | payer OTHER ==
[2023-10-25 16:07] VITALS: BMI 38.1
[2023-10-25] MEDS ORDERED: BENZOCAINE/MENTHOL (CHLORASEPTIC ) LOZENGE MM PRN (16:31)
[2023-10-25] MEDS ORDERED: guaiFENesin 600 MG TABLET.ER (FP) PO PRN (16:31)
[2023-10-25] MEDS ORDERED: ACETAMINOPHEN 325 MG TABLET (FP) PO PRN (16:31)
[2023-10-25] MEDS ORDERED: LOPERAMIDE HCL 2 MG CAPSULE PO PRN (16:31)
[2023-10-25] MEDS ORDERED: BENZONATATE 200 MG CAPSULE PO PRN (16:31)
[2023-10-25] MEDS ORDERED: NALOXONE HCL 0.4 MG/ML VIAL IM PRN (16:31)
[2023-10-25] MEDS ORDERED: IBUPROFEN 400 MG TABLET (FP) PO PRN (16:31)
[2023-10-25] MEDS ORDERED: POLYETHYLENE GLYCOL (HEALTHYLAX) 3350 17 GM PACKET PO PRN (16:31)
[2023-10-25] MEDS ORDERED: MAG HYDROX/AL HYDROX/SIMETH 30 ML UNIT-DOSE CUP PO PRN (16:31)
[2023-10-25] MEDS ORDERED: NALOXONE (NARCAN) HCL 4 MG/0.1 ML SPRAY NS PRN (16:31)
[2023-10-25] MEDS ORDERED: ALBUTEROL SO4 HFA INHALER IH PRN (18:55)
[2023-10-25] MEDS: DOCUSATE SODIUM 100 MG CAPSULE (FP) PO SCH (21:08)
[2023-10-25] MEDS: propRANOLol HCL 10 MG TABLET PO SCH (21:09)
[2023-10-25] MEDS: BUPRENORPHINE/NALOXONE 8 MG/2 MG FILM PACKET SL SCH (21:09)
[2023-10-25] MEDS: MELATONIN 5 MG TABLETS PO SCH (21:09)
[2023-10-25] MEDS: THIAMINE 100 MG TABLET PO SCH (21:09)
[2023-10-25] MEDS: QUEtiapine FUMARATE 400 MG TABLET PO ONE (21:43)
[2023-10-26 09:04] LABS: HEMATOCRIT 34.3 % (32.4-45.2); MCH 32.5 pg (25.7-33.7); MCHC 34.9 g/dl (32.0-36.0); MEAN CELL VOLUME 93.3 fl (80-96); MEAN PLT VOLUME 8.9 fl (7.5-11.1); PLATELET COUNT 179 10^3/uL (134-434); RBC 3.68 M/mm3 (3.60-5.2); RDW 13.8 % (11.6-15.6); WHITE BLOOD COUNT 6.1 K/mm3 (4.0-10.0)
[2023-10-26 09:05] LABS: CHLORIDE 105 mmol/L (98-107); SODIUM 141 mmol/L (136-145)
[2023-10-26 09:08] LABS: CALCIUM 8.6 mg/dL (8.5-10.1)
[2023-10-26 09:10] LABS: ALBUMIN 3.2 g/dl (3.4-5.0); ANION GAP 4 mmol/L (4-13); BLOOD UREA NITROGEN 10.6 mg/dL (7-18); CO2 32 mmol/L (21-32); GLUCOSE,RANDOM 112 mg/dL (74-106)
[2023-10-26 09:12] LABS: CREATININE 0.8 mg/dL (0.55-1.3); SGOT/AST 14 U/L (15-37); SGPT/ALT 12 U/L (13-61)
[2023-10-26 09:13] LABS: BILIRUBIN,TOTAL 0.3 mg/dL (0.2-1); TOT PROT 6.4 g/dl (6.4-8.2)
[2023-10-26 09:15] LABS: ALK PHOS 102 U/L (45-117)
[2023-10-26] MEDS: PRENATAL VITAMINS W/ FOLIC ACID TABLET (FP) PO SCH (09:24)
[2023-10-26] MEDS: SENNOSIDES 8.6MG TABLET (FP) PO SCH (09:24)
[2023-10-26 10:33] LABS: SYPHILIS W/ RPR CONF NON-REACTIVE (NONREACTIVE)
[2023-10-26 13:51] LABS: EPI CELLS >36 /uL (0-25.1); HYALINE CASTS 10 /uL (0-3.1); URINE APPEARANCE CLOUDY; URINE BACTERIA 1920 /uL (0-1359); URINE BILIRUBIN NEGATIVE (NEGATIVE); URINE COLOR YELLOW; URINE GLUCOSE (UA) NEGATIVE (NEGATIVE); URINE KETONE TRACE (NEGATIVE); URINE LEUK ESTERASE TRACE (NEGATIVE); URINE NITRITE NEGATIVE (NEGATIVE); URINE PROTEIN TRACE (NEGATIVE); URINE RBC 14 /uL (0-23.9); URINE WBC 74 /uL (0-25.8)
[2023-10-26] MEDS: QUEtiapine FUMARATE 400 MG TABLET PO SCH (21:29)
[2023-10-26] MEDS: IBUPROFEN 600 MG TABLET (FP) PO PRN (21:29)
[2023-10-26] MEDS: hydrOXYzine PAMOATE 25 MG CAPSULE (FP) PO PRN (21:33)
[2023-10-26] MEDS: METHOCARBAMOL 500 MG TABLET PO PRN (21:33)
[2023-10-26] MEDS: MAGNESIUM HYDROX 2400MG/30ML ORAL SUSPENSION 30 ML CUP PO PRN (21:35)
[2023-10-26] MEDS ORDERED: GABAPENTIN 300 MG CAPSULE PO SCH (22:00)
[2023-10-27] MEDS: GABAPENTIN 300 MG CAPSULE PO SCH (10:24)
[2023-10-29] MEDS: TUBERCULIN PPD 5 TU/0.1ML VIAL ID ONE (11:56)
[2023-11-02 06:44] VITALS: BP 121/65; PULSE 67; RESP 148; TEMP 96.9
[2023-11-02] MEDS: BUPRENORPHINE/NALOXONE 8 MG/2 MG FILM PACKET SL ONE (09:12)
== END 2023-11-02 09:20 | disposition home or self-care (01) | DRG 772 ==
LOC: YASAS 15:52 → Y3NR 15:54 → Y5N 10-29 13:04
PROVIDERS: ADMIT Allergy & Immunology; ATTEND Psychiatry & Neurology Pain Medicine
PROC: HZ42ZZZ Group Counseling for Substance Abuse Treatment, Cognitive-Behavioral (ICD-10-PCS; principal; 2023-10-25)
DX: F13.20 Sedative, hypnotic or anxiolytic dependence, uncomplicated (principal); F11.20 Opioid dependence, uncomplicated; F14.20 Cocaine dependence, uncomplicated; F17.210 Nicotine dependence, cigarettes, uncomplicated; F51.01 Primary insomnia; F19.94 Other psychoactive substance use, unspecified with psychoactive substance-induced mood disorder; F41.1 Generalized anxiety disorder; J45.909 Unspecified asthma, uncomplicated; G40.909 Epilepsy, unspecified, not intractable, without status epilepticus; Z62.810 Personal history of physical and sexual abuse in childhood; Z86.19 Personal history of other infectious and parasitic diseases; Z91.198 Patient's noncompliance with other medical treatment and regimen for other reason; Z91.51 Personal history of suicidal behavior; Z56.0 Unemployment, unspecified
CPT/HCPCS: 36415; 80053; 80307; 81003; 85027; 86780; 86803; 87522; 87811